=== PATIENT | male | born 1960 | race Caucasian/White ===

== ENCOUNTER 2017-09-14 05:21 | Emergency (ER) | payer MEDICARE, MEDICAID ==
[~2017-09-14] VITALS: Ht 190.5 cm; Wt 68.1 kg
[~2017-09-14 05:21] MED LIST: LEVO112T52 PO; LIDO20SO TOP; LISI10TA4 PO; MYCO360T PO; OMEP-84 PO; PER10325T PO; PHEN30TA41 PO; TACR1CAP2 PO
[2017-09-14] MEDS ORDERED: HYDROcodone/acetaminophen 10/325mg tab PO STA (05:55)
[2017-09-14] MEDS ORDERED: morphine 4 MG/ML inj SYRINge IM ONE (06:35)
[2017-09-14] MEDS ORDERED: HYDROmorphone 1 mg/ml syringe IM ONE ×2 (06:35→07:50)
[2017-09-14 09:59] LABS: BASOPHILS % (AUTO) 0.4 % (0-1); EOSINOPHILS % (AUTO) 0.7 % (0-6); HEMATOCRIT 40.2 % (42.0-52.0); HEMOGLOBIN 13.8 g/dl (14.0-17.9); LYMPHOCYTES # (AUTO) 1.2 X10'3 (1.1-4.8); LYMPHOCYTES % (AUTO) 38.2 % (21-51); MEAN CORPUSCULAR HEMOGLOBIN 32.7 PG (27.0-31.0); MEAN CORPUSCULAR HGB CONC 34.3 % (33.0-36.5); MEAN CORPUSCULAR VOLUME 95.3 FL (78-98); MEAN PLATELET VOLUME 7.7 FL (7.4-10.4); MONOCYTES # (AUTO) 0.3 X10'3 (0-0.9); NEUTROPHILS # (AUTO) 1.5 X10'3 (1.8-7.7); NEUTROPHILS % (AUTO) 49.7 % (42-75); PLATELET COUNT 69 X10'3 (140-440); RED BLOOD COUNT 4.22 X10'6 (4.70-6.10); RED CELL DISTRIBUTION WIDTH 14.8 % (11.5-14.5); WHITE BLOOD COUNT 3.1 X10'3 (4.5-11.0)
[2017-09-14 10:00] LABS: ALANINE AMINOTRANSFERASE 23 U/L (12-78); ALBUMIN 3.9 G/DL (3.4-5.0); ALBUMIN/GLOBULIN RATIO 1.7 (1.1-1.5); ALKALINE PHOSPHATASE 49 IU/L (46-116); ANION GAP 6 (8-16); ASPARTATE AMINO TRANSFERASE 18 U/L (10-37); BILIRUBIN,TOTAL 0.8 MG/DL (0.1-1.0); BLOOD UREA NITROGEN 16 MG/DL (7-18); BUN/CREATININE RATIO 15.8 (5.4-32.0); CALCIUM 8.4 MG/DL (8.5-10.1); CHLORIDE 98 MMOL/L (99-107); CREATININE 1.01 MG/DL (0.60-1.10); GLUCOSE 89 MG/DL (70-104); POTASSIUM 4.2 MMOL/L (3.5-5.1); SODIUM 131 MMOL/L (135-145); TOTAL CARBON DIOXIDE 26.8 MMOL/L (24-32); TOTAL PROTEIN 6.2 G/DL (6.4-8.2); eGFR 76 ML/MIN
[2017-09-14] MEDS ORDERED: PRED5TAB PO (10:05)
[2017-09-14] MEDS ORDERED: tacrolimus anhydrous 1mg capsule PO SCH (10:15)
[2017-09-14] MEDS ORDERED: phenobarbital 30mg tablet PO ONE (10:15)
[2017-09-14] MEDS ORDERED: HYDROmorphone 1 mg/ml syringe IV ONE ×3 (11:25→18:05)
[2017-09-14] MEDS ORDERED: HYDROcodone/acetaminophen 10/325mg tab PO ONE (14:00)
[2017-09-14 18:09] VITALS: BP 179/71
== END 2017-09-14 19:00 | disposition short-term general hospital (02) ==
LOC: ER 05:21
DX: S82.832A Other fracture of upper and lower end of left fibula, initial encounter for closed fracture (principal); S82.392A Other fracture of lower end of left tibia, initial encounter for closed fracture; I48.91 Unspecified atrial fibrillation; E78.00 Pure hypercholesterolemia, unspecified; I10 Essential (primary) hypertension; J44.9 Chronic obstructive pulmonary disease, unspecified; K21.9 Gastro-esophageal reflux disease without esophagitis; E11.9 Type 2 diabetes mellitus without complications; G89.29 Other chronic pain; M81.0 Age-related osteoporosis without current pathological fracture; Z98.890 Other specified postprocedural states; Z88.5 Allergy status to narcotic agent; Z79.899 Other long term (current) drug therapy; Z85.9 Personal history of malignant neoplasm, unspecified; W05.0XXA Fall from non-moving wheelchair, initial encounter; Y93.89 Activity, other specified; Y92.89 Other specified places as the place of occurrence of the external cause; Y99.8 Other external cause status
CPT/HCPCS: 29515; 36415; 73590; 80053; 85025; 96372; 96374; 96376; 99285; A6257; J1170; J7507

== ENCOUNTER 2018-02-23 14:45 | Emergency (ER) | payer MEDICARE, MEDICAID ==
[~2018-02-23] VITALS: Ht 190.5 cm; Wt 65.0 kg
[~2018-02-23 14:45] MED LIST changes: -LIDO20SO TOP; -PER10325T PO; +PRED5TAB PO
[2018-02-23 14:48] VITALS: BP 167/80
[2018-02-23] MEDS ORDERED: morphine 4 MG/ML inj SYRINge IM ONE (16:00)
== END 2018-02-23 16:51 | disposition home or self-care (01) ==
LOC: ER 14:46
DX: M25.552 Pain in left hip (principal); I48.91 Unspecified atrial fibrillation; E78.00 Pure hypercholesterolemia, unspecified; I10 Essential (primary) hypertension; J44.9 Chronic obstructive pulmonary disease, unspecified; K21.9 Gastro-esophageal reflux disease without esophagitis; E11.9 Type 2 diabetes mellitus without complications; G89.29 Other chronic pain; M81.0 Age-related osteoporosis without current pathological fracture; Z98.890 Other specified postprocedural states; Z79.899 Other long term (current) drug therapy; W05.0XXA Fall from non-moving wheelchair, initial encounter; Y93.89 Activity, other specified; Y92.89 Other specified places as the place of occurrence of the external cause; Y99.8 Other external cause status
CPT/HCPCS: 73502; 73551; 96372; 99284; J2270

== ENCOUNTER 2018-03-17 12:23 | Emergency (ER) | payer MEDICARE, MEDICAID ==
[~2018-03-17] VITALS: Ht 190.5 cm; Wt 61.0 kg
[2018-03-17 12:30] VITALS: BP 139/78
[2018-03-17] MEDS ORDERED: normal saline 1000ML IV soln IVB ONE (12:35)
== END 2018-03-17 18:00 | disposition left against medical advice (07) ==
LOC: ER 12:23
DX: R32 Unspecified urinary incontinence (principal); R25.2 Cramp and spasm; R35.0 Frequency of micturition; I10 Essential (primary) hypertension; I48.91 Unspecified atrial fibrillation; E11.9 Type 2 diabetes mellitus without complications; E78.00 Pure hypercholesterolemia, unspecified; J44.9 Chronic obstructive pulmonary disease, unspecified; K21.9 Gastro-esophageal reflux disease without esophagitis; G89.29 Other chronic pain; M81.0 Age-related osteoporosis without current pathological fracture; E07.9 Disorder of thyroid, unspecified; Z79.899 Other long term (current) drug therapy; Z87.440 Personal history of urinary (tract) infections; Z87.19 Personal history of other diseases of the digestive system; Z94.0 Kidney transplant status; Z94.83 Pancreas transplant status; Z98.890 Other specified postprocedural states
CPT/HCPCS: 99281; J7030; 99283

== ENCOUNTER 2018-04-13 13:50 | Emergency (ER) | payer MEDICARE, MEDICAID ==
[~2018-04-13] VITALS: Ht 190.5 cm; Wt 73.0 kg
[2018-04-13] MEDS ORDERED: normal saline 1000ML IV soln IVB STA (14:06)
--- NOTE | 2018-04-13 14:09 | NUR ---
NOTIFIED DR TRUJILLO PT REPORTS INCREASED WORK OF BREATHING, UNABLE TO SWALLOW LIQUIDS. PT CURRENTLY ABLE TO SWALLOW SALIVA. AIRWAY IS PATENT, VITALS ARE STABLE. PT SPO2 99%. PROVIDER INSTRUCTED NO MEDICATIONS GIVEN BY EMS. NO ORDERS GIVEN BY DR TRUJILLO.
[2018-04-13] MEDS ORDERED: diphenhydrAMINE 50 mg/ml inj IV ONE (14:10)
[2018-04-13] MEDS ORDERED: methylPREDNISolone sod succ 125mg/2ml vial IV ONE (14:10)
[2018-04-13] MEDS ORDERED: famotidine/PF 10 mg/ml inj IV ONE (14:10)
[2018-04-13] MEDS ORDERED: morphine 4 MG/ML inj SYRINge IV ONE ×3 (14:25→16:20)
[2018-04-13] MEDS ORDERED: ondansetron/PF 4mg/2ml inj IV ONE (14:25)
[2018-04-13 15:05] LABS: BASOPHILS % (AUTO) 0.3 % (0-1); EOSINOPHILS % (AUTO) 0.8 % (0-6); HEMATOCRIT 42.3 % (42.0-52.0); HEMOGLOBIN 13.9 g/dl (14.0-17.9); LYMPHOCYTES % (AUTO) 36.2 % (21-51); MEAN CORPUSCULAR HGB CONC 32.9 g/dL (33.0-36.5); MEAN CORPUSCULAR VOLUME 91.1 FL (78-98); MEAN PLATELET VOLUME 7.8 FL (7.4-10.4); MONOCYTES # (AUTO) 0.3 X10'3 (0-0.9); MONOCYTES % (AUTO) 9.8 % (2-12); NEUTROPHILS # (AUTO) 1.4 X10'3 (1.8-7.7); NEUTROPHILS % (AUTO) 52.9 % (42-75); PLATELET COUNT 102 X10'3 (140-440); RED BLOOD COUNT 4.64 X10'6 (4.70-6.10); RED CELL DISTRIBUTION WIDTH 19.4 % (11.5-14.5); WHITE BLOOD COUNT 2.7 X10'3 (4.5-11.0)
[2018-04-13 15:19] LABS: ALANINE AMINOTRANSFERASE 22 U/L (12-78); ALBUMIN 3.7 G/DL (3.4-5.0); ALBUMIN/GLOBULIN RATIO 1.3 (1.1-1.5); ALKALINE PHOSPHATASE 75 IU/L (46-116); ANION GAP 9 (8-16); ASPARTATE AMINO TRANSFERASE 20 U/L (10-37); BILIRUBIN,TOTAL 0.5 MG/DL (0.1-1.0); BLOOD UREA NITROGEN 7 MG/DL (7-18); BUN/CREATININE RATIO 12.3 (5.4-32.0); CALCIUM 8.9 MG/DL (8.5-10.1); CHLORIDE 102 MMOL/L (99-107); CREATININE 0.57 MG/DL (0.60-1.10); GLUCOSE 102 MG/DL (70-104); POTASSIUM 4.3 MMOL/L (3.5-5.1); SODIUM 135 MMOL/L (135-145); TOTAL CARBON DIOXIDE 23.6 MMOL/L (24-32); TOTAL PROTEIN 6.6 G/DL (6.4-8.2); eGFR > 90 ML/MIN
[2018-04-13 15:24] LABS: INR 1.1 INR; PROTHROMBIN TIME 10.8 SECONDS (9.0-12.0)
[2018-04-13] MEDS ORDERED: iohexol 350MG/ML 100ml bottle IV ONE (15:43)
[2018-04-13 15:45] LABS: TOTAL CELLS COUNTED 100
[2018-04-13 15:46] LABS: ANISOCYTOSIS 1+; PLATELET ESTIMATE DECREASED
--- NOTE | 2018-04-13 15:49 | NUR ---
UPDATED PT VITAL SIGNS, PT REPORTS 7/10 PAIN. PT GOING TO CT PER ORDERS NOW. NOTIFIED DR TRUJILLO OF PT PAIN LEVEL AND BP 208/119. DR TRUJILLO TO REVIEW AND DETERMINE ORDERS.
--- NOTE | 2018-04-13 16:14 | NUR ---
DR TRUJILLO INFORMED PT IS BACK FROM CT AND ASKING FOR MORE PAIN MEDICATION, RECEIVED VERBAL ORDER 4 MG IV MORPHINE ONCE NOW.
--- NOTE | 2018-04-13 16:23 | NUR ---
MEDICATED PT WITH PAIN MEDICATIONS PER ORDERS, DISGARDED URINE FROM URINAL AND PLACED BACK AT BEDSIDE. PT ASKING FOR SALT GARGLE OR SOMETHING TO HAVE WITH SORE THROAT WILL ASK DR TRUJILLO
--- NOTE | 2018-04-13 17:19 | NUR ---
[facility]: denied PT- closed for transfers Luis Carlos: denied PT- closed for transfers Currently working with MICHAEL pierre for transfer.
[2018-04-13] MEDS ORDERED: CefTRIAXone/D5W-Rocephin 1gm 50 ML IV ONE (17:25)
[2018-04-13] MEDS ORDERED: vancomycin/NS 1 GM ADD-VANTAGE 250 ML IV ONE (17:25)
--- NOTE | 2018-04-13 17:29 | NUR ---
[facility] DECLINED PT DUE TO NO BEDS.
--- NOTE | 2018-04-13 17:33 | NUR ---
[facility] declined PT- closed to anything besides stemi/stroke/ transplant.
[2018-04-13] MEDS ORDERED: labetalol 20mg/4ml (5mg/ml) syringe IV ONE ×2 (17:35→20:10)
[2018-04-13] MEDS ORDERED: HYDROmorphone inj. 0.5 MG/0.5 ML DISP.SYRIN IV ONE ×2 (17:55→20:00)
--- NOTE | 2018-04-13 19:21 | NUR ---
pt awaiting transport via ground - pear picker 2000
[2018-04-13 20:49] VITALS: BP 170/117
[2018-04-13] MEDS ORDERED: HYDROmorphone inj. 0.5 MG/0.5 ML DISP.SYRIN IM ONE ×2 (20:55→21:00)
== END 2018-04-13 20:55 | disposition short-term general hospital (02) ==
LOC: ER 13:51
DX: J38.7 Other diseases of larynx (principal); I10 Essential (primary) hypertension; I48.91 Unspecified atrial fibrillation; E78.00 Pure hypercholesterolemia, unspecified; J44.9 Chronic obstructive pulmonary disease, unspecified; K21.9 Gastro-esophageal reflux disease without esophagitis; E11.9 Type 2 diabetes mellitus without complications; M81.0 Age-related osteoporosis without current pathological fracture; G89.29 Other chronic pain; Z94.0 Kidney transplant status; Z98.890 Other specified postprocedural states; Z87.891 Personal history of nicotine dependence; Z79.899 Other long term (current) drug therapy
CPT/HCPCS: 36415; 70491; 80053; 82948; 85025; 85610; 96365; 96366; 96367; 96372; 96375; 96376; 99291; J0696; J1170; J1200; J2270; J2405; J2930; J3370; J3490; J7030; Q9967

== ENCOUNTER 2018-09-10 12:04 | Observation (INO) | payer MEDICARE, MEDICAID ==
[~2018-09-10] VITALS: Ht 190.5 cm; Wt 52.3 kg
[2018-09-10] MEDS ORDERED: normal saline 1000ML IV soln IV ONE (12:15)
[2018-09-10 12:27] LABS: BASOPHILS % (AUTO) 0.3 % (0-1); EOSINOPHILS # (AUTO) 0.1 X10'3 (0-0.9); EOSINOPHILS % (AUTO) 1.8 % (0-6); HEMOGLOBIN 13.5 g/dl (14.0-17.9); LYMPHOCYTES # (AUTO) 1.1 X10'3 (1.1-4.8); LYMPHOCYTES % (AUTO) 25.9 % (21-51); MEAN CORPUSCULAR VOLUME 93.8 FL (78-98); MEAN PLATELET VOLUME 7.5 FL (7.4-10.4); MONOCYTES # (AUTO) 0.5 X10'3 (0-0.9); MONOCYTES % (AUTO) 11.8 % (2-12); NEUTROPHILS # (AUTO) 2.5 X10'3 (1.8-7.7); NEUTROPHILS % (AUTO) 60.2 % (42-75); PLATELET COUNT 93 X10'3 (140-440); RED BLOOD COUNT 4.37 X10'6 (4.70-6.10); RED CELL DISTRIBUTION WIDTH 16.3 % (11.5-14.5); WHITE BLOOD COUNT 4.1 X10'3 (4.5-11.0)
[2018-09-10 12:36] LABS: PARTIAL THROMBOPLASTIN TIME 41 SECONDS (22-32)
[2018-09-10 12:40] LABS: ALANINE AMINOTRANSFERASE 17 U/L (12-78); ALBUMIN 2.9 G/DL (3.4-5.0); ALKALINE PHOSPHATASE 89 IU/L (46-116); ANION GAP 11 (8-16); ASPARTATE AMINO TRANSFERASE 18 U/L (10-37); BILIRUBIN,TOTAL 0.7 MG/DL (0.1-1.0); BLOOD UREA NITROGEN 5 MG/DL (7-18); BUN/CREATININE RATIO 6.8 (5.4-32.0); CALCIUM 8.2 MG/DL (8.5-10.1); CHLORIDE 103 MMOL/L (99-107); CREATININE 0.73 MG/DL (0.60-1.10); ETHANOL < 0.010 GM/DL (0.0-0.010); GLUCOSE 96 MG/DL (70-104); POTASSIUM 4.4 MMOL/L (3.5-5.1); SODIUM 137 MMOL/L (135-145); TOTAL CARBON DIOXIDE 23.5 MMOL/L (24-32); TOTAL PROTEIN 5.8 G/DL (6.4-8.2); eGFR > 90 ML/MIN
[2018-09-10 12:42] LABS: LACTIC SEPSIS 1.4 MMOL/L (0.4-2.0)
[2018-09-10 13:11] LABS: CLARITY,URINE CLEAR (Clear); GLUCOSE, URINE NEGATIVE (Neg); KETONES,URINE 15 mg/dl (Neg); LEUKOCYTE ESTERASE ,URINE NEGATIVE (Neg); NITRITES, URINE NEGATIVE (Neg); OCCULT BLOOD,URINE NEGATIVE (Neg); PROTEIN,URINE NEGATIVE (Neg); UROBILINOGEN,URINE >=8.0 E.U/dL (0.2-1.0)
[2018-09-10 13:13] LABS: COLOR,URINE DARK YELLOW (Yellow); UA COLLECTION TYPE FOLEY CATH
--- NOTE | 2018-09-10 13:28 | NUR ---
EMS WAS UNABLE TO BRING PT'S MOTORIZED SKOOTER TO THE ED, THE SKOOTER IS AT [facility]. I CONTACTED [facility] ([phone]) AND THEY SAID THAT THE SKOOTER CHAIR IS SAFE AND THEY CAN STORE IT UNTIL PT CAN ARRANGE RADIO EQUIPMENT INSTALLER. PT IS UNABLE TO ARANGE RADIO EQUIPMENT INSTALLER AT THIS TIME BUT HE IS AWARE OF THE SKOOTERS LOCATION. [facility] IS OPEN UNTIL 3PM TODAY AND WILL BE CLOSED FOR THE WEEKEND. IF PT IS UNABLE TO HAVE IT PICKED UP TODAY HE WON'T BE ABLE TO GET IT UNTIL WEDNESDAY.
[2018-09-10 13:29] LABS: URINE AMPHETAMINE SCREEN NEGATIVE (Neg); URINE BARBITUATE SCREEN POSITIVE (Neg); URINE BENZODIAZEPINES SCREEN NEGATIVE (Neg); URINE CANNABINOID SCREEN POSITIVE (Neg); URINE COCAINE SCREEN NEGATIVE (Neg); URINE METHADONE SCREEN NEGATIVE (Neg); URINE OPIATE SCREEN POSITIVE (Neg); URINE PHENCYCLIDINE SCREEN NEGATIVE (Neg)
--- NOTE | 2018-09-10 13:31 | NUR ---
pt wheelchair is locked up at local [employer]. informed pt he can pick it up before 3pm today or on wednesday. pt arrived w/ hat, keys, coffee mug, glasses, pants, shoes, right prosthesis, and shirt.
[2018-09-10] MEDS ORDERED: normal saline 1000ml 1,000 ML IV SCH (13:38)
[2018-09-10] MEDS ORDERED: potassium CL 10mEq/100ml bag 100 ML IV PRN ×2 (13:40)
[2018-09-10] MEDS ORDERED: magnesium hydroxide 30ml (MOM) UD suspension PO PRN (13:40)
[2018-09-10] MEDS ORDERED: ondansetron/PF 4mg/2ml inj IV PRN (13:40)
[2018-09-10] MEDS ORDERED: HYDROcodone/acetaminophen 5mg/325mg tablet PO PRN (13:40)
[2018-09-10] MEDS: K and/or MAG REPLACEMENT MC SCH (13:40)
[2018-09-10] MEDS ORDERED: magnesium 4gm in 100ml NS 100 ML IV PRN (13:40)
[2018-09-10] MEDS ORDERED: magnesium 2GM in 50ml NS 50 ML IV PRN (13:40)
[2018-09-10] MEDS ORDERED: mag hydrox/Alum hydrox/simeth 30ml oral suspension PO PRN (13:40)
[2018-09-10] MEDS ORDERED: potassium Cl 20 mEq SR tablet PO PRN ×2 (13:40)
[2018-09-10] MEDS ORDERED: acetaminophen 325mg tablet PO PRN ×2 (13:40)
[2018-09-10] MEDS ORDERED: magnesium Cl slow-release 64mg tablet PO PRN (13:40)
[2018-09-10 14:14] LABS: PHOSPHORUS 3.3 MG/DL (2.3-4.5)
--- NOTE | 2018-09-10 14:49 | NUR ---
RECEIVED REPORT FROM HANG MENDOZA
[2018-09-10] MEDS ORDERED: levoFLOXACIN-Levaquin 500mg/D5 100 ML IV ONE (15:05)
[2018-09-10] MEDS ORDERED: levoFLOXACIN-Levaquin 500mg/D5 100 ML IV SCH (15:10)
[2018-09-10] MEDS ORDERED: RISP1TAB3 PO (15:15)
[2018-09-10] MEDS ORDERED: BUDE10.22 INH (15:15)
[2018-09-10] MEDS ORDERED: TIZA2TAB5 PO (15:15)
[2018-09-10] MEDS ORDERED: OMEP40CA13 PO (15:15)
[2018-09-10] MEDS ORDERED: FLUO20CA39 PO (15:15)
[2018-09-10] MEDS ORDERED: LOPE2TAB25 PO (15:15)
[2018-09-10] MEDS ORDERED: ATOR40TA PO (15:15)
[2018-09-10] MEDS ORDERED: QUET-1 PO (15:15)
[2018-09-10 15:38] VITALS: BP 168/119
[2018-09-10] MEDS: HYDROcodone/acetaminophen 10/325mg tab PO PRN ×2 (17:05→21:28)
[2018-09-10] MEDS: predniSONE 5mg tablet PO SCH (17:05)
[2018-09-10 17:52] VITALS: BP 154/97
[2018-09-10 18:00] VITALS: BP 137/77
--- NOTE | 2018-09-10 18:45 | NUR ---
Problems reprioritized. Patient report given, questions answered & plan of care reviewed with Wilman MENDOZA.
[2018-09-10] MEDS ORDERED: non-formulary drug (Budesonide/Formoterol Fumarate (Symbicort 80-4.5 Mcg Inhaler) 2 PUFFS) INH SCH (20:00)
[2018-09-10] MEDS ORDERED: phenobarbital 30mg tablet PO SCH (20:00)
[2018-09-10] MEDS: budesonide 0.5mg/2ml UD nebule IH SCH (20:02)
[2018-09-10] MEDS: albuterol 2.5 MG/3 ML nebule NEB SCH (20:02)
[2018-09-10] MEDS ORDERED: temazepam 15mg capsule PO PRN (21:00)
[2018-09-10] MEDS ORDERED: lisinopril 10 MG tablet PO SCH (21:00)
[2018-09-10] MEDS: QUEtiapine 25mg tablet PO SCH (21:25)
[2018-09-10] MEDS: tacrolimus anhydrous 1mg capsule PO SCH (21:25)
[2018-09-10] MEDS: risperiDONE 0.5mg tablet PO SCH (21:25)
[2018-09-10] MEDS: mycophenolate sod SR tablet 180 MG TABLET.DR PO SCH (21:27)
[2018-09-10 22:00] VITALS: BP 145/81
[2018-09-11] MEDS: albuterol 2.5 MG/3 ML nebule NEB SCH ×2 (02:32→07:00)
[2018-09-11] MEDS: HYDROcodone/acetaminophen 10/325mg tab PO PRN ×2 (04:47→08:19)
[2018-09-11 05:50] LABS: BASOPHILS % (AUTO) 0.2 % (0-1); HEMATOCRIT 38.4 % (42.0-52.0); HEMOGLOBIN 12.8 g/dl (14.0-17.9); LYMPHOCYTES # (AUTO) 0.5 X10'3 (1.1-4.8); LYMPHOCYTES % (AUTO) 18.6 % (21-51); MEAN CORPUSCULAR HEMOGLOBIN 31.1 PG (27.0-31.0); MEAN CORPUSCULAR HGB CONC 33.4 g/dL (33.0-36.5); MEAN CORPUSCULAR VOLUME 93.2 FL (78-98); MEAN PLATELET VOLUME 7.5 FL (7.4-10.4); MONOCYTES # (AUTO) 0.2 X10'3 (0-0.9); MONOCYTES % (AUTO) 8.8 % (2-12); NEUTROPHILS # (AUTO) 1.9 X10'3 (1.8-7.7); NEUTROPHILS % (AUTO) 71.4 % (42-75); PLATELET COUNT 69 X10'3 (140-440); RED BLOOD COUNT 4.12 X10'6 (4.70-6.10); WHITE BLOOD COUNT 2.7 X10'3 (4.5-11.0)
[2018-09-11 06:00] VITALS: BP 142/75
[2018-09-11 06:18] LABS: ALANINE AMINOTRANSFERASE 15 U/L (12-78); ALBUMIN 2.7 G/DL (3.4-5.0); ALKALINE PHOSPHATASE 82 IU/L (46-116); ANION GAP 11 (8-16); ASPARTATE AMINO TRANSFERASE 20 U/L (10-37); BILIRUBIN,TOTAL 0.6 MG/DL (0.1-1.0); BLOOD UREA NITROGEN 4 MG/DL (7-18); BUN/CREATININE RATIO 5.8 (5.4-32.0); CHLORIDE 106 MMOL/L (99-107); CHOL/HDL RATIO 2.1 (0.00-4.99); CHOLESTEROL 111 MG/DL (0-200); CREATININE 0.69 MG/DL (0.60-1.10); GLUCOSE 107 MG/DL (70-104); HDL CHOLESTEROL 52 MG/DL (35-60); LDL CHOLESTEROL 44 MG/DL (50-100); MAGNESIUM 1.5 MG/DL (1.5-2.4); PHOSPHORUS 2.8 MG/DL (2.3-4.5); POTASSIUM 4.4 MMOL/L (3.5-5.1); SODIUM 141 MMOL/L (135-145); TOTAL CARBON DIOXIDE 24.5 MMOL/L (24-32); TOTAL PROTEIN 5.5 G/DL (6.4-8.2); TRIGLYCERIDES 70 MG/DL (20-135); eGFR > 90 ML/MIN
--- NOTE | 2018-09-11 06:39 | NUR ---
Received report from Wilman MENDOZA
[2018-09-11] MEDS: budesonide 0.5mg/2ml UD nebule IH SCH (07:00)
[2018-09-11] MEDS ORDERED: levoTHYROXINE 112mcg tablet PO SCH (07:00)
[2018-09-11 07:20] LABS: PLATELET ESTIMATE DECREASED; TOTAL CELLS COUNTED 100
[2018-09-11 07:21] LABS: BURR CELLS 1+; SCHISTOCYTES FEW
[2018-09-11] MEDS ORDERED: pantoprazole 40mg Tablet.DR PO SCH (07:30)
[2018-09-11] MEDS ORDERED: atorvastatin 20mg tablet PO SCH (08:00)
[2018-09-11] MEDS ORDERED: enoxaparin 40mg/0.4ml syringe SUBCUT SCH (08:00)
[2018-09-11] MEDS ORDERED: FLUoxetine 10mg capsule PO SCH (08:00)
[2018-09-11] MEDS: K and/or MAG REPLACEMENT MC SCH (08:00)
[2018-09-11] MEDS: mycophenolate sod SR tablet 180 MG TABLET.DR PO SCH (08:12)
[2018-09-11] MEDS: QUEtiapine 25mg tablet PO SCH (08:13)
[2018-09-11] MEDS: risperiDONE 0.5mg tablet PO SCH (08:13)
[2018-09-11] MEDS: tacrolimus anhydrous 1mg capsule PO SCH (08:13)
[2018-09-11] MEDS: predniSONE 5mg tablet PO SCH (08:14)
[2018-09-11] MEDS ORDERED: LEVO500T2 PO (09:53)
[2018-09-11] MEDS ORDERED: LEVO100T PO (09:53)
[2018-09-11] MEDS ORDERED: HYDR-4353 PO (09:54)
--- NOTE | 2018-09-11 12:38 | NUR ---
patient was discharged. IV and tele was removed from patient. Patient was alert and oriented at time of discharge. Patient prescrption of norco was given to to him in his discharge. Paper work
== END 2018-09-11 12:38 | disposition home or self-care (01) ==
LOC: ER 12:05 → ORTHO 4S 15:31
PROVIDERS: ADMIT Family Medicine; ATTEND Family Medicine
DX: R55 Syncope and collapse (principal); G93.41 Metabolic encephalopathy; G40.409 Other generalized epilepsy and epileptic syndromes, not intractable, without status epilepticus; C73 Malignant neoplasm of thyroid gland; C43.9 Malignant melanoma of skin, unspecified; E89.0 Postprocedural hypothyroidism; J44.9 Chronic obstructive pulmonary disease, unspecified; E11.51 Type 2 diabetes mellitus with diabetic peripheral angiopathy without gangrene; I25.10 Atherosclerotic heart disease of native coronary artery without angina pectoris; K21.9 Gastro-esophageal reflux disease without esophagitis; G89.29 Other chronic pain; Z86.14 Personal history of Methicillin resistant Staphylococcus aureus infection; Z94.0 Kidney transplant status
CPT/HCPCS: 36415; 70450; 71045; 80053; 80061; 80184; 80305; 80320; 81003; 82140; 83605; 83735; 84100; 84145; 84443; 85025; 85610; 85730; 87040; 87081; 93306; 94640; 94760; 96361; 96365; 96366; 97110; 97162; 97530; 99284; G0378; J1956; J7507; J7512; J7518; 93005; J1650; J7626

== ENCOUNTER 2018-09-14 14:09 | Inpatient (IN) | payer MEDICARE, MEDICAID ==
[~2018-09-14] VITALS: Ht 172.7 cm; Wt 59.1 kg
[~2018-09-14 14:09] MED LIST changes: +ATOR40TA PO; +BUDE10.22 INH; +FLUO20CA39 PO; +HYDR-4353 PO; +LEVO100T PO; +LEVO500T2 PO; +LOPE2TAB25 PO; +OMEP40CA13 PO; +QUET-1 PO; +RISP1TAB3 PO; +TIZA2TAB5 PO
[2018-09-14] MEDS ORDERED: normal saline 1000ML IV soln IVB ONE (14:30)
[2018-09-14 14:46] LABS: BASOPHILS % (AUTO) 0.5 % (0-1); EOSINOPHILS % (AUTO) 1.1 % (0-6); HEMATOCRIT 38.1 % (42.0-52.0); HEMOGLOBIN 12.6 g/dl (14.0-17.9); LYMPHOCYTES # (AUTO) 0.9 X10'3 (1.1-4.8); LYMPHOCYTES % (AUTO) 27.2 % (21-51); MEAN CORPUSCULAR HEMOGLOBIN 30.6 PG (27.0-31.0); MEAN CORPUSCULAR HGB CONC 33.1 g/dL (33.0-36.5); MEAN CORPUSCULAR VOLUME 92.3 FL (78-98); MEAN PLATELET VOLUME 7.1 FL (7.4-10.4); MONOCYTES # (AUTO) 0.2 X10'3 (0-0.9); MONOCYTES % (AUTO) 7.1 % (2-12); NEUTROPHILS % (AUTO) 64.1 % (42-75); PLATELET COUNT 103 X10'3 (140-440); RED BLOOD COUNT 4.13 X10'6 (4.70-6.10); RED CELL DISTRIBUTION WIDTH 16.8 % (11.5-14.5); WHITE BLOOD COUNT 3.2 X10'3 (4.5-11.0)
[2018-09-14 15:01] LABS: ALANINE AMINOTRANSFERASE 17 U/L (12-78); ALBUMIN 2.7 G/DL (3.4-5.0); ALBUMIN/GLOBULIN RATIO 1.1 (1.1-1.5); ALKALINE PHOSPHATASE 71 IU/L (46-116); ANION GAP 10 (8-16); ASPARTATE AMINO TRANSFERASE 13 U/L (10-37); BILIRUBIN,TOTAL 0.4 MG/DL (0.1-1.0); BLOOD UREA NITROGEN 6 MG/DL (7-18); BUN/CREATININE RATIO 7.8 (5.4-32.0); CALCIUM 8.3 MG/DL (8.5-10.1); CHLORIDE 109 MMOL/L (99-107); CREATININE 0.77 MG/DL (0.60-1.10); GLUCOSE 111 MG/DL (70-104); POTASSIUM 4.7 MMOL/L (3.5-5.1); SODIUM 142 MMOL/L (135-145); TOTAL CARBON DIOXIDE 23.4 MMOL/L (24-32); TOTAL PROTEIN 5.2 G/DL (6.4-8.2); eGFR > 90 ML/MIN
[2018-09-14 15:04] LABS: TROPONIN I < 0.04 NG/ML (0.0-0.05)
[2018-09-14 16:07] LABS: ETHANOL < 0.010 GM/DL (0.0-0.010)
[2018-09-14 16:11] LABS: CLARITY,URINE CLEAR (Clear); COLOR,URINE YELLOW (Yellow); GLUCOSE, URINE NEGATIVE (Neg); KETONES,URINE NEGATIVE (Neg); LEUKOCYTE ESTERASE ,URINE NEGATIVE (Neg); NITRITES, URINE NEGATIVE (Neg); OCCULT BLOOD,URINE NEGATIVE (Neg); PROTEIN,URINE NEGATIVE (Neg); UA COLLECTION TYPE STRAIGHT CATH
[2018-09-14 16:14] LABS: URINE AMPHETAMINE SCREEN NEGATIVE (Neg); URINE BARBITUATE SCREEN POSITIVE (Neg); URINE BENZODIAZEPINES SCREEN NEGATIVE (Neg); URINE CANNABINOID SCREEN POSITIVE (Neg); URINE COCAINE SCREEN NEGATIVE (Neg); URINE METHADONE SCREEN NEGATIVE (Neg); URINE OPIATE SCREEN POSITIVE (Neg); URINE PHENCYCLIDINE SCREEN NEGATIVE (Neg)
[2018-09-14] MEDS ORDERED: FLUO10CA51 PO (16:39)
[2018-09-14] MEDS ORDERED: ATOR20TA10 PO (16:39)
[2018-09-14] MEDS ORDERED: mag hydrox/Alum hydrox/simeth 30ml oral suspension PO PRN (16:40)
[2018-09-14] MEDS ORDERED: morphine 2 MG/ML inj. syringe IV PRN ×2 (16:40)
[2018-09-14] MEDS ORDERED: magnesium hydroxide 30ml (MOM) UD suspension PO PRN (16:40)
[2018-09-14] MEDS ORDERED: ondansetron/PF 4mg/2ml inj IV PRN (16:40)
[2018-09-14] MEDS ORDERED: acetaminophen 325mg tablet PO PRN ×2 (16:40)
[2018-09-14] MEDS ORDERED: HYDROcodone/acetaminophen 5mg/325mg tablet PO PRN (16:40)
[2018-09-14] MEDS ORDERED: HYDROcodone/acetaminophen 10/325mg tab PO PRN (16:40)
[2018-09-14] MEDS ORDERED: LEVO112T5 PO (16:42)
[2018-09-14] MEDS ORDERED: LISI-604 PO (16:42)
[2018-09-14] MEDS ORDERED: TIZA4TAB11 PO (16:45)
[2018-09-14] MEDS ORDERED: QUET25TA PO (16:45)
[2018-09-14] MEDS ORDERED: PHEN32.46 PO (16:45)
[2018-09-14] MEDS ORDERED: LORA10TA7 PO (16:47)
[2018-09-14] MEDS ORDERED: TRAZ-251 PO (16:47)
[2018-09-14] MEDS ORDERED: HYDR-4353 PO (16:48)
[2018-09-14] MEDS: normal saline 1000ml 1,000 ML IV SCH (16:54)
[2018-09-14] MEDS ORDERED: LOPERAMIDE HCL PO PRN (17:55)
[2018-09-14] MEDS ORDERED: loperamide 2mg capsule PO PRN (18:05)
[2018-09-14 19:01] LABS: HEMOGLOBIN A1C 5.1 % (4.5-6.2)
--- NOTE | 2018-09-14 19:40 | NUR ---
Pt sitting up in [facility], eating dinner tray as ordered. A&Ox3. Making phone calls and responding approp.
[2018-09-14] MEDS: pantoprazole 40mg Tablet.DR PO SCH (19:53)
[2018-09-14] MEDS: tacrolimus anhydrous 1mg capsule PO SCH (19:56)
[2018-09-14] MEDS: mycophenolate sod SR tablet 180 MG TABLET.DR PO SCH (19:56)
[2018-09-14] MEDS ORDERED: MYCOPHENOLATE SODIUM 360 MG PO SCH (20:00)
[2018-09-14] MEDS ORDERED: non-formulary drug (Omeprazole* (Prilosec*) 20 MG) PO SCH (20:00)
[2018-09-14] MEDS ORDERED: non-formulary drug (Budesonide/Formoterol Fumarate (Symbicort 80-4.5 Mcg Inhaler) 2 PUFFS) INH SCH (20:00)
[2018-09-14] MEDS: albuterol 2.5 MG/3 ML nebule NEB SCH (23:49)
[2018-09-14] MEDS: budesonide 0.5mg/2ml UD nebule IH SCH (23:50)
--- NOTE | 2018-09-15 00:06 | NUR ---
PT HAS PO MEDICATION DUE - HE IS CURRENTLY SLEEPING BUT WE WILL BE WAKING PATIENT SOON TO TRANSFER HIM TO A HOSPITAL BED AND TO DO ORTHOSTATIC VITALS. PT WILL BE MEDICATED AT THIS TIME.
[2018-09-15] MEDS: tizanidine 4mg tablet PO SCH ×3 (00:53→15:48)
--- NOTE | 2018-09-15 01:08 | NUR ---
pt placed on hospital bed for comfort - pictures taken of bilateral knees and placed on chart. skin is red but intact to the left knee. the right knee has a fluid filled blister present with clear/yellow discharge (non-purulent) - pt also has bandaged wound on left arm which he states is from a dog bite. dressing was removed and photos taken of this as well. new dressing applied. pt has a wound to right elbow which was also photographed and dressed.
--- NOTE | 2018-09-15 01:32 | NUR ---
CALL PLACED TO MD FERRO RE: [facility] ORTHOSTATICS - MAINTAINENCE FLUIDS ARE INFUSING AND PT HAD A BLOUS EARLIER. - HE REQUESTS THAT THE ORDER FOR ORTHOSTATICS BE CANCELLED.
--- NOTE | 2018-09-15 03:04 | NUR ---
PT RESTING COMFORTABLY ON HOSPITAL BED. NO CHANGES IN CONDITION. WILL CONTINUE TO MONITOR. PT HAS CALL LIGHT IN REACH.
[2018-09-15] MEDS: normal saline 1000ml 1,000 ML IV SCH ×2 (03:21→15:24)
--- NOTE | 2018-09-15 03:24 | NUR ---
PT SLEEPING ON BACK peacefully .IV SITE PATENT NO COMPLAINTS OF DISCOMFORT
--- NOTE | 2018-09-15 05:15 | NUR ---
PT AWAKE AND C\O PAIN - PT GIVEN NORCO 10 WELL SOME APPLE JUICE. PT DENIES OTHER NEEDS AT THIS TIME.
[2018-09-15 06:23] LABS: BASOPHILS % (AUTO) 0.4 % (0-1); EOSINOPHILS % (AUTO) 1.2 % (0-6); HEMATOCRIT 34.9 % (42.0-52.0); HEMOGLOBIN 11.7 g/dl (14.0-17.9); LYMPHOCYTES % (AUTO) 35.1 % (21-51); MEAN CORPUSCULAR HGB CONC 33.5 g/dL (33.0-36.5); MEAN CORPUSCULAR VOLUME 92.7 FL (78-98); MEAN PLATELET VOLUME 7.1 FL (7.4-10.4); MONOCYTES # (AUTO) 0.3 X10'3 (0-0.9); MONOCYTES % (AUTO) 9.5 % (2-12); NEUTROPHILS # (AUTO) 1.6 X10'3 (1.8-7.7); NEUTROPHILS % (AUTO) 53.8 % (42-75); PLATELET COUNT 87 X10'3 (140-440); RED BLOOD COUNT 3.77 X10'6 (4.70-6.10); RED CELL DISTRIBUTION WIDTH 16.8 % (11.5-14.5)
--- NOTE | 2018-09-15 06:53 | NUR ---
I have received patient report from Jeffery in the ED
[2018-09-15 07:21] LABS: ALANINE AMINOTRANSFERASE 14 U/L (12-78); ALBUMIN 2.3 G/DL (3.4-5.0); ALBUMIN/GLOBULIN RATIO 1.1 (1.1-1.5); ALKALINE PHOSPHATASE 61 IU/L (46-116); ANION GAP 11 (8-16); ASPARTATE AMINO TRANSFERASE 17 U/L (10-37); BILIRUBIN,TOTAL 0.4 MG/DL (0.1-1.0); BLOOD UREA NITROGEN 6 MG/DL (7-18); BUN/CREATININE RATIO 8.3 (5.4-32.0); CALCIUM 6.9 MG/DL (8.5-10.1); CHLORIDE 113 MMOL/L (99-107); CREATININE 0.72 MG/DL (0.60-1.10); GLUCOSE 112 MG/DL (70-104); POTASSIUM 3.9 MMOL/L (3.5-5.1); SODIUM 144 MMOL/L (135-145); TOTAL CARBON DIOXIDE 19.7 MMOL/L (24-32); TOTAL PROTEIN 4.4 G/DL (6.4-8.2); eGFR > 90 ML/MIN
[2018-09-15] MEDS: budesonide 0.5mg/2ml UD nebule IH SCH ×2 (07:28→20:28)
[2018-09-15] MEDS: albuterol 2.5 MG/3 ML nebule NEB SCH ×4 (07:28→19:00)
[2018-09-15 07:30] VITALS: BP 165/88
[2018-09-15] MEDS ORDERED: non-formulary drug (Atorvastatin Calcium (Lipitor) 1 TAB) PO SCH (08:00)
[2018-09-15] MEDS ORDERED: traZODone 50mg tablet PO PRN (09:05)
[2018-09-15] MEDS ORDERED: HYDROcodone/acetaminophen 10/325mg tab PO PRN (09:05)
[2018-09-15] MEDS: levoTHYROXINE 112mcg tablet PO SCH (09:14)
[2018-09-15] MEDS: predniSONE 5mg tablet PO SCH (09:15)
[2018-09-15] MEDS: FLUoxetine 10mg capsule PO SCH (09:15)
[2018-09-15] MEDS: atorvastatin 20mg tablet PO SCH (09:15)
[2018-09-15] MEDS: pantoprazole 40mg Tablet.DR PO SCH ×2 (09:15→20:02)
[2018-09-15] MEDS: HYDROcodone/acetaminophen 10/325mg tab PO PRN ×4 (09:20→22:00)
[2018-09-15] MEDS: phenobarbital 30mg tablet PO SCH ×2 (09:28→20:03)
[2018-09-15 10:00] VITALS: BP 145/79
[2018-09-15] MEDS: risperiDONE 0.5mg tablet PO SCH ×2 (10:24→20:02)
[2018-09-15] MEDS: tacrolimus anhydrous 1mg capsule PO SCH ×2 (10:25→20:03)
[2018-09-15] MEDS: mycophenolate sod SR tablet 180 MG TABLET.DR PO SCH ×2 (10:25→20:03)
[2018-09-15 11:03] LABS: ANISOCYTOSIS 1+; PLATELET ESTIMATE DECREASED; TOTAL CELLS COUNTED 100
[2018-09-15 11:06] LABS: BURR CELLS FEW
--- NOTE | 2018-09-15 15:08 | NUR ---
DM consult: Pt A1C <7 and not appropriate for DM ed at this time. Addendum: 09/15/18 at [address] Amended: Links added.
[2018-09-15 18:00] VITALS: BP 184/105
--- NOTE | 2018-09-15 18:04 | NUR ---
Paged Dr. Lowe about high BP 184/110, waiting for call back.
--- NOTE | 2018-09-15 18:27 | NUR ---
Patient report given to Amanda Evans RN
[2018-09-15] MEDS ORDERED: phenobarbital 30mg tablet PO SCH (20:00)
[2018-09-15] MEDS ORDERED: risperiDONE 0.5mg tablet PO SCH (20:00)
--- NOTE | 2018-09-15 20:29 | NUR ---
PATIENT REFUSED 1900 SVN, RA 96%, DENIES SOB
[2018-09-15] MEDS ORDERED: QUEtiapine 25mg tablet PO SCH (21:00)
[2018-09-15 22:00] VITALS: BP 175/87
[2018-09-16] MEDS: HYDROcodone/acetaminophen 10/325mg tab PO PRN ×3 (02:22→09:52)
--- NOTE | 2018-09-16 05:41 | NUR ---
Called MD dupree increased BP. He stated to "give medication when it is due", that he "doesn't do PRN".
[2018-09-16 06:00] VITALS: BP 190/105
--- NOTE | 2018-09-16 06:17 | NUR ---
Problems reprioritized. Patient report given, questions answered & plan of care reviewed with KELLY Coppola.
[2018-09-16 06:18] LABS: BASOPHILS % (AUTO) 0.3 % (0-1); EOSINOPHILS % (AUTO) 0.8 % (0-6); HEMATOCRIT 33.2 % (42.0-52.0); HEMOGLOBIN 11.3 g/dl (14.0-17.9); LYMPHOCYTES # (AUTO) 1.1 X10'3 (1.1-4.8); MEAN CORPUSCULAR HGB CONC 33.9 g/dL (33.0-36.5); MEAN CORPUSCULAR VOLUME 91.4 FL (78-98); MEAN PLATELET VOLUME 7.2 FL (7.4-10.4); MONOCYTES # (AUTO) 0.3 X10'3 (0-0.9); MONOCYTES % (AUTO) 9.2 % (2-12); NEUTROPHILS # (AUTO) 1.4 X10'3 (1.8-7.7); NEUTROPHILS % (AUTO) 50.7 % (42-75); PLATELET COUNT 82 X10'3 (140-440); RED BLOOD COUNT 3.64 X10'6 (4.70-6.10); RED CELL DISTRIBUTION WIDTH 16.4 % (11.5-14.5); WHITE BLOOD COUNT 2.8 X10'3 (4.5-11.0)
--- NOTE | 2018-09-16 06:20 | NUR ---
Patient in room ORTHO 4006. I have received report from LIBRA MENDOZA and had the opportunity to ask questions and assume patient care.
[2018-09-16 06:28] LABS: ALANINE AMINOTRANSFERASE 16 U/L (12-78); ALBUMIN 2.5 G/DL (3.4-5.0); ALBUMIN/GLOBULIN RATIO 1.2 (1.1-1.5); ALKALINE PHOSPHATASE 59 IU/L (46-116); ANION GAP 5 (8-16); ASPARTATE AMINO TRANSFERASE 18 U/L (10-37); BILIRUBIN,TOTAL 0.4 MG/DL (0.1-1.0); BLOOD UREA NITROGEN 6 MG/DL (7-18); BUN/CREATININE RATIO 6.6 (5.4-32.0); CALCIUM 7.6 MG/DL (8.5-10.1); CHLORIDE 112 MMOL/L (99-107); CREATININE 0.91 MG/DL (0.60-1.10); GLUCOSE 85 MG/DL (70-104); POTASSIUM 4.2 MMOL/L (3.5-5.1); SODIUM 141 MMOL/L (135-145); TOTAL PROTEIN 4.6 G/DL (6.4-8.2); eGFR 85 ML/MIN
[2018-09-16] MEDS: albuterol 2.5 MG/3 ML nebule NEB SCH ×3 (07:00→11:24)
[2018-09-16 07:21] LABS: ANISOCYTOSIS 1+; PLATELET ESTIMATE DECREASED; TOTAL CELLS COUNTED 100
[2018-09-16 07:22] LABS: BURR CELLS FEW
[2018-09-16] MEDS: atorvastatin 20mg tablet PO SCH (07:35)
[2018-09-16] MEDS: FLUoxetine 10mg capsule PO SCH (07:36)
[2018-09-16] MEDS: risperiDONE 0.5mg tablet PO SCH (07:36)
[2018-09-16] MEDS: pantoprazole 40mg Tablet.DR PO SCH (07:36)
[2018-09-16] MEDS: mycophenolate sod SR tablet 180 MG TABLET.DR PO SCH (07:36)
[2018-09-16] MEDS: levoTHYROXINE 112mcg tablet PO SCH (07:36)
[2018-09-16] MEDS: predniSONE 5mg tablet PO SCH (07:36)
[2018-09-16] MEDS: tacrolimus anhydrous 1mg capsule PO SCH (07:36)
[2018-09-16] MEDS: phenobarbital 30mg tablet PO SCH (07:36)
[2018-09-16] MEDS: tizanidine 4mg tablet PO SCH ×2 (07:37)
[2018-09-16] MEDS ORDERED: loratadine 10mg tablet PO SCH (08:00)
[2018-09-16] MEDS ORDERED: lisinopril 5mg tablet PO SCH (08:00)
[2018-09-16] MEDS: budesonide 0.5mg/2ml UD nebule IH SCH (08:07)
[2018-09-16] MEDS: normal saline 1000ml 1,000 ML IV SCH ×2 (08:39)
[2018-09-16] MEDS ORDERED: HYDR-4353 PO (09:22)
[2018-09-16 10:00] VITALS: BP 141/88
--- NOTE | 2018-09-16 11:50 | NUR ---
PATIENT DISCHARGED SAFELY WITH FRIEND AND ALL BELONGINGS IN POSSESSION. PATIENT WAS GIVEN A TRIPLICATE FOR PAIN MEDICINE. ALL MEDICATIONS BROUGHT IN FROM PATIENT WERE RETURNED ON DISCHARGE. PATIENT VERBALIZES UNDERSTANDING OF DC INSTRUCTIONS. Addendum: 09/16/18 at 1313 by Abdon Reed RN FOUND CELL PHONE INDUCTION COORDINATION ENGINEER IN ROOM. LABELED AND STORED IN [facility] ROOM FOR REGISTRY RN TOMORROW.
== END 2018-09-16 12:45 | disposition home or self-care (01) | DRG 101 ==
LOC: ER 14:10 → ORTHO 4S 09-15 07:14 → CMPBEDREQ 09-15 07:28
PROVIDERS: ADMIT Internal Medicine; ATTEND Internal Medicine
PROC: 4A10X4Z Monitoring of Central Nervous Electrical Activity, External Approach (ICD-10-PCS; principal; 2018-09-15)
DX: G40.901 Epilepsy, unspecified, not intractable, with status epilepticus (principal); Z94.0 Kidney transplant status; Z94.83 Pancreas transplant status; T67.5XXA Heat exhaustion, unspecified, initial encounter; I95.9 Hypotension, unspecified; E03.9 Hypothyroidism, unspecified; E78.00 Pure hypercholesterolemia, unspecified; E11.42 Type 2 diabetes mellitus with diabetic polyneuropathy; E78.5 Hyperlipidemia, unspecified; E86.0 Dehydration; I10 Essential (primary) hypertension; I25.10 Atherosclerotic heart disease of native coronary artery without angina pectoris; I48.91 Unspecified atrial fibrillation; J44.9 Chronic obstructive pulmonary disease, unspecified; K21.9 Gastro-esophageal reflux disease without esophagitis; M81.0 Age-related osteoporosis without current pathological fracture; R55 Syncope and collapse; X58.XXXA Exposure to other specified factors, initial encounter; B19.20 Unspecified viral hepatitis C without hepatic coma; D69.6 Thrombocytopenia, unspecified; F11.90 Opioid use, unspecified, uncomplicated; F15.90 Other stimulant use, unspecified, uncomplicated; F32.9 Major depressive disorder, single episode, unspecified; G89.29 Other chronic pain; M54.9 Dorsalgia, unspecified; Z83.3 Family history of diabetes mellitus; Z89.511 Acquired absence of right leg below knee; Z79.899 Other long term (current) drug therapy; Z87.891 Personal history of nicotine dependence; Y93.89 Activity, other specified; Y92.89 Other specified places as the place of occurrence of the external cause; Y99.8 Other external cause status
CPT/HCPCS: 36415; 71045; 80053; 80305; 80320; 81003; 83036; 83605; 83880; 84145; 84484; 85025; 87040; 87081; 92508; 92616; 93005; 94640; 94760; 95816; 96360; 97161; 97530; 99285; G0378; J2270; J7030; J7507; J7512; J7518; J7626

== ENCOUNTER 2018-09-22 11:32 | Inpatient (IN) | payer MEDICARE, MEDICAID ==
[~2018-09-22] VITALS: Ht 190.5 cm; Wt 68.0 kg
[~2018-09-22 11:32] MED LIST changes: +ATOR20TA10 PO; -ATOR40TA PO; +FLUO10CA51 PO; -FLUO20CA39 PO; -LEVO100T PO; +LEVO112T5 PO; -LEVO112T52 PO; -LEVO500T2 PO; +LISI-604 PO; -LISI10TA4 PO; -OMEP40CA13 PO; -PHEN30TA41 PO; +PHEN32.46 PO; -QUET-1 PO; +QUET25TA PO; -TIZA2TAB5 PO; +TIZA4TAB11 PO; +TRAZ-251 PO
--- NOTE | 2018-09-22 11:40 | NUR ---
pt came in with $25.00 demarco
[2018-09-22] MEDS ORDERED: vancomycin/NS 1 GM ADD-VANTAGE 250 ML IV ONE (12:35)
[2018-09-22] MEDS ORDERED: piperacillin/tazo 3.375gm/50ml 50 ML IV ONE (12:35)
[2018-09-22] MEDS ORDERED: normal saline 1000ML IV soln IVB ONE (12:40)
[2018-09-22] MEDS ORDERED: fentaNYL/PF 50MCG/1 ML 2ML syringe IV ONE (12:50)
[2018-09-22 12:51] LABS: BASOPHILS % (AUTO) 0.7 % (0-1); EOSINOPHILS % (AUTO) 0.3 % (0-6); HEMATOCRIT 35.7 % (42.0-52.0); LYMPHOCYTES # (AUTO) 0.7 X10'3 (1.1-4.8); LYMPHOCYTES % (AUTO) 21.2 % (21-51); MEAN CORPUSCULAR HGB CONC 33.6 g/dL (33.0-36.5); MEAN CORPUSCULAR VOLUME 92.2 FL (78-98); MEAN PLATELET VOLUME 7.4 FL (7.4-10.4); MONOCYTES # (AUTO) 0.5 X10'3 (0-0.9); MONOCYTES % (AUTO) 15.4 % (2-12); NEUTROPHILS # (AUTO) 2.1 X10'3 (1.8-7.7); NEUTROPHILS % (AUTO) 62.4 % (42-75); PLATELET COUNT 115 X10'3 (140-440); RED BLOOD COUNT 3.87 X10'6 (4.70-6.10); RED CELL DISTRIBUTION WIDTH 16.8 % (11.5-14.5); WHITE BLOOD COUNT 3.4 X10'3 (4.5-11.0)
[2018-09-22 13:06] LABS: ALANINE AMINOTRANSFERASE 21 U/L (12-78); ALBUMIN 2.5 G/DL (3.4-5.0); ALBUMIN/GLOBULIN RATIO 0.8 (1.1-1.5); ALKALINE PHOSPHATASE 66 IU/L (46-116); ANION GAP 9 (8-16); ASPARTATE AMINO TRANSFERASE 26 U/L (10-37); BILIRUBIN,TOTAL 0.7 MG/DL (0.1-1.0); BLOOD UREA NITROGEN 9 MG/DL (7-18); BUN/CREATININE RATIO 14.5 (5.4-32.0); CALCIUM 8.1 MG/DL (8.5-10.1); CHLORIDE 104 MMOL/L (99-107); CREATININE 0.62 MG/DL (0.60-1.10); GLUCOSE 97 MG/DL (70-104); MAGNESIUM 1.5 MG/DL (1.5-2.4); PARTIAL THROMBOPLASTIN TIME 38 SECONDS (22-32); POTASSIUM 3.7 MMOL/L (3.5-5.1); SODIUM 138 MMOL/L (135-145); TOTAL CARBON DIOXIDE 25.3 MMOL/L (24-32); TOTAL PROTEIN 5.5 G/DL (6.4-8.2); eGFR > 90 ML/MIN
[2018-09-22] MEDS ORDERED: morphine 4 MG/ML inj SYRINge IV ONE (13:40)
[2018-09-22] MEDS ORDERED: acetaminophen 325mg tablet PO PRN (14:20)
[2018-09-22] MEDS ORDERED: mag hydrox/Alum hydrox/simeth 30ml oral suspension PO PRN (14:20)
[2018-09-22] MEDS ORDERED: ondansetron/PF 4mg/2ml inj IV PRN (14:20)
[2018-09-22] MEDS ORDERED: magnesium hydroxide 30ml (MOM) UD suspension PO PRN (14:20)
[2018-09-22] MEDS: HYDROcodone/acetaminophen 10/325mg tab PO PRN ×3 (15:13→23:42)
--- NOTE | 2018-09-22 15:15 | NUR ---
Pt in ER resting, awaiting inpatient transfer. He complains of continued pain at R BKA 09/17, given 10mg norco at this time.
[2018-09-22 15:33] LABS: CLARITY,URINE CLOUDY (Clear); COLOR,URINE YELLOW (Yellow); GLUCOSE, URINE NEGATIVE (Neg); KETONES,URINE TRACE mg/dl (Neg); LEUKOCYTE ESTERASE ,URINE LARGE (Neg); NITRITES, URINE NEGATIVE (Neg); OCCULT BLOOD,URINE TRACE-INTACT (Neg); PH,URINE >=9.0 (4.8-8.0); PROTEIN,URINE 100 mg/dl (Neg)
[2018-09-22 15:36] LABS: UA COLLECTION TYPE VOIDED
[2018-09-22 15:38] LABS: BACTERIA,URINE 4+ /HPF (Neg); WBC,URINE TNTC /HPF (0-4)
[2018-09-22 15:39] LABS: SQUAMOUS EPITHELIAL CELL,UR FEW /LPF (FEW)
--- NOTE | 2018-09-22 15:53 | NUR ---
Patient in room . I have received report from KELLY Kelly in ED and had the opportunity to ask questions and assume patient care.
--- NOTE | 2018-09-22 16:15 | NUR ---
Pt arrived on the floor, tucked in , provided comfort measures, wound pics taken, skin check performed. Pt asking for pain medication and food. Inventory list of pt's belongings: Pt is wearing a silver chain necklace, a silver watch on his left wrist and a silver ring on the third finger of his right hand. Pt has a prosthetic right lower limb with a liner and two brown shoes. Pt has a galdamez button up shirt with a square pattern, maame shorts, a blue ball cap and one sock. Pt has a black cell phone with a galdamez phone sales support manager, a DL and two medical cards. Pt also has $25 in demarco. Two $10 bills and one $5 dollar bill. All belongings minus the prosthetic were placed in the bottom drawer of the bedside table. Pt has his cell phone and sales support manager on the tray table.
[2018-09-22] MEDS: normal saline 1000ml 1,000 ML IV SCH (16:51)
[2018-09-22 17:16] VITALS: BP 161/50
[2018-09-22] MEDS: HYDROmorphone inj. 0.5 MG/0.5 ML DISP.SYRIN IV PRN (17:34)
[2018-09-22] MEDS ORDERED: traZODone 50mg tablet PO PRN (17:45)
[2018-09-22] MEDS ORDERED: loperamide 2mg capsule PO PRN (17:55)
[2018-09-22 18:00] VITALS: BP 163/79
--- NOTE | 2018-09-22 18:04 | NUR ---
Problems reprioritized. Patient report given, questions answered & plan of care reviewed with Matilda MENDOZA.
--- NOTE | 2018-09-22 18:27 | NUR ---
Patient in room ORTHO 4017. I have received report from KELLY Dahl and had the opportunity to ask questions and assume patient care.
[2018-09-22] MEDS ORDERED: HYDROcodone/acetaminophen 10/325mg tab PO PRN (19:05)
[2018-09-22] MEDS: phenobarbital 30mg tablet PO SCH (20:00)
[2018-09-22] MEDS: heparin, porcine 5000 units/ml vial SQ SCH (20:00)
[2018-09-22] MEDS: mycophenolate sod SR tablet 180 MG TABLET.DR PO SCH (20:01)
[2018-09-22] MEDS: risperiDONE 0.5mg tablet PO SCH (20:02)
[2018-09-22] MEDS: tacrolimus anhydrous 1mg capsule PO SCH (20:02)
[2018-09-22] MEDS: budesonide 0.5mg/2ml UD nebule IH SCH (20:19)
[2018-09-22] MEDS: albuterol 2.5 MG/3 ML nebule NEB SCH (20:20)
[2018-09-22] MEDS: QUEtiapine 25mg tablet PO SCH (21:14)
[2018-09-22] MEDS: piperacillin/tazo 3.375gm/50ml 50 ML IV SCH (21:30)
[2018-09-22 22:00] VITALS: BP 94/57
[2018-09-22] MEDS: tizanidine 4mg tablet PO SCH (23:43)
[2018-09-23] MEDS: normal saline 1000ml 1,000 ML IV SCH ×3 (02:12→21:14)
[2018-09-23] MEDS: albuterol 2.5 MG/3 ML nebule NEB SCH ×4 (02:55→19:49)
[2018-09-23] MEDS: HYDROcodone/acetaminophen 10/325mg tab PO PRN ×4 (03:33→16:02)
[2018-09-23] MEDS: piperacillin/tazo 3.375gm/50ml 50 ML IV SCH ×3 (04:56→21:10)
[2018-09-23 05:26] LABS: BASOPHILS % (AUTO) 0.3 % (0-1); HEMATOCRIT 29.4 % (42.0-52.0); LYMPHOCYTES # (AUTO) 0.7 X10'3 (1.1-4.8); LYMPHOCYTES % (AUTO) 28.9 % (21-51); MEAN CORPUSCULAR HEMOGLOBIN 30.8 PG (27.0-31.0); MEAN CORPUSCULAR HGB CONC 34.1 g/dL (33.0-36.5); MEAN CORPUSCULAR VOLUME 90.5 FL (78-98); MEAN PLATELET VOLUME 7.1 FL (7.4-10.4); MONOCYTES # (AUTO) 0.3 X10'3 (0-0.9); MONOCYTES % (AUTO) 12.3 % (2-12); NEUTROPHILS # (AUTO) 1.5 X10'3 (1.8-7.7); NEUTROPHILS % (AUTO) 57.5 % (42-75); PLATELET COUNT 116 X10'3 (140-440); RED BLOOD COUNT 3.25 X10'6 (4.70-6.10); RED CELL DISTRIBUTION WIDTH 16.7 % (11.5-14.5); WHITE BLOOD COUNT 2.6 X10'3 (4.5-11.0)
[2018-09-23 05:37] LABS: ALBUMIN 2.1 G/DL (3.4-5.0); ANION GAP 8 (8-16); BLOOD UREA NITROGEN 9 MG/DL (7-18); BUN/CREATININE RATIO 12.9 (5.4-32.0); CALCIUM 7.3 MG/DL (8.5-10.1); CHLORIDE 108 MMOL/L (99-107); GLUCOSE 111 MG/DL (70-104); POTASSIUM 3.5 MMOL/L (3.5-5.1); SODIUM 140 MMOL/L (135-145); TOTAL CARBON DIOXIDE 23.7 MMOL/L (24-32); eGFR > 90 ML/MIN
[2018-09-23 06:00] VITALS: BP 94/56
--- NOTE | 2018-09-23 06:10 | NUR ---
Patient in room ORTHO 4017. I have received report from Matilda MENDOZA and had the opportunity to ask questions and assume patient care.
--- NOTE | 2018-09-23 06:33 | NUR ---
Problems reprioritized. Patient report given, questions answered & plan of care reviewed with KELLY Okeefe.
[2018-09-23 06:38] LABS: TOTAL CELLS COUNTED 100
[2018-09-23 06:39] LABS: ANISOCYTOSIS 1+; PLATELET ESTIMATE DECREASED; POIKILOCYTOSIS 1+; SCHISTOCYTES FEW
[2018-09-23] MEDS: pantoprazole 40mg Tablet.DR PO SCH (07:34)
[2018-09-23] MEDS: atorvastatin 20mg tablet PO SCH (07:35)
[2018-09-23] MEDS: predniSONE 5mg tablet PO SCH (07:35)
[2018-09-23] MEDS: levoTHYROXINE 112mcg tablet PO SCH (07:35)
[2018-09-23] MEDS: tizanidine 4mg tablet PO SCH ×2 (07:35→16:02)
[2018-09-23] MEDS: phenobarbital 30mg tablet PO SCH ×2 (07:36→21:16)
[2018-09-23] MEDS: tacrolimus anhydrous 1mg capsule PO SCH ×2 (07:36→21:15)
[2018-09-23] MEDS: mycophenolate sod SR tablet 180 MG TABLET.DR PO SCH ×2 (07:36→21:16)
[2018-09-23] MEDS: FLUoxetine 10mg capsule PO SCH (07:36)
[2018-09-23] MEDS: risperiDONE 0.5mg tablet PO SCH ×2 (07:36→21:15)
[2018-09-23] MEDS: lisinopril 5mg tablet PO SCH (07:37)
[2018-09-23] MEDS: heparin, porcine 5000 units/ml vial SQ SCH ×2 (07:37→21:14)
[2018-09-23] MEDS: budesonide 0.5mg/2ml UD nebule IH SCH ×2 (07:54→19:51)
[2018-09-23 09:43] VITALS: BP 95/45
[2018-09-23] MEDS: HYDROmorphone inj. 0.5 MG/0.5 ML DISP.SYRIN IV PRN (13:44)
--- NOTE | 2018-09-23 15:00 | NUR ---
Patient presents to ED after falling from chair, has eschar wounds to both knees, h/o right BKA, h/o renal and pancreatic transplant, HTN, wheelchair bound. Per MD note patient has cellulitis to his knees. Appetite is fair, eating about 50% of three meals. Will continue to follow and monitor needs, PO intake, wounds. Addendum: 09/23/18 at [address] Amended: Links added.
--- NOTE | 2018-09-23 16:11 | NUR ---
Wound consult. [facility] is following patient for wounds, per [facility] note patient patient's knee wounds are pressure injuries that present with hard, black eschar. Skin integrity noted. Addendum: 09/23/18 at [address] Amended: Links added.
--- NOTE | 2018-09-23 16:38 | NUR ---
Wound consult. [facility] is following patient for wounds, per [facility] note patient patient's knee wounds are pressure injuries that present with hard, black eschar. Skin integrity noted. Patient seen at bedside by RD and provided verbal high protein education handout, pt declined written handout. Requesting strawberry ensure TID, will notify MD. Also requests double eggs with breakfast and double meat TID. Reports no food allergies. Has c/o chewing difficulty, has poor fitting dentures and reports coughing when swallowing, recommend BSS by FRONT END APPLICATION DEVELOPER. Currently pt agreeable to ground meats. Pt reports having BSS 7 or 8 years ago however does not recall the results. Will continue to follow. Patient presents to ED after falling from chair, has eschar wounds to both knees, h/o right BKA, h/o renal and pancreatic transplant, HTN, wheelchair bound. Per MD note patient has cellulitis to his knees. Appetite is fair, eating about 50% of three meals. Will continue to follow and monitor needs, PO intake, wounds. Recommend: 1. continue heart healthy diet 2. send ground meats 3. send double eggs with breakfast 4. send double meat TID 5. Recommend ensure TID, strawberry 6. Recommend BSS 7. wt per rx Addendum: 09/23/18 at [address] Amended: Links added.
--- NOTE | 2018-09-23 17:05 | NUR ---
Patient had no voided in 5+ hours, assisted patient to use urinal, but he was unable to void. Bladder scan showed 445ml. Dr Carson was notified and she told me to straight cath patient. 400 ml of urine was removed.
[2018-09-23] MEDS ORDERED: lactose-reduced food (Ensure Enlive) - 237ml bottle PO SCH (18:00)
--- NOTE | 2018-09-23 18:41 | NUR ---
Problems reprioritized. Patient report given, questions answered & plan of care reviewed with Enrique MENDOZA.
--- NOTE | 2018-09-23 18:42 | NUR ---
Patient in room ORTHO 4017. I have received report from NANCY MENDOZA and had the opportunity to ask questions and assume patient care.
[2018-09-23 19:00] VITALS: BP 134/74
[2018-09-23] MEDS: QUEtiapine 25mg tablet PO SCH (21:15)
[2018-09-24] MEDS: tizanidine 4mg tablet PO SCH ×3 (00:13→20:35)
[2018-09-24] MEDS: HYDROcodone/acetaminophen 10/325mg tab PO PRN ×6 (00:17→20:32)
[2018-09-24] MEDS: albuterol 2.5 MG/3 ML nebule NEB SCH ×4 (02:35→19:37)
[2018-09-24] MEDS: piperacillin/tazo 3.375gm/50ml 50 ML IV SCH ×3 (05:08→20:42)
[2018-09-24] MEDS: normal saline 1000ml 1,000 ML IV SCH ×2 (05:08→15:34)
[2018-09-24 06:06] LABS: BASOPHILS % (AUTO) 0.5 % (0-1); EOSINOPHILS % (AUTO) 0.8 % (0-6); HEMATOCRIT 30.4 % (42.0-52.0); HEMOGLOBIN 10.3 g/dl (14.0-17.9); LYMPHOCYTES # (AUTO) 0.8 X10'3 (1.1-4.8); LYMPHOCYTES % (AUTO) 34.4 % (21-51); MEAN CORPUSCULAR HEMOGLOBIN 30.7 PG (27.0-31.0); MEAN CORPUSCULAR HGB CONC 33.7 g/dL (33.0-36.5); MEAN CORPUSCULAR VOLUME 90.9 FL (78-98); MEAN PLATELET VOLUME 7.1 FL (7.4-10.4); MONOCYTES # (AUTO) 0.2 X10'3 (0-0.9); MONOCYTES % (AUTO) 8.6 % (2-12); NEUTROPHILS # (AUTO) 1.3 X10'3 (1.8-7.7); NEUTROPHILS % (AUTO) 55.7 % (42-75); PLATELET COUNT 147 X10'3 (140-440); RED BLOOD COUNT 3.35 X10'6 (4.70-6.10); RED CELL DISTRIBUTION WIDTH 16.6 % (11.5-14.5); WHITE BLOOD COUNT 2.4 X10'3 (4.5-11.0)
[2018-09-24 06:10] VITALS: BP 141/79
--- NOTE | 2018-09-24 06:30 | NUR ---
Problems reprioritized. Patient report given, questions answered & plan of care reviewed with LISANDRO MENDOZA.
[2018-09-24 07:05] LABS: ALBUMIN 2.1 G/DL (3.4-5.0); ANION GAP 12 (8-16); BLOOD UREA NITROGEN 7 MG/DL (7-18); CALCIUM 7.4 MG/DL (8.5-10.1); CHLORIDE 108 MMOL/L (99-107); CREATININE 0.78 MG/DL (0.60-1.10); GLUCOSE 112 MG/DL (70-104); POTASSIUM 3.8 MMOL/L (3.5-5.1); SODIUM 142 MMOL/L (135-145); TOTAL CARBON DIOXIDE 22.4 MMOL/L (24-32); eGFR > 90 ML/MIN
[2018-09-24 07:10] LABS: ANISOCYTOSIS 1+; PLATELET ESTIMATE DECREASED; POIKILOCYTOSIS FEW; SCHISTOCYTES FEW; TOTAL CELLS COUNTED 100
[2018-09-24] MEDS: budesonide 0.5mg/2ml UD nebule IH SCH ×2 (08:00→19:37)
[2018-09-24] MEDS: FLUoxetine 10mg capsule PO SCH (08:06)
[2018-09-24] MEDS: mycophenolate sod SR tablet 180 MG TABLET.DR PO SCH ×2 (08:06→20:30)
[2018-09-24] MEDS: atorvastatin 20mg tablet PO SCH (08:06)
[2018-09-24] MEDS: pantoprazole 40mg Tablet.DR PO SCH (08:06)
[2018-09-24] MEDS: risperiDONE 0.5mg tablet PO SCH ×2 (08:07→20:34)
[2018-09-24] MEDS: tacrolimus anhydrous 1mg capsule PO SCH ×2 (08:07→20:37)
[2018-09-24] MEDS: levoTHYROXINE 112mcg tablet PO SCH (08:07)
[2018-09-24] MEDS: phenobarbital 30mg tablet PO SCH ×2 (08:07→20:33)
[2018-09-24] MEDS: heparin, porcine 5000 units/ml vial SQ SCH ×2 (08:08→20:36)
[2018-09-24] MEDS: predniSONE 5mg tablet PO SCH (08:08)
[2018-09-24] MEDS: lisinopril 5mg tablet PO SCH (08:08)
[2018-09-24 10:00] VITALS: BP 130/61
[2018-09-24] MEDS: HYDROmorphone inj. 0.5 MG/0.5 ML DISP.SYRIN IV PRN ×3 (13:44→22:01)
[2018-09-24 18:00] VITALS: BP 126/72
--- NOTE | 2018-09-24 18:31 | NUR ---
Patient report given to Leeroy MENDOZA
--- NOTE | 2018-09-24 19:00 | NUR ---
Patient in room ORTHO 4017. I have received report from Cindy MENDOZA and had the opportunity to ask questions and assume patient care.
[2018-09-24] MEDS ORDERED: HYDROcodone/acetaminophen 10/325mg tab PO ONE (20:00)
[2018-09-24] MEDS: QUEtiapine 25mg tablet PO SCH (20:35)
[2018-09-24 22:00] VITALS: BP 124/70
[2018-09-25] MEDS: HYDROcodone/acetaminophen 10/325mg tab PO PRN ×4 (01:29→22:54)
[2018-09-25] MEDS: albuterol 2.5 MG/3 ML nebule NEB SCH ×4 (02:01→20:59)
[2018-09-25] MEDS: HYDROmorphone inj. 0.5 MG/0.5 ML DISP.SYRIN IV PRN ×2 (02:19→07:37)
[2018-09-25] MEDS: piperacillin/tazo 3.375gm/50ml 50 ML IV SCH ×3 (05:36→20:04)
--- NOTE | 2018-09-25 06:24 | NUR ---
Received report from Leeroy MENDOZA
[2018-09-25 06:27] VITALS: BP 162/80
[2018-09-25 06:27] LABS: BASOPHILS % (AUTO) 0.6 % (0-1); EOSINOPHILS % (AUTO) 0.6 % (0-6); HEMOGLOBIN 10.2 g/dl (14.0-17.9); LYMPHOCYTES # (AUTO) 1.1 X10'3 (1.1-4.8); LYMPHOCYTES % (AUTO) 41.1 % (21-51); MEAN CORPUSCULAR HEMOGLOBIN 31.3 PG (27.0-31.0); MEAN CORPUSCULAR HGB CONC 33.9 g/dL (33.0-36.5); MEAN CORPUSCULAR VOLUME 92.4 FL (78-98); MONOCYTES # (AUTO) 0.2 X10'3 (0-0.9); MONOCYTES % (AUTO) 9.4 % (2-12); NEUTROPHILS # (AUTO) 1.2 X10'3 (1.8-7.7); NEUTROPHILS % (AUTO) 48.3 % (42-75); PLATELET COUNT 164 X10'3 (140-440); RED BLOOD COUNT 3.25 X10'6 (4.70-6.10); WHITE BLOOD COUNT 2.6 X10'3 (4.5-11.0)
[2018-09-25 06:46] LABS: ALBUMIN 2.1 G/DL (3.4-5.0); ANION GAP 9 (8-16); BLOOD UREA NITROGEN 5 MG/DL (7-18); CALCIUM 7.4 MG/DL (8.5-10.1); CHLORIDE 110 MMOL/L (99-107); CREATININE 0.71 MG/DL (0.60-1.10); GLUCOSE 91 MG/DL (70-104); POTASSIUM 3.9 MMOL/L (3.5-5.1); SODIUM 143 MMOL/L (135-145); TOTAL CARBON DIOXIDE 24.1 MMOL/L (24-32); eGFR > 90 ML/MIN
[2018-09-25 07:34] LABS: ANISOCYTOSIS 1+; PLATELET ESTIMATE NORMAL; POIKILOCYTOSIS FEW; TOTAL CELLS COUNTED 100
[2018-09-25] MEDS: tizanidine 4mg tablet PO SCH ×2 (07:37→20:03)
[2018-09-25] MEDS: FLUoxetine 10mg capsule PO SCH (07:38)
[2018-09-25] MEDS: levoTHYROXINE 112mcg tablet PO SCH (07:38)
[2018-09-25] MEDS: mycophenolate sod SR tablet 180 MG TABLET.DR PO SCH ×2 (07:38→20:01)
[2018-09-25] MEDS: tacrolimus anhydrous 1mg capsule PO SCH ×2 (07:38→20:04)
[2018-09-25] MEDS: atorvastatin 20mg tablet PO SCH (07:38)
[2018-09-25] MEDS: pantoprazole 40mg Tablet.DR PO SCH (07:38)
[2018-09-25] MEDS: phenobarbital 30mg tablet PO SCH ×2 (07:38→20:03)
[2018-09-25] MEDS: lisinopril 5mg tablet PO SCH (07:38)
[2018-09-25] MEDS: predniSONE 5mg tablet PO SCH (07:38)
[2018-09-25] MEDS: heparin, porcine 5000 units/ml vial SQ SCH ×2 (07:39→20:03)
[2018-09-25] MEDS: risperiDONE 0.5mg tablet PO SCH ×2 (07:39→20:01)
[2018-09-25] MEDS: budesonide 0.5mg/2ml UD nebule IH SCH ×2 (08:39→20:00)
[2018-09-25 10:00] VITALS: BP 112/63
[2018-09-25] MEDS ORDERED: HYDROcodone/acetaminophen 10/325mg tab PO PRN (10:25)
[2018-09-25] MEDS ORDERED: HYDROmorphone 1 mg/ml syringe ONE (13:57)
[2018-09-25] MEDS: normal saline 1000ml 1,000 ML IV SCH ×2 (16:38→20:04)
[2018-09-25 18:00] VITALS: BP 163/62
--- NOTE | 2018-09-25 18:38 | NUR ---
Patient in room ORTHO 4017. I have received report from KELLY Lentz and had the opportunity to ask questions and assume patient care. Addendum: 09/25/18 at 1838 by Alisia Limon RN Amended: Links added.
[2018-09-25] MEDS: oxyCODONE IR 5mg (immed. release) tablet PO PRN (20:01)
[2018-09-25] MEDS: QUEtiapine 25mg tablet PO SCH (20:03)
[2018-09-25 22:00] VITALS: BP 160/92
[2018-09-26] MEDS: oxyCODONE IR 5mg (immed. release) tablet PO PRN ×2 (01:57→08:16)
[2018-09-26] MEDS: albuterol 2.5 MG/3 ML nebule NEB SCH ×4 (02:12→20:18)
[2018-09-26] MEDS: piperacillin/tazo 3.375gm/50ml 50 ML IV SCH (04:43)
[2018-09-26] MEDS: HYDROcodone/acetaminophen 10/325mg tab PO PRN ×2 (05:51→10:33)
--- NOTE | 2018-09-26 06:22 | NUR ---
Problems reprioritized. Patient report given, questions answered & plan of care reviewed with KELLY Ag. Addendum: 09/26/18 at 0622 by Alisia Limon RN Amended: Links added.
[2018-09-26 06:53] LABS: BASOPHILS % (AUTO) 0.3 % (0-1); EOSINOPHILS % (AUTO) 0.5 % (0-6); HEMATOCRIT 32.5 % (42.0-52.0); HEMOGLOBIN 10.8 g/dl (14.0-17.9); LYMPHOCYTES # (AUTO) 0.8 X10'3 (1.1-4.8); LYMPHOCYTES % (AUTO) 40.5 % (21-51); MEAN CORPUSCULAR HEMOGLOBIN 30.3 PG (27.0-31.0); MEAN CORPUSCULAR HGB CONC 33.1 g/dL (33.0-36.5); MEAN CORPUSCULAR VOLUME 91.6 FL (78-98); MONOCYTES # (AUTO) 0.2 X10'3 (0-0.9); NEUTROPHILS # (AUTO) 1.1 X10'3 (1.8-7.7); NEUTROPHILS % (AUTO) 50.7 % (42-75); PLATELET COUNT 187 X10'3 (140-440); RED BLOOD COUNT 3.55 X10'6 (4.70-6.10); RED CELL DISTRIBUTION WIDTH 17.4 % (11.5-14.5); WHITE BLOOD COUNT 2.1 X10'3 (4.5-11.0)
[2018-09-26 06:58] LABS: ALBUMIN 2.3 G/DL (3.4-5.0); ANION GAP 5 (8-16); BLOOD UREA NITROGEN 5 MG/DL (7-18); BUN/CREATININE RATIO 7.4 (5.4-32.0); CALCIUM 7.8 MG/DL (8.5-10.1); CHLORIDE 109 MMOL/L (99-107); CREATININE 0.68 MG/DL (0.60-1.10); GLUCOSE 95 MG/DL (70-104); POTASSIUM 4.5 MMOL/L (3.5-5.1); SODIUM 141 MMOL/L (135-145); TOTAL CARBON DIOXIDE 26.7 MMOL/L (24-32); eGFR > 90 ML/MIN
[2018-09-26] MEDS: phenobarbital 30mg tablet PO SCH ×2 (07:39→20:16)
[2018-09-26] MEDS: pantoprazole 40mg Tablet.DR PO SCH (07:39)
[2018-09-26] MEDS: atorvastatin 20mg tablet PO SCH (07:39)
[2018-09-26] MEDS: mycophenolate sod SR tablet 180 MG TABLET.DR PO SCH ×2 (07:39→20:15)
[2018-09-26] MEDS: predniSONE 5mg tablet PO SCH (07:40)
[2018-09-26] MEDS: tacrolimus anhydrous 1mg capsule PO SCH ×2 (07:40→20:16)
[2018-09-26] MEDS: FLUoxetine 10mg capsule PO SCH (07:40)
[2018-09-26] MEDS: risperiDONE 0.5mg tablet PO SCH ×2 (07:40→20:16)
[2018-09-26] MEDS: levoTHYROXINE 112mcg tablet PO SCH (07:41)
[2018-09-26] MEDS: tizanidine 4mg tablet PO SCH ×2 (07:41→20:15)
[2018-09-26] MEDS: lisinopril 5mg tablet PO SCH (07:41)
[2018-09-26] MEDS: heparin, porcine 5000 units/ml vial SQ SCH ×2 (07:42→20:17)
[2018-09-26 08:17] LABS: ANISOCYTOSIS 1+; PLATELET ESTIMATE NORMAL; TOTAL CELLS COUNTED 100
[2018-09-26] MEDS: budesonide 0.5mg/2ml UD nebule IH SCH ×2 (09:17→20:18)
[2018-09-26] MEDS ORDERED: HYDROcodone/acetaminophen 10/325mg tab PO PRN (12:50)
[2018-09-26] MEDS: lactose-reduced food (Ensure Enlive) - 237ml bottle PO SCH ×2 (13:00→18:00)
[2018-09-26] MEDS: normal saline 1000ml 1,000 ML IV SCH ×2 (14:49→23:34)
--- NOTE | 2018-09-26 14:52 | NUR ---
reassessment: Pt strawberry ensure enlive TIDWM approved and verified by today; will send w/ meals starting at dinner tonight. MANAGER RESORT recs mechanical soft/grind all tray. Pt PO 25% avg meals receiving double proteins TIDWM. LBM 09/24. Will monitor for ONS acceptance and additional protein needs post-op. Recommend: 1. continue heart healthy diet 2. send ground meats 3. send double eggs with breakfast 4. send double meat TID 5. Recommend ensure TID, strawberry 6. routine bowel care 7. wt per rx Addendum: 09/26/18 at [address] Amended: Links added.
--- NOTE | 2018-09-26 18:30 | NUR ---
Patient in room ORTHO 4017. I have received report from Kimberli MENDOZA and had the opportunity to ask questions and assume patient care.
[2018-09-26] MEDS: QUEtiapine 25mg tablet PO SCH (20:15)
[2018-09-26] MEDS: HYDROcodone/acetaminophen 5mg/325mg tablet PO PRN (20:18)
[2018-09-26 21:00] VITALS: BP 112/61
[2018-09-27] MEDS: HYDROcodone/acetaminophen 5mg/325mg tablet PO PRN ×3 (01:04→09:53)
[2018-09-27] MEDS: albuterol 2.5 MG/3 ML nebule NEB SCH ×2 (02:51→08:05)
[2018-09-27] MEDS: normal saline 1000ml 1,000 ML IV SCH (03:17)
[2018-09-27 05:00] VITALS: BP 168/84
[2018-09-27 06:26] LABS: BASOPHILS % (AUTO) 0.8 % (0-1); EOSINOPHILS % (AUTO) 0.2 % (0-6); LYMPHOCYTES # (AUTO) 0.8 X10'3 (1.1-4.8); LYMPHOCYTES % (AUTO) 29.7 % (21-51); MEAN CORPUSCULAR HEMOGLOBIN 31.7 PG (27.0-31.0); MEAN CORPUSCULAR HGB CONC 34.3 g/dL (33.0-36.5); MEAN CORPUSCULAR VOLUME 92.6 FL (78-98); MEAN PLATELET VOLUME 7.4 FL (7.4-10.4); MONOCYTES # (AUTO) 0.2 X10'3 (0-0.9); MONOCYTES % (AUTO) 8.1 % (2-12); NEUTROPHILS # (AUTO) 1.7 X10'3 (1.8-7.7); NEUTROPHILS % (AUTO) 61.2 % (42-75); PLATELET COUNT 184 X10'3 (140-440); RED BLOOD COUNT 3.45 X10'6 (4.70-6.10); RED CELL DISTRIBUTION WIDTH 16.9 % (11.5-14.5); WHITE BLOOD COUNT 2.8 X10'3 (4.5-11.0)
--- NOTE | 2018-09-27 06:30 | NUR ---
Patient in room ORTHO 4017. I have received report from KELLY Ross and had the opportunity to ask questions and assume patient care.
[2018-09-27 06:31] LABS: ALBUMIN 2.5 G/DL (3.4-5.0); ANION GAP 8 (8-16); BLOOD UREA NITROGEN 5 MG/DL (7-18); CHLORIDE 108 MMOL/L (99-107); CREATININE 0.83 MG/DL (0.60-1.10); GLUCOSE 96 MG/DL (70-104); POTASSIUM 4.5 MMOL/L (3.5-5.1); SODIUM 139 MMOL/L (135-145); TOTAL CARBON DIOXIDE 23.1 MMOL/L (24-32); eGFR > 90 ML/MIN
--- NOTE | 2018-09-27 06:37 | NUR ---
Problems reprioritized. Patient report given, questions answered & plan of care reviewed with Natalie MENDOZA.
[2018-09-27 07:37] LABS: ANISOCYTOSIS 1+; NUCLEATED RED BLOOD CELLS 1 /100WBC (0-0); PLATELET ESTIMATE NORMAL; TOTAL CELLS COUNTED 100
[2018-09-27] MEDS: budesonide 0.5mg/2ml UD nebule IH SCH (08:05)
[2018-09-27] MEDS: risperiDONE 0.5mg tablet PO SCH (08:18)
[2018-09-27] MEDS: phenobarbital 30mg tablet PO SCH (08:19)
[2018-09-27] MEDS: atorvastatin 20mg tablet PO SCH (08:19)
[2018-09-27] MEDS: tacrolimus anhydrous 1mg capsule PO SCH (08:19)
[2018-09-27] MEDS: pantoprazole 40mg Tablet.DR PO SCH (08:19)
[2018-09-27] MEDS: levoTHYROXINE 112mcg tablet PO SCH (08:20)
[2018-09-27] MEDS: lisinopril 5mg tablet PO SCH (08:20)
[2018-09-27] MEDS: FLUoxetine 10mg capsule PO SCH (08:20)
[2018-09-27] MEDS: predniSONE 5mg tablet PO SCH (08:20)
[2018-09-27] MEDS: heparin, porcine 5000 units/ml vial SQ SCH (08:21)
[2018-09-27] MEDS: tizanidine 4mg tablet PO SCH (08:21)
[2018-09-27] MEDS: lactose-reduced food (Ensure Enlive) - 237ml bottle PO SCH (08:21)
[2018-09-27] MEDS ORDERED: HYDR-4353 PO (09:58)
[2018-09-27 10:00] VITALS: BP 108/65
[2018-09-27] MEDS: mycophenolate sod SR tablet 180 MG TABLET.DR PO SCH (11:14)
--- NOTE | 2018-09-27 13:31 | NUR ---
reviewed discharge instructions and new prescription for Gunpowder with pt, pt verbalized understanding. IV removed. Pt discharged to home with caregiver.
== END 2018-09-27 12:55 | disposition home or self-care (01) | DRG 603 ==
LOC: ER 11:32 → ORTHO 4S 16:19 → CMPBEDREQ 09-26 21:12
PROVIDERS: ADMIT Family Medicine; ATTEND Family Medicine
DX: L03.115 Cellulitis of right lower limb (principal); Z94.83 Pancreas transplant status; Z94.0 Kidney transplant status; Z68.1 Body mass index [BMI] 19.9 or less, adult; E03.9 Hypothyroidism, unspecified; E11.42 Type 2 diabetes mellitus with diabetic polyneuropathy; E78.00 Pure hypercholesterolemia, unspecified; E78.5 Hyperlipidemia, unspecified; G40.909 Epilepsy, unspecified, not intractable, without status epilepticus; I10 Essential (primary) hypertension; I25.10 Atherosclerotic heart disease of native coronary artery without angina pectoris; I48.91 Unspecified atrial fibrillation; J44.9 Chronic obstructive pulmonary disease, unspecified; K21.9 Gastro-esophageal reflux disease without esophagitis; K59.00 Constipation, unspecified; L03.116 Cellulitis of left lower limb; M81.0 Age-related osteoporosis without current pathological fracture; R33.9 Retention of urine, unspecified; B96.4 Proteus (mirabilis) (morganii) as the cause of diseases classified elsewhere; B19.20 Unspecified viral hepatitis C without hepatic coma; F11.90 Opioid use, unspecified, uncomplicated; F15.90 Other stimulant use, unspecified, uncomplicated; G89.29 Other chronic pain; M54.9 Dorsalgia, unspecified; Z89.511 Acquired absence of right leg below knee; Z79.899 Other long term (current) drug therapy; Z99.3 Dependence on wheelchair; Z79.51 Long term (current) use of inhaled steroids
CPT/HCPCS: 36415; 71045; 73560; 73700; 80048; 80053; 80197; 81001; 83605; 83735; 84145; 85025; 85610; 85730; 87040; 87077; 87081; 87088; 87186; 92508; 92616; 93005; 94640; 94760; 96365; 96375; 97110; 97162; 97530; 99285; G0378; J1170; J1644; J2270; J2543; J3010; J3370; J7030; J7507; J7512; J7518; J7626

== ENCOUNTER 2018-10-03 09:40 | Day surgery (SDC) | payer MEDICARE, MEDICAID ==
[2018-10-03] MEDS ORDERED: LIDOcaine 2% 5ml jelly ONE (12:23)
== END 2018-10-03 13:14 | disposition home or self-care (01) ==
LOC: WOUND CARE 09:40
PROVIDERS: ATTEND Surgery
DX: L89.893 Pressure ulcer of other site, stage 3 (principal); M81.0 Age-related osteoporosis without current pathological fracture; I25.10 Atherosclerotic heart disease of native coronary artery without angina pectoris; J44.9 Chronic obstructive pulmonary disease, unspecified; I10 Essential (primary) hypertension; K21.9 Gastro-esophageal reflux disease without esophagitis; E78.5 Hyperlipidemia, unspecified; G89.29 Other chronic pain; E78.00 Pure hypercholesterolemia, unspecified; E11.42 Type 2 diabetes mellitus with diabetic polyneuropathy; I48.91 Unspecified atrial fibrillation; G40.901 Epilepsy, unspecified, not intractable, with status epilepticus; G93.41 Metabolic encephalopathy; E89.0 Postprocedural hypothyroidism; E11.51 Type 2 diabetes mellitus with diabetic peripheral angiopathy without gangrene; F32.9 Major depressive disorder, single episode, unspecified; F11.90 Opioid use, unspecified, uncomplicated; F15.90 Other stimulant use, unspecified, uncomplicated; Z94.0 Kidney transplant status; Z68.1 Body mass index [BMI] 19.9 or less, adult; Z79.899 Other long term (current) drug therapy; Z79.51 Long term (current) use of inhaled steroids; Z87.891 Personal history of nicotine dependence; Z85.850 Personal history of malignant neoplasm of thyroid; Z85.820 Personal history of malignant melanoma of skin; Z86.19 Personal history of other infectious and parasitic diseases; Z94.83 Pancreas transplant status; Z89.611 Acquired absence of right leg above knee; Z89.511 Acquired absence of right leg below knee
CPT/HCPCS: 11045; A4649; A4663; A6021; A6154; A6234; A6446

== ENCOUNTER 2018-10-13 10:55 | Day surgery (SDC) | payer MEDICARE, MEDICAID ==
[2018-10-13] MEDS ORDERED: LIDOcaine 2% 5ml jelly ONE (12:46)
== END 2018-10-13 13:50 | disposition home or self-care (01) ==
LOC: WOUND CARE 10:55
PROVIDERS: ATTEND Surgery
DX: L89.893 Pressure ulcer of other site, stage 3 (principal); M81.0 Age-related osteoporosis without current pathological fracture; I25.10 Atherosclerotic heart disease of native coronary artery without angina pectoris; J44.9 Chronic obstructive pulmonary disease, unspecified; I10 Essential (primary) hypertension; K21.9 Gastro-esophageal reflux disease without esophagitis; E78.5 Hyperlipidemia, unspecified; G89.29 Other chronic pain; E78.00 Pure hypercholesterolemia, unspecified; E11.42 Type 2 diabetes mellitus with diabetic polyneuropathy; I48.91 Unspecified atrial fibrillation; G40.901 Epilepsy, unspecified, not intractable, with status epilepticus; G93.41 Metabolic encephalopathy; E89.0 Postprocedural hypothyroidism; E11.51 Type 2 diabetes mellitus with diabetic peripheral angiopathy without gangrene; F32.9 Major depressive disorder, single episode, unspecified; F11.90 Opioid use, unspecified, uncomplicated; F15.90 Other stimulant use, unspecified, uncomplicated; Z94.0 Kidney transplant status; Z68.1 Body mass index [BMI] 19.9 or less, adult; Z79.899 Other long term (current) drug therapy; Z79.51 Long term (current) use of inhaled steroids; Z87.891 Personal history of nicotine dependence; Z85.850 Personal history of malignant neoplasm of thyroid; Z85.820 Personal history of malignant melanoma of skin; Z86.19 Personal history of other infectious and parasitic diseases; Z94.83 Pancreas transplant status; Z89.611 Acquired absence of right leg above knee; Z89.511 Acquired absence of right leg below knee
CPT/HCPCS: 11045; 87070; 87075; 87077; 87102; 87186; A4663; A6021; A6154; A6196; A6212; A6446

== ENCOUNTER 2018-10-19 14:48 | Inpatient (IN) | payer MEDICARE, MEDICAID ==
[~2018-10-19] VITALS: Ht 165.1 cm; Wt 50.3 kg
--- NOTE | 2018-10-19 15:11 | NUR ---
pt is incontinent of soft, yellow bowel movement, cleaned pt up and applied barrier cream to buttock and coccyx
[2018-10-19] MEDS ORDERED: normal saline 1000ml 1,000 ML IV ONE (15:30)
--- NOTE | 2018-10-19 15:31 | NUR ---
pictures taken of wounds
[2018-10-19] MEDS ORDERED: vancomycin/NS 1 GM ADD-VANTAGE 250 ML X 1 DOSE IV ONE (15:35)
[2018-10-19 15:57] LABS: BASOPHILS % (AUTO) 0.2 % (0-1); EOSINOPHILS % (AUTO) 0.3 % (0-6); HEMATOCRIT 40.7 % (42.0-52.0); HEMOGLOBIN 13.5 g/dl (14.0-17.9); LYMPHOCYTES # (AUTO) 0.7 X10'3 (1.1-4.8); LYMPHOCYTES % (AUTO) 13.9 % (21-51); MEAN CORPUSCULAR HEMOGLOBIN 31.7 PG (27.0-31.0); MEAN CORPUSCULAR HGB CONC 33.2 g/dL (33.0-36.5); MEAN CORPUSCULAR VOLUME 95.5 FL (78-98); MEAN PLATELET VOLUME 7.3 FL (7.4-10.4); MONOCYTES # (AUTO) 0.6 X10'3 (0-0.9); MONOCYTES % (AUTO) 13.3 % (2-12); NEUTROPHILS # (AUTO) 3.5 X10'3 (1.8-7.7); NEUTROPHILS % (AUTO) 72.3 % (42-75); PLATELET COUNT 159 X10'3 (140-440); RED BLOOD COUNT 4.27 X10'6 (4.70-6.10); RED CELL DISTRIBUTION WIDTH 17.9 % (11.5-14.5); WHITE BLOOD COUNT 4.9 X10'3 (4.5-11.0)
[2018-10-19 16:09] LABS: PARTIAL THROMBOPLASTIN TIME 34 SECONDS (22-32)
[2018-10-19 16:13] LABS: ALANINE AMINOTRANSFERASE 13 U/L (12-78); ALBUMIN 2.8 G/DL (3.4-5.0); ALBUMIN/GLOBULIN RATIO 0.8 (1.1-1.5); ALKALINE PHOSPHATASE 104 IU/L (46-116); ANION GAP 11 (8-16); ASPARTATE AMINO TRANSFERASE 16 U/L (10-37); BILIRUBIN,TOTAL 0.7 MG/DL (0.1-1.0); BLOOD UREA NITROGEN 18 MG/DL (7-18); BUN/CREATININE RATIO 20.9 (5.4-32.0); CALCIUM 8.1 MG/DL (8.5-10.1); CHLORIDE 104 MMOL/L (99-107); CREATININE 0.86 MG/DL (0.60-1.10); GLUCOSE 107 MG/DL (70-104); POTASSIUM 4.3 MMOL/L (3.5-5.1); SODIUM 138 MMOL/L (135-145); TOTAL CARBON DIOXIDE 22.8 MMOL/L (24-32); TOTAL PROTEIN 6.2 G/DL (6.4-8.2); eGFR > 90 ML/MIN
[2018-10-19] MEDS ORDERED: morphine 4 MG/ML inj SYRINge IV ONE (16:25)
[2018-10-19] MEDS ORDERED: ondansetron/PF 4mg/2ml inj IV ONE (16:25)
--- NOTE | 2018-10-19 17:20 | NUR ---
pt asking for norco 2 tabs, "morphine can make me angry"
[2018-10-19] MEDS ORDERED: LORA10TA7 PO (17:39)
[2018-10-19] MEDS ORDERED: HYDR-3972 PO (17:43)
[2018-10-19] MEDS: HYDROcodone/acetaminophen 10/325mg tab PO PRN (18:34)
[2018-10-19] MEDS ORDERED: tizanidine 4mg tablet PO PRN (19:05)
[2018-10-19] MEDS ORDERED: LOPERAMIDE HCL PO PRN (19:05)
[2018-10-19] MEDS ORDERED: magnesium hydroxide 30ml (MOM) UD suspension PO PRN (19:10)
[2018-10-19] MEDS ORDERED: potassium Cl 20 mEq SR tablet PO PRN ×2 (19:10)
[2018-10-19] MEDS ORDERED: ondansetron/PF 4mg/2ml inj IV PRN (19:10)
[2018-10-19] MEDS ORDERED: magnesium 4gm in 100ml NS 100 ML IV PRN (19:10)
[2018-10-19] MEDS: K and/or MAG REPLACEMENT MC SCH (19:10)
[2018-10-19] MEDS ORDERED: HYDROcodone/acetaminophen 5mg/325mg tablet PO PRN (19:10)
[2018-10-19] MEDS ORDERED: diphenhydrAMINE 25mg capsule PO PRN (19:10)
[2018-10-19] MEDS ORDERED: metoclopramide 5 mg/ml inj IV PRN (19:10)
[2018-10-19] MEDS ORDERED: acetaminophen 650mg rectal suppository RC PRN (19:10)
[2018-10-19] MEDS ORDERED: magnesium Cl slow-release 64mg tablet PO PRN (19:10)
[2018-10-19] MEDS ORDERED: magnesium 2GM in 50ml NS 50 ML IV PRN (19:10)
[2018-10-19] MEDS ORDERED: bisacodyl 10mg suppository rectal RC PRN (19:10)
[2018-10-19] MEDS ORDERED: acetaminophen 325mg tablet PO PRN ×2 (19:10)
[2018-10-19] MEDS ORDERED: potassium CL 10mEq/100ml bag 100 ML IV PRN ×2 (19:10)
[2018-10-19] MEDS ORDERED: diphenhydrAMINE 50 mg/ml inj IV PRN (19:10)
[2018-10-19] MEDS ORDERED: mag hydrox/Alum hydrox/simeth 30ml oral suspension PO PRN (19:10)
[2018-10-19] MEDS ORDERED: MYCOPHENOLATE SODIUM 360 MG PO SCH (20:00)
[2018-10-19] MEDS ORDERED: non-formulary drug (Budesonide/Formoterol Fumarate (Symbicort 80-4.5 Mcg Inhaler) 2 PUFFS) INH SCH (20:00)
[2018-10-19] MEDS ORDERED: non-formulary drug (Risperidone 1 TAB) PO SCH (20:00)
[2018-10-19] MEDS ORDERED: non-formulary drug (Omeprazole* (Prilosec*) 20 MG) PO SCH (20:00)
--- NOTE | 2018-10-19 20:24 | NUR ---
REPORT TO ALY MENDOZA
[2018-10-19 21:00] VITALS: BP 168/85
[2018-10-19] MEDS: piperacillin/tazo 3.375gm/50ml 50 ML IV SCH (21:01)
[2018-10-19] MEDS: traZODone 50mg tablet PO PRN (21:21)
[2018-10-19] MEDS: QUEtiapine 25mg tablet PO SCH (21:22)
[2018-10-19] MEDS: phenobarbital 30mg tablet PO SCH (21:22)
[2018-10-19] MEDS: pantoprazole 40mg Tablet.DR PO SCH (21:22)
[2018-10-19] MEDS: heparin, porcine 5000 units/ml vial SQ SCH (21:23)
[2018-10-20] MEDS: tacrolimus anhydrous 1mg capsule PO SCH ×3 (00:32→20:28)
[2018-10-20] MEDS: mycophenolate sod SR tablet 180 MG TABLET.DR PO SCH ×3 (00:33→20:27)
[2018-10-20] MEDS: HYDROcodone/acetaminophen 10/325mg tab PO PRN ×5 (00:34→20:31)
[2018-10-20] MEDS: normal saline 1000ml 1,000 ML IV SCH ×4 (00:35→23:11)
[2018-10-20] MEDS ORDERED: vancomycin/NS 1 GM ADD-VANTAGE 250 ML IV SCH (03:00)
[2018-10-20] MEDS: budesonide 0.5mg/2ml UD nebule IH SCH ×3 (04:14→21:29)
[2018-10-20] MEDS: albuterol 2.5 MG/3 ML nebule NEB SCH ×5 (04:14→21:29)
[2018-10-20 05:07] LABS: BASOPHILS % (AUTO) 0.2 % (0-1); EOSINOPHILS % (AUTO) 0.9 % (0-6); HEMATOCRIT 35.2 % (42.0-52.0); HEMOGLOBIN 11.6 g/dl (14.0-17.9); LYMPHOCYTES % (AUTO) 28.3 % (21-51); MEAN CORPUSCULAR HEMOGLOBIN 31.7 PG (27.0-31.0); MEAN CORPUSCULAR HGB CONC 32.9 g/dL (33.0-36.5); MEAN CORPUSCULAR VOLUME 96.3 FL (78-98); MONOCYTES # (AUTO) 0.5 X10'3 (0-0.9); MONOCYTES % (AUTO) 14.7 % (2-12); NEUTROPHILS % (AUTO) 55.9 % (42-75); PLATELET COUNT 116 X10'3 (140-440); RED BLOOD COUNT 3.66 X10'6 (4.70-6.10); RED CELL DISTRIBUTION WIDTH 18.2 % (11.5-14.5); WHITE BLOOD COUNT 3.5 X10'3 (4.5-11.0)
[2018-10-20 05:21] LABS: ALANINE AMINOTRANSFERASE 9 U/L (12-78); ALBUMIN 2.1 G/DL (3.4-5.0); ALBUMIN/GLOBULIN RATIO 0.8 (1.1-1.5); ALKALINE PHOSPHATASE 80 IU/L (46-116); ANION GAP 8 (8-16); ASPARTATE AMINO TRANSFERASE 10 U/L (10-37); BILIRUBIN,TOTAL 0.5 MG/DL (0.1-1.0); BLOOD UREA NITROGEN 10 MG/DL (7-18); CALCIUM 6.7 MG/DL (8.5-10.1); CHLORIDE 109 MMOL/L (99-107); CHOL/HDL RATIO 2.3 (0.00-4.99); CHOLESTEROL 104 MG/DL (0-200); CREATININE 0.77 MG/DL (0.60-1.10); GLUCOSE 90 MG/DL (70-104); HDL CHOLESTEROL 45 MG/DL (35-60); LDL CHOLESTEROL 45 MG/DL (50-100); MAGNESIUM 1.6 MG/DL (1.5-2.4); PHOSPHORUS 2.2 MG/DL (2.3-4.5); POTASSIUM 4.1 MMOL/L (3.5-5.1); SODIUM 140 MMOL/L (135-145); TOTAL CARBON DIOXIDE 23.3 MMOL/L (24-32); TOTAL PROTEIN 4.9 G/DL (6.4-8.2); TRIGLYCERIDES 78 MG/DL (20-135); eGFR > 90 ML/MIN
[2018-10-20 06:11] VITALS: BP 166/92
--- NOTE | 2018-10-20 06:34 | NUR ---
Patient in room ORTHO 4006. I have received report from Mohinder MENDOZA and had the opportunity to ask questions and assume patient care.
[2018-10-20] MEDS: vancomycin/NS 1 GM ADD-VANTAGE 250 ML IV SCH ×3 (07:22→23:12)
[2018-10-20] MEDS: loratadine 10mg tablet PO SCH (07:25)
[2018-10-20] MEDS: atorvastatin 20mg tablet PO SCH (07:26)
[2018-10-20] MEDS: predniSONE 5mg tablet PO SCH (07:26)
[2018-10-20] MEDS: risperiDONE 0.5mg tablet PO SCH ×3 (07:26→20:28)
[2018-10-20] MEDS: pantoprazole 40mg Tablet.DR PO SCH ×2 (07:26→20:27)
[2018-10-20] MEDS: lisinopril 5mg tablet PO SCH (07:27)
[2018-10-20] MEDS: phenobarbital 30mg tablet PO SCH ×2 (07:27→20:27)
[2018-10-20] MEDS: heparin, porcine 5000 units/ml vial SQ SCH ×2 (07:28→20:31)
[2018-10-20] MEDS: K and/or MAG REPLACEMENT MC SCH (07:43)
[2018-10-20] MEDS ORDERED: levoTHYROXINE 112mcg tablet PO SCH (08:00)
[2018-10-20] MEDS ORDERED: non-formulary drug (Atorvastatin Calcium (Lipitor) 1 TAB) PO SCH (08:00)
[2018-10-20 09:03] LABS: CLARITY,URINE CLOUDY (Clear); COLOR,URINE YELLOW (Yellow); GLUCOSE, URINE NEGATIVE (Neg); KETONES,URINE TRACE mg/dl (Neg); LEUKOCYTE ESTERASE ,URINE MODERATE (Neg); NITRITES, URINE POSITIVE (Neg); OCCULT BLOOD,URINE TRACE-INTACT (Neg); PROTEIN,URINE TRACE mg/dl (Neg)
[2018-10-20 09:08] LABS: UA COLLECTION TYPE NON-SPECIFIED
[2018-10-20 09:09] LABS: SQUAMOUS EPITHELIAL CELL,UR FEW /LPF (FEW); WBC CLUMPS,URINE MANY /HPF (NEGATIVE)
[2018-10-20 09:10] LABS: BACTERIA,URINE FEW /HPF (Neg); RBC,URINE 0-2 /HPF (0-2); WBC,URINE 50-100 /HPF (0-4)
[2018-10-20] MEDS: FLUoxetine 10mg capsule PO SCH (09:27)
[2018-10-20] MEDS: piperacillin/tazo 3.375gm/50ml 50 ML IV SCH ×4 (09:27→23:12)
--- NOTE | 2018-10-20 09:47 | NUR ---
Shilo 2325 Re: Parag. Phos is low 2.2. do you want to replace?
[2018-10-20 10:00] VITALS: BP 82/46
--- NOTE | 2018-10-20 11:33 | NUR ---
Patient went down to MRI. stopped zosyn.
[2018-10-20] MEDS: Neutra Phos packet PO SCH ×2 (12:40→20:31)
--- NOTE | 2018-10-20 14:50 | NUR ---
PRESSURE ULCER EDUCATION: DEFINITION: A pressure ulcer is an area of skin that breaks down when you stay in one position too long. The constant pressure against the skin reduces the blood flow to that area and the affected tissue dies. CAUSES: "Being bedridden or in a wheelchair "Fragile skin "Having a chronic condition, such as diabetes or vascular disease "Inability to move certain parts of your body without assistance "Older age "Incontinence of urine or stool SYMPTOMS: "A reddened area that DOES NOT turn white when pressed on - this can be the beginning of a pressure ulcer "A blister, deep sore or a crater - these can be advanced pressure ulcers FIRST AID: "Relieve the pressure on this area "Keep the area clean and dry "Call your primary doctor if you see any of the above symptoms "DO NOT massage the area "DO NOT use a donut shaped or ring shaped pillow- these actually interfere with the blood flow and cause complications PREVENTION: "Check for pressure ulcers everyday "Change position at least every two hours to relieve pressure "Use items that help relieve pressure- pillows, sheepskin, foam padding, and powders. "Keep skin clean and dry "Eat healthy well balanced meals "Exercise daily IF YOU SEE ANY OF THESE SYMPTOMS WHILE IN THE HOSPITAL - TELL YOUR NURSE IMMEDIATELY. IF YOU SEE ANY OF THESE SYMPTOMS WHILE AT HOME OR HAVE ANY QUESTIONS OR CONCERNS ABOUT PRESSURE ULCERS - CALL YOUR PRIMARY DOCTOR IMMEDIATELY. Addendum: 10/20/18 at 1450 by Nelly Lambert RN Amended: Links added.
--- NOTE | 2018-10-20 15:19 | NUR ---
Malnutrition/wound consults: Pt admit w/ FTT hx unable to care for self and caregiver only present 4 hours each day. Hx prior DM but s/p pancreas and kidney transplant w/ no need for DM meds at this time per MD note. Pt has multiple PU's to coccyx, R knee, hx R BKA. Pt received echo, then to MRI, then unable to wake during RD third attempt to visit today. Pt will need malnutrition and high protein ed prior to d/c along w/ RD contact information and ONS coupons. RD d/w RN for MVI for wound healing per MD approval. Given visible severe muscle/fat wasting, clear cachexia, mild weakness, mild scrotal edema, and wounds pt qualifies for severe malnutrition at this time; MD notified. Pt requests strawberry ensure enlive TIDWM; pharmacy order in and dietary notified. PO pending advanced to mechanical soft/grind all/heart healthy diet. Will monitor for additional protein/kcal needs this admit. Rec: 1. advance to regular/mechanical soft/grind per MD approval 2. strawberry ensure enlive TIDWM 3. MVI for wound healing 4. routine bowel care 5. weekly wts 6. malnutrition/protein eds once appropriate prior to d/c Addendum: 10/20/18 at [address] Amended: Links added.
[2018-10-20 17:00] VITALS: BP 135/76
[2018-10-20] MEDS: lactose-reduced food (Ensure Enlive) - 237ml bottle PO SCH (18:00)
--- NOTE | 2018-10-20 18:00 | NUR ---
I AGREE WITH MY PRECEPTEE CARMEN MENDOZA'S CHARTING.
--- NOTE | 2018-10-20 18:12 | NUR ---
Problems reprioritized. Patient report given, questions answered & plan of care reviewed with Mohinder MENDOZA.
[2018-10-20] MEDS: QUEtiapine 25mg tablet PO SCH (20:28)
[2018-10-20 22:00] VITALS: BP 131/76
[2018-10-21] VITALS (7 sets, daily range): BP systolic 86–154; BP diastolic 47–95
[2018-10-21] MEDS: HYDROcodone/acetaminophen 10/325mg tab PO PRN ×5 (00:31→20:37)
[2018-10-21] MEDS: albuterol 2.5 MG/3 ML nebule NEB SCH ×4 (03:47→20:46)
--- NOTE | 2018-10-21 04:02 | NUR ---
unable to obtain orthostatic VS due to pt unable to sit w/o becoming dizzy. Addendum: 10/21/18 at 0405 by Pete Mehta RN Amended: Links added.
--- NOTE | 2018-10-21 06:32 | NUR ---
Patient in room ORTHO 4006. I have received report from Lorena MENDOZA and Tyra MENDOZA and had the opportunity to ask questions and assume patient care.
[2018-10-21] MEDS: pantoprazole 40mg Tablet.DR PO SCH ×2 (07:28→20:38)
[2018-10-21] MEDS: piperacillin/tazo 3.375gm/50ml 50 ML IV SCH ×3 (07:28→23:59)
[2018-10-21] MEDS: FLUoxetine 10mg capsule PO SCH (07:29)
[2018-10-21] MEDS: multivitamins, therapeutics tablet PO SCH (07:29)
[2018-10-21] MEDS: atorvastatin 20mg tablet PO SCH (07:29)
[2018-10-21] MEDS: phenobarbital 30mg tablet PO SCH ×2 (07:29→20:39)
[2018-10-21] MEDS: predniSONE 5mg tablet PO SCH (07:30)
[2018-10-21] MEDS: levoTHYROXINE 175mcg tablet PO SCH (07:30)
[2018-10-21] MEDS: loratadine 10mg tablet PO SCH (07:30)
[2018-10-21] MEDS ORDERED: VANCOMYCIN LEVEL IV ONE (07:30)
[2018-10-21] MEDS: mycophenolate sod SR tablet 180 MG TABLET.DR PO SCH (07:31)
[2018-10-21] MEDS: tacrolimus anhydrous 1mg capsule PO SCH ×2 (07:31→20:39)
[2018-10-21] MEDS: risperiDONE 0.5mg tablet PO SCH ×2 (07:31→20:39)
[2018-10-21] MEDS: lisinopril 5mg tablet PO SCH (07:33)
[2018-10-21] MEDS: K and/or MAG REPLACEMENT MC SCH (08:00)
[2018-10-21] MEDS: lactose-reduced food (Ensure Enlive) - 237ml bottle PO SCH ×3 (08:00→16:21)
[2018-10-21] MEDS: heparin, porcine 5000 units/ml vial SQ SCH ×2 (08:00→20:38)
[2018-10-21] MEDS: Neutra Phos packet PO SCH ×3 (08:00→20:38)
[2018-10-21] MEDS: budesonide 0.5mg/2ml UD nebule IH SCH ×2 (08:37→20:46)
[2018-10-21] MEDS: vancomycin/NS 1 GM ADD-VANTAGE 250 ML IV SCH (08:43)
[2018-10-21 08:50] LABS: BASOPHILS % (AUTO) 0.3 % (0-1); EOSINOPHILS % (AUTO) 1.2 % (0-6); HEMATOCRIT 31.6 % (42.0-52.0); HEMOGLOBIN 10.5 g/dl (14.0-17.9); LYMPHOCYTES # (AUTO) 0.9 X10'3 (1.1-4.8); LYMPHOCYTES % (AUTO) 33.5 % (21-51); MEAN CORPUSCULAR HEMOGLOBIN 31.9 PG (27.0-31.0); MEAN CORPUSCULAR HGB CONC 33.1 g/dL (33.0-36.5); MEAN CORPUSCULAR VOLUME 96.3 FL (78-98); MEAN PLATELET VOLUME 7.4 FL (7.4-10.4); MONOCYTES # (AUTO) 0.3 X10'3 (0-0.9); MONOCYTES % (AUTO) 11.1 % (2-12); NEUTROPHILS # (AUTO) 1.4 X10'3 (1.8-7.7); NEUTROPHILS % (AUTO) 53.9 % (42-75); PLATELET COUNT 123 X10'3 (140-440); RED BLOOD COUNT 3.28 X10'6 (4.70-6.10); RED CELL DISTRIBUTION WIDTH 18.5 % (11.5-14.5); WHITE BLOOD COUNT 2.6 X10'3 (4.5-11.0)
[2018-10-21 09:16] LABS: ALANINE AMINOTRANSFERASE 10 U/L (12-78); ALBUMIN 2.1 G/DL (3.4-5.0); ALBUMIN/GLOBULIN RATIO 0.8 (1.1-1.5); ALKALINE PHOSPHATASE 76 IU/L (46-116); ANION GAP 10 (8-16); ASPARTATE AMINO TRANSFERASE 10 U/L (10-37); BILIRUBIN,TOTAL 0.4 MG/DL (0.1-1.0); BLOOD UREA NITROGEN 9 MG/DL (7-18); BUN/CREATININE RATIO 11.7 (5.4-32.0); CALCIUM 6.8 MG/DL (8.5-10.1); CHLORIDE 110 MMOL/L (99-107); CREATININE 0.77 MG/DL (0.60-1.10); GLUCOSE 98 MG/DL (70-104); MAGNESIUM 1.6 MG/DL (1.5-2.4); PHOSPHORUS 2.9 MG/DL (2.3-4.5); POTASSIUM 4.2 MMOL/L (3.5-5.1); SODIUM 140 MMOL/L (135-145); TOTAL CARBON DIOXIDE 20.3 MMOL/L (24-32); TOTAL PROTEIN 4.9 G/DL (6.4-8.2); eGFR > 90 ML/MIN
[2018-10-21 09:19] LABS: VANCOMYCIN,TROUGH 26.5 UG/ML (6.0-14.0)
[2018-10-21] MEDS ORDERED: LIDOcaine 1% 30ml preserv. free vial IJ STA ×2 (09:39→10:56)
[2018-10-21] MEDS ORDERED: LIDOcaine 1% (10mg/ml) 2ml vial SQ STA (10:03)
[2018-10-21 10:53] LABS: ANISOCYTOSIS 2+; PLATELET ESTIMATE DECREASED; TOTAL CELLS COUNTED 100
[2018-10-21 10:54] LABS: BURR CELLS FEW; HYPOCHROMASIA 1+; POLYCHROMASIA FEW
[2018-10-21] MEDS: normal saline 1000ml 1,000 ML IV SCH ×2 (11:07→16:35)
[2018-10-21] MEDS: morphine 2 MG/ML inj. syringe IV PRN (11:18)
--- NOTE | 2018-10-21 13:00 | NUR ---
Called Dr. Lawrence and left a voicemail regarding a patient consent form that needs to be sign for the patients IND of the right knee.
[2018-10-21] MEDS: vancomycin inj 500 MG in normal saline 100ml IV soln 100 ML IV SCH (16:35)
--- NOTE | 2018-10-21 18:00 | NUR ---
Patient in room ORTHO 4006. I have received report from AbdonRN and ShiloRN and had the opportunity to ask questions and assume patient care.
--- NOTE | 2018-10-21 18:04 | NUR ---
I AGREE WITH MY PRECEPTEE CARMEN MENDOZA'S CHARTING.
--- NOTE | 2018-10-21 18:12 | NUR ---
Problems reprioritized. Patient report given, questions answered & plan of care reviewed with Matilda MENDOZA.
[2018-10-21] MEDS: QUEtiapine 25mg tablet PO SCH (20:38)
[2018-10-21] MEDS: loperamide 2mg capsule PO PRN (20:53)
[2018-10-22] MEDS: vancomycin inj 500 MG in normal saline 100ml IV soln 100 ML IV SCH ×3 (01:23→18:59)
[2018-10-22] MEDS: HYDROcodone/acetaminophen 10/325mg tab PO PRN ×6 (01:29→23:20)
[2018-10-22] MEDS: albuterol 2.5 MG/3 ML nebule NEB SCH ×4 (02:49→21:05)
[2018-10-22 06:00] VITALS: BP 129/81
--- NOTE | 2018-10-22 06:10 | NUR ---
Problems reprioritized. Patient report given, questions answered & plan of care reviewed with KELLY Kwok.
[2018-10-22 06:12] LABS: BASOPHILS % (AUTO) 0.4 % (0-1); EOSINOPHILS % (AUTO) 0.6 % (0-6); HEMATOCRIT 27.8 % (42.0-52.0); HEMOGLOBIN 9.4 g/dl (14.0-17.9); LYMPHOCYTES # (AUTO) 0.8 X10'3 (1.1-4.8); MEAN CORPUSCULAR HEMOGLOBIN 32.4 PG (27.0-31.0); MEAN CORPUSCULAR HGB CONC 33.9 g/dL (33.0-36.5); MEAN CORPUSCULAR VOLUME 95.7 FL (78-98); MEAN PLATELET VOLUME 7.5 FL (7.4-10.4); MONOCYTES # (AUTO) 0.2 X10'3 (0-0.9); MONOCYTES % (AUTO) 9.2 % (2-12); NEUTROPHILS # (AUTO) 1.3 X10'3 (1.8-7.7); NEUTROPHILS % (AUTO) 54.8 % (42-75); PLATELET COUNT 105 X10'3 (140-440); RED BLOOD COUNT 2.91 X10'6 (4.70-6.10); RED CELL DISTRIBUTION WIDTH 18.4 % (11.5-14.5); WHITE BLOOD COUNT 2.3 X10'3 (4.5-11.0)
[2018-10-22 06:19] LABS: ALANINE AMINOTRANSFERASE 9 U/L (12-78); ALBUMIN/GLOBULIN RATIO 0.8 (1.1-1.5); ALKALINE PHOSPHATASE 63 IU/L (46-116); ANION GAP 8 (8-16); ASPARTATE AMINO TRANSFERASE 10 U/L (10-37); BILIRUBIN,TOTAL 0.4 MG/DL (0.1-1.0); BLOOD UREA NITROGEN 8 MG/DL (7-18); BUN/CREATININE RATIO 13.1 (5.4-32.0); CALCIUM 7.5 MG/DL (8.5-10.1); CHLORIDE 113 MMOL/L (99-107); CREATININE 0.61 MG/DL (0.60-1.10); GLUCOSE 89 MG/DL (70-104); MAGNESIUM 1.5 MG/DL (1.5-2.4); PHOSPHORUS 2.6 MG/DL (2.3-4.5); POTASSIUM 4.3 MMOL/L (3.5-5.1); SODIUM 143 MMOL/L (135-145); TOTAL CARBON DIOXIDE 22.5 MMOL/L (24-32); TOTAL PROTEIN 4.5 G/DL (6.4-8.2); eGFR > 90 ML/MIN
--- NOTE | 2018-10-22 06:30 | NUR ---
Patient in room ORTHO 4006. I have received report from Matilda MENDOZA and had the opportunity to ask questions and assume patient care.
[2018-10-22] MEDS: normal saline 1000ml 1,000 ML IV SCH ×2 (07:07→17:40)
[2018-10-22] MEDS: K and/or MAG REPLACEMENT MC SCH (07:14)
[2018-10-22 07:29] LABS: TOTAL CELLS COUNTED 100
[2018-10-22 07:30] LABS: ANISOCYTOSIS 2+; PLATELET ESTIMATE DECREASED; POIKILOCYTOSIS FEW; POLYCHROMASIA FEW; TARGET CELLS FEW
[2018-10-22] MEDS: tacrolimus anhydrous 1mg capsule PO SCH ×2 (07:37→20:25)
[2018-10-22] MEDS: risperiDONE 0.5mg tablet PO SCH ×2 (07:37→20:26)
[2018-10-22] MEDS: piperacillin/tazo 3.375gm/50ml 50 ML IV SCH ×3 (07:37→23:25)
[2018-10-22] MEDS: mycophenolate sod SR tablet 180 MG TABLET.DR PO SCH (07:38)
[2018-10-22] MEDS: lisinopril 5mg tablet PO SCH (07:39)
[2018-10-22] MEDS: loratadine 10mg tablet PO SCH (07:40)
[2018-10-22] MEDS: multivitamins, therapeutics tablet PO SCH (07:40)
[2018-10-22] MEDS: phenobarbital 30mg tablet PO SCH ×2 (07:40→20:25)
[2018-10-22] MEDS: FLUoxetine 10mg capsule PO SCH (07:40)
[2018-10-22] MEDS: atorvastatin 20mg tablet PO SCH (07:40)
[2018-10-22] MEDS: predniSONE 5mg tablet PO SCH (07:40)
[2018-10-22] MEDS: pantoprazole 40mg Tablet.DR PO SCH ×2 (07:41→20:25)
[2018-10-22] MEDS: heparin, porcine 5000 units/ml vial SQ SCH ×2 (07:41→20:34)
[2018-10-22] MEDS: levoTHYROXINE 175mcg tablet PO SCH (07:41)
[2018-10-22] MEDS: Neutra Phos packet PO SCH ×3 (07:41→20:25)
[2018-10-22 08:00] VITALS: BP_SYST 103; BP_SYST 119; BP_SYST 132; BP_DIAS 45; BP_DIAS 65; BP_DIAS 78
[2018-10-22] MEDS: lactose-reduced food (Ensure Enlive) - 237ml bottle PO SCH ×3 (08:00→17:42)
[2018-10-22 10:00] VITALS: BP 111/67
[2018-10-22] MEDS: budesonide 0.5mg/2ml UD nebule IH SCH ×2 (10:17→21:05)
--- NOTE | 2018-10-22 12:52 | NUR ---
F/u for malnutrition/wound consult: Pt seen at bedside denied written protein and malnutrition educations as well as ONS coupons. Pt currently eating well documented with 75-100% PO intake meeting nutrient needs. New scaled weight taken this morning resulting in BMI of 13.7, pt with hx right BKA. Adjusted weight for amputation is 52.6 kg resulting in BMI of 14.7. Pt now receiving routine MVI for wound healing. [facility] 10/22. Will continue to follow. Rec: 1. advance to regular/mechanical soft/grind per MD approval 2. strawberry ensure enlive TIDWM 3. MVI for wound healing 4. routine bowel care 5. weekly wts Addendum: 10/22/18 at [address] Amended: Links added.
[2018-10-22] MEDS ORDERED: VANCOMYCIN LEVEL IV ONE (16:30)
--- NOTE | 2018-10-22 17:03 | NUR ---
Vanco trough is 22.1 pharmacy recommended to give at 1900 instead of 1700, them morning dose will be changed by them, will continue to monitor
[2018-10-22 18:00] VITALS: BP 160/91
--- NOTE | 2018-10-22 18:00 | NUR ---
Problems reprioritized. Patient report given, questions answered & plan of care reviewed with [].
--- NOTE | 2018-10-22 18:00 | NUR ---
Heather Kwok in room ORTHO 4006. I have received report from KELLY Kwok and had the opportunity to ask questions and assume patient care.
--- NOTE | 2018-10-22 18:17 | NUR ---
Problems reprioritized. Patient report given, questions answered & plan of care reviewed with Matilda MENDOZA.
[2018-10-22 20:00] VITALS: BP 153/68
[2018-10-22] MEDS: QUEtiapine 25mg tablet PO SCH (20:25)
[2018-10-22] MEDS: loperamide 2mg capsule PO PRN (20:25)
[2018-10-22 22:00] VITALS: BP 153/68
[2018-10-23] MEDS: vancomycin inj 500 MG in normal saline 100ml IV soln 100 ML IV SCH (01:17)
[2018-10-23] MEDS: normal saline 1000ml 1,000 ML IV SCH ×3 (03:07→23:07)
[2018-10-23] MEDS: albuterol 2.5 MG/3 ML nebule NEB SCH ×4 (03:16→20:02)
[2018-10-23] MEDS: HYDROcodone/acetaminophen 10/325mg tab PO PRN ×5 (03:27→20:35)
[2018-10-23 06:00] VITALS: BP_SYST 116; BP_SYST 164; BP_DIAS 84; BP_DIAS 86
--- NOTE | 2018-10-23 06:09 | NUR ---
received report from jessika tyler
--- NOTE | 2018-10-23 06:13 | NUR ---
Problems reprioritized. Patient report given, questions answered & plan of care reviewed with KELLY Calixto.
[2018-10-23] MEDS: levoTHYROXINE 175mcg tablet PO SCH (07:46)
[2018-10-23] MEDS: loratadine 10mg tablet PO SCH (07:46)
[2018-10-23] MEDS: tacrolimus anhydrous 1mg capsule PO SCH ×2 (07:47→20:28)
[2018-10-23] MEDS: atorvastatin 20mg tablet PO SCH (07:47)
[2018-10-23] MEDS: predniSONE 5mg tablet PO SCH (07:47)
[2018-10-23] MEDS: pantoprazole 40mg Tablet.DR PO SCH ×2 (07:47→20:27)
[2018-10-23] MEDS: phenobarbital 30mg tablet PO SCH ×2 (07:48→20:27)
[2018-10-23] MEDS: FLUoxetine 10mg capsule PO SCH (07:48)
[2018-10-23] MEDS: risperiDONE 0.5mg tablet PO SCH ×2 (07:48→20:29)
[2018-10-23] MEDS: lisinopril 5mg tablet PO SCH (07:49)
[2018-10-23] MEDS: multivitamins, therapeutics tablet PO SCH (07:49)
[2018-10-23] MEDS: mycophenolate sod SR tablet 180 MG TABLET.DR PO SCH (07:49)
[2018-10-23] MEDS: Neutra Phos packet PO SCH ×3 (07:50→20:28)
[2018-10-23] MEDS: piperacillin/tazo 3.375gm/50ml 50 ML IV SCH ×3 (07:53→23:44)
[2018-10-23] MEDS: K and/or MAG REPLACEMENT MC SCH (08:00)
[2018-10-23] MEDS: lactose-reduced food (Ensure Enlive) - 237ml bottle PO SCH ×3 (08:00→18:00)
[2018-10-23] MEDS: heparin, porcine 5000 units/ml vial SQ SCH ×2 (08:00→19:36)
--- NOTE | 2018-10-23 08:00 | NUR ---
unable to obtain pts daily wt and ortho stats at this time
[2018-10-23 08:21] LABS: BASOPHILS % (AUTO) 0.4 % (0-1); EOSINOPHILS % (AUTO) 0.6 % (0-6); HEMATOCRIT 32.5 % (42.0-52.0); HEMOGLOBIN 10.6 g/dl (14.0-17.9); LYMPHOCYTES # (AUTO) 0.9 X10'3 (1.1-4.8); LYMPHOCYTES % (AUTO) 37.3 % (21-51); MEAN CORPUSCULAR HEMOGLOBIN 31.8 PG (27.0-31.0); MEAN CORPUSCULAR HGB CONC 32.7 g/dL (33.0-36.5); MEAN CORPUSCULAR VOLUME 97.1 FL (78-98); MEAN PLATELET VOLUME 7.1 FL (7.4-10.4); MONOCYTES # (AUTO) 0.2 X10'3 (0-0.9); MONOCYTES % (AUTO) 10.1 % (2-12); NEUTROPHILS # (AUTO) 1.2 X10'3 (1.8-7.7); NEUTROPHILS % (AUTO) 51.6 % (42-75); PLATELET COUNT 98 X10'3 (140-440); RED BLOOD COUNT 3.34 X10'6 (4.70-6.10); RED CELL DISTRIBUTION WIDTH 18.1 % (11.5-14.5); WHITE BLOOD COUNT 2.3 X10'3 (4.5-11.0)
[2018-10-23 08:34] LABS: ALANINE AMINOTRANSFERASE 10 U/L (12-78); ALBUMIN 2.4 G/DL (3.4-5.0); ALBUMIN/GLOBULIN RATIO 0.8 (1.1-1.5); ALKALINE PHOSPHATASE 72 IU/L (46-116); ANION GAP 8 (8-16); ASPARTATE AMINO TRANSFERASE 15 U/L (10-37); BILIRUBIN,TOTAL 0.4 MG/DL (0.1-1.0); BLOOD UREA NITROGEN 7 MG/DL (7-18); BUN/CREATININE RATIO 10.4 (5.4-32.0); CALCIUM 7.8 MG/DL (8.5-10.1); CHLORIDE 108 MMOL/L (99-107); CREATININE 0.67 MG/DL (0.60-1.10); GLUCOSE 92 MG/DL (70-104); MAGNESIUM 1.5 MG/DL (1.5-2.4); PHOSPHORUS 2.3 MG/DL (2.3-4.5); POTASSIUM 4.2 MMOL/L (3.5-5.1); SODIUM 140 MMOL/L (135-145); TOTAL CARBON DIOXIDE 23.8 MMOL/L (24-32); TOTAL PROTEIN 5.3 G/DL (6.4-8.2); eGFR > 90 ML/MIN
[2018-10-23 08:57] LABS: ANISOCYTOSIS 2+; LARGE PLATELETS FEW; PLATELET ESTIMATE DECREASED; TOTAL CELLS COUNTED 100; TOXIC VACUOLATION 1+
[2018-10-23] MEDS: VANCOMYCIN 750MG IV in NS 250 ML IV SCH ×2 (09:47→20:28)
[2018-10-23 10:00] VITALS: BP 116/86
[2018-10-23] MEDS: budesonide 0.5mg/2ml UD nebule IH SCH ×2 (10:13→20:02)
[2018-10-23] MEDS ORDERED: ondansetron/PF 4mg/2ml inj IV PRN (14:05)
[2018-10-23 18:00] VITALS: BP 149/86
--- NOTE | 2018-10-23 18:00 | NUR ---
Received report from Marily MENDOZA. Assumed care of patient.
--- NOTE | 2018-10-23 18:05 | NUR ---
gave report to jessika knutson
[2018-10-23] MEDS: morphine 2 MG/ML inj. syringe IV PRN (18:52)
[2018-10-23 20:00] VITALS: BP 146/88
--- NOTE | 2018-10-23 20:00 | NUR ---
unable to obtain orthostatic vitals at this time.
[2018-10-23] MEDS: QUEtiapine 25mg tablet PO SCH (20:27)
[2018-10-23] MEDS: traZODone 50mg tablet PO PRN (21:37)
[2018-10-23 21:46] VITALS: BP 146/88
[2018-10-23] MEDS: temazepam 15mg capsule PO PRN (23:51)
[2018-10-24] MEDS: HYDROcodone/acetaminophen 10/325mg tab PO PRN ×6 (00:46→21:17)
[2018-10-24] MEDS: albuterol 2.5 MG/3 ML nebule NEB SCH ×4 (03:00→20:31)
--- NOTE | 2018-10-24 03:37 | NUR ---
Around 3:00 am respiratory came in to carry out respiratory tx and stated the patient was asking for pain medications. I told the patient he wasn't due for another 2 hours approximately. Patient started getting belligerent and stated that we were lying to him and witholding his pain medication. I told him that I have been giving him his Solon on the appropriate scheduled basis (every 4 hours/PRN). patient agreed to wait on the Solon and was very upset. will continue to monitor
[2018-10-24] MEDS: normal saline 1000ml 1,000 ML IV SCH ×2 (03:55→19:07)
[2018-10-24 06:00] VITALS: BP 162/93
--- NOTE | 2018-10-24 06:00 | NUR ---
gave report to Marily MENDOZA.
--- NOTE | 2018-10-24 06:06 | NUR ---
received report from jessika knutson
[2018-10-24 06:32] LABS: BASOPHILS % (AUTO) 0.4 % (0-1); EOSINOPHILS % (AUTO) 0.7 % (0-6); HEMATOCRIT 29.9 % (42.0-52.0); LYMPHOCYTES % (AUTO) 30.5 % (21-51); MEAN CORPUSCULAR HGB CONC 33.6 g/dL (33.0-36.5); MEAN CORPUSCULAR VOLUME 95.4 FL (78-98); MEAN PLATELET VOLUME 7.2 FL (7.4-10.4); MONOCYTES # (AUTO) 0.3 X10'3 (0-0.9); MONOCYTES % (AUTO) 8.4 % (2-12); PLATELET COUNT 102 X10'3 (140-440); RED BLOOD COUNT 3.14 X10'6 (4.70-6.10); RED CELL DISTRIBUTION WIDTH 17.8 % (11.5-14.5); WHITE BLOOD COUNT 3.3 X10'3 (4.5-11.0)
--- NOTE | 2018-10-24 06:33 | NUR ---
Report received from KELLY Yarbrough
[2018-10-24 06:50] LABS: ALANINE AMINOTRANSFERASE 36 U/L (12-78); ALBUMIN 2.3 G/DL (3.4-5.0); ALBUMIN/GLOBULIN RATIO 0.9 (1.1-1.5); ALKALINE PHOSPHATASE 249 IU/L (46-116); ANION GAP 10 (8-16); ASPARTATE AMINO TRANSFERASE 76 U/L (10-37); BILIRUBIN,TOTAL 0.5 MG/DL (0.1-1.0); BLOOD UREA NITROGEN 9 MG/DL (7-18); BUN/CREATININE RATIO 16.1 (5.4-32.0); CHLORIDE 107 MMOL/L (99-107); CREATININE 0.56 MG/DL (0.60-1.10); GLUCOSE 85 MG/DL (70-104); MAGNESIUM 1.5 MG/DL (1.5-2.4); PHOSPHORUS 2.3 MG/DL (2.3-4.5); POTASSIUM 4.6 MMOL/L (3.5-5.1); SODIUM 139 MMOL/L (135-145); TOTAL CARBON DIOXIDE 22.3 MMOL/L (24-32); eGFR > 90 ML/MIN
[2018-10-24] MEDS: budesonide 0.5mg/2ml UD nebule IH SCH ×2 (07:46→20:31)
[2018-10-24] MEDS: K and/or MAG REPLACEMENT MC SCH (07:52)
[2018-10-24] MEDS: heparin, porcine 5000 units/ml vial SQ SCH ×2 (07:55→20:10)
--- NOTE | 2018-10-24 08:00 | NUR ---
utilized steady to transfer pt, unable to obtain pts ortho stats vs and weight at this time
[2018-10-24] MEDS: levoTHYROXINE 175mcg tablet PO SCH (08:04)
[2018-10-24] MEDS: loratadine 10mg tablet PO SCH (08:05)
[2018-10-24] MEDS: piperacillin/tazo 3.375gm/50ml 50 ML IV SCH ×2 (08:05→15:36)
[2018-10-24] MEDS: mycophenolate sod SR tablet 180 MG TABLET.DR PO SCH (08:05)
[2018-10-24] MEDS: Neutra Phos packet PO SCH ×3 (08:05→20:11)
[2018-10-24] MEDS: atorvastatin 20mg tablet PO SCH (08:05)
[2018-10-24] MEDS: multivitamins, therapeutics tablet PO SCH (08:06)
[2018-10-24] MEDS: pantoprazole 40mg Tablet.DR PO SCH ×2 (08:06→20:10)
[2018-10-24] MEDS: predniSONE 5mg tablet PO SCH (08:06)
[2018-10-24] MEDS: lisinopril 5mg tablet PO SCH (08:06)
[2018-10-24] MEDS: phenobarbital 30mg tablet PO SCH ×2 (08:06→20:10)
[2018-10-24] MEDS: risperiDONE 0.5mg tablet PO SCH ×2 (08:07→20:10)
[2018-10-24] MEDS: FLUoxetine 10mg capsule PO SCH (08:07)
[2018-10-24] MEDS: tacrolimus anhydrous 1mg capsule PO SCH ×2 (08:08→20:11)
[2018-10-24] MEDS: lactose-reduced food (Ensure Enlive) - 237ml bottle PO SCH ×3 (08:27→18:00)
[2018-10-24] MEDS: VANCOMYCIN 750MG IV in NS 250 ML IV SCH (08:27)
[2018-10-24] MEDS: morphine 2 MG/ML inj. syringe IV PRN ×3 (09:30→20:10)
[2018-10-24 10:00] VITALS: BP 111/72
--- NOTE | 2018-10-24 13:21 | NUR ---
reassesssment: Pt PO 50% avg meals and strawberry ensure enlive TID meeting needs. LBM 10/22. Receiving MVI. Will continue to monitor. Rec: 1. continue heart healthy/mechanical soft/grind per MD 2. strawberry ensure enlive TIDWM 3. MVI for wound healing 4. routine bowel care 5. weekly wts Addendum: 10/24/18 at [address] Amended: Links added.
[2018-10-24 18:00] VITALS: BP 156/94
--- NOTE | 2018-10-24 18:05 | NUR ---
gave report jessika knutson
--- NOTE | 2018-10-24 18:05 | NUR ---
Received report from Marily MENDOZA. Assumed care of patient.
[2018-10-24 20:00] VITALS: BP 156/94
[2018-10-24] MEDS: QUEtiapine 25mg tablet PO SCH (20:11)
[2018-10-24] MEDS: loperamide 2mg capsule PO PRN (20:26)
[2018-10-24] MEDS ORDERED: VANCOMYCIN LEVEL IV ONE (20:30)
[2018-10-24] MEDS: traZODone 50mg tablet PO PRN (21:17)
[2018-10-24 22:00] VITALS: BP 149/95
[2018-10-25] MEDS: piperacillin/tazo 3.375gm/50ml 50 ML IV SCH ×4 (00:25→23:49)
[2018-10-25] MEDS: HYDROcodone/acetaminophen 10/325mg tab PO PRN ×6 (01:09→23:49)
[2018-10-25] MEDS: albuterol 2.5 MG/3 ML nebule NEB SCH ×4 (02:17→20:47)
[2018-10-25] MEDS: normal saline 1000ml 1,000 ML IV SCH ×3 (05:07→21:20)
[2018-10-25 05:34] LABS: ALBUMIN 2.3 G/DL (3.4-5.0); ANION GAP 9 (8-16); BLOOD UREA NITROGEN 9 MG/DL (7-18); BUN/CREATININE RATIO 10.7 (5.4-32.0); CALCIUM 8.3 MG/DL (8.5-10.1); CHLORIDE 106 MMOL/L (99-107); CREATININE 0.84 MG/DL (0.60-1.10); GLUCOSE 95 MG/DL (70-104); POTASSIUM 4.6 MMOL/L (3.5-5.1); SODIUM 138 MMOL/L (135-145); TOTAL CARBON DIOXIDE 22.8 MMOL/L (24-32); eGFR > 90 ML/MIN
[2018-10-25 06:00] VITALS: BP 128/80
--- NOTE | 2018-10-25 06:17 | NUR ---
Gave report to Kimberli MENDOZA.
[2018-10-25] MEDS: levoTHYROXINE 175mcg tablet PO SCH (07:48)
[2018-10-25] MEDS: loratadine 10mg tablet PO SCH (07:49)
[2018-10-25] MEDS: atorvastatin 20mg tablet PO SCH (07:49)
[2018-10-25] MEDS: Neutra Phos packet PO SCH ×3 (07:50→21:06)
[2018-10-25] MEDS: mycophenolate sod SR tablet 180 MG TABLET.DR PO SCH (07:50)
[2018-10-25] MEDS: tacrolimus anhydrous 1mg capsule PO SCH ×2 (07:50→21:05)
[2018-10-25] MEDS: phenobarbital 30mg tablet PO SCH ×2 (07:50→21:05)
[2018-10-25] MEDS: predniSONE 5mg tablet PO SCH (07:50)
[2018-10-25] MEDS: pantoprazole 40mg Tablet.DR PO SCH ×2 (07:51→21:06)
[2018-10-25] MEDS: risperiDONE 0.5mg tablet PO SCH ×2 (07:51→21:06)
[2018-10-25] MEDS: lisinopril 5mg tablet PO SCH (07:51)
[2018-10-25] MEDS: FLUoxetine 10mg capsule PO SCH (07:51)
[2018-10-25] MEDS: multivitamins, therapeutics tablet PO SCH (07:51)
[2018-10-25] MEDS: heparin, porcine 5000 units/ml vial SQ SCH ×2 (07:52→21:06)
[2018-10-25] MEDS: K and/or MAG REPLACEMENT MC SCH (08:00)
[2018-10-25] MEDS: lactose-reduced food (Ensure Enlive) - 237ml bottle PO SCH ×3 (08:18→18:00)
[2018-10-25 08:30] VITALS: BP_SYST 135; BP_SYST 157; BP_SYST 98; BP_DIAS 78; BP_DIAS 79; BP_DIAS 85
[2018-10-25] MEDS: budesonide 0.5mg/2ml UD nebule IH SCH ×2 (09:15→20:48)
[2018-10-25 10:00] VITALS: BP 108/63
[2018-10-25] MEDS: morphine 2 MG/ML inj. syringe IV PRN (11:04)
[2018-10-25 18:30] VITALS: BP 124/80
--- NOTE | 2018-10-25 18:41 | NUR ---
Tele Dc'd on day shift per tele protocol.
[2018-10-25] MEDS: QUEtiapine 25mg tablet PO SCH (21:06)
[2018-10-25 22:00] VITALS: BP 117/75
[2018-10-26] MEDS: morphine 2 MG/ML inj. syringe IV PRN ×2 (02:48→08:20)
[2018-10-26] MEDS: albuterol 2.5 MG/3 ML nebule NEB SCH ×2 (02:57→09:00)
[2018-10-26 06:23] LABS: ALBUMIN 2.2 G/DL (3.4-5.0); ANION GAP 10 (8-16); BLOOD UREA NITROGEN 11 MG/DL (7-18); BUN/CREATININE RATIO 14.5 (5.4-32.0); CALCIUM 8.6 MG/DL (8.5-10.1); CHLORIDE 107 MMOL/L (99-107); CREATININE 0.76 MG/DL (0.60-1.10); GLUCOSE 84 MG/DL (70-104); POTASSIUM 4.3 MMOL/L (3.5-5.1); SODIUM 140 MMOL/L (135-145); TOTAL CARBON DIOXIDE 22.9 MMOL/L (24-32); eGFR > 90 ML/MIN
--- NOTE | 2018-10-26 06:47 | NUR ---
Patient in room ORTHO 4006. I have received report from Esthela RN and had the opportunity to ask questions and assume patient care.
[2018-10-26 07:00] VITALS: BP 115/78
[2018-10-26] MEDS: lactose-reduced food (Ensure Enlive) - 237ml bottle PO SCH ×3 (08:00→19:00)
[2018-10-26] MEDS: K and/or MAG REPLACEMENT MC SCH (08:00)
[2018-10-26] MEDS: predniSONE 5mg tablet PO SCH (08:20)
[2018-10-26] MEDS: FLUoxetine 10mg capsule PO SCH (08:21)
[2018-10-26] MEDS: risperiDONE 0.5mg tablet PO SCH ×2 (08:21→20:14)
[2018-10-26] MEDS: multivitamins, therapeutics tablet PO SCH (08:21)
[2018-10-26] MEDS: loratadine 10mg tablet PO SCH (08:21)
[2018-10-26] MEDS: tacrolimus anhydrous 1mg capsule PO SCH ×2 (08:21→20:12)
[2018-10-26] MEDS: atorvastatin 20mg tablet PO SCH (08:21)
[2018-10-26] MEDS: mycophenolate sod SR tablet 180 MG TABLET.DR PO SCH (08:21)
[2018-10-26] MEDS: Neutra Phos packet PO SCH ×3 (08:22→20:11)
[2018-10-26] MEDS: pantoprazole 40mg Tablet.DR PO SCH ×2 (08:22→20:11)
[2018-10-26] MEDS: lisinopril 5mg tablet PO SCH (08:22)
[2018-10-26] MEDS: levoTHYROXINE 175mcg tablet PO SCH (08:22)
[2018-10-26] MEDS: piperacillin/tazo 3.375gm/50ml 50 ML IV SCH (08:22)
[2018-10-26] MEDS: phenobarbital 30mg tablet PO SCH ×2 (08:22→20:11)
[2018-10-26] MEDS: heparin, porcine 5000 units/ml vial SQ SCH ×2 (08:24→20:13)
[2018-10-26] MEDS: normal saline 1000ml 1,000 ML IV SCH (08:32)
[2018-10-26] MEDS: budesonide 0.5mg/2ml UD nebule IH SCH (09:00)
[2018-10-26 10:00] VITALS: BP 85/60
[2018-10-26] MEDS: HYDROcodone/acetaminophen 10/325mg tab PO PRN ×2 (12:00→16:39)
[2018-10-26] MEDS ORDERED: HYDROcodone/acetaminophen 5mg/325mg tablet PO PRN (16:35)
--- NOTE | 2018-10-26 16:57 | NUR ---
pulled out one norco 10 for pt elevated pain level, admin pain med to patient, patient very angry that i did not have 2 norcos that pt was promised, then called hospitalist to ask her for the 2 norco and hospitalist said that she just had ordered it so i needed to wait for the order to go through, after admin one norco 10 from a few min ago, i got another norco 10 out of [employer] and admin to pt, now pt has the new norco 10 order, continue to monitor
[2018-10-26 17:00] VITALS: BP_SYST 111; BP_SYST 118; BP_DIAS 73; BP_DIAS 74
--- NOTE | 2018-10-26 17:02 | NUR ---
reassessment: Pt PO improved to 75-100% meals w/ ensure enlive meeting needs. LBM 10/24. Will continue to monitor. Rec: 1. continue heart healthy/mechanical soft/grind per MD 2. strawberry ensure enlive TIDWM 3. MVI for wound healing 4. routine bowel care 5. weekly wts Addendum: 10/26/18 at [address] Amended: Links added.
--- NOTE | 2018-10-26 17:30 | NUR ---
Called Wound Care to gather softform gauze to pack wound, couldn't find any but noted "conforming stretch gauze to use". Left voicemail with wound care. Will use conforming stretch gauze until we get the softform.
[2018-10-26] MEDS: Dakins solution (1/4 strength) 473ml solution TP SCH (17:54)
[2018-10-26 18:00] VITALS: BP 111/73
--- NOTE | 2018-10-26 18:33 | NUR ---
Problems reprioritized. Patient report given, questions answered & plan of care reviewed with Amanda Santillan RN.
[2018-10-26] MEDS: temazepam 15mg capsule PO PRN (20:11)
[2018-10-26] MEDS: QUEtiapine 25mg tablet PO SCH (20:12)
[2018-10-26] MEDS: traZODone 50mg tablet PO PRN (20:12)
[2018-10-26 22:00] VITALS: BP 110/55
[2018-10-26] MEDS: HYDROcodone/acetaminophen 5mg/325mg tablet PO PRN (22:40)
[2018-10-27] MEDS: HYDROcodone/acetaminophen 5mg/325mg tablet PO PRN ×4 (04:37→22:10)
[2018-10-27 05:44] LABS: ALBUMIN 2.3 G/DL (3.4-5.0); ANION GAP 9 (8-16); BLOOD UREA NITROGEN 14 MG/DL (7-18); BUN/CREATININE RATIO 25.9 (5.4-32.0); CALCIUM 8.4 MG/DL (8.5-10.1); CHLORIDE 108 MMOL/L (99-107); CREATININE 0.54 MG/DL (0.60-1.10); GLUCOSE 94 MG/DL (70-104); POTASSIUM 4.6 MMOL/L (3.5-5.1); SODIUM 140 MMOL/L (135-145); eGFR > 90 ML/MIN
[2018-10-27 06:00] VITALS: BP 151/69
--- NOTE | 2018-10-27 06:23 | NUR ---
Problems reprioritized. Patient report given, questions answered & plan of care reviewed with KELLY Coppola.
[2018-10-27 08:00] VITALS: BP_SYST 103; BP_SYST 131; BP_DIAS 69; BP_DIAS 75
[2018-10-27] MEDS: lactose-reduced food (Ensure Enlive) - 237ml bottle PO SCH ×3 (08:00→20:30)
[2018-10-27] MEDS: K and/or MAG REPLACEMENT MC SCH (08:00)
[2018-10-27] MEDS: levoTHYROXINE 175mcg tablet PO SCH (09:29)
[2018-10-27] MEDS: loratadine 10mg tablet PO SCH (09:30)
[2018-10-27] MEDS: FLUoxetine 10mg capsule PO SCH (09:31)
[2018-10-27] MEDS: pantoprazole 40mg Tablet.DR PO SCH ×2 (09:31→22:09)
[2018-10-27] MEDS: atorvastatin 20mg tablet PO SCH (09:31)
[2018-10-27] MEDS: multivitamins, therapeutics tablet PO SCH (09:31)
[2018-10-27] MEDS: phenobarbital 30mg tablet PO SCH ×2 (09:32→22:08)
[2018-10-27] MEDS: predniSONE 5mg tablet PO SCH (09:32)
[2018-10-27] MEDS: lisinopril 5mg tablet PO SCH (09:33)
[2018-10-27] MEDS: Neutra Phos packet PO SCH ×3 (09:33→22:09)
[2018-10-27] MEDS: heparin, porcine 5000 units/ml vial SQ SCH ×2 (09:33→22:07)
[2018-10-27] MEDS: morphine 2 MG/ML inj. syringe IV PRN ×2 (09:34→13:28)
[2018-10-27] MEDS: mycophenolate sod SR tablet 180 MG TABLET.DR PO SCH (09:36)
[2018-10-27] MEDS: tacrolimus anhydrous 1mg capsule PO SCH ×2 (09:37→22:08)
[2018-10-27] MEDS: risperiDONE 0.5mg tablet PO SCH ×2 (09:37→22:08)
[2018-10-27] MEDS: normal saline 1000ml 1,000 ML IV SCH (09:38)
[2018-10-27] MEDS: Dakins solution (1/4 strength) 473ml solution TP SCH (09:41)
[2018-10-27 10:00] VITALS: BP 121/75
[2018-10-27] MEDS ORDERED: LIDOcaine 1% (10mg/ml)w/preservative injection 20ml MDV SQ STA ×2 (10:27→10:36)
[2018-10-27 18:00] VITALS: BP 116/73
--- NOTE | 2018-10-27 18:05 | NUR ---
Problems reprioritized. Patient report given, questions answered & plan of care reviewed with LIBRA MENDOZA.
--- NOTE | 2018-10-27 19:30 | NUR ---
Patient in room ORTHO 4006. I have received report from KELLY Matos and had the opportunity to ask questions and assume patient care.
--- NOTE | 2018-10-27 20:05 | NUR ---
called report to surgical nurse. patient given education re pain medication orders and reason for transfer. patient belongings, chart and meds sent to room 352
--- NOTE | 2018-10-27 20:14 | NUR ---
patient arrived from Ortho in no distress and with his 2nd dinner tray
[2018-10-27 20:20] VITALS: BP 122/81
[2018-10-27 20:45] VITALS: BP 122/81
[2018-10-27] MEDS: temazepam 15mg capsule PO PRN (22:08)
[2018-10-27] MEDS: traZODone 50mg tablet PO PRN (22:08)
[2018-10-27] MEDS: QUEtiapine 25mg tablet PO SCH (22:09)
[2018-10-28] MEDS: morphine 2 MG/ML inj. syringe IV PRN ×3 (01:14→11:31)
--- NOTE | 2018-10-28 06:38 | NUR ---
Problems reprioritized. Patient report given, questions answered & plan of care reviewed with KELLY Whipple. Addendum: 10/28/18 at 0638 by Keisha Ritter RN Amended: Links added.
[2018-10-28 06:39] LABS: ALBUMIN 2.3 G/DL (3.4-5.0); ANION GAP 10 (8-16); BLOOD UREA NITROGEN 20 MG/DL (7-18); BUN/CREATININE RATIO 28.2 (5.4-32.0); CALCIUM 8.4 MG/DL (8.5-10.1); CHLORIDE 107 MMOL/L (99-107); CREATININE 0.71 MG/DL (0.60-1.10); GLUCOSE 75 MG/DL (70-104); POTASSIUM 5.2 MMOL/L (3.5-5.1); SODIUM 140 MMOL/L (135-145); TOTAL CARBON DIOXIDE 23.2 MMOL/L (24-32); eGFR > 90 ML/MIN
[2018-10-28 07:30] VITALS: BP 160/82
[2018-10-28] MEDS: lisinopril 5mg tablet PO SCH (07:45)
[2018-10-28] MEDS: multivitamins, therapeutics tablet PO SCH (07:46)
[2018-10-28] MEDS: phenobarbital 30mg tablet PO SCH ×2 (07:47→20:19)
[2018-10-28] MEDS: risperiDONE 0.5mg tablet PO SCH ×2 (07:47→20:21)
[2018-10-28] MEDS: Neutra Phos packet PO SCH ×2 (07:48→14:00)
[2018-10-28] MEDS: loratadine 10mg tablet PO SCH (07:48)
[2018-10-28] MEDS: pantoprazole 40mg Tablet.DR PO SCH ×2 (07:48→20:23)
[2018-10-28] MEDS: tacrolimus anhydrous 1mg capsule PO SCH ×2 (07:49→20:20)
[2018-10-28] MEDS: predniSONE 5mg tablet PO SCH (07:49)
[2018-10-28] MEDS: levoTHYROXINE 175mcg tablet PO SCH (07:50)
[2018-10-28] MEDS: mycophenolate sod SR tablet 180 MG TABLET.DR PO SCH (07:50)
[2018-10-28] MEDS: atorvastatin 20mg tablet PO SCH (07:50)
[2018-10-28] MEDS: heparin, porcine 5000 units/ml vial SQ SCH ×2 (07:51→20:23)
[2018-10-28] MEDS: Dakins solution (1/4 strength) 473ml solution TP SCH (07:52)
[2018-10-28 08:00] VITALS: BP 160/82
[2018-10-28] MEDS: K and/or MAG REPLACEMENT MC SCH (08:00)
[2018-10-28] MEDS: FLUoxetine 10mg capsule PO SCH (08:00)
[2018-10-28] MEDS: lactose-reduced food (Ensure Enlive) - 237ml bottle PO SCH ×3 (08:40→18:00)
[2018-10-28 11:00] VITALS: BP 125/71
[2018-10-28] MEDS ORDERED: sodium polystyrene sulfonate 15gm/60ml oral suspension PO ONE (14:55)
[2018-10-28] MEDS: HYDROcodone/acetaminophen 5mg/325mg tablet PO PRN ×2 (16:30→23:24)
--- NOTE | 2018-10-28 18:20 | NUR ---
Patient in room SHIRA 352. I have received report from Yoselyn Richter and had the opportunity to ask questions and assume patient care. Addendum: 10/28/18 at 1901 by Kerry Pettit RN Amended: Links added.
--- NOTE | 2018-10-28 18:30 | NUR ---
Problems reprioritized. Patient report given, questions answered & plan of care reviewed with KELLY Payne.
[2018-10-28 19:30] VITALS: BP 133/96
[2018-10-28 20:00] VITALS: BP 133/95
--- NOTE | 2018-10-28 20:10 | NUR ---
pt given hs meds and teaching done regarding meds and care and initially refused his medications then said he'd take them. discussed plan of care with him and needs. pt continued to curse Rn and informed him i'm listening and treating him with respect and do not feel he is doing the same. pt stopped yelling at this time.
[2018-10-28] MEDS: traZODone 50mg tablet PO PRN (20:22)
[2018-10-28] MEDS: QUEtiapine 25mg tablet PO SCH (21:00)
--- NOTE | 2018-10-28 21:35 | NUR ---
PT RESTING EYES CLOSEd WITHOUT S&S OF DISTRESS AFTER POSITIONING TO COMFORT.
--- NOTE | 2018-10-28 23:01 | NUR ---
pt yelling and cursing at the staff. positionedto comfort. skin care done and smallest condom cath could find aPPLIED TO PT. PT ANGRY HE HAD MORPHINE IV DISCONTINUED TODAY AND RECEIVING NORCO PO. PT WANTS A VILCHIS INSTEAD OF CONDOM CATH. PT POSITIONED TO COMFORT.
--- NOTE | 2018-10-28 23:27 | NUR ---
medicated for pain with 2 po norco's for this.
--- NOTE | 2018-10-29 01:30 | NUR ---
pt resting no s&s of distress. appears comfortable.
--- NOTE | 2018-10-29 03:30 | NUR ---
turned self and resting no changes.
[2018-10-29] MEDS: HYDROcodone/acetaminophen 5mg/325mg tablet PO PRN ×2 (05:40→12:00)
--- NOTE | 2018-10-29 05:40 | NUR ---
awoke medicaed for pain with 2 norco's 09/17 and inc large bm and inc of urine condom cath came off. pt repositioned and urinal placed between pt legs.
--- NOTE | 2018-10-29 06:36 | NUR ---
Problems reprioritized. Patient report given, questions answered & plan of care reviewed with Yoselyn Richter.
--- NOTE | 2018-10-29 06:57 | NUR ---
Problems reprioritized. Patient report given, questions answered & plan of care reviewed with Yoselyn Richter. Addendum: 10/29/18 at 0658 by Kerry Pettit RN Amended: Links added.
[2018-10-29 07:40] VITALS: BP 134/82
[2018-10-29] MEDS: K and/or MAG REPLACEMENT MC SCH (08:00)
[2018-10-29] MEDS: Dakins solution (1/4 strength) 473ml solution TP SCH (08:00)
[2018-10-29] MEDS: heparin, porcine 5000 units/ml vial SQ SCH ×2 (08:00→20:39)
[2018-10-29] MEDS: lactose-reduced food (Ensure Enlive) - 237ml bottle PO SCH ×3 (08:00→17:55)
[2018-10-29 08:24] VITALS: BP 134/82
[2018-10-29] MEDS: atorvastatin 20mg tablet PO SCH (09:12)
[2018-10-29] MEDS: phenobarbital 30mg tablet PO SCH ×2 (09:12→20:42)
[2018-10-29] MEDS: levoTHYROXINE 175mcg tablet PO SCH (09:12)
[2018-10-29] MEDS: pantoprazole 40mg Tablet.DR PO SCH ×2 (09:13→20:40)
[2018-10-29] MEDS: predniSONE 5mg tablet PO SCH (09:13)
[2018-10-29] MEDS: risperiDONE 0.5mg tablet PO SCH ×2 (09:14→20:40)
[2018-10-29] MEDS: lisinopril 5mg tablet PO SCH (09:14)
[2018-10-29] MEDS: mycophenolate sod SR tablet 180 MG TABLET.DR PO SCH (09:14)
[2018-10-29] MEDS: loratadine 10mg tablet PO SCH (09:14)
[2018-10-29] MEDS: FLUoxetine 10mg capsule PO SCH (09:14)
[2018-10-29] MEDS: tacrolimus anhydrous 1mg capsule PO SCH ×2 (09:14→20:40)
[2018-10-29] MEDS: multivitamins, therapeutics tablet PO SCH (09:19)
[2018-10-29 11:00] VITALS: BP 117/70
--- NOTE | 2018-10-29 15:20 | NUR ---
reassessment: Pt PO decreased to 50-75% from 75-100% previous. LBM 10/25 w/ no bowel care. MARLENE d/w RN for routine bowel care per MD approval. Likely effecting PO. Will continue to monitor. Rec: 1. continue heart healthy/mechanical soft/grind per MD 2. strawberry ensure enlive TIDWM 3. MVI for wound healing 4. routine bowel care 5. weekly wts Addendum: 10/29/18 at [address] Amended: Links added.
[2018-10-29] MEDS: HYDROcodone/acetaminophen 10/325mg tab PO PRN ×2 (16:52→20:56)
--- NOTE | 2018-10-29 18:44 | NUR ---
Problems reprioritized. Patient report given, questions answered & plan of care reviewed with KELLY MCCRAY.
[2018-10-29 19:00] VITALS: BP 76/49
--- NOTE | 2018-10-29 19:00 | NUR ---
Patient in room [facility]IR[facility] 352. I have received report from nurse Yoselyn MENDOZA and had the opportunity to ask questions and assume patient care. Addendum: 10/29/18 at 1943 by Mary Chen RN Amended: Links added.
[2018-10-29] MEDS: QUEtiapine 25mg tablet PO SCH (20:58)
--- NOTE | 2018-10-29 23:07 | NUR ---
BP 76/49 noted at 1999. Upon re-assessment @ 2104 bp 104/[address] Holliday, orders received to bolus pt. with D5% NS of 250ml to run over 5 hour. Addendum: 10/29/18 at 2313 by Mary Chen RN Amended: Links added.
[2018-10-30] VITALS: BP 128/68
[2018-10-30] MEDS ORDERED: dextrose 5%-normal saline 1,000 ML IV SCH (00:55)
[2018-10-30] MEDS: HYDROcodone/acetaminophen 10/325mg tab PO PRN ×4 (03:26→23:02)
--- NOTE | 2018-10-30 04:00 | NUR ---
Could not obtain the weight on this shift. Requested day shift nurse to obtain the weight Addendum: 10/30/18 at 0703 by Mary Chen RN Amended: Links added.
--- NOTE | 2018-10-30 06:00 | NUR ---
Problems reprioritized. Patient report given to nurse Candida MENDOZA, questions answered & plan of care reviewed with . Addendum: 10/30/18 at 0802 by Mary Chen RN Amended: Links added.
--- NOTE | 2018-10-30 06:57 | NUR ---
Patient in room SHIRA 352. I have received report from segun rosen and had the opportunity to ask questions and assume patient care.
[2018-10-30 07:00] VITALS: BP 106/62
--- NOTE | 2018-10-30 07:00 | NUR ---
pt slept better this shift with pain management in place with p.o norco prn. Isolation precaution observed. D5% NS 250ml x 1 bolus over 5 hours. pt. voided 300ml in the urinal and pt was incontinent x 2 this shift. Addendum: 10/30/18 at 0751 by Mary Chen RN Amended: Links added.
[2018-10-30] MEDS: levoTHYROXINE 175mcg tablet PO SCH (07:30)
[2018-10-30] MEDS: K and/or MAG REPLACEMENT MC SCH (08:00)
[2018-10-30] MEDS: lactose-reduced food (Ensure Enlive) - 237ml bottle PO SCH ×3 (08:00→18:16)
[2018-10-30] MEDS: Dakins solution (1/4 strength) 473ml solution TP SCH (08:00)
[2018-10-30] MEDS: tacrolimus anhydrous 1mg capsule PO SCH ×2 (09:00→20:14)
[2018-10-30] MEDS: risperiDONE 0.5mg tablet PO SCH ×2 (09:01→20:14)
[2018-10-30] MEDS: multivitamins, therapeutics tablet PO SCH (09:01)
[2018-10-30] MEDS: phenobarbital 30mg tablet PO SCH ×2 (09:01→20:12)
[2018-10-30] MEDS: loratadine 10mg tablet PO SCH (09:01)
[2018-10-30] MEDS: pantoprazole 40mg Tablet.DR PO SCH ×2 (09:01→20:14)
[2018-10-30] MEDS: lisinopril 5mg tablet PO SCH (09:01)
[2018-10-30] MEDS: atorvastatin 20mg tablet PO SCH (09:01)
[2018-10-30] MEDS: predniSONE 5mg tablet PO SCH (09:02)
[2018-10-30] MEDS: FLUoxetine 10mg capsule PO SCH (09:02)
[2018-10-30] MEDS: mycophenolate sod SR tablet 180 MG TABLET.DR PO SCH (09:02)
[2018-10-30] MEDS: heparin, porcine 5000 units/ml vial SQ SCH ×2 (09:03→20:15)
[2018-10-30 11:00] VITALS: BP_SYST 75; BP_DIAS 43; BP_DIAS 45
[2018-10-30 12:00] VITALS: BP 108/65
--- NOTE | 2018-10-30 18:17 | NUR ---
patient initially reluctant for care, very sleepy at breakfast, tk up little more during shift. Up in wheel chair x1 with sliding board. B/P 75/45, Grace mares aware . Lisinopril dose changed. Dr Williamson aware. B/P retaken when patient was back in bed 106/55. patient states that since his kidney transplant he runs a low B/P. Will continue to monitor. wounds pictured, wound vac in place, report given to Zhao MENDOZA
[2018-10-30 18:50] VITALS: BP 85/45
[2018-10-30] MEDS: QUEtiapine 25mg tablet PO SCH (20:15)
[2018-10-31] VITALS: BP 101/65
[2018-10-31] MEDS: HYDROcodone/acetaminophen 10/325mg tab PO PRN ×5 (04:54→23:26)
--- NOTE | 2018-10-31 06:07 | NUR ---
Problems reprioritized. Patient report given, questions answered & plan of care reviewed with CHRIS. Addendum: 10/31/18 at 0608 by Jered Earl RN Amended: Links added.
--- NOTE | 2018-10-31 07:11 | NUR ---
Patient in room [facility]IRA 352. I have received report from CLAU MENDOZA and had the opportunity to ask questions and assume patient care.
--- NOTE | 2018-10-31 07:13 | NUR ---
Patient in room SHIRA 352. I have received report from Zhao MENDOZA and had the opportunity to ask questions and assume patient care.
[2018-10-31 08:00] VITALS: BP 100/66
[2018-10-31] MEDS ORDERED: lisinopril 2.5mg tablet PO SCH (08:00)
[2018-10-31] MEDS: lactose-reduced food (Ensure Enlive) - 237ml bottle PO SCH ×3 (08:00→18:31)
[2018-10-31] MEDS: Dakins solution (1/4 strength) 473ml solution TP SCH (08:00)
[2018-10-31] MEDS: heparin, porcine 5000 units/ml vial SQ SCH ×3 (08:00→19:58)
[2018-10-31] MEDS: K and/or MAG REPLACEMENT MC SCH (08:00)
[2018-10-31] MEDS: atorvastatin 20mg tablet PO SCH (08:30)
[2018-10-31] MEDS: levoTHYROXINE 175mcg tablet PO SCH (08:30)
[2018-10-31] MEDS: tacrolimus anhydrous 1mg capsule PO SCH ×2 (08:30→19:58)
[2018-10-31] MEDS: FLUoxetine 10mg capsule PO SCH (08:30)
[2018-10-31] MEDS: pantoprazole 40mg Tablet.DR PO SCH ×2 (08:32→19:58)
[2018-10-31] MEDS: loratadine 10mg tablet PO SCH (08:46)
[2018-10-31] MEDS: mycophenolate sod SR tablet 180 MG TABLET.DR PO SCH (08:46)
[2018-10-31] MEDS: phenobarbital 30mg tablet PO SCH ×2 (08:47→19:57)
[2018-10-31] MEDS: risperiDONE 0.5mg tablet PO SCH ×2 (08:47→19:58)
[2018-10-31] MEDS: multivitamins, therapeutics tablet PO SCH (08:47)
[2018-10-31] MEDS: predniSONE 5mg tablet PO SCH (08:47)
[2018-10-31 11:00] VITALS: BP 109/66
--- NOTE | 2018-10-31 17:53 | NUR ---
Patient seeing by Dr Williamson this morning. was incontinent of BM x1. worked with PT. Wound vac changed by wound team. Patient BP was low Lisinopril D/C per Dr Williamson orders. Patient needs encouragement and assistance with meals.
--- NOTE | 2018-10-31 18:07 | NUR ---
Problems reprioritized. Patient report given, questions answered & plan of care reviewed with Zhao MENDOZA.
[2018-10-31 18:40] VITALS: BP 116/68
[2018-10-31] MEDS: QUEtiapine 25mg tablet PO SCH (20:23)
[2018-11-01] MEDS: temazepam 15mg capsule PO PRN (01:48)
[2018-11-01] MEDS: HYDROcodone/acetaminophen 10/325mg tab PO PRN ×2 (03:28→13:45)
--- NOTE | 2018-11-01 06:48 | NUR ---
Problems reprioritized. Patient report given, questions answered & plan of care reviewed with JEFF. Addendum: 11/01/18 at 0648 by Jered Earl RN Amended: Links added.
[2018-11-01 07:32] VITALS: BP 82/49
[2018-11-01 08:00] VITALS: BP_SYST 88; BP_SYST 90; BP_DIAS 46; BP_DIAS 52
[2018-11-01] MEDS: heparin, porcine 5000 units/ml vial SQ SCH (08:00)
[2018-11-01] MEDS: lactose-reduced food (Ensure Enlive) - 237ml bottle PO SCH ×2 (08:00→13:44)
[2018-11-01] MEDS: K and/or MAG REPLACEMENT MC SCH (08:00)
[2018-11-01 10:00] VITALS: BP 93/59
[2018-11-01] MEDS: risperiDONE 0.5mg tablet PO SCH (10:21)
[2018-11-01] MEDS: FLUoxetine 10mg capsule PO SCH (10:22)
[2018-11-01] MEDS: multivitamins, therapeutics tablet PO SCH (10:22)
[2018-11-01] MEDS: loratadine 10mg tablet PO SCH (10:22)
[2018-11-01] MEDS: tacrolimus anhydrous 1mg capsule PO SCH (10:22)
[2018-11-01] MEDS: phenobarbital 30mg tablet PO SCH (10:23)
[2018-11-01] MEDS: levoTHYROXINE 175mcg tablet PO SCH (10:23)
[2018-11-01] MEDS: pantoprazole 40mg Tablet.DR PO SCH (10:23)
[2018-11-01] MEDS: mycophenolate sod SR tablet 180 MG TABLET.DR PO SCH (10:24)
[2018-11-01] MEDS: predniSONE 5mg tablet PO SCH (10:24)
[2018-11-01] MEDS: atorvastatin 20mg tablet PO SCH (10:24)
[2018-11-01] MEDS: Dakins solution (1/4 strength) 473ml solution TP SCH (10:27)
[2018-11-01 11:00] VITALS: BP 103/88
--- NOTE | 2018-11-01 11:18 | NUR ---
Called MD Lawrence per pt. request. Left a voicemail.
--- NOTE | 2018-11-01 12:06 | NUR ---
pt. upset that he has dogs at home and has not been able to care for them. requesting to speak to Howard. Howard in OR. Pt. made aware. Charge made aware. made aware. PAGER ID: [phone] MESSAGE: Harpal Tuttle 352 Pt. wants to leave AMA. Bp low this AM - see vitals. no labs ordered. no phenobarbital level. Are you available to speak with pt? Hillary [phone]
--- NOTE | 2018-11-01 12:19 | NUR ---
reassessment: Pt PO 50-75% meals w/ 100% ONS meeting needs. LBM 10/29. No nutrition concerns at this time. Will continue to monitor. Rec: 1. continue heart healthy/mechanical soft/grind per MD 2. strawberry ensure enlive TIDWM 3. MVI for wound healing 4. routine bowel care 5. weekly wts Addendum: 11/01/18 at [address] Amended: Links added.
--- NOTE | 2018-11-01 15:04 | NUR ---
PAGER ID: [phone] MESSAGE: Harpal Tuttle 352 pt.'s ride is here. he is leaving AMA at this moment. Hillary self
--- NOTE | 2018-11-01 15:56 | NUR ---
Pt. left the floor AMA. Wound VAC removed. R knee wound dressed with wet to dry dressing. Pt's IV DC'd, bandage applied, belongings gathered by pt.'s ride/friend. Pt. escorted to private vehicle.
== END 2018-11-01 15:45 | disposition left against medical advice (07) | DRG 602 ==
LOC: ER 14:50 → EDBEDREQSVC 20:14 → ORTHO 4S 21:28 → CMPBEDREQ 23:17 → SUR 3N 10-27 19:45
PROVIDERS: ADMIT Family Medicine; ATTEND Family Medicine
DX: L03.115 Cellulitis of right lower limb (principal); E43 Unspecified severe protein-calorie malnutrition; Z68.1 Body mass index [BMI] 19.9 or less, adult; Z94.0 Kidney transplant status; Z94.83 Pancreas transplant status; E87.2 Acidosis; E11.42 Type 2 diabetes mellitus with diabetic polyneuropathy; E78.00 Pure hypercholesterolemia, unspecified; E78.5 Hyperlipidemia, unspecified; E89.0 Postprocedural hypothyroidism; F32.9 Major depressive disorder, single episode, unspecified; F41.9 Anxiety disorder, unspecified; G40.909 Epilepsy, unspecified, not intractable, without status epilepticus; I10 Essential (primary) hypertension; B19.20 Unspecified viral hepatitis C without hepatic coma; E87.5 Hyperkalemia; L89.899 Pressure ulcer of other site, unspecified stage; F11.90 Opioid use, unspecified, uncomplicated; F12.90 Cannabis use, unspecified, uncomplicated; Z60.2 Problems related to living alone; B95.61 Methicillin susceptible Staphylococcus aureus infection as the cause of diseases classified elsewhere; F15.90 Other stimulant use, unspecified, uncomplicated; G89.29 Other chronic pain; B96.4 Proteus (mirabilis) (morganii) as the cause of diseases classified elsewhere; M54.9 Dorsalgia, unspecified; Z53.21 Procedure and treatment not carried out due to patient leaving prior to being seen by health care provider; I25.10 Atherosclerotic heart disease of native coronary artery without angina pectoris; I48.91 Unspecified atrial fibrillation; J44.9 Chronic obstructive pulmonary disease, unspecified; K21.9 Gastro-esophageal reflux disease without esophagitis; M81.0 Age-related osteoporosis without current pathological fracture; R62.7 Adult failure to thrive; Z76.5 Malingerer [conscious simulation]; Z80.8 Family history of malignant neoplasm of other organs or systems; Z83.3 Family history of diabetes mellitus; Z85.850 Personal history of malignant neoplasm of thyroid; Z87.891 Personal history of nicotine dependence; Z89.511 Acquired absence of right leg below knee; Z81.1 Family history of alcohol abuse and dependence; Z82.49 Family history of ischemic heart disease and other diseases of the circulatory system
CPT/HCPCS: 36415; 70450; 71045; 73721; 80048; 80053; 80061; 80202; 81001; 82948; 83605; 83735; 84100; 84132; 84145; 84443; 85025; 85610; 85730; 87040; 87070; 87075; 87077; 87081; 87088; 87186; 92508; 92616; 93005; 93308; 94640; 94760; 96365; 96375; 97110; 97112; 97162; 97530; 97535; 97542; 99285; G0378; J1644; J2001; J2270; J2405; J2543; J3370; J7030; J7042; J7050; J7507; J7512; J7518; J7626

== ENCOUNTER 2018-11-03 11:15 | Day surgery (SDC) | payer MEDICARE, MEDICAID ==
[~2018-11-03 11:15] MED LIST changes: +HYDR-3972 PO; +LORA10TA7 PO
[2018-11-03] MEDS ORDERED: LIDOcaine/PRILOcaine 5gm cream TP ONE (12:22)
== END 2018-11-03 14:00 | disposition home or self-care (01) ==
LOC: WOUND CARE 11:15
PROVIDERS: ATTEND Surgery
DX: L89.894 Pressure ulcer of other site, stage 4 (principal); L89.620 Pressure ulcer of left heel, unstageable; E11.621 Type 2 diabetes mellitus with foot ulcer; L97.521 Non-pressure chronic ulcer of other part of left foot limited to breakdown of skin; M81.0 Age-related osteoporosis without current pathological fracture; I25.10 Atherosclerotic heart disease of native coronary artery without angina pectoris; J44.9 Chronic obstructive pulmonary disease, unspecified; I10 Essential (primary) hypertension; K21.9 Gastro-esophageal reflux disease without esophagitis; E78.5 Hyperlipidemia, unspecified; G89.29 Other chronic pain; E78.00 Pure hypercholesterolemia, unspecified; E11.42 Type 2 diabetes mellitus with diabetic polyneuropathy; I48.91 Unspecified atrial fibrillation; G40.901 Epilepsy, unspecified, not intractable, with status epilepticus; G93.41 Metabolic encephalopathy; E89.0 Postprocedural hypothyroidism; E11.51 Type 2 diabetes mellitus with diabetic peripheral angiopathy without gangrene; F32.9 Major depressive disorder, single episode, unspecified; F11.90 Opioid use, unspecified, uncomplicated; F15.90 Other stimulant use, unspecified, uncomplicated; Z94.0 Kidney transplant status; Z68.1 Body mass index [BMI] 19.9 or less, adult; Z79.899 Other long term (current) drug therapy; Z79.51 Long term (current) use of inhaled steroids; Z87.891 Personal history of nicotine dependence; Z85.850 Personal history of malignant neoplasm of thyroid; Z85.820 Personal history of malignant melanoma of skin; Z86.19 Personal history of other infectious and parasitic diseases; Z94.83 Pancreas transplant status; Z89.611 Acquired absence of right leg above knee; Z89.511 Acquired absence of right leg below knee
CPT/HCPCS: 11043; 11046; 97605; A4663; A6196; A6212; A6243; A6446; A6449

== ENCOUNTER 2018-11-11 11:07 | Outpatient (CLI) | payer MEDICARE, MEDICAID ==
[~2018-11-11 11:07] MED LIST changes: -HYDR-4353 PO
== END 2018-11-11 12:37 | disposition home or self-care (01) ==
LOC: WOUND CARE 11:07
PROVIDERS: ATTEND Surgery
DX: L89.894 Pressure ulcer of other site, stage 4 (principal); L89.621 Pressure ulcer of left heel, stage 1; E11.621 Type 2 diabetes mellitus with foot ulcer; L97.521 Non-pressure chronic ulcer of other part of left foot limited to breakdown of skin; M81.0 Age-related osteoporosis without current pathological fracture; I25.10 Atherosclerotic heart disease of native coronary artery without angina pectoris; J44.9 Chronic obstructive pulmonary disease, unspecified; I10 Essential (primary) hypertension; K21.9 Gastro-esophageal reflux disease without esophagitis; E78.5 Hyperlipidemia, unspecified; G89.29 Other chronic pain; E78.00 Pure hypercholesterolemia, unspecified; E11.42 Type 2 diabetes mellitus with diabetic polyneuropathy; I48.91 Unspecified atrial fibrillation; G40.901 Epilepsy, unspecified, not intractable, with status epilepticus; G93.41 Metabolic encephalopathy; E89.0 Postprocedural hypothyroidism; E11.51 Type 2 diabetes mellitus with diabetic peripheral angiopathy without gangrene; F32.9 Major depressive disorder, single episode, unspecified; F11.90 Opioid use, unspecified, uncomplicated; F15.90 Other stimulant use, unspecified, uncomplicated; Z94.0 Kidney transplant status; Z68.1 Body mass index [BMI] 19.9 or less, adult; Z79.899 Other long term (current) drug therapy; Z79.51 Long term (current) use of inhaled steroids; Z87.891 Personal history of nicotine dependence; Z85.850 Personal history of malignant neoplasm of thyroid; Z85.820 Personal history of malignant melanoma of skin; Z86.19 Personal history of other infectious and parasitic diseases; Z94.83 Pancreas transplant status; Z89.611 Acquired absence of right leg above knee
CPT/HCPCS: A6209; A6222; G0463; A4649; A4663; A6234; A6446

== ENCOUNTER 2018-11-14 10:45 | Day surgery (SDC) | payer MEDICARE, MEDICAID ==
[2018-11-14] MEDS ORDERED: LIDOcaine 2% 5ml jelly ONE (11:56)
== END 2018-11-14 13:15 | disposition home or self-care (01) ==
LOC: WOUND CARE 10:45
PROVIDERS: ATTEND Surgery
DX: E11.621 Type 2 diabetes mellitus with foot ulcer (principal); L89.894 Pressure ulcer of other site, stage 4; L89.621 Pressure ulcer of left heel, stage 1; L97.521 Non-pressure chronic ulcer of other part of left foot limited to breakdown of skin; M81.0 Age-related osteoporosis without current pathological fracture; I25.10 Atherosclerotic heart disease of native coronary artery without angina pectoris; J44.9 Chronic obstructive pulmonary disease, unspecified; I10 Essential (primary) hypertension; K21.9 Gastro-esophageal reflux disease without esophagitis; E78.5 Hyperlipidemia, unspecified; G89.29 Other chronic pain; E78.00 Pure hypercholesterolemia, unspecified; E11.42 Type 2 diabetes mellitus with diabetic polyneuropathy; I48.91 Unspecified atrial fibrillation; G40.901 Epilepsy, unspecified, not intractable, with status epilepticus; G93.41 Metabolic encephalopathy; E89.0 Postprocedural hypothyroidism; E11.51 Type 2 diabetes mellitus with diabetic peripheral angiopathy without gangrene; F32.9 Major depressive disorder, single episode, unspecified; F11.90 Opioid use, unspecified, uncomplicated; F15.90 Other stimulant use, unspecified, uncomplicated; Z94.0 Kidney transplant status; Z68.1 Body mass index [BMI] 19.9 or less, adult; Z79.899 Other long term (current) drug therapy; Z79.51 Long term (current) use of inhaled steroids; Z87.891 Personal history of nicotine dependence; Z85.850 Personal history of malignant neoplasm of thyroid; Z85.820 Personal history of malignant melanoma of skin; Z86.19 Personal history of other infectious and parasitic diseases; Z94.83 Pancreas transplant status; Z89.611 Acquired absence of right leg above knee
CPT/HCPCS: 11045; A4649; A4663; A6021; A6154; A6234

== ENCOUNTER 2018-11-21 10:55 | Day surgery (SDC) | payer MEDICARE, MEDICAID ==
[2018-11-21] MEDS ORDERED: LIDOcaine 2% 5ml jelly ONE (11:47)
== END 2018-11-21 12:30 | disposition home or self-care (01) ==
LOC: WOUND CARE 10:55
PROVIDERS: ATTEND Surgery
DX: E11.621 Type 2 diabetes mellitus with foot ulcer (principal); L89.894 Pressure ulcer of other site, stage 4; L89.621 Pressure ulcer of left heel, stage 1; L97.521 Non-pressure chronic ulcer of other part of left foot limited to breakdown of skin; M81.0 Age-related osteoporosis without current pathological fracture; I25.10 Atherosclerotic heart disease of native coronary artery without angina pectoris; J44.9 Chronic obstructive pulmonary disease, unspecified; I10 Essential (primary) hypertension; K21.9 Gastro-esophageal reflux disease without esophagitis; E78.5 Hyperlipidemia, unspecified; G89.29 Other chronic pain; E78.00 Pure hypercholesterolemia, unspecified; E11.42 Type 2 diabetes mellitus with diabetic polyneuropathy; I48.91 Unspecified atrial fibrillation; G40.901 Epilepsy, unspecified, not intractable, with status epilepticus; G93.41 Metabolic encephalopathy; E89.0 Postprocedural hypothyroidism; E11.51 Type 2 diabetes mellitus with diabetic peripheral angiopathy without gangrene; F32.9 Major depressive disorder, single episode, unspecified; F11.90 Opioid use, unspecified, uncomplicated; F15.90 Other stimulant use, unspecified, uncomplicated; Z94.0 Kidney transplant status; Z68.1 Body mass index [BMI] 19.9 or less, adult; Z79.899 Other long term (current) drug therapy; Z79.51 Long term (current) use of inhaled steroids; Z87.891 Personal history of nicotine dependence; Z85.850 Personal history of malignant neoplasm of thyroid; Z85.820 Personal history of malignant melanoma of skin; Z86.19 Personal history of other infectious and parasitic diseases; Z94.83 Pancreas transplant status; Z89.611 Acquired absence of right leg above knee
CPT/HCPCS: 11042; 11045; 97597; 97605; A6209; A6222; A4649; A4663; A6021; A6154; A6234

== ENCOUNTER 2018-12-01 11:30 | Day surgery (SDC) | payer MEDICARE, MEDICAID ==
[2018-12-01] MEDS ORDERED: LIDOcaine 2% 5ml jelly ONE ×2 (11:50)
== END 2018-12-01 12:25 | disposition home or self-care (01) ==
LOC: WOUND CARE 11:30
PROVIDERS: ATTEND Surgery
DX: E11.621 Type 2 diabetes mellitus with foot ulcer (principal); L89.894 Pressure ulcer of other site, stage 4; L89.621 Pressure ulcer of left heel, stage 1; L97.421 Non-pressure chronic ulcer of left heel and midfoot limited to breakdown of skin; L97.521 Non-pressure chronic ulcer of other part of left foot limited to breakdown of skin; M81.0 Age-related osteoporosis without current pathological fracture; E78.00 Pure hypercholesterolemia, unspecified; I25.10 Atherosclerotic heart disease of native coronary artery without angina pectoris; J44.9 Chronic obstructive pulmonary disease, unspecified; I10 Essential (primary) hypertension; K21.9 Gastro-esophageal reflux disease without esophagitis; E78.5 Hyperlipidemia, unspecified; G89.29 Other chronic pain; E11.42 Type 2 diabetes mellitus with diabetic polyneuropathy; I48.91 Unspecified atrial fibrillation; G40.901 Epilepsy, unspecified, not intractable, with status epilepticus; G93.41 Metabolic encephalopathy; E89.0 Postprocedural hypothyroidism; E11.51 Type 2 diabetes mellitus with diabetic peripheral angiopathy without gangrene; F32.9 Major depressive disorder, single episode, unspecified; F11.90 Opioid use, unspecified, uncomplicated; F15.90 Other stimulant use, unspecified, uncomplicated; Z94.0 Kidney transplant status; Z68.1 Body mass index [BMI] 19.9 or less, adult; Z79.899 Other long term (current) drug therapy; Z79.51 Long term (current) use of inhaled steroids; Z87.891 Personal history of nicotine dependence; Z85.850 Personal history of malignant neoplasm of thyroid; Z85.820 Personal history of malignant melanoma of skin; Z86.19 Personal history of other infectious and parasitic diseases; Z94.83 Pancreas transplant status; Z89.611 Acquired absence of right leg above knee
CPT/HCPCS: 11042; 11045; 97597; 97605; A6222; A4649; A4663; A6021; A6154; A6212; A6234

== ENCOUNTER 2018-12-06 15:49 | Emergency (ER) | payer MEDICARE, MEDICAID ==
[~2018-12-06] VITALS: Ht 190.5 cm; Wt 52.0 kg
[2018-12-06] MEDS ORDERED: morphine 4 MG/ML inj SYRINge IV ONE ×2 (16:15→17:30)
[2018-12-06] MEDS ORDERED: ondansetron/PF 4mg/2ml inj IV ONE (16:15)
[2018-12-06 17:06] LABS: BASOPHILS % (AUTO) 0.5 % (0-1); EOSINOPHILS # (AUTO) 0.1 X10'3 (0-0.9); EOSINOPHILS % (AUTO) 1.4 % (0-6); HEMATOCRIT 35.6 % (42.0-52.0); LYMPHOCYTES # (AUTO) 1.1 X10'3 (1.1-4.8); LYMPHOCYTES % (AUTO) 25.7 % (21-51); MEAN CORPUSCULAR HEMOGLOBIN 31.4 PG (27.0-31.0); MEAN CORPUSCULAR HGB CONC 33.7 g/dL (33.0-36.5); MEAN CORPUSCULAR VOLUME 93.3 FL (78-98); MEAN PLATELET VOLUME 6.8 FL (7.4-10.4); MONOCYTES # (AUTO) 0.5 X10'3 (0-0.9); MONOCYTES % (AUTO) 12.5 % (2-12); NEUTROPHILS # (AUTO) 2.5 X10'3 (1.8-7.7); NEUTROPHILS % (AUTO) 59.9 % (42-75); PLATELET COUNT 157 X10'3 (140-440); RED BLOOD COUNT 3.81 X10'6 (4.70-6.10); RED CELL DISTRIBUTION WIDTH 15.1 % (11.5-14.5); WHITE BLOOD COUNT 4.1 X10'3 (4.5-11.0)
[2018-12-06 17:20] LABS: ALANINE AMINOTRANSFERASE 10 U/L (12-78); ALBUMIN 2.7 G/DL (3.4-5.0); ALBUMIN/GLOBULIN RATIO 0.8 (1.1-1.5); ALKALINE PHOSPHATASE 105 IU/L (46-116); ANION GAP 13 (8-16); ASPARTATE AMINO TRANSFERASE 13 U/L (10-37); BILIRUBIN,TOTAL 0.3 MG/DL (0.1-1.0); BLOOD UREA NITROGEN 9 MG/DL (7-18); BUN/CREATININE RATIO 16.4 (5.4-32.0); C-REACTIVE PROTEIN 6.73 MG/DL (0.0-0.5); CALCIUM 8.5 MG/DL (8.5-10.1); CHLORIDE 100 MMOL/L (99-107); CREATININE 0.55 MG/DL (0.60-1.10); GLUCOSE 85 MG/DL (70-104); POTASSIUM 3.7 MMOL/L (3.5-5.1); SODIUM 136 MMOL/L (135-145); eGFR > 90 ML/MIN
--- NOTE | 2018-12-06 17:40 | NUR ---
SPOKE TO ANTHONY WILL PATIENT IS REQUESTING MORE MORPHINE FOR HIS CHRONIC WOUND. PATIENT PREVIOUSLY REQUESTED "DILAUDIN" AND I TOLD HIM THAT WE ARE A DILAUDID FREE ER.
--- NOTE | 2018-12-06 17:41 | NUR ---
PA WILL REFUSED TO GIVE THE PATIENT ANY MORE MORPHINE: PATIENT RECEIVED 8 MG IV MORPHINE. PATIENT WAS NOT ON ANY NARCOTICS PREHOSPITAL
[2018-12-06] MEDS ORDERED: SULF1TAB49 PO (17:54)
[2018-12-06] MEDS ORDERED: CEPH-572 PO (17:54)
[2018-12-06] MEDS ORDERED: HYDR-4383 PO (18:21)
--- NOTE | 2018-12-06 18:31 | NUR ---
Patient unable to be safely discharged at this time dt transportation issues. Pt lives on 2nd floor of apartment building with no ability to ambulate without prosthetic leg. Pending transportation and further discussion to assist pt home safely. Pt aware of plan at this time.
--- NOTE | 2018-12-06 18:50 | NUR ---
CALLED [facility] [phone]. ETA TO PICK HIM UP IS 30 MINUTES. MEDICAL IS PAYER
[2018-12-06 19:00] VITALS: BP 141/76
== END 2018-12-06 19:00 | disposition home or self-care (01) ==
LOC: ER 15:50
DX: S88.011D Complete traumatic amputation at knee level, right lower leg, subsequent encounter (principal); L03.115 Cellulitis of right lower limb; E11.42 Type 2 diabetes mellitus with diabetic polyneuropathy; I48.91 Unspecified atrial fibrillation; I25.10 Atherosclerotic heart disease of native coronary artery without angina pectoris; E78.00 Pure hypercholesterolemia, unspecified; J44.9 Chronic obstructive pulmonary disease, unspecified; K21.9 Gastro-esophageal reflux disease without esophagitis; I12.0 Hypertensive chronic kidney disease with stage 5 chronic kidney disease or end stage renal disease; E11.22 Type 2 diabetes mellitus with diabetic chronic kidney disease; N18.6 End stage renal disease; N17.9 Acute kidney failure, unspecified; E03.9 Hypothyroidism, unspecified; G89.29 Other chronic pain; M81.0 Age-related osteoporosis without current pathological fracture; F15.90 Other stimulant use, unspecified, uncomplicated; F11.90 Opioid use, unspecified, uncomplicated; Z94.0 Kidney transplant status; Z99.2 Dependence on renal dialysis; Z98.890 Other specified postprocedural states; Z86.19 Personal history of other infectious and parasitic diseases; Z79.899 Other long term (current) drug therapy; X58.XXXD Exposure to other specified factors, subsequent encounter
CPT/HCPCS: 36415; 80053; 83605; 85025; 85610; 85651; 86140; 87040; 96374; 96375; 96376; 99283; J2270; J2405

== ENCOUNTER 2018-12-12 10:55 | Day surgery (SDC) | payer MEDICARE, MEDICAID ==
[~2018-12-12 10:55] MED LIST changes: +CEPH-572 PO; +HYDR-4383 PO; +SULF1TAB49 PO
[2018-12-12] MEDS ORDERED: LIDOcaine 2% 5ml jelly ONE (12:24)
== END 2018-12-12 13:27 | disposition home or self-care (01) ==
LOC: WOUND CARE 10:55
PROVIDERS: ATTEND Surgery
DX: E11.621 Type 2 diabetes mellitus with foot ulcer (principal); L89.894 Pressure ulcer of other site, stage 4; L89.621 Pressure ulcer of left heel, stage 1; L97.421 Non-pressure chronic ulcer of left heel and midfoot limited to breakdown of skin; I70.245 Atherosclerosis of native arteries of left leg with ulceration of other part of foot; L97.521 Non-pressure chronic ulcer of other part of left foot limited to breakdown of skin; M81.0 Age-related osteoporosis without current pathological fracture; E78.00 Pure hypercholesterolemia, unspecified; I25.10 Atherosclerotic heart disease of native coronary artery without angina pectoris; J44.9 Chronic obstructive pulmonary disease, unspecified; I10 Essential (primary) hypertension; K21.9 Gastro-esophageal reflux disease without esophagitis; E78.5 Hyperlipidemia, unspecified; G89.29 Other chronic pain; E11.42 Type 2 diabetes mellitus with diabetic polyneuropathy; I48.91 Unspecified atrial fibrillation; G40.901 Epilepsy, unspecified, not intractable, with status epilepticus; G93.41 Metabolic encephalopathy; E89.0 Postprocedural hypothyroidism; E11.51 Type 2 diabetes mellitus with diabetic peripheral angiopathy without gangrene; F32.9 Major depressive disorder, single episode, unspecified; F11.90 Opioid use, unspecified, uncomplicated; F15.90 Other stimulant use, unspecified, uncomplicated; Z94.0 Kidney transplant status; Z68.1 Body mass index [BMI] 19.9 or less, adult; Z79.899 Other long term (current) drug therapy; Z79.51 Long term (current) use of inhaled steroids; Z87.891 Personal history of nicotine dependence; Z85.850 Personal history of malignant neoplasm of thyroid; Z85.820 Personal history of malignant melanoma of skin; Z86.19 Personal history of other infectious and parasitic diseases; Z94.83 Pancreas transplant status; Z89.611 Acquired absence of right leg above knee
CPT/HCPCS: 11042; 11045; 87070; 87075; 87102; 87176; 97605; A6222; 87077; A4663; A6021; A6154; A6234; A6446

== ENCOUNTER 2018-12-19 10:55 | Day surgery (SDC) | payer MEDICARE, MEDICAID ==
[~2018-12-19 10:55] MED LIST changes: -CEPH-572 PO; -SULF1TAB49 PO
[2018-12-19] MEDS ORDERED: LIDOcaine 2% 5ml jelly ONE (11:50)
== END 2018-12-19 12:47 | disposition home or self-care (01) ==
LOC: WOUND CARE 10:55
PROVIDERS: ATTEND Surgery
DX: E11.621 Type 2 diabetes mellitus with foot ulcer (principal); L89.894 Pressure ulcer of other site, stage 4; L89.621 Pressure ulcer of left heel, stage 1; L97.421 Non-pressure chronic ulcer of left heel and midfoot limited to breakdown of skin; I70.245 Atherosclerosis of native arteries of left leg with ulceration of other part of foot; L97.521 Non-pressure chronic ulcer of other part of left foot limited to breakdown of skin; M81.0 Age-related osteoporosis without current pathological fracture; E78.00 Pure hypercholesterolemia, unspecified; I25.10 Atherosclerotic heart disease of native coronary artery without angina pectoris; J44.9 Chronic obstructive pulmonary disease, unspecified; I10 Essential (primary) hypertension; K21.9 Gastro-esophageal reflux disease without esophagitis; E78.5 Hyperlipidemia, unspecified; G89.29 Other chronic pain; E11.42 Type 2 diabetes mellitus with diabetic polyneuropathy; I48.91 Unspecified atrial fibrillation; G40.901 Epilepsy, unspecified, not intractable, with status epilepticus; G93.41 Metabolic encephalopathy; E89.0 Postprocedural hypothyroidism; E11.51 Type 2 diabetes mellitus with diabetic peripheral angiopathy without gangrene; F32.9 Major depressive disorder, single episode, unspecified; F11.90 Opioid use, unspecified, uncomplicated; F15.90 Other stimulant use, unspecified, uncomplicated; Z94.0 Kidney transplant status; Z68.1 Body mass index [BMI] 19.9 or less, adult; Z79.899 Other long term (current) drug therapy; Z79.51 Long term (current) use of inhaled steroids; Z87.891 Personal history of nicotine dependence; Z85.850 Personal history of malignant neoplasm of thyroid; Z85.820 Personal history of malignant melanoma of skin; Z86.19 Personal history of other infectious and parasitic diseases; Z94.83 Pancreas transplant status; Z89.611 Acquired absence of right leg above knee
CPT/HCPCS: 97605; A4456; A4663; A6021; A6154; A6212; A6234

== ENCOUNTER 2018-12-26 11:05 | Day surgery (SDC) | payer MEDICARE, MEDICAID ==
[2018-12-26] MEDS ORDERED: LIDOcaine 2% 5ml jelly ONE (12:25)
== END 2018-12-26 13:28 | disposition home or self-care (01) ==
LOC: WOUND CARE 11:05
PROVIDERS: ATTEND Surgery
DX: E11.621 Type 2 diabetes mellitus with foot ulcer (principal); L89.894 Pressure ulcer of other site, stage 4; L89.621 Pressure ulcer of left heel, stage 1; L97.421 Non-pressure chronic ulcer of left heel and midfoot limited to breakdown of skin; L97.321 Non-pressure chronic ulcer of left ankle limited to breakdown of skin; I70.245 Atherosclerosis of native arteries of left leg with ulceration of other part of foot; L97.521 Non-pressure chronic ulcer of other part of left foot limited to breakdown of skin; M81.0 Age-related osteoporosis without current pathological fracture; E78.00 Pure hypercholesterolemia, unspecified; I25.10 Atherosclerotic heart disease of native coronary artery without angina pectoris; J44.9 Chronic obstructive pulmonary disease, unspecified; I10 Essential (primary) hypertension; K21.9 Gastro-esophageal reflux disease without esophagitis; E78.5 Hyperlipidemia, unspecified; G89.29 Other chronic pain; E11.42 Type 2 diabetes mellitus with diabetic polyneuropathy; I48.91 Unspecified atrial fibrillation; G40.901 Epilepsy, unspecified, not intractable, with status epilepticus; G93.41 Metabolic encephalopathy; E89.0 Postprocedural hypothyroidism; E11.51 Type 2 diabetes mellitus with diabetic peripheral angiopathy without gangrene; F32.9 Major depressive disorder, single episode, unspecified; F11.90 Opioid use, unspecified, uncomplicated; F15.90 Other stimulant use, unspecified, uncomplicated; Z94.0 Kidney transplant status; Z68.1 Body mass index [BMI] 19.9 or less, adult; Z79.899 Other long term (current) drug therapy; Z79.51 Long term (current) use of inhaled steroids; Z87.891 Personal history of nicotine dependence; Z85.850 Personal history of malignant neoplasm of thyroid; Z85.820 Personal history of malignant melanoma of skin; Z86.19 Personal history of other infectious and parasitic diseases; Z94.83 Pancreas transplant status; Z89.611 Acquired absence of right leg above knee
CPT/HCPCS: 97597; 97598; A4663; A6021; A6154

== ENCOUNTER 2019-01-03 07:21 | Day surgery (SDC) | payer MEDICARE, MEDICAID ==
[2018-12-29 11:40] LABS: BASOPHILS % (AUTO) 0.6 % (0-1); EOSINOPHILS # (AUTO) 0.1 X10'3 (0-0.9); EOSINOPHILS % (AUTO) 1.4 % (0-6); LYMPHOCYTES # (AUTO) 1.4 X10'3 (1.1-4.8); LYMPHOCYTES % (AUTO) 35.9 % (21-51); MEAN CORPUSCULAR HEMOGLOBIN 31.2 PG (27.0-31.0); MEAN CORPUSCULAR HGB CONC 33.4 g/dL (33.0-36.5); MEAN CORPUSCULAR VOLUME 93.4 FL (78-98); MEAN PLATELET VOLUME 7.1 FL (7.4-10.4); MONOCYTES # (AUTO) 0.3 X10'3 (0-0.9); MONOCYTES % (AUTO) 7.7 % (2-12); NEUTROPHILS # (AUTO) 2.2 X10'3 (1.8-7.7); NEUTROPHILS % (AUTO) 54.4 % (42-75); PRE OP HEMATOCRIT 38.2 % (42.0-52.0); PRE OP HEMOGLOBIN 12.8 g/dL (14.0-17.9); PRE OP PLATELET COUNT 135 X10'3 (140-440); RED BLOOD COUNT 4.09 X10'6 (4.70-6.10); RED CELL DISTRIBUTION WIDTH 16.7 % (11.5-14.5)
[2018-12-29 11:57] LABS: ALBUMIN 2.8 G/DL (3.4-5.0); ALBUMIN/GLOBULIN RATIO 0.9 (1.1-1.5); ALKALINE PHOSPHATASE 88 IU/L (46-116); BLOOD UREA NITROGEN 10 MG/DL (7-18); BUN/CREATININE RATIO 18.5 (5.4-32.0); CALCIUM 8.5 MG/DL (8.5-10.1); CHLORIDE 105 MMOL/L (99-107); CREATININE 0.54 MG/DL (0.60-1.10); PRE OP ALT 24 U/L (30-65); PRE OP ANION GAP 7 (8-16); PRE OP AST 23 U/L (10-37); PRE OP BILIRUB, TOTAL 0.3 MG/DL (0.0-1.0); PRE OP GLUCOSE 86 MG/DL (70-104); PRE OP POTASSIUM 4.4 MMOL/L (3.4-5.1); PRE OP SODIUM 139 MMOL/L (135-145); TOTAL PROTEIN 5.9 G/DL (6.4-8.2); eGFR > 90 ML/MIN
[2018-12-29 12:35] LABS: CLARITY,URINE CLEAR (Clear); COLOR,URINE YELLOW (Yellow); GLUCOSE, URINE NEGATIVE (Neg); KETONES,URINE NEGATIVE (Neg); LEUKOCYTE ESTERASE ,URINE NEGATIVE (Neg); NITRITES, URINE NEGATIVE (Neg); OCCULT BLOOD,URINE NEGATIVE (Neg); PROTEIN,URINE NEGATIVE (Neg); UA COLLECTION TYPE CLN CATCH MIDSTREAM
[~2019-01-03] VITALS: Ht 190.5 cm; Wt 68.1 kg
[2019-01-03] VITALS (10 sets, daily range): BP systolic 108–150; BP diastolic 59–96
[~2019-01-03 07:21] MED LIST changes: +cefazolin/dext.iso 2gm/100ml 100 ML IV ONE; +famotidine 20mg tablet PO ONE; +ringers solution, lacted 1,000 ML IV SCH
[2019-01-03] MEDS ORDERED: albuterol 2.5 MG/3 ML nebule NEB ONE (09:00)
[2019-01-03] MEDS ORDERED: LIDOcaine 1% W/epiNEPHrine 1:200,000 10ml vial ONE (09:35)
[2019-01-03] MEDS ORDERED: fentaNYL/PF 50MCG/1 ML 2ML syringe ONE (09:35)
[2019-01-03] MEDS ORDERED: mineral oil 10ml sterile, topical TP ONE (09:35)
[2019-01-03] MEDS ORDERED: midazolam 2 mg/2 ml injection ONE (09:36)
[2019-01-03] MEDS ORDERED: sevoflurane 250ml liquid IH ONE (09:36)
[2019-01-03] MEDS ORDERED: propofol inj 20 ML IV ONE (09:36)
[2019-01-03] MEDS ORDERED: BUPIVAcaine/PF 2.5 mg/ml (0.25%) 30ml vial ONE (10:06)
[2019-01-03] MEDS ORDERED: ringers solution, lacted 1,000 ML IV SCH (10:19)
[2019-01-03] MEDS ORDERED: morphine 4 MG/ML inj SYRINge IV PRN ×2 (10:20)
[2019-01-03] MEDS ORDERED: meperidine/PF 25mg/ml syringe IV PRN ×3 (10:20)
[2019-01-03] MEDS ORDERED: ondansetron/PF 4mg/2ml inj IV PRN (10:20)
[2019-01-03] MEDS ORDERED: proCHLORperazine 10 MG/2 ml inj IV PRN (10:20)
--- NOTE | 2019-01-03 10:39 | NUR ---
Received from OR via [facility] , accompanied by Anesthesiologist YING and report given by Anesthesiolgist. PATIENT WITH 20G PIV IN LEFT UE RUNNING LR AT 100. VSS. RIGHT THIGH DRESSING IS SPOTTED WITH BLOOD BUT CONTAINED. PATIENT WITH ROSHAN TO RIGHT KNEE- ALSO CDI. 10L MASK ON WITH 100% SATURATIONS. Addendum: 01/03/19 at 1054 by Rolando Loera RN, RN Amended: Links added.
[2019-01-03] MEDS ORDERED: HYDROmorphone inj. 0.5 MG/0.5 ML DISP.SYRIN IV PRN ×2 (11:20)
[2019-01-03] MEDS ORDERED: HYDROcodone/acetaminophen 10/325mg tab PO ONE (11:55)
--- NOTE | 2019-01-03 11:59 | NUR ---
ALL DC CRITERIA HAS BEEN MET. IV TAKEN OUT WITHOUT COMPLICATIONS. ALL INSTRUCTIONS COVERED AND ALL QUESTIONS ANSWERED. DRESSINGS CDI. OUT VIA WHEELCHAIR TO PERSONAL VEHICLE WHERE PATIENT WAS SECURED IN AND DRIVEN HOME BY FAMILY. RIGHT DRESSING IS CDI. IV OUT. PATIENT STATES HES READY TO GO HOME. MEDICATED WITH 2 NORCO 10MGS PRIOR TO DC PER MD ORDER. PATIENT TAKEN OUT VIA WHEELCHAIR WHERE HIS FRIEND DROVE HIM HOME. PATIENT HAS PRESCRIPTION FOR PAIN MEDS. Addendum: 01/03/19 at 1203 by Rolando Loera RN, RN Amended: Links added.
== END 2019-01-03 11:59 | disposition home or self-care (01) ==
LOC: PAS 07:21
PROVIDERS: ATTEND Surgery
DX: T81.89XA Other complications of procedures, not elsewhere classified, initial encounter (principal); F17.210 Nicotine dependence, cigarettes, uncomplicated; G40.909 Epilepsy, unspecified, not intractable, without status epilepticus; Z86.14 Personal history of Methicillin resistant Staphylococcus aureus infection; Z94.83 Pancreas transplant status; Z94.0 Kidney transplant status; Z98.890 Other specified postprocedural states; Z79.899 Other long term (current) drug therapy; R06.02 Shortness of breath; Y83.8 Other surgical procedures as the cause of abnormal reaction of the patient, or of later complication, without mention of misadventure at the time of the procedure; Y92.89 Other specified places as the place of occurrence of the external cause
CPT/HCPCS: 15100; 36415; 80053; 81003; 82948; 85025; 93005; 94640; A6223; J1170; J2175; J2250; J2270; J2704; J3010; J3490; A4618; A6446; A6449; A7000; J7120

== ENCOUNTER 2019-01-11 10:33 | Outpatient (CLI) | payer MEDICARE, MEDICAID ==
[~2019-01-11 10:33] MED LIST changes: -cefazolin/dext.iso 2gm/100ml 100 ML IV ONE; -famotidine 20mg tablet PO ONE; -ringers solution, lacted 1,000 ML IV SCH
== END 2019-01-11 12:22 | disposition home or self-care (01) ==
LOC: WOUND CARE 10:33 → EDSTATUS 11:00 → WOUND CARE 12:22
PROVIDERS: ATTEND Surgery
DX: T81.89XA Other complications of procedures, not elsewhere classified, initial encounter (principal); E11.621 Type 2 diabetes mellitus with foot ulcer; L89.894 Pressure ulcer of other site, stage 4; L89.621 Pressure ulcer of left heel, stage 1; L97.421 Non-pressure chronic ulcer of left heel and midfoot limited to breakdown of skin; L89.522 Pressure ulcer of left ankle, stage 2; L97.321 Non-pressure chronic ulcer of left ankle limited to breakdown of skin; I70.245 Atherosclerosis of native arteries of left leg with ulceration of other part of foot; L97.521 Non-pressure chronic ulcer of other part of left foot limited to breakdown of skin; M81.0 Age-related osteoporosis without current pathological fracture; E78.00 Pure hypercholesterolemia, unspecified; I25.10 Atherosclerotic heart disease of native coronary artery without angina pectoris; J44.9 Chronic obstructive pulmonary disease, unspecified; I10 Essential (primary) hypertension; K21.9 Gastro-esophageal reflux disease without esophagitis; E78.5 Hyperlipidemia, unspecified; G89.29 Other chronic pain; E11.42 Type 2 diabetes mellitus with diabetic polyneuropathy; I48.91 Unspecified atrial fibrillation; G40.901 Epilepsy, unspecified, not intractable, with status epilepticus; G93.41 Metabolic encephalopathy; E89.0 Postprocedural hypothyroidism; E11.51 Type 2 diabetes mellitus with diabetic peripheral angiopathy without gangrene; F32.9 Major depressive disorder, single episode, unspecified; F11.90 Opioid use, unspecified, uncomplicated; F15.90 Other stimulant use, unspecified, uncomplicated; Z94.0 Kidney transplant status; Z68.1 Body mass index [BMI] 19.9 or less, adult; Z79.899 Other long term (current) drug therapy; Z79.51 Long term (current) use of inhaled steroids; Z87.891 Personal history of nicotine dependence; Z85.850 Personal history of malignant neoplasm of thyroid; Z85.820 Personal history of malignant melanoma of skin; Z86.19 Personal history of other infectious and parasitic diseases; Z94.83 Pancreas transplant status; Z89.611 Acquired absence of right leg above knee; Y92.89 Other specified places as the place of occurrence of the external cause; Y83.8 Other surgical procedures as the cause of abnormal reaction of the patient, or of later complication, without mention of misadventure at the time of the procedure
CPT/HCPCS: A6223; G0463; A4663; A6021; A6154; A6212; A6446

== ENCOUNTER 2019-01-17 14:00 | Emergency (ER) | payer MEDICARE, MEDICAID ==
[~2019-01-17] VITALS: Ht 182.9 cm; Wt 68.0 kg
[2019-01-17 14:12] VITALS: BP 110/69
--- NOTE | 2019-01-17 14:45 | NUR ---
PAGED MANAGER SIX SIGMA
[2019-01-17] MEDS ORDERED: ondansetron 4mg rapidly disintigrating tab PO ONE (15:25)
[2019-01-17] MEDS ORDERED: HYDROcodone/acetaminophen 5mg/325mg tablet PO ONE (15:25)
--- NOTE | 2019-01-17 16:09 | NUR ---
PT TOLD RN THAT HE COULD NOT TRANSER FROM A CHAIR TO BED. RN CALLED FOR ASSISTANCE AND AFTER THEY ARRIVED PT TOLD TECH THAT HE COULD MOVE HIMSELF AND THEN PATIENT TRANSFERRED FROM CHAIR TO BED INDEPENDENTLY.
[2019-01-17] MEDS ORDERED: HYDR-4383 PO (16:22)
--- NOTE | 2019-01-17 16:33 | NUR ---
IN TO SPEAK WITH PATIENT WITH HYDRATOR OPERATOR. PATIENT STATES THAT HE LIVES ALONE AND HAS [facility] CAREGIVER FOR 5 HOURS PER DAY. PATIENT STATES HE IS ALONE AT NIGHT AND IS UNABLE TO CARE FOR HIMSELF. PATIENT HAS SISTER THAT HE STATES WILL NOT HEP HIM IN [place]. PATIENT IS UNWILING TO ALLOW HYDRATOR OPERATOR AND CM CALL HIS SISTER BECAUSE SHE IS "TOUGH LOVE AND WONT HELP HIM OUT." PATIENT IS WILLING TO HAVE SS CONTACT [facility] TO REQUEST INCREASE IN HOURS. PATIENT IS OPEN WITH [facility] AND IS WILLING TO HAS INCREASE IN SERVICES FOR THEM. PER NURSING PATIENT WAS ABLE TO TRANSFER TO [facility] FROM WHEELCHAIR. PATIENT HAS POWER WHEELCHAIR AND FWW. PATIENT THAS 2 CAREGIVERS AND HAS A RIDE HOME. PATIENT TO BE DISCHARGED TO HOME WITH HH SERVICES AND SS WILL ASK FOR EVAL TO INCREASE [facility] HOURS.
== END 2019-01-17 16:44 | disposition home or self-care (01) ==
LOC: ER 14:01
DX: E11.622 Type 2 diabetes mellitus with other skin ulcer (principal); L97.819 Non-pressure chronic ulcer of other part of right lower leg with unspecified severity; E11.42 Type 2 diabetes mellitus with diabetic polyneuropathy; I48.91 Unspecified atrial fibrillation; I25.10 Atherosclerotic heart disease of native coronary artery without angina pectoris; E78.00 Pure hypercholesterolemia, unspecified; J44.9 Chronic obstructive pulmonary disease, unspecified; K21.9 Gastro-esophageal reflux disease without esophagitis; E03.9 Hypothyroidism, unspecified; G89.29 Other chronic pain; F15.90 Other stimulant use, unspecified, uncomplicated; F11.90 Opioid use, unspecified, uncomplicated; I12.0 Hypertensive chronic kidney disease with stage 5 chronic kidney disease or end stage renal disease; E11.22 Type 2 diabetes mellitus with diabetic chronic kidney disease; N18.6 End stage renal disease; N17.9 Acute kidney failure, unspecified; Z86.19 Personal history of other infectious and parasitic diseases; Z99.2 Dependence on renal dialysis; Z94.0 Kidney transplant status; Z98.890 Other specified postprocedural states; Z79.899 Other long term (current) drug therapy
CPT/HCPCS: 99284

== ENCOUNTER 2019-01-27 10:19 | Day surgery (SDC) | payer MEDICARE, MEDICAID ==
[2019-01-27] MEDS ORDERED: LIDOcaine 2% 5ml jelly ONE (10:30)
== END 2019-01-27 12:01 | disposition home or self-care (01) ==
LOC: WOUND CARE 10:19
PROVIDERS: ATTEND Surgery
DX: T81.89XD Other complications of procedures, not elsewhere classified, subsequent encounter (principal); E11.621 Type 2 diabetes mellitus with foot ulcer; L89.894 Pressure ulcer of other site, stage 4; L89.621 Pressure ulcer of left heel, stage 1; L97.421 Non-pressure chronic ulcer of left heel and midfoot limited to breakdown of skin; L89.522 Pressure ulcer of left ankle, stage 2; L97.321 Non-pressure chronic ulcer of left ankle limited to breakdown of skin; I70.245 Atherosclerosis of native arteries of left leg with ulceration of other part of foot; L97.521 Non-pressure chronic ulcer of other part of left foot limited to breakdown of skin; M81.0 Age-related osteoporosis without current pathological fracture; E78.00 Pure hypercholesterolemia, unspecified; I25.10 Atherosclerotic heart disease of native coronary artery without angina pectoris; J44.9 Chronic obstructive pulmonary disease, unspecified; I10 Essential (primary) hypertension; K21.9 Gastro-esophageal reflux disease without esophagitis; E78.5 Hyperlipidemia, unspecified; G89.29 Other chronic pain; E11.42 Type 2 diabetes mellitus with diabetic polyneuropathy; I48.91 Unspecified atrial fibrillation; G40.901 Epilepsy, unspecified, not intractable, with status epilepticus; G93.41 Metabolic encephalopathy; E89.0 Postprocedural hypothyroidism; E11.51 Type 2 diabetes mellitus with diabetic peripheral angiopathy without gangrene; F32.9 Major depressive disorder, single episode, unspecified; F11.90 Opioid use, unspecified, uncomplicated; F15.90 Other stimulant use, unspecified, uncomplicated; Z94.0 Kidney transplant status; Z68.1 Body mass index [BMI] 19.9 or less, adult; Z79.899 Other long term (current) drug therapy; Z79.51 Long term (current) use of inhaled steroids; Z87.891 Personal history of nicotine dependence; Z85.850 Personal history of malignant neoplasm of thyroid; Z85.820 Personal history of malignant melanoma of skin; Z86.19 Personal history of other infectious and parasitic diseases; Z94.83 Pancreas transplant status; Z89.611 Acquired absence of right leg above knee; Y83.8 Other surgical procedures as the cause of abnormal reaction of the patient, or of later complication, without mention of misadventure at the time of the procedure
CPT/HCPCS: 11045; 97605; A4663; A6021; A6212; A6234

== ENCOUNTER 2019-02-09 10:50 | Day surgery (SDC) | payer MEDICARE, MEDICAID ==
[2019-02-09] MEDS ORDERED: LIDOcaine 2% 5ml jelly ONE ×2 (11:16→11:23)
== END 2019-02-09 13:13 | disposition home or self-care (01) ==
LOC: WOUND CARE 10:50
PROVIDERS: ATTEND Nurse Practitioner Family
DX: T81.89XD Other complications of procedures, not elsewhere classified, subsequent encounter (principal); E11.621 Type 2 diabetes mellitus with foot ulcer; L89.894 Pressure ulcer of other site, stage 4; L89.621 Pressure ulcer of left heel, stage 1; L97.421 Non-pressure chronic ulcer of left heel and midfoot limited to breakdown of skin; L89.520 Pressure ulcer of left ankle, unstageable; L97.321 Non-pressure chronic ulcer of left ankle limited to breakdown of skin; I70.245 Atherosclerosis of native arteries of left leg with ulceration of other part of foot; L97.521 Non-pressure chronic ulcer of other part of left foot limited to breakdown of skin; M81.0 Age-related osteoporosis without current pathological fracture; E78.00 Pure hypercholesterolemia, unspecified; I25.10 Atherosclerotic heart disease of native coronary artery without angina pectoris; J44.9 Chronic obstructive pulmonary disease, unspecified; I10 Essential (primary) hypertension; K21.9 Gastro-esophageal reflux disease without esophagitis; E78.5 Hyperlipidemia, unspecified; G89.29 Other chronic pain; E11.42 Type 2 diabetes mellitus with diabetic polyneuropathy; I48.91 Unspecified atrial fibrillation; G40.901 Epilepsy, unspecified, not intractable, with status epilepticus; G93.41 Metabolic encephalopathy; E89.0 Postprocedural hypothyroidism; E11.51 Type 2 diabetes mellitus with diabetic peripheral angiopathy without gangrene; F32.9 Major depressive disorder, single episode, unspecified; F11.90 Opioid use, unspecified, uncomplicated; F15.90 Other stimulant use, unspecified, uncomplicated; Z94.0 Kidney transplant status; Z68.1 Body mass index [BMI] 19.9 or less, adult; Z79.899 Other long term (current) drug therapy; Z79.51 Long term (current) use of inhaled steroids; Z87.891 Personal history of nicotine dependence; Z85.850 Personal history of malignant neoplasm of thyroid; Z85.820 Personal history of malignant melanoma of skin; Z86.19 Personal history of other infectious and parasitic diseases; Z94.83 Pancreas transplant status; Z89.611 Acquired absence of right leg above knee; Y83.8 Other surgical procedures as the cause of abnormal reaction of the patient, or of later complication, without mention of misadventure at the time of the procedure
CPT/HCPCS: 97597; 97598; A4456; A4663; A6021; A6154; A6212; A6234

== ENCOUNTER 2019-02-23 11:25 | Day surgery (SDC) | payer MEDICARE, MEDICAID ==
[2019-02-23] MEDS ORDERED: LIDOcaine 2% 5ml jelly ONE (11:55)
== END 2019-02-23 12:44 | disposition home or self-care (01) ==
LOC: WOUND CARE 11:25
PROVIDERS: ATTEND Surgery
DX: T81.89XD Other complications of procedures, not elsewhere classified, subsequent encounter (principal); E11.621 Type 2 diabetes mellitus with foot ulcer; L89.894 Pressure ulcer of other site, stage 4; L89.621 Pressure ulcer of left heel, stage 1; L97.421 Non-pressure chronic ulcer of left heel and midfoot limited to breakdown of skin; L89.520 Pressure ulcer of left ankle, unstageable; L97.321 Non-pressure chronic ulcer of left ankle limited to breakdown of skin; I70.245 Atherosclerosis of native arteries of left leg with ulceration of other part of foot; L97.521 Non-pressure chronic ulcer of other part of left foot limited to breakdown of skin; M81.0 Age-related osteoporosis without current pathological fracture; E78.00 Pure hypercholesterolemia, unspecified; I25.10 Atherosclerotic heart disease of native coronary artery without angina pectoris; J44.9 Chronic obstructive pulmonary disease, unspecified; I10 Essential (primary) hypertension; K21.9 Gastro-esophageal reflux disease without esophagitis; E78.5 Hyperlipidemia, unspecified; G89.29 Other chronic pain; E11.42 Type 2 diabetes mellitus with diabetic polyneuropathy; I48.91 Unspecified atrial fibrillation; G40.901 Epilepsy, unspecified, not intractable, with status epilepticus; G93.41 Metabolic encephalopathy; E89.0 Postprocedural hypothyroidism; E11.51 Type 2 diabetes mellitus with diabetic peripheral angiopathy without gangrene; F32.9 Major depressive disorder, single episode, unspecified; F11.90 Opioid use, unspecified, uncomplicated; F15.90 Other stimulant use, unspecified, uncomplicated; Z94.0 Kidney transplant status; Z68.1 Body mass index [BMI] 19.9 or less, adult; Z79.899 Other long term (current) drug therapy; Z79.51 Long term (current) use of inhaled steroids; Z87.891 Personal history of nicotine dependence; Z85.850 Personal history of malignant neoplasm of thyroid; Z85.820 Personal history of malignant melanoma of skin; Z86.19 Personal history of other infectious and parasitic diseases; Z94.83 Pancreas transplant status; Z89.611 Acquired absence of right leg above knee; Y83.8 Other surgical procedures as the cause of abnormal reaction of the patient, or of later complication, without mention of misadventure at the time of the procedure
CPT/HCPCS: 97597; 97598; A4663; A6021; A6154; A6234

== ENCOUNTER 2019-03-02 11:00 | Day surgery (SDC) | payer MEDICARE, MEDICAID ==
[2019-03-02] MEDS ORDERED: LIDOcaine 2% 5ml jelly ONE ×2 (11:42)
== END 2019-03-02 13:10 | disposition home or self-care (01) ==
LOC: WOUND CARE 11:00
PROVIDERS: ATTEND Surgery
DX: T81.89XD Other complications of procedures, not elsewhere classified, subsequent encounter (principal); E11.621 Type 2 diabetes mellitus with foot ulcer; I70.245 Atherosclerosis of native arteries of left leg with ulceration of other part of foot; L89.894 Pressure ulcer of other site, stage 4; L97.521 Non-pressure chronic ulcer of other part of left foot limited to breakdown of skin; L89.621 Pressure ulcer of left heel, stage 1; L97.421 Non-pressure chronic ulcer of left heel and midfoot limited to breakdown of skin; L89.520 Pressure ulcer of left ankle, unstageable; L97.321 Non-pressure chronic ulcer of left ankle limited to breakdown of skin; M81.0 Age-related osteoporosis without current pathological fracture; E78.00 Pure hypercholesterolemia, unspecified; I25.10 Atherosclerotic heart disease of native coronary artery without angina pectoris; J44.9 Chronic obstructive pulmonary disease, unspecified; I10 Essential (primary) hypertension; K21.9 Gastro-esophageal reflux disease without esophagitis; E78.5 Hyperlipidemia, unspecified; G89.29 Other chronic pain; E11.42 Type 2 diabetes mellitus with diabetic polyneuropathy; I48.91 Unspecified atrial fibrillation; G40.901 Epilepsy, unspecified, not intractable, with status epilepticus; G93.41 Metabolic encephalopathy; E89.0 Postprocedural hypothyroidism; E11.51 Type 2 diabetes mellitus with diabetic peripheral angiopathy without gangrene; F32.9 Major depressive disorder, single episode, unspecified; F11.90 Opioid use, unspecified, uncomplicated; F15.90 Other stimulant use, unspecified, uncomplicated; Z94.0 Kidney transplant status; Z68.1 Body mass index [BMI] 19.9 or less, adult; Z79.899 Other long term (current) drug therapy; Z79.51 Long term (current) use of inhaled steroids; Z87.891 Personal history of nicotine dependence; Z85.850 Personal history of malignant neoplasm of thyroid; Z85.820 Personal history of malignant melanoma of skin; Z86.19 Personal history of other infectious and parasitic diseases; Z94.83 Pancreas transplant status; Z89.611 Acquired absence of right leg above knee; Y83.8 Other surgical procedures as the cause of abnormal reaction of the patient, or of later complication, without mention of misadventure at the time of the procedure
CPT/HCPCS: 97597; A6446; A4663; A6021; A6234

== ENCOUNTER 2019-03-09 11:15 | Day surgery (SDC) | payer MEDICARE, MEDICAID ==
[2019-03-09] MEDS ORDERED: LIDOcaine 2% 5ml jelly ONE ×2 (11:52)
== END 2019-03-09 13:07 | disposition home or self-care (01) ==
LOC: WOUND CARE 11:15
PROVIDERS: ATTEND Surgery
DX: T81.89XD Other complications of procedures, not elsewhere classified, subsequent encounter (principal); E11.621 Type 2 diabetes mellitus with foot ulcer; I70.245 Atherosclerosis of native arteries of left leg with ulceration of other part of foot; L89.894 Pressure ulcer of other site, stage 4; L97.521 Non-pressure chronic ulcer of other part of left foot limited to breakdown of skin; L89.621 Pressure ulcer of left heel, stage 1; L97.421 Non-pressure chronic ulcer of left heel and midfoot limited to breakdown of skin; L89.523 Pressure ulcer of left ankle, stage 3; L97.321 Non-pressure chronic ulcer of left ankle limited to breakdown of skin; M81.0 Age-related osteoporosis without current pathological fracture; E11.22 Type 2 diabetes mellitus with diabetic chronic kidney disease; I13.11 Hypertensive heart and chronic kidney disease without heart failure, with stage 5 chronic kidney disease, or end stage renal disease; I25.10 Atherosclerotic heart disease of native coronary artery without angina pectoris; N18.6 End stage renal disease; E11.42 Type 2 diabetes mellitus with diabetic polyneuropathy; E11.51 Type 2 diabetes mellitus with diabetic peripheral angiopathy without gangrene; E78.00 Pure hypercholesterolemia, unspecified; J44.9 Chronic obstructive pulmonary disease, unspecified; K21.9 Gastro-esophageal reflux disease without esophagitis; E78.5 Hyperlipidemia, unspecified; G89.29 Other chronic pain; I48.91 Unspecified atrial fibrillation; G40.901 Epilepsy, unspecified, not intractable, with status epilepticus; G93.41 Metabolic encephalopathy; E89.0 Postprocedural hypothyroidism; F32.9 Major depressive disorder, single episode, unspecified; F11.90 Opioid use, unspecified, uncomplicated; F15.90 Other stimulant use, unspecified, uncomplicated; Z94.0 Kidney transplant status; Z68.1 Body mass index [BMI] 19.9 or less, adult; Z79.899 Other long term (current) drug therapy; Z79.51 Long term (current) use of inhaled steroids; Z87.891 Personal history of nicotine dependence; Z85.850 Personal history of malignant neoplasm of thyroid; Z85.820 Personal history of malignant melanoma of skin; Z86.19 Personal history of other infectious and parasitic diseases; Z94.83 Pancreas transplant status; Z89.611 Acquired absence of right leg above knee; Z98.890 Other specified postprocedural states; Z99.2 Dependence on renal dialysis; Y83.8 Other surgical procedures as the cause of abnormal reaction of the patient, or of later complication, without mention of misadventure at the time of the procedure
CPT/HCPCS: 87070; 87075; 87077; 87102; 87186; 97597; 97598; 97605; A4663; A6021; A6213

== ENCOUNTER 2019-03-16 11:00 | Day surgery (SDC) | payer MEDICARE, MEDICAID ==
[2019-03-16] MEDS ORDERED: LIDOcaine 2% 5ml jelly ONE (11:31)
[2019-03-16] MEDS ORDERED: gentamicin 0.1% topical ointment 15gm TP ONE (11:47)
== END 2019-03-16 12:33 | disposition home or self-care (01) ==
LOC: WOUND CARE 11:00
PROVIDERS: ATTEND Surgery
DX: T81.89XD Other complications of procedures, not elsewhere classified, subsequent encounter (principal); E11.621 Type 2 diabetes mellitus with foot ulcer; I70.245 Atherosclerosis of native arteries of left leg with ulceration of other part of foot; L89.894 Pressure ulcer of other site, stage 4; L97.521 Non-pressure chronic ulcer of other part of left foot limited to breakdown of skin; L89.621 Pressure ulcer of left heel, stage 1; L97.421 Non-pressure chronic ulcer of left heel and midfoot limited to breakdown of skin; L89.524 Pressure ulcer of left ankle, stage 4; L97.325 Non-pressure chronic ulcer of left ankle with muscle involvement without evidence of necrosis; M81.0 Age-related osteoporosis without current pathological fracture; E11.22 Type 2 diabetes mellitus with diabetic chronic kidney disease; I13.11 Hypertensive heart and chronic kidney disease without heart failure, with stage 5 chronic kidney disease, or end stage renal disease; I25.10 Atherosclerotic heart disease of native coronary artery without angina pectoris; N18.6 End stage renal disease; E11.42 Type 2 diabetes mellitus with diabetic polyneuropathy; E11.51 Type 2 diabetes mellitus with diabetic peripheral angiopathy without gangrene; E78.00 Pure hypercholesterolemia, unspecified; J44.9 Chronic obstructive pulmonary disease, unspecified; K21.9 Gastro-esophageal reflux disease without esophagitis; E78.5 Hyperlipidemia, unspecified; G89.29 Other chronic pain; I48.91 Unspecified atrial fibrillation; G40.901 Epilepsy, unspecified, not intractable, with status epilepticus; G93.41 Metabolic encephalopathy; E89.0 Postprocedural hypothyroidism; F32.9 Major depressive disorder, single episode, unspecified; F11.90 Opioid use, unspecified, uncomplicated; F15.90 Other stimulant use, unspecified, uncomplicated; Z94.0 Kidney transplant status; Z68.1 Body mass index [BMI] 19.9 or less, adult; Z79.899 Other long term (current) drug therapy; Z79.51 Long term (current) use of inhaled steroids; Z87.891 Personal history of nicotine dependence; Z85.850 Personal history of malignant neoplasm of thyroid; Z85.820 Personal history of malignant melanoma of skin; Z86.19 Personal history of other infectious and parasitic diseases; Z94.83 Pancreas transplant status; Z89.611 Acquired absence of right leg above knee; Z98.890 Other specified postprocedural states; Z99.2 Dependence on renal dialysis; Y83.8 Other surgical procedures as the cause of abnormal reaction of the patient, or of later complication, without mention of misadventure at the time of the procedure
CPT/HCPCS: 11043; 97605

== ENCOUNTER 2019-03-23 11:30 | Day surgery (SDC) | payer MEDICARE, MEDICAID | END 2019-03-23 12:37 | disposition home or self-care (01) | LOC: WOUND CARE 11:30 | PROVIDERS: ATTEND Surgery | DX: T81.89XD Other complications of procedures, not elsewhere classified, subsequent encounter (principal); E11.621 Type 2 diabetes mellitus with foot ulcer; I70.245 Atherosclerosis of native arteries of left leg with ulceration of other part of foot; L89.894 Pressure ulcer of other site, stage 4; L97.521 Non-pressure chronic ulcer of other part of left foot limited to breakdown of skin; L89.620 Pressure ulcer of left heel, unstageable; L97.421 Non-pressure chronic ulcer of left heel and midfoot limited to breakdown of skin; L89.524 Pressure ulcer of left ankle, stage 4; L97.325 Non-pressure chronic ulcer of left ankle with muscle involvement without evidence of necrosis; M81.0 Age-related osteoporosis without current pathological fracture; E11.22 Type 2 diabetes mellitus with diabetic chronic kidney disease; I13.11 Hypertensive heart and chronic kidney disease without heart failure, with stage 5 chronic kidney disease, or end stage renal disease; I25.10 Atherosclerotic heart disease of native coronary artery without angina pectoris; N18.6 End stage renal disease; E11.42 Type 2 diabetes mellitus with diabetic polyneuropathy; E11.51 Type 2 diabetes mellitus with diabetic peripheral angiopathy without gangrene; E78.00 Pure hypercholesterolemia, unspecified; J44.9 Chronic obstructive pulmonary disease, unspecified; K21.9 Gastro-esophageal reflux disease without esophagitis; E78.5 Hyperlipidemia, unspecified; G89.29 Other chronic pain; I48.91 Unspecified atrial fibrillation; G40.901 Epilepsy, unspecified, not intractable, with status epilepticus; G93.41 Metabolic encephalopathy; E89.0 Postprocedural hypothyroidism; F32.9 Major depressive disorder, single episode, unspecified; F11.90 Opioid use, unspecified, uncomplicated; F15.90 Other stimulant use, unspecified, uncomplicated; Z94.0 Kidney transplant status; Z68.1 Body mass index [BMI] 19.9 or less, adult; Z79.899 Other long term (current) drug therapy; Z79.51 Long term (current) use of inhaled steroids; Z87.891 Personal history of nicotine dependence; Z85.850 Personal history of malignant neoplasm of thyroid; Z85.820 Personal history of malignant melanoma of skin; Z86.19 Personal history of other infectious and parasitic diseases; Z94.83 Pancreas transplant status; Z89.611 Acquired absence of right leg above knee; Z98.890 Other specified postprocedural states; Z99.2 Dependence on renal dialysis; Y83.8 Other surgical procedures as the cause of abnormal reaction of the patient, or of later complication, without mention of misadventure at the time of the procedure | CPT/HCPCS: 97605 ==

== ENCOUNTER 2019-03-30 11:30 | Day surgery (SDC) | payer MEDICARE, MEDICAID ==
[2019-03-30] MEDS ORDERED: LIDOcaine 2% 5ml jelly ONE (12:01)
== END 2019-03-30 13:40 | disposition home or self-care (01) ==
LOC: WOUND CARE 11:30
PROVIDERS: ATTEND Surgery
DX: T81.89XD Other complications of procedures, not elsewhere classified, subsequent encounter (principal); E11.621 Type 2 diabetes mellitus with foot ulcer; I70.245 Atherosclerosis of native arteries of left leg with ulceration of other part of foot; L89.894 Pressure ulcer of other site, stage 4; L97.521 Non-pressure chronic ulcer of other part of left foot limited to breakdown of skin; L89.620 Pressure ulcer of left heel, unstageable; L97.421 Non-pressure chronic ulcer of left heel and midfoot limited to breakdown of skin; L89.524 Pressure ulcer of left ankle, stage 4; L97.325 Non-pressure chronic ulcer of left ankle with muscle involvement without evidence of necrosis; M81.0 Age-related osteoporosis without current pathological fracture; E11.22 Type 2 diabetes mellitus with diabetic chronic kidney disease; I13.11 Hypertensive heart and chronic kidney disease without heart failure, with stage 5 chronic kidney disease, or end stage renal disease; I25.10 Atherosclerotic heart disease of native coronary artery without angina pectoris; N18.6 End stage renal disease; E11.42 Type 2 diabetes mellitus with diabetic polyneuropathy; E11.51 Type 2 diabetes mellitus with diabetic peripheral angiopathy without gangrene; E78.00 Pure hypercholesterolemia, unspecified; J44.9 Chronic obstructive pulmonary disease, unspecified; K21.9 Gastro-esophageal reflux disease without esophagitis; E78.5 Hyperlipidemia, unspecified; G89.29 Other chronic pain; I48.91 Unspecified atrial fibrillation; G40.901 Epilepsy, unspecified, not intractable, with status epilepticus; G93.41 Metabolic encephalopathy; E89.0 Postprocedural hypothyroidism; F32.9 Major depressive disorder, single episode, unspecified; F11.90 Opioid use, unspecified, uncomplicated; F15.90 Other stimulant use, unspecified, uncomplicated; Z94.0 Kidney transplant status; Z68.1 Body mass index [BMI] 19.9 or less, adult; Z79.899 Other long term (current) drug therapy; Z79.51 Long term (current) use of inhaled steroids; Z87.891 Personal history of nicotine dependence; Z85.850 Personal history of malignant neoplasm of thyroid; Z85.820 Personal history of malignant melanoma of skin; Z86.19 Personal history of other infectious and parasitic diseases; Z94.83 Pancreas transplant status; Z89.611 Acquired absence of right leg above knee; Z98.890 Other specified postprocedural states; Z99.2 Dependence on renal dialysis; Y83.8 Other surgical procedures as the cause of abnormal reaction of the patient, or of later complication, without mention of misadventure at the time of the procedure
CPT/HCPCS: 97605

== ENCOUNTER 2019-04-06 11:25 | Day surgery (SDC) | payer MEDICARE, MEDICAID ==
[2019-04-06] MEDS ORDERED: LIDOcaine 2% 5ml jelly ONE (11:37)
== END 2019-04-06 12:28 | disposition home or self-care (01) ==
LOC: WOUND CARE 11:25
PROVIDERS: ATTEND Surgery
DX: T81.89XD Other complications of procedures, not elsewhere classified, subsequent encounter (principal); E11.621 Type 2 diabetes mellitus with foot ulcer; I70.245 Atherosclerosis of native arteries of left leg with ulceration of other part of foot; L89.894 Pressure ulcer of other site, stage 4; L97.522 Non-pressure chronic ulcer of other part of left foot with fat layer exposed; L89.620 Pressure ulcer of left heel, unstageable; L97.421 Non-pressure chronic ulcer of left heel and midfoot limited to breakdown of skin; L89.524 Pressure ulcer of left ankle, stage 4; L97.325 Non-pressure chronic ulcer of left ankle with muscle involvement without evidence of necrosis; I70.235 Atherosclerosis of native arteries of right leg with ulceration of other part of foot; L97.511 Non-pressure chronic ulcer of other part of right foot limited to breakdown of skin; M81.0 Age-related osteoporosis without current pathological fracture; E11.22 Type 2 diabetes mellitus with diabetic chronic kidney disease; I13.11 Hypertensive heart and chronic kidney disease without heart failure, with stage 5 chronic kidney disease, or end stage renal disease; I25.10 Atherosclerotic heart disease of native coronary artery without angina pectoris; N18.6 End stage renal disease; E11.42 Type 2 diabetes mellitus with diabetic polyneuropathy; E11.51 Type 2 diabetes mellitus with diabetic peripheral angiopathy without gangrene; E78.00 Pure hypercholesterolemia, unspecified; J44.9 Chronic obstructive pulmonary disease, unspecified; K21.9 Gastro-esophageal reflux disease without esophagitis; E78.5 Hyperlipidemia, unspecified; G89.29 Other chronic pain; I48.91 Unspecified atrial fibrillation; G40.901 Epilepsy, unspecified, not intractable, with status epilepticus; G93.41 Metabolic encephalopathy; E89.0 Postprocedural hypothyroidism; F32.9 Major depressive disorder, single episode, unspecified; F11.90 Opioid use, unspecified, uncomplicated; F15.90 Other stimulant use, unspecified, uncomplicated; Z94.0 Kidney transplant status; Z68.1 Body mass index [BMI] 19.9 or less, adult; Z79.899 Other long term (current) drug therapy; Z79.51 Long term (current) use of inhaled steroids; Z87.891 Personal history of nicotine dependence; Z85.850 Personal history of malignant neoplasm of thyroid; Z85.820 Personal history of malignant melanoma of skin; Z86.19 Personal history of other infectious and parasitic diseases; Z94.83 Pancreas transplant status; Z89.611 Acquired absence of right leg above knee; Z98.890 Other specified postprocedural states; Z99.2 Dependence on renal dialysis; Y83.8 Other surgical procedures as the cause of abnormal reaction of the patient, or of later complication, without mention of misadventure at the time of the procedure
CPT/HCPCS: 11042

== ENCOUNTER 2019-04-13 11:30 | Day surgery (SDC) | payer MEDICARE, MEDICAID ==
[2019-04-13] MEDS ORDERED: LIDOcaine 2% 5ml jelly ONE (11:42)
== END 2019-04-13 13:05 | disposition home or self-care (01) ==
LOC: WOUND CARE 11:30
PROVIDERS: ATTEND Surgery
DX: T81.89XD Other complications of procedures, not elsewhere classified, subsequent encounter (principal); E11.621 Type 2 diabetes mellitus with foot ulcer; I70.245 Atherosclerosis of native arteries of left leg with ulceration of other part of foot; L89.894 Pressure ulcer of other site, stage 4; L97.522 Non-pressure chronic ulcer of other part of left foot with fat layer exposed; L89.620 Pressure ulcer of left heel, unstageable; L97.421 Non-pressure chronic ulcer of left heel and midfoot limited to breakdown of skin; L89.524 Pressure ulcer of left ankle, stage 4; L97.325 Non-pressure chronic ulcer of left ankle with muscle involvement without evidence of necrosis; I70.235 Atherosclerosis of native arteries of right leg with ulceration of other part of foot; L97.511 Non-pressure chronic ulcer of other part of right foot limited to breakdown of skin; M81.0 Age-related osteoporosis without current pathological fracture; E11.22 Type 2 diabetes mellitus with diabetic chronic kidney disease; I13.11 Hypertensive heart and chronic kidney disease without heart failure, with stage 5 chronic kidney disease, or end stage renal disease; I25.10 Atherosclerotic heart disease of native coronary artery without angina pectoris; N18.6 End stage renal disease; E11.42 Type 2 diabetes mellitus with diabetic polyneuropathy; E11.51 Type 2 diabetes mellitus with diabetic peripheral angiopathy without gangrene; E78.00 Pure hypercholesterolemia, unspecified; J44.9 Chronic obstructive pulmonary disease, unspecified; K21.9 Gastro-esophageal reflux disease without esophagitis; E78.5 Hyperlipidemia, unspecified; G89.29 Other chronic pain; I48.91 Unspecified atrial fibrillation; G40.901 Epilepsy, unspecified, not intractable, with status epilepticus; G93.41 Metabolic encephalopathy; E89.0 Postprocedural hypothyroidism; F32.9 Major depressive disorder, single episode, unspecified; F11.90 Opioid use, unspecified, uncomplicated; F15.90 Other stimulant use, unspecified, uncomplicated; Z94.0 Kidney transplant status; Z68.1 Body mass index [BMI] 19.9 or less, adult; Z79.899 Other long term (current) drug therapy; Z79.51 Long term (current) use of inhaled steroids; Z87.891 Personal history of nicotine dependence; Z85.850 Personal history of malignant neoplasm of thyroid; Z85.820 Personal history of malignant melanoma of skin; Z86.19 Personal history of other infectious and parasitic diseases; Z94.83 Pancreas transplant status; Z89.611 Acquired absence of right leg above knee; Z98.890 Other specified postprocedural states; Z99.2 Dependence on renal dialysis; Y83.8 Other surgical procedures as the cause of abnormal reaction of the patient, or of later complication, without mention of misadventure at the time of the procedure
CPT/HCPCS: 11042; 97597; 97598

== ENCOUNTER 2019-04-20 12:02 | Day surgery (SDC) | payer MEDICARE, MEDICAID ==
[~2019-04-20 12:02] MED LIST changes: +LIDOcaine 2% 5ml jelly ONE
== END 2019-04-20 13:00 | disposition home or self-care (01) ==
LOC: WOUND CARE 12:02
PROVIDERS: ATTEND Surgery
DX: T81.89XD Other complications of procedures, not elsewhere classified, subsequent encounter (principal); E11.621 Type 2 diabetes mellitus with foot ulcer; I70.245 Atherosclerosis of native arteries of left leg with ulceration of other part of foot; L89.894 Pressure ulcer of other site, stage 4; L97.522 Non-pressure chronic ulcer of other part of left foot with fat layer exposed; L89.620 Pressure ulcer of left heel, unstageable; L97.421 Non-pressure chronic ulcer of left heel and midfoot limited to breakdown of skin; L89.524 Pressure ulcer of left ankle, stage 4; L97.325 Non-pressure chronic ulcer of left ankle with muscle involvement without evidence of necrosis; I70.235 Atherosclerosis of native arteries of right leg with ulceration of other part of foot; L97.511 Non-pressure chronic ulcer of other part of right foot limited to breakdown of skin; E11.622 Type 2 diabetes mellitus with other skin ulcer; L98.492 Non-pressure chronic ulcer of skin of other sites with fat layer exposed; E11.22 Type 2 diabetes mellitus with diabetic chronic kidney disease; I13.11 Hypertensive heart and chronic kidney disease without heart failure, with stage 5 chronic kidney disease, or end stage renal disease; I25.10 Atherosclerotic heart disease of native coronary artery without angina pectoris; N18.6 End stage renal disease; E11.42 Type 2 diabetes mellitus with diabetic polyneuropathy; E11.51 Type 2 diabetes mellitus with diabetic peripheral angiopathy without gangrene; E78.00 Pure hypercholesterolemia, unspecified; J44.9 Chronic obstructive pulmonary disease, unspecified; M81.0 Age-related osteoporosis without current pathological fracture; K21.9 Gastro-esophageal reflux disease without esophagitis; E78.5 Hyperlipidemia, unspecified; G89.29 Other chronic pain; I48.91 Unspecified atrial fibrillation; G40.901 Epilepsy, unspecified, not intractable, with status epilepticus; G93.41 Metabolic encephalopathy; E89.0 Postprocedural hypothyroidism; F32.9 Major depressive disorder, single episode, unspecified; F11.90 Opioid use, unspecified, uncomplicated; F15.90 Other stimulant use, unspecified, uncomplicated; Z94.0 Kidney transplant status; Z68.1 Body mass index [BMI] 19.9 or less, adult; Z79.899 Other long term (current) drug therapy; Z79.51 Long term (current) use of inhaled steroids; Z87.891 Personal history of nicotine dependence; Z85.850 Personal history of malignant neoplasm of thyroid; Z85.820 Personal history of malignant melanoma of skin; Z86.19 Personal history of other infectious and parasitic diseases; Z94.83 Pancreas transplant status; Z89.611 Acquired absence of right leg above knee; Z98.890 Other specified postprocedural states; Z99.2 Dependence on renal dialysis; Y83.8 Other surgical procedures as the cause of abnormal reaction of the patient, or of later complication, without mention of misadventure at the time of the procedure
CPT/HCPCS: 11042; 97597; 97605; A4663; A6021; A6154; A6212

== ENCOUNTER 2019-04-27 11:30 | Day surgery (SDC) | payer MEDICARE, MEDICAID ==
[~2019-04-27 11:30] MED LIST changes: -LIDOcaine 2% 5ml jelly ONE
[2019-04-27] MEDS ORDERED: LIDOcaine 2% 5ml jelly ONE (12:05)
== END 2019-04-27 12:54 | disposition home or self-care (01) ==
LOC: WOUND CARE 11:30
PROVIDERS: ATTEND Surgery
DX: T81.89XD Other complications of procedures, not elsewhere classified, subsequent encounter (principal); E11.621 Type 2 diabetes mellitus with foot ulcer; I70.245 Atherosclerosis of native arteries of left leg with ulceration of other part of foot; L89.894 Pressure ulcer of other site, stage 4; L97.522 Non-pressure chronic ulcer of other part of left foot with fat layer exposed; L89.620 Pressure ulcer of left heel, unstageable; L97.421 Non-pressure chronic ulcer of left heel and midfoot limited to breakdown of skin; L89.524 Pressure ulcer of left ankle, stage 4; L97.325 Non-pressure chronic ulcer of left ankle with muscle involvement without evidence of necrosis; I70.235 Atherosclerosis of native arteries of right leg with ulceration of other part of foot; L97.511 Non-pressure chronic ulcer of other part of right foot limited to breakdown of skin; E11.622 Type 2 diabetes mellitus with other skin ulcer; L98.492 Non-pressure chronic ulcer of skin of other sites with fat layer exposed; E11.22 Type 2 diabetes mellitus with diabetic chronic kidney disease; I13.11 Hypertensive heart and chronic kidney disease without heart failure, with stage 5 chronic kidney disease, or end stage renal disease; I25.10 Atherosclerotic heart disease of native coronary artery without angina pectoris; N18.6 End stage renal disease; E11.42 Type 2 diabetes mellitus with diabetic polyneuropathy; E11.51 Type 2 diabetes mellitus with diabetic peripheral angiopathy without gangrene; E78.00 Pure hypercholesterolemia, unspecified; J44.9 Chronic obstructive pulmonary disease, unspecified; M81.0 Age-related osteoporosis without current pathological fracture; K21.9 Gastro-esophageal reflux disease without esophagitis; E78.5 Hyperlipidemia, unspecified; G89.29 Other chronic pain; I48.91 Unspecified atrial fibrillation; G40.901 Epilepsy, unspecified, not intractable, with status epilepticus; G93.41 Metabolic encephalopathy; E89.0 Postprocedural hypothyroidism; F32.9 Major depressive disorder, single episode, unspecified; F11.90 Opioid use, unspecified, uncomplicated; F15.90 Other stimulant use, unspecified, uncomplicated; Z94.0 Kidney transplant status; Z68.1 Body mass index [BMI] 19.9 or less, adult; Z79.899 Other long term (current) drug therapy; Z79.51 Long term (current) use of inhaled steroids; Z87.891 Personal history of nicotine dependence; Z85.850 Personal history of malignant neoplasm of thyroid; Z85.820 Personal history of malignant melanoma of skin; Z86.19 Personal history of other infectious and parasitic diseases; Z94.83 Pancreas transplant status; Z89.611 Acquired absence of right leg above knee; Z98.890 Other specified postprocedural states; Z99.2 Dependence on renal dialysis; Y83.8 Other surgical procedures as the cause of abnormal reaction of the patient, or of later complication, without mention of misadventure at the time of the procedure
CPT/HCPCS: 11042; 97597

== ENCOUNTER 2019-05-04 11:41 | Day surgery (SDC) | payer MEDICARE, MEDICAID ==
[2019-05-04] MEDS ORDERED: LIDOcaine 2% 5ml jelly ONE (11:52)
== END 2019-05-04 12:51 | disposition home or self-care (01) ==
LOC: WOUND CARE 11:41
PROVIDERS: ATTEND Surgery
DX: T81.89XD Other complications of procedures, not elsewhere classified, subsequent encounter (principal); E11.621 Type 2 diabetes mellitus with foot ulcer; I70.245 Atherosclerosis of native arteries of left leg with ulceration of other part of foot; L89.894 Pressure ulcer of other site, stage 4; L97.522 Non-pressure chronic ulcer of other part of left foot with fat layer exposed; L89.620 Pressure ulcer of left heel, unstageable; L97.421 Non-pressure chronic ulcer of left heel and midfoot limited to breakdown of skin; L89.524 Pressure ulcer of left ankle, stage 4; L97.325 Non-pressure chronic ulcer of left ankle with muscle involvement without evidence of necrosis; I70.235 Atherosclerosis of native arteries of right leg with ulceration of other part of foot; L97.511 Non-pressure chronic ulcer of other part of right foot limited to breakdown of skin; E11.622 Type 2 diabetes mellitus with other skin ulcer; L98.492 Non-pressure chronic ulcer of skin of other sites with fat layer exposed; E11.22 Type 2 diabetes mellitus with diabetic chronic kidney disease; I13.11 Hypertensive heart and chronic kidney disease without heart failure, with stage 5 chronic kidney disease, or end stage renal disease; I25.10 Atherosclerotic heart disease of native coronary artery without angina pectoris; N18.6 End stage renal disease; E11.42 Type 2 diabetes mellitus with diabetic polyneuropathy; E11.51 Type 2 diabetes mellitus with diabetic peripheral angiopathy without gangrene; E78.00 Pure hypercholesterolemia, unspecified; M81.0 Age-related osteoporosis without current pathological fracture; K21.9 Gastro-esophageal reflux disease without esophagitis; E78.5 Hyperlipidemia, unspecified; J44.9 Chronic obstructive pulmonary disease, unspecified; G89.29 Other chronic pain; I48.91 Unspecified atrial fibrillation; G40.901 Epilepsy, unspecified, not intractable, with status epilepticus; G93.41 Metabolic encephalopathy; E89.0 Postprocedural hypothyroidism; F32.9 Major depressive disorder, single episode, unspecified; F11.90 Opioid use, unspecified, uncomplicated; F15.90 Other stimulant use, unspecified, uncomplicated; Z94.0 Kidney transplant status; Z68.1 Body mass index [BMI] 19.9 or less, adult; Z79.899 Other long term (current) drug therapy; Z79.51 Long term (current) use of inhaled steroids; Z87.891 Personal history of nicotine dependence; Z85.850 Personal history of malignant neoplasm of thyroid; Z85.820 Personal history of malignant melanoma of skin; Z86.19 Personal history of other infectious and parasitic diseases; Z94.83 Pancreas transplant status; Z89.611 Acquired absence of right leg above knee; Z98.890 Other specified postprocedural states; Z99.2 Dependence on renal dialysis; Y83.8 Other surgical procedures as the cause of abnormal reaction of the patient, or of later complication, without mention of misadventure at the time of the procedure
CPT/HCPCS: 11042; 97597

== ENCOUNTER 2019-05-11 11:00 | Outpatient (CLI) | payer MEDICARE, MEDICAID ==
[2019-05-11] MEDS ORDERED: LIDOcaine 2% 5ml jelly ONE (11:28)
== END 2019-05-11 12:16 | disposition home or self-care (01) ==
LOC: WOUND CARE 11:00 → EDSTATUS 11:20 → WOUND CARE 12:16
PROVIDERS: ATTEND Nurse Practitioner
DX: T81.89XD Other complications of procedures, not elsewhere classified, subsequent encounter (principal); E11.621 Type 2 diabetes mellitus with foot ulcer; I70.245 Atherosclerosis of native arteries of left leg with ulceration of other part of foot; L97.522 Non-pressure chronic ulcer of other part of left foot with fat layer exposed; L89.894 Pressure ulcer of other site, stage 4; L89.620 Pressure ulcer of left heel, unstageable; L97.421 Non-pressure chronic ulcer of left heel and midfoot limited to breakdown of skin; L89.524 Pressure ulcer of left ankle, stage 4; L97.325 Non-pressure chronic ulcer of left ankle with muscle involvement without evidence of necrosis; I70.235 Atherosclerosis of native arteries of right leg with ulceration of other part of foot; L97.511 Non-pressure chronic ulcer of other part of right foot limited to breakdown of skin; E11.622 Type 2 diabetes mellitus with other skin ulcer; L98.492 Non-pressure chronic ulcer of skin of other sites with fat layer exposed; E11.22 Type 2 diabetes mellitus with diabetic chronic kidney disease; I13.11 Hypertensive heart and chronic kidney disease without heart failure, with stage 5 chronic kidney disease, or end stage renal disease; I25.10 Atherosclerotic heart disease of native coronary artery without angina pectoris; N18.6 End stage renal disease; E11.42 Type 2 diabetes mellitus with diabetic polyneuropathy; E11.51 Type 2 diabetes mellitus with diabetic peripheral angiopathy without gangrene; E78.00 Pure hypercholesterolemia, unspecified; M81.0 Age-related osteoporosis without current pathological fracture; K21.9 Gastro-esophageal reflux disease without esophagitis; E78.5 Hyperlipidemia, unspecified; J44.9 Chronic obstructive pulmonary disease, unspecified; G89.29 Other chronic pain; I48.91 Unspecified atrial fibrillation; G40.901 Epilepsy, unspecified, not intractable, with status epilepticus; G93.41 Metabolic encephalopathy; E89.0 Postprocedural hypothyroidism; F32.9 Major depressive disorder, single episode, unspecified; F11.90 Opioid use, unspecified, uncomplicated; F15.90 Other stimulant use, unspecified, uncomplicated; Z94.0 Kidney transplant status; Z68.1 Body mass index [BMI] 19.9 or less, adult; Z79.899 Other long term (current) drug therapy; Z79.51 Long term (current) use of inhaled steroids; Z87.891 Personal history of nicotine dependence; Z85.820 Personal history of malignant melanoma of skin; Z85.850 Personal history of malignant neoplasm of thyroid; Z86.19 Personal history of other infectious and parasitic diseases; Z94.83 Pancreas transplant status; Z89.611 Acquired absence of right leg above knee; Z98.890 Other specified postprocedural states; Z99.2 Dependence on renal dialysis; Y83.8 Other surgical procedures as the cause of abnormal reaction of the patient, or of later complication, without mention of misadventure at the time of the procedure
CPT/HCPCS: 97605

== ENCOUNTER 2019-05-18 10:25 | Outpatient (CLI) | payer MEDICARE, MEDICAID | END 2019-05-18 13:16 | disposition home or self-care (01) | LOC: WOUND CARE 10:25 | PROVIDERS: ATTEND Surgery | DX: T81.89XD Other complications of procedures, not elsewhere classified, subsequent encounter (principal); E11.621 Type 2 diabetes mellitus with foot ulcer; I70.245 Atherosclerosis of native arteries of left leg with ulceration of other part of foot; L97.522 Non-pressure chronic ulcer of other part of left foot with fat layer exposed; L89.894 Pressure ulcer of other site, stage 4; L89.620 Pressure ulcer of left heel, unstageable; L97.421 Non-pressure chronic ulcer of left heel and midfoot limited to breakdown of skin; L89.524 Pressure ulcer of left ankle, stage 4; L97.325 Non-pressure chronic ulcer of left ankle with muscle involvement without evidence of necrosis; I70.235 Atherosclerosis of native arteries of right leg with ulceration of other part of foot; L97.511 Non-pressure chronic ulcer of other part of right foot limited to breakdown of skin; E11.622 Type 2 diabetes mellitus with other skin ulcer; L98.492 Non-pressure chronic ulcer of skin of other sites with fat layer exposed; E11.22 Type 2 diabetes mellitus with diabetic chronic kidney disease; I13.11 Hypertensive heart and chronic kidney disease without heart failure, with stage 5 chronic kidney disease, or end stage renal disease; I25.10 Atherosclerotic heart disease of native coronary artery without angina pectoris; N18.6 End stage renal disease; E11.42 Type 2 diabetes mellitus with diabetic polyneuropathy; E11.51 Type 2 diabetes mellitus with diabetic peripheral angiopathy without gangrene; E78.00 Pure hypercholesterolemia, unspecified; M81.0 Age-related osteoporosis without current pathological fracture; K21.9 Gastro-esophageal reflux disease without esophagitis; E78.5 Hyperlipidemia, unspecified; J44.9 Chronic obstructive pulmonary disease, unspecified; G89.29 Other chronic pain; I48.91 Unspecified atrial fibrillation; G40.901 Epilepsy, unspecified, not intractable, with status epilepticus; G93.41 Metabolic encephalopathy; E89.0 Postprocedural hypothyroidism; F32.9 Major depressive disorder, single episode, unspecified; F11.90 Opioid use, unspecified, uncomplicated; F15.90 Other stimulant use, unspecified, uncomplicated; Z94.0 Kidney transplant status; Z68.1 Body mass index [BMI] 19.9 or less, adult; Z79.899 Other long term (current) drug therapy; Z79.51 Long term (current) use of inhaled steroids; Z87.891 Personal history of nicotine dependence; Z85.820 Personal history of malignant melanoma of skin; Z85.850 Personal history of malignant neoplasm of thyroid; Z86.19 Personal history of other infectious and parasitic diseases; Z94.83 Pancreas transplant status; Z89.611 Acquired absence of right leg above knee; Z98.890 Other specified postprocedural states; Z99.2 Dependence on renal dialysis; Y83.8 Other surgical procedures as the cause of abnormal reaction of the patient, or of later complication, without mention of misadventure at the time of the procedure | CPT/HCPCS: 93922; 93926; 97605 ==

== ENCOUNTER 2019-05-24 10:45 | Day surgery (SDC) | payer MEDICARE, MEDICAID ==
[2019-05-24] MEDS ORDERED: LIDOcaine 2% 5ml jelly ONE (11:23)
== END 2019-05-24 13:27 | disposition home or self-care (01) ==
LOC: WOUND CARE 10:45
PROVIDERS: ATTEND Nurse Practitioner
DX: T81.89XD Other complications of procedures, not elsewhere classified, subsequent encounter (principal); E11.621 Type 2 diabetes mellitus with foot ulcer; I70.245 Atherosclerosis of native arteries of left leg with ulceration of other part of foot; L97.522 Non-pressure chronic ulcer of other part of left foot with fat layer exposed; L89.894 Pressure ulcer of other site, stage 4; L89.620 Pressure ulcer of left heel, unstageable; L97.421 Non-pressure chronic ulcer of left heel and midfoot limited to breakdown of skin; L89.524 Pressure ulcer of left ankle, stage 4; L97.325 Non-pressure chronic ulcer of left ankle with muscle involvement without evidence of necrosis; I70.235 Atherosclerosis of native arteries of right leg with ulceration of other part of foot; L97.511 Non-pressure chronic ulcer of other part of right foot limited to breakdown of skin; E11.622 Type 2 diabetes mellitus with other skin ulcer; L98.492 Non-pressure chronic ulcer of skin of other sites with fat layer exposed; E11.22 Type 2 diabetes mellitus with diabetic chronic kidney disease; I13.11 Hypertensive heart and chronic kidney disease without heart failure, with stage 5 chronic kidney disease, or end stage renal disease; I25.10 Atherosclerotic heart disease of native coronary artery without angina pectoris; N18.6 End stage renal disease; E11.42 Type 2 diabetes mellitus with diabetic polyneuropathy; E11.51 Type 2 diabetes mellitus with diabetic peripheral angiopathy without gangrene; E78.00 Pure hypercholesterolemia, unspecified; M81.0 Age-related osteoporosis without current pathological fracture; K21.9 Gastro-esophageal reflux disease without esophagitis; E78.5 Hyperlipidemia, unspecified; J44.9 Chronic obstructive pulmonary disease, unspecified; G89.29 Other chronic pain; I48.91 Unspecified atrial fibrillation; G40.901 Epilepsy, unspecified, not intractable, with status epilepticus; G93.41 Metabolic encephalopathy; E89.0 Postprocedural hypothyroidism; F32.9 Major depressive disorder, single episode, unspecified; F11.90 Opioid use, unspecified, uncomplicated; F15.90 Other stimulant use, unspecified, uncomplicated; Z94.0 Kidney transplant status; Z68.1 Body mass index [BMI] 19.9 or less, adult; Z79.899 Other long term (current) drug therapy; Z79.51 Long term (current) use of inhaled steroids; Z87.891 Personal history of nicotine dependence; Z85.820 Personal history of malignant melanoma of skin; Z85.850 Personal history of malignant neoplasm of thyroid; Z86.19 Personal history of other infectious and parasitic diseases; Z94.83 Pancreas transplant status; Z89.611 Acquired absence of right leg above knee; Z98.890 Other specified postprocedural states; Z99.2 Dependence on renal dialysis; Y83.8 Other surgical procedures as the cause of abnormal reaction of the patient, or of later complication, without mention of misadventure at the time of the procedure
CPT/HCPCS: 73620; 73721; 97597

== ENCOUNTER 2019-05-31 11:45 | Outpatient (CLI) | payer MEDICARE, MEDICAID ==
[~2019-05-31 11:45] MED LIST changes: +iohexol 350 MG/ML 50ML vial IV ONE
== END 2019-05-31 13:40 | disposition home or self-care (01) ==
LOC: WOUND CARE 11:45
PROVIDERS: ATTEND Nurse Practitioner
DX: T81.89XD Other complications of procedures, not elsewhere classified, subsequent encounter (principal); E11.621 Type 2 diabetes mellitus with foot ulcer; I70.245 Atherosclerosis of native arteries of left leg with ulceration of other part of foot; L89.894 Pressure ulcer of other site, stage 4; L97.522 Non-pressure chronic ulcer of other part of left foot with fat layer exposed; L89.524 Pressure ulcer of left ankle, stage 4; L97.325 Non-pressure chronic ulcer of left ankle with muscle involvement without evidence of necrosis; I70.235 Atherosclerosis of native arteries of right leg with ulceration of other part of foot; L97.511 Non-pressure chronic ulcer of other part of right foot limited to breakdown of skin; E11.622 Type 2 diabetes mellitus with other skin ulcer; L98.492 Non-pressure chronic ulcer of skin of other sites with fat layer exposed; E11.22 Type 2 diabetes mellitus with diabetic chronic kidney disease; I13.11 Hypertensive heart and chronic kidney disease without heart failure, with stage 5 chronic kidney disease, or end stage renal disease; I25.10 Atherosclerotic heart disease of native coronary artery without angina pectoris; N18.6 End stage renal disease; E11.42 Type 2 diabetes mellitus with diabetic polyneuropathy; E11.51 Type 2 diabetes mellitus with diabetic peripheral angiopathy without gangrene; E78.00 Pure hypercholesterolemia, unspecified; M81.0 Age-related osteoporosis without current pathological fracture; K21.9 Gastro-esophageal reflux disease without esophagitis; E78.5 Hyperlipidemia, unspecified; J44.9 Chronic obstructive pulmonary disease, unspecified; G89.29 Other chronic pain; I48.91 Unspecified atrial fibrillation; G40.901 Epilepsy, unspecified, not intractable, with status epilepticus; G93.41 Metabolic encephalopathy; E89.0 Postprocedural hypothyroidism; F32.9 Major depressive disorder, single episode, unspecified; F11.90 Opioid use, unspecified, uncomplicated; F15.90 Other stimulant use, unspecified, uncomplicated; Z94.0 Kidney transplant status; Z68.1 Body mass index [BMI] 19.9 or less, adult; Z79.899 Other long term (current) drug therapy; Z79.51 Long term (current) use of inhaled steroids; Z87.891 Personal history of nicotine dependence; Z85.820 Personal history of malignant melanoma of skin; Z85.850 Personal history of malignant neoplasm of thyroid; Z86.19 Personal history of other infectious and parasitic diseases; Z94.83 Pancreas transplant status; Z89.611 Acquired absence of right leg above knee; Z98.890 Other specified postprocedural states; Z99.2 Dependence on renal dialysis; Y83.8 Other surgical procedures as the cause of abnormal reaction of the patient, or of later complication, without mention of misadventure at the time of the procedure
CPT/HCPCS: G0463; Q9967

== ENCOUNTER 2019-06-09 10:00 | Outpatient (CLI) | payer MEDICARE, MEDICAID ==
[~2019-06-09 10:00] MED LIST changes: -iohexol 350 MG/ML 50ML vial IV ONE
[2019-06-09] MEDS ORDERED: LIDOcaine 2% 5ml jelly ONE (10:25)
== END 2019-06-09 11:06 | disposition home or self-care (01) ==
LOC: WOUND CARE 10:00 → EDSTATUS 11:00 → WOUND CARE 11:06
PROVIDERS: ATTEND Nurse Practitioner
DX: T81.89XD Other complications of procedures, not elsewhere classified, subsequent encounter (principal); E11.621 Type 2 diabetes mellitus with foot ulcer; I70.245 Atherosclerosis of native arteries of left leg with ulceration of other part of foot; L89.899 Pressure ulcer of other site, unspecified stage; L97.522 Non-pressure chronic ulcer of other part of left foot with fat layer exposed; L89.524 Pressure ulcer of left ankle, stage 4; L97.325 Non-pressure chronic ulcer of left ankle with muscle involvement without evidence of necrosis; I70.235 Atherosclerosis of native arteries of right leg with ulceration of other part of foot; L97.511 Non-pressure chronic ulcer of other part of right foot limited to breakdown of skin; E11.622 Type 2 diabetes mellitus with other skin ulcer; L98.492 Non-pressure chronic ulcer of skin of other sites with fat layer exposed; E11.22 Type 2 diabetes mellitus with diabetic chronic kidney disease; I13.11 Hypertensive heart and chronic kidney disease without heart failure, with stage 5 chronic kidney disease, or end stage renal disease; I25.10 Atherosclerotic heart disease of native coronary artery without angina pectoris; N18.6 End stage renal disease; E11.42 Type 2 diabetes mellitus with diabetic polyneuropathy; E11.51 Type 2 diabetes mellitus with diabetic peripheral angiopathy without gangrene; E78.00 Pure hypercholesterolemia, unspecified; M81.0 Age-related osteoporosis without current pathological fracture; K21.9 Gastro-esophageal reflux disease without esophagitis; E78.5 Hyperlipidemia, unspecified; J44.9 Chronic obstructive pulmonary disease, unspecified; G89.29 Other chronic pain; I48.91 Unspecified atrial fibrillation; G40.901 Epilepsy, unspecified, not intractable, with status epilepticus; G93.41 Metabolic encephalopathy; E89.0 Postprocedural hypothyroidism; F32.9 Major depressive disorder, single episode, unspecified; F11.90 Opioid use, unspecified, uncomplicated; F15.90 Other stimulant use, unspecified, uncomplicated; Z94.0 Kidney transplant status; Z68.1 Body mass index [BMI] 19.9 or less, adult; Z79.899 Other long term (current) drug therapy; Z79.51 Long term (current) use of inhaled steroids; Z87.891 Personal history of nicotine dependence; Z85.820 Personal history of malignant melanoma of skin; Z85.850 Personal history of malignant neoplasm of thyroid; Z86.19 Personal history of other infectious and parasitic diseases; Z94.83 Pancreas transplant status; Z89.611 Acquired absence of right leg above knee; Z98.890 Other specified postprocedural states; Z99.2 Dependence on renal dialysis; Y83.8 Other surgical procedures as the cause of abnormal reaction of the patient, or of later complication, without mention of misadventure at the time of the procedure
CPT/HCPCS: G0463

== ENCOUNTER 2019-06-14 10:52 | Day surgery (SDC) | payer MEDICARE, MEDICAID ==
[2019-06-14] MEDS ORDERED: LIDOcaine 2% 5ml jelly ONE (11:13)
[2019-06-14 12:53] LABS: BASOPHILS % (AUTO) 0.3 % (0-1); EOSINOPHILS # (AUTO) 0.1 X10'3 (0-0.9); EOSINOPHILS % (AUTO) 1.1 % (0-6); LYMPHOCYTES # (AUTO) 1.3 X10'3 (1.1-4.8); LYMPHOCYTES % (AUTO) 22.9 % (21-51); MEAN CORPUSCULAR HEMOGLOBIN 31.8 PG (27.0-31.0); MEAN CORPUSCULAR HGB CONC 32.6 g/dL (33.0-36.5); MEAN CORPUSCULAR VOLUME 97.6 FL (78-98); MEAN PLATELET VOLUME 7.7 FL (7.4-10.4); MONOCYTES # (AUTO) 0.6 X10'3 (0-0.9); MONOCYTES % (AUTO) 10.8 % (2-12); NEUTROPHILS # (AUTO) 3.7 X10'3 (1.8-7.7); NEUTROPHILS % (AUTO) 64.9 % (42-75); PRE OP HEMATOCRIT 44.3 % (42.0-52.0); PRE OP HEMOGLOBIN 14.4 g/dL (14.0-17.9); PRE OP PLATELET COUNT 123 X10'3 (140-440); RED BLOOD COUNT 4.54 X10'6 (4.70-6.10); RED CELL DISTRIBUTION WIDTH 19.6 % (11.5-14.5)
[2019-06-14 13:19] LABS: ALBUMIN 3.1 G/DL (3.4-5.0); ALBUMIN/GLOBULIN RATIO 0.9 (1.1-1.5); ALKALINE PHOSPHATASE 111 IU/L (46-116); BLOOD UREA NITROGEN 8 MG/DL (7-18); BUN/CREATININE RATIO 14.3 (5.4-32.0); CALCIUM 8.6 MG/DL (8.5-10.1); CHLORIDE 104 MMOL/L (99-107); CREATININE 0.56 MG/DL (0.60-1.10); PRE OP ALT 19 U/L (30-65); PRE OP ANION GAP 8 (8-16); PRE OP AST 25 U/L (10-37); PRE OP BILIRUB, TOTAL 0.6 MG/DL (0.0-1.0); PRE OP GLUCOSE 86 MG/DL (70-104); PRE OP POTASSIUM 3.9 MMOL/L (3.4-5.1); PRE OP SODIUM 136 MMOL/L (135-145); TOTAL CARBON DIOXIDE 23.9 MMOL/L (24-32); TOTAL PROTEIN 6.6 G/DL (6.4-8.2); eGFR > 90 ML/MIN
[2019-06-14 13:44] LABS: ANISOCYTOSIS 2+; PLATELET ESTIMATE DECREASED
[2019-06-14 13:45] LABS: MICROCYTOSIS FEW
== END 2019-06-14 12:22 | disposition home or self-care (01) ==
LOC: WOUND CARE 10:52
PROVIDERS: ATTEND Nurse Practitioner
DX: T81.89XD Other complications of procedures, not elsewhere classified, subsequent encounter (principal); E11.621 Type 2 diabetes mellitus with foot ulcer; I70.245 Atherosclerosis of native arteries of left leg with ulceration of other part of foot; L89.899 Pressure ulcer of other site, unspecified stage; L97.522 Non-pressure chronic ulcer of other part of left foot with fat layer exposed; L89.524 Pressure ulcer of left ankle, stage 4; L97.325 Non-pressure chronic ulcer of left ankle with muscle involvement without evidence of necrosis; I70.235 Atherosclerosis of native arteries of right leg with ulceration of other part of foot; L97.511 Non-pressure chronic ulcer of other part of right foot limited to breakdown of skin; E11.622 Type 2 diabetes mellitus with other skin ulcer; L98.492 Non-pressure chronic ulcer of skin of other sites with fat layer exposed; E11.22 Type 2 diabetes mellitus with diabetic chronic kidney disease; I13.11 Hypertensive heart and chronic kidney disease without heart failure, with stage 5 chronic kidney disease, or end stage renal disease; I25.10 Atherosclerotic heart disease of native coronary artery without angina pectoris; N18.6 End stage renal disease; E11.42 Type 2 diabetes mellitus with diabetic polyneuropathy; E11.51 Type 2 diabetes mellitus with diabetic peripheral angiopathy without gangrene; E78.00 Pure hypercholesterolemia, unspecified; M81.0 Age-related osteoporosis without current pathological fracture; K21.9 Gastro-esophageal reflux disease without esophagitis; E78.5 Hyperlipidemia, unspecified; J44.9 Chronic obstructive pulmonary disease, unspecified; G89.29 Other chronic pain; I48.91 Unspecified atrial fibrillation; G40.901 Epilepsy, unspecified, not intractable, with status epilepticus; G93.41 Metabolic encephalopathy; E89.0 Postprocedural hypothyroidism; F32.9 Major depressive disorder, single episode, unspecified; F11.90 Opioid use, unspecified, uncomplicated; F15.90 Other stimulant use, unspecified, uncomplicated; Z94.0 Kidney transplant status; Z68.1 Body mass index [BMI] 19.9 or less, adult; Z79.899 Other long term (current) drug therapy; Z79.51 Long term (current) use of inhaled steroids; Z87.891 Personal history of nicotine dependence; Z85.820 Personal history of malignant melanoma of skin; Z85.850 Personal history of malignant neoplasm of thyroid; Z86.19 Personal history of other infectious and parasitic diseases; Z94.83 Pancreas transplant status; Z89.611 Acquired absence of right leg above knee; Z98.890 Other specified postprocedural states; Z99.2 Dependence on renal dialysis; Y83.8 Other surgical procedures as the cause of abnormal reaction of the patient, or of later complication, without mention of misadventure at the time of the procedure
CPT/HCPCS: 11042; 36415; 80053; 85025; 87635; 97597

== ENCOUNTER 2019-06-20 09:05 | Day surgery (SDC) | payer MEDICARE, MEDICAID ==
[~2019-06-20 09:05] MED LIST changes: +HYDR-3964 PO; -HYDR-4383 PO
[2019-06-20] MEDS ORDERED: LIDOcaine 2% 5ml jelly ONE (09:19)
== END 2019-06-20 10:26 | disposition home or self-care (01) ==
LOC: WOUND CARE 09:05
PROVIDERS: ATTEND Nurse Practitioner
DX: T81.89XD Other complications of procedures, not elsewhere classified, subsequent encounter (principal); E11.621 Type 2 diabetes mellitus with foot ulcer; I70.245 Atherosclerosis of native arteries of left leg with ulceration of other part of foot; L89.899 Pressure ulcer of other site, unspecified stage; L97.522 Non-pressure chronic ulcer of other part of left foot with fat layer exposed; L89.524 Pressure ulcer of left ankle, stage 4; L97.325 Non-pressure chronic ulcer of left ankle with muscle involvement without evidence of necrosis; I70.235 Atherosclerosis of native arteries of right leg with ulceration of other part of foot; L97.511 Non-pressure chronic ulcer of other part of right foot limited to breakdown of skin; E11.622 Type 2 diabetes mellitus with other skin ulcer; L98.492 Non-pressure chronic ulcer of skin of other sites with fat layer exposed; E11.22 Type 2 diabetes mellitus with diabetic chronic kidney disease; I13.11 Hypertensive heart and chronic kidney disease without heart failure, with stage 5 chronic kidney disease, or end stage renal disease; I25.10 Atherosclerotic heart disease of native coronary artery without angina pectoris; N18.6 End stage renal disease; E11.42 Type 2 diabetes mellitus with diabetic polyneuropathy; E11.51 Type 2 diabetes mellitus with diabetic peripheral angiopathy without gangrene; E78.00 Pure hypercholesterolemia, unspecified; M81.0 Age-related osteoporosis without current pathological fracture; K21.9 Gastro-esophageal reflux disease without esophagitis; E78.5 Hyperlipidemia, unspecified; J44.9 Chronic obstructive pulmonary disease, unspecified; G89.29 Other chronic pain; I48.91 Unspecified atrial fibrillation; G40.901 Epilepsy, unspecified, not intractable, with status epilepticus; G93.41 Metabolic encephalopathy; E89.0 Postprocedural hypothyroidism; F32.9 Major depressive disorder, single episode, unspecified; F11.90 Opioid use, unspecified, uncomplicated; F15.90 Other stimulant use, unspecified, uncomplicated; Z94.0 Kidney transplant status; Z68.1 Body mass index [BMI] 19.9 or less, adult; Z79.899 Other long term (current) drug therapy; Z79.51 Long term (current) use of inhaled steroids; Z87.891 Personal history of nicotine dependence; Z85.820 Personal history of malignant melanoma of skin; Z85.850 Personal history of malignant neoplasm of thyroid; Z86.19 Personal history of other infectious and parasitic diseases; Z94.83 Pancreas transplant status; Z89.611 Acquired absence of right leg above knee; Z98.890 Other specified postprocedural states; Z99.2 Dependence on renal dialysis; Y83.8 Other surgical procedures as the cause of abnormal reaction of the patient, or of later complication, without mention of misadventure at the time of the procedure
CPT/HCPCS: 97597

== ENCOUNTER 2019-06-21 12:24 | Observation (INO) | payer MEDICARE, MEDICAID ==
[~2019-06-21] VITALS: Ht 190.5 cm; Wt 68.0 kg
[2019-06-21] VITALS (17 sets, daily range): BP systolic 128–180; BP diastolic 74–121
[~2019-06-21 12:24] MED LIST changes: +VANCOMYCIN INJ 1000 MG in NORMAL SALINE 250ml IV.SOLN IV ONE; +ceFAZolin 1GM/D5W- ADD-VANTAGE 50 ML IV ONE; +famotidine 20mg tablet PO ONE
[2019-06-21] MEDS: ringers solution, lacted 1,000 ML IV SCH ×2 (13:55→22:20)
[2019-06-21] MEDS ORDERED: fentaNYL/PF 50MCG/1 ML 2ML syringe ONE ×2 (17:59→19:18)
[2019-06-21] MEDS ORDERED: propofol inj 20 ML IV ONE (17:59)
[2019-06-21] MEDS ORDERED: sevoflurane 250ml liquid IH ONE (18:01)
[2019-06-21] MEDS ORDERED: ceFAZolin 1000mg inj ONE (18:26)
[2019-06-21] MEDS ORDERED: ringers solution, lacted 1,000 ML IV SCH (18:43)
[2019-06-21] MEDS ORDERED: meperidine/PF 25mg/ml syringe IV PRN ×2 (18:45)
[2019-06-21] MEDS ORDERED: morphine 4 MG/ML inj SYRINge IV PRN (18:45)
[2019-06-21] MEDS ORDERED: morphine 2 MG/ML inj. syringe IV PRN (18:45)
[2019-06-21] MEDS ORDERED: ondansetron/PF 4mg/2ml inj IV PRN ×2 (18:45→21:35)
[2019-06-21] MEDS ORDERED: proCHLORperazine 10 MG/2 ml inj IV PRN (18:45)
[2019-06-21] MEDS ORDERED: bacitracin 15gm ointment TP ONE (18:54)
[2019-06-21] MEDS ORDERED: HYDROcodone/acetaminophen 10/325mg tab PO ONE (20:10)
[2019-06-21] MEDS ORDERED: ROPIVAcaine 0.5% (5mg/ml) 30ml vial ONE ×2 (20:13)
--- NOTE | 2019-06-21 20:17 | NUR ---
Received from OR via [facility], accompanied by Anesthesiologist DR HE and report given by Anesthesiologist. PT VERY DROWSY, NO S/S OF DISTRESS/DISCOMFORT, RIGHT KNEE W/ROSHAN WRAP COVERING INCISION, WOUND VAC W/SMALL AMT OF S/S DRAINAGE 125MM[facility] LCS, HEMOVAC TO BULB SUCTION, NO DRAINAGE, LEFT FOOT W/ROSHAN WRAP COVERING FOOT AND AMPUTATED TOES, CDI. Addendum: 06/21/19 at 2110 by Raisa Barney RN Amended: Links added.
[2019-06-21] MEDS ORDERED: ondansetron/PF 4mg/2ml inj IV ONE (20:25)
[2019-06-21] MEDS ORDERED: HYDROcodone/acetaminophen 10/325mg tab PO PRN ×2 (20:25→21:00)
[2019-06-21] MEDS: meperidine/PF 25mg/ml syringe IV PRN ×2 (20:50→21:02)
[2019-06-21] MEDS ORDERED: HYDROcodone/acetaminophen 5mg/325mg tablet PO PRN (21:00)
[2019-06-21] MEDS ORDERED: traZODone 50mg tablet PO PRN (21:00)
[2019-06-21] MEDS ORDERED: QUEtiapine 25mg tablet PO SCH (21:00)
[2019-06-21] MEDS ORDERED: tizanidine 4mg tablet PO PRN (21:00)
[2019-06-21] MEDS ORDERED: loperamide 2mg capsule PO PRN (21:00)
[2019-06-21] MEDS ORDERED: hydrALAZINE 20mg/ml inj. IV ONE ×2 (21:15→21:19)
[2019-06-21] MEDS: HYDROcodone/acetaminophen 10/325mg tab PO PRN (21:51)
--- NOTE | 2019-06-21 21:57 | NUR ---
Report called to receiving nurse. Transferred via BED, 1 BAG OF PERSONAL Belongings, CELL PHONE AND WHEEL CHAIR SENT W/PT TO ROOM 3014A, RECEIVING RN AT BEDSIDE TO RECEIVE PT, BLL, CALL LIGHT GIVEN, SIDE RAILS UP X 2. Special Issues communicated to receiving nurse. YES. Addendum: 06/21/19 at 2212 by Raisa Barney RN Amended: Links added.
[2019-06-21] MEDS: normal saline 1000ml 1,000 ML IV SCH (22:19)
[2019-06-22] VITALS: BP 136/81
[2019-06-22 01:00] VITALS: BP 140/81
[2019-06-22 02:00] VITALS: BP 155/98
[2019-06-22] MEDS: HYDROcodone/acetaminophen 10/325mg tab PO PRN ×3 (02:07→09:51)
[2019-06-22] MEDS: albuterol 2.5 MG/3 ML nebule NEB SCH ×2 (02:40→09:32)
[2019-06-22] MEDS ORDERED: HYDR-4353 PO (05:39)
[2019-06-22 06:00] VITALS: BP 170/109
--- NOTE | 2019-06-22 06:11 | NUR ---
received report from jessika bolivar
--- NOTE | 2019-06-22 06:40 | NUR ---
Reported off to Marily RN and student RN Miranda. Patient is awake and alert on room air in no apparent distress. Call light and items of frequent use within reach.
[2019-06-22] MEDS ORDERED: tacrolimus anhydrous 1mg capsule PO SCH (08:00)
[2019-06-22] MEDS ORDERED: lisinopril 5mg tablet PO SCH (08:00)
[2019-06-22] MEDS ORDERED: atorvastatin 20mg tablet PO SCH (08:00)
[2019-06-22] MEDS ORDERED: loratadine 10mg tablet PO SCH (08:00)
[2019-06-22] MEDS ORDERED: phenobarbital 30mg tablet PO SCH (08:00)
[2019-06-22] MEDS ORDERED: levoTHYROXINE 112mcg tablet PO SCH (08:00)
[2019-06-22] MEDS ORDERED: risperiDONE 0.5mg tablet PO SCH (08:00)
[2019-06-22] MEDS ORDERED: predniSONE 5mg tablet PO SCH (08:00)
[2019-06-22] MEDS ORDERED: pantoprazole 40mg Tablet.DR PO SCH (08:00)
[2019-06-22] MEDS ORDERED: FLUoxetine 10mg capsule PO SCH (08:00)
[2019-06-22] MEDS ORDERED: mycophenolate sod SR tablet 180 MG TABLET.DR PO SCH (08:00)
[2019-06-22] MEDS: normal saline 1000ml 1,000 ML IV SCH (08:13)
[2019-06-22] MEDS ORDERED: budesonide 0.5mg/2ml UD nebule IH SCH (09:00)
--- NOTE | 2019-06-22 12:10 | NUR ---
PT D/C WITH INSTRUCTIONS, UNDERSTANDING OF INSTRUCTIONS AND W/ALL BELONGINGS IN OWN WHEELCHAIR ACCOMPANIED BY [facility] PERSONNEL TO GO HOME AND F/U W/[facility] TOMORROW AT 1100 PT HAS CAREGIVER AND WOUND VAC AT HOME
== END 2019-06-22 12:09 | disposition home health service, planned readmission (86) ==
LOC: PAS 12:24 → PCU 3S 20:25
PROVIDERS: ADMIT Orthopaedic Surgery; ATTEND Orthopaedic Surgery
DX: T81.49XA Infection following a procedure, other surgical site, initial encounter (principal); M22.8X2 Other disorders of patella, left knee; I10 Essential (primary) hypertension; G89.29 Other chronic pain; K21.9 Gastro-esophageal reflux disease without esophagitis; E78.5 Hyperlipidemia, unspecified; F41.9 Anxiety disorder, unspecified; F32.9 Major depressive disorder, single episode, unspecified; E11.51 Type 2 diabetes mellitus with diabetic peripheral angiopathy without gangrene; I48.91 Unspecified atrial fibrillation; G40.909 Epilepsy, unspecified, not intractable, without status epilepticus; Z85.850 Personal history of malignant neoplasm of thyroid; Z89.519 Acquired absence of unspecified leg below knee; Z90.2 Acquired absence of lung [part of]; Z90.5 Acquired absence of kidney; Z79.899 Other long term (current) drug therapy; Y83.8 Other surgical procedures as the cause of abnormal reaction of the patient, or of later complication, without mention of misadventure at the time of the procedure; Y92.89 Other specified places as the place of occurrence of the external cause
CPT/HCPCS: 27350; 28820; 82948; 94640; 94760; 96365; 96375; A6222; G0378; J0360; J0690; J2175; J2270; J2704; J3010; J3370; J7030; J7512; J7518; A4215; A4618; A6446; A6449; A6550; A7000; J2795; J7120; J7626

== ENCOUNTER 2019-06-23 11:05 | Outpatient (CLI) | payer MEDICARE, MEDICAID ==
[~2019-06-23 11:05] MED LIST changes: -HYDR-3964 PO; -HYDR-3972 PO; +HYDR-4353 PO; -VANCOMYCIN INJ 1000 MG in NORMAL SALINE 250ml IV.SOLN IV ONE; -ceFAZolin 1GM/D5W- ADD-VANTAGE 50 ML IV ONE; -famotidine 20mg tablet PO ONE
== END 2019-06-23 12:31 | disposition home or self-care (01) ==
LOC: WOUND CARE 11:05
PROVIDERS: ATTEND Nurse Practitioner
DX: T81.89XD Other complications of procedures, not elsewhere classified, subsequent encounter (principal); E11.621 Type 2 diabetes mellitus with foot ulcer; I70.245 Atherosclerosis of native arteries of left leg with ulceration of other part of foot; L89.899 Pressure ulcer of other site, unspecified stage; L97.522 Non-pressure chronic ulcer of other part of left foot with fat layer exposed; L89.524 Pressure ulcer of left ankle, stage 4; L97.325 Non-pressure chronic ulcer of left ankle with muscle involvement without evidence of necrosis; I70.235 Atherosclerosis of native arteries of right leg with ulceration of other part of foot; L97.511 Non-pressure chronic ulcer of other part of right foot limited to breakdown of skin; E11.622 Type 2 diabetes mellitus with other skin ulcer; L98.492 Non-pressure chronic ulcer of skin of other sites with fat layer exposed; E11.22 Type 2 diabetes mellitus with diabetic chronic kidney disease; I13.11 Hypertensive heart and chronic kidney disease without heart failure, with stage 5 chronic kidney disease, or end stage renal disease; I25.10 Atherosclerotic heart disease of native coronary artery without angina pectoris; N18.6 End stage renal disease; E11.42 Type 2 diabetes mellitus with diabetic polyneuropathy; E11.51 Type 2 diabetes mellitus with diabetic peripheral angiopathy without gangrene; E78.00 Pure hypercholesterolemia, unspecified; M81.0 Age-related osteoporosis without current pathological fracture; K21.9 Gastro-esophageal reflux disease without esophagitis; E78.5 Hyperlipidemia, unspecified; J44.9 Chronic obstructive pulmonary disease, unspecified; G89.29 Other chronic pain; I48.91 Unspecified atrial fibrillation; G40.901 Epilepsy, unspecified, not intractable, with status epilepticus; G93.41 Metabolic encephalopathy; E89.0 Postprocedural hypothyroidism; F32.9 Major depressive disorder, single episode, unspecified; F11.90 Opioid use, unspecified, uncomplicated; F15.90 Other stimulant use, unspecified, uncomplicated; Z94.0 Kidney transplant status; Z68.1 Body mass index [BMI] 19.9 or less, adult; Z79.899 Other long term (current) drug therapy; Z79.51 Long term (current) use of inhaled steroids; Z87.891 Personal history of nicotine dependence; Z85.820 Personal history of malignant melanoma of skin; Z85.850 Personal history of malignant neoplasm of thyroid; Z86.19 Personal history of other infectious and parasitic diseases; Z94.83 Pancreas transplant status; Z89.611 Acquired absence of right leg above knee; Z98.890 Other specified postprocedural states; Z99.2 Dependence on renal dialysis; Y83.8 Other surgical procedures as the cause of abnormal reaction of the patient, or of later complication, without mention of misadventure at the time of the procedure
CPT/HCPCS: 97605

== ENCOUNTER 2019-06-28 11:15 | Day surgery (SDC) | payer MEDICARE, MEDICAID ==
[2019-06-28] MEDS ORDERED: LIDOcaine 2% 5ml jelly ONE (11:46)
== END 2019-06-28 13:21 | disposition home or self-care (01) ==
LOC: WOUND CARE 11:15
PROVIDERS: ATTEND Nurse Practitioner
DX: T81.89XD Other complications of procedures, not elsewhere classified, subsequent encounter (principal); E11.622 Type 2 diabetes mellitus with other skin ulcer; L89.524 Pressure ulcer of left ankle, stage 4; L97.325 Non-pressure chronic ulcer of left ankle with muscle involvement without evidence of necrosis; E11.621 Type 2 diabetes mellitus with foot ulcer; I70.245 Atherosclerosis of native arteries of left leg with ulceration of other part of foot; L97.522 Non-pressure chronic ulcer of other part of left foot with fat layer exposed; I70.235 Atherosclerosis of native arteries of right leg with ulceration of other part of foot; L97.511 Non-pressure chronic ulcer of other part of right foot limited to breakdown of skin; L98.492 Non-pressure chronic ulcer of skin of other sites with fat layer exposed; E11.22 Type 2 diabetes mellitus with diabetic chronic kidney disease; I13.11 Hypertensive heart and chronic kidney disease without heart failure, with stage 5 chronic kidney disease, or end stage renal disease; I25.10 Atherosclerotic heart disease of native coronary artery without angina pectoris; N18.6 End stage renal disease; E11.42 Type 2 diabetes mellitus with diabetic polyneuropathy; E11.51 Type 2 diabetes mellitus with diabetic peripheral angiopathy without gangrene; E78.00 Pure hypercholesterolemia, unspecified; M81.0 Age-related osteoporosis without current pathological fracture; K21.9 Gastro-esophageal reflux disease without esophagitis; E78.5 Hyperlipidemia, unspecified; J44.9 Chronic obstructive pulmonary disease, unspecified; G89.29 Other chronic pain; I48.91 Unspecified atrial fibrillation; G40.901 Epilepsy, unspecified, not intractable, with status epilepticus; G93.41 Metabolic encephalopathy; E89.0 Postprocedural hypothyroidism; F32.9 Major depressive disorder, single episode, unspecified; F11.90 Opioid use, unspecified, uncomplicated; F15.90 Other stimulant use, unspecified, uncomplicated; Z94.0 Kidney transplant status; Z68.1 Body mass index [BMI] 19.9 or less, adult; Z79.899 Other long term (current) drug therapy; Z79.51 Long term (current) use of inhaled steroids; Z87.891 Personal history of nicotine dependence; Z85.820 Personal history of malignant melanoma of skin; Z85.850 Personal history of malignant neoplasm of thyroid; Z86.19 Personal history of other infectious and parasitic diseases; Z94.83 Pancreas transplant status; Z89.611 Acquired absence of right leg above knee; Z98.890 Other specified postprocedural states; Z99.2 Dependence on renal dialysis; Y83.8 Other surgical procedures as the cause of abnormal reaction of the patient, or of later complication, without mention of misadventure at the time of the procedure
CPT/HCPCS: 97597

== ENCOUNTER 2019-07-05 10:47 | Day surgery (SDC) | payer MEDICARE, MEDICAID | END 2019-07-05 12:08 | disposition home or self-care (01) | LOC: WOUND CARE 10:47 | PROVIDERS: ATTEND Nurse Practitioner | DX: T81.89XD Other complications of procedures, not elsewhere classified, subsequent encounter (principal); E11.622 Type 2 diabetes mellitus with other skin ulcer; L89.524 Pressure ulcer of left ankle, stage 4; L97.325 Non-pressure chronic ulcer of left ankle with muscle involvement without evidence of necrosis; E11.621 Type 2 diabetes mellitus with foot ulcer; I70.245 Atherosclerosis of native arteries of left leg with ulceration of other part of foot; L97.522 Non-pressure chronic ulcer of other part of left foot with fat layer exposed; I70.235 Atherosclerosis of native arteries of right leg with ulceration of other part of foot; L97.511 Non-pressure chronic ulcer of other part of right foot limited to breakdown of skin; L98.492 Non-pressure chronic ulcer of skin of other sites with fat layer exposed; E11.22 Type 2 diabetes mellitus with diabetic chronic kidney disease; I13.11 Hypertensive heart and chronic kidney disease without heart failure, with stage 5 chronic kidney disease, or end stage renal disease; I25.10 Atherosclerotic heart disease of native coronary artery without angina pectoris; N18.6 End stage renal disease; E11.42 Type 2 diabetes mellitus with diabetic polyneuropathy; E11.51 Type 2 diabetes mellitus with diabetic peripheral angiopathy without gangrene; E78.00 Pure hypercholesterolemia, unspecified; M81.0 Age-related osteoporosis without current pathological fracture; K21.9 Gastro-esophageal reflux disease without esophagitis; E78.5 Hyperlipidemia, unspecified; J44.9 Chronic obstructive pulmonary disease, unspecified; G89.29 Other chronic pain; I48.91 Unspecified atrial fibrillation; G40.901 Epilepsy, unspecified, not intractable, with status epilepticus; G93.41 Metabolic encephalopathy; E89.0 Postprocedural hypothyroidism; F32.9 Major depressive disorder, single episode, unspecified; F11.90 Opioid use, unspecified, uncomplicated; F15.90 Other stimulant use, unspecified, uncomplicated; Z94.0 Kidney transplant status; Z68.1 Body mass index [BMI] 19.9 or less, adult; Z79.899 Other long term (current) drug therapy; Z79.51 Long term (current) use of inhaled steroids; Z87.891 Personal history of nicotine dependence; Z85.820 Personal history of malignant melanoma of skin; Z85.850 Personal history of malignant neoplasm of thyroid; Z86.19 Personal history of other infectious and parasitic diseases; Z94.83 Pancreas transplant status; Z89.611 Acquired absence of right leg above knee; Z98.890 Other specified postprocedural states; Z99.2 Dependence on renal dialysis; Y83.8 Other surgical procedures as the cause of abnormal reaction of the patient, or of later complication, without mention of misadventure at the time of the procedure | CPT/HCPCS: 11042; 97597 ==

== ENCOUNTER 2019-07-19 10:30 | Day surgery (SDC) | payer MEDICARE, MEDICAID ==
[2019-07-19] MEDS ORDERED: LIDOcaine 2% 5ml jelly ONE (11:37)
[2019-07-19] MEDS ORDERED: nystatin/triamcinolone cream 15gm TP ONE (11:49)
== END 2019-07-19 12:35 | disposition home or self-care (01) ==
LOC: WOUND CARE 10:30
PROVIDERS: ATTEND Nurse Practitioner
DX: T81.89XD Other complications of procedures, not elsewhere classified, subsequent encounter (principal); E11.622 Type 2 diabetes mellitus with other skin ulcer; L89.524 Pressure ulcer of left ankle, stage 4; L89.890 Pressure ulcer of other site, unstageable; L97.325 Non-pressure chronic ulcer of left ankle with muscle involvement without evidence of necrosis; E11.621 Type 2 diabetes mellitus with foot ulcer; I70.245 Atherosclerosis of native arteries of left leg with ulceration of other part of foot; L97.522 Non-pressure chronic ulcer of other part of left foot with fat layer exposed; I70.235 Atherosclerosis of native arteries of right leg with ulceration of other part of foot; L97.511 Non-pressure chronic ulcer of other part of right foot limited to breakdown of skin; L98.492 Non-pressure chronic ulcer of skin of other sites with fat layer exposed; L89.301 Pressure ulcer of unspecified buttock, stage 1; E11.22 Type 2 diabetes mellitus with diabetic chronic kidney disease; I13.11 Hypertensive heart and chronic kidney disease without heart failure, with stage 5 chronic kidney disease, or end stage renal disease; I25.10 Atherosclerotic heart disease of native coronary artery without angina pectoris; N18.6 End stage renal disease; E11.42 Type 2 diabetes mellitus with diabetic polyneuropathy; E11.51 Type 2 diabetes mellitus with diabetic peripheral angiopathy without gangrene; E78.00 Pure hypercholesterolemia, unspecified; M81.0 Age-related osteoporosis without current pathological fracture; K21.9 Gastro-esophageal reflux disease without esophagitis; E78.5 Hyperlipidemia, unspecified; J44.9 Chronic obstructive pulmonary disease, unspecified; G89.29 Other chronic pain; I48.91 Unspecified atrial fibrillation; G40.901 Epilepsy, unspecified, not intractable, with status epilepticus; G93.41 Metabolic encephalopathy; E89.0 Postprocedural hypothyroidism; F32.9 Major depressive disorder, single episode, unspecified; F11.90 Opioid use, unspecified, uncomplicated; F15.90 Other stimulant use, unspecified, uncomplicated; Z94.0 Kidney transplant status; Z68.1 Body mass index [BMI] 19.9 or less, adult; Z79.899 Other long term (current) drug therapy; Z79.51 Long term (current) use of inhaled steroids; Z87.891 Personal history of nicotine dependence; Z85.820 Personal history of malignant melanoma of skin; Z86.19 Personal history of other infectious and parasitic diseases; Z94.83 Pancreas transplant status; Z89.611 Acquired absence of right leg above knee; Z98.890 Other specified postprocedural states; Z99.2 Dependence on renal dialysis; Y83.8 Other surgical procedures as the cause of abnormal reaction of the patient, or of later complication, without mention of misadventure at the time of the procedure
CPT/HCPCS: 97597; J7999

== ENCOUNTER 2019-07-26 11:25 | Day surgery (SDC) | payer MEDICARE, MEDICAID | END 2019-07-26 13:25 | disposition home or self-care (01) | LOC: WOUND CARE 11:25 | PROVIDERS: ATTEND Nurse Practitioner | DX: T81.89XD Other complications of procedures, not elsewhere classified, subsequent encounter (principal); S30.813A Abrasion of scrotum and testes, initial encounter; E11.622 Type 2 diabetes mellitus with other skin ulcer; L89.524 Pressure ulcer of left ankle, stage 4; L89.890 Pressure ulcer of other site, unstageable; L97.325 Non-pressure chronic ulcer of left ankle with muscle involvement without evidence of necrosis; E11.621 Type 2 diabetes mellitus with foot ulcer; I70.245 Atherosclerosis of native arteries of left leg with ulceration of other part of foot; L97.522 Non-pressure chronic ulcer of other part of left foot with fat layer exposed; I70.235 Atherosclerosis of native arteries of right leg with ulceration of other part of foot; L97.511 Non-pressure chronic ulcer of other part of right foot limited to breakdown of skin; L98.492 Non-pressure chronic ulcer of skin of other sites with fat layer exposed; L89.301 Pressure ulcer of unspecified buttock, stage 1; E11.22 Type 2 diabetes mellitus with diabetic chronic kidney disease; I13.11 Hypertensive heart and chronic kidney disease without heart failure, with stage 5 chronic kidney disease, or end stage renal disease; I25.10 Atherosclerotic heart disease of native coronary artery without angina pectoris; N18.6 End stage renal disease; E11.42 Type 2 diabetes mellitus with diabetic polyneuropathy; E11.51 Type 2 diabetes mellitus with diabetic peripheral angiopathy without gangrene; E78.00 Pure hypercholesterolemia, unspecified; M81.0 Age-related osteoporosis without current pathological fracture; K21.9 Gastro-esophageal reflux disease without esophagitis; E78.5 Hyperlipidemia, unspecified; J44.9 Chronic obstructive pulmonary disease, unspecified; G89.29 Other chronic pain; I48.91 Unspecified atrial fibrillation; G40.901 Epilepsy, unspecified, not intractable, with status epilepticus; G93.41 Metabolic encephalopathy; E89.0 Postprocedural hypothyroidism; F32.9 Major depressive disorder, single episode, unspecified; F11.90 Opioid use, unspecified, uncomplicated; F15.90 Other stimulant use, unspecified, uncomplicated; Z94.0 Kidney transplant status; Z68.1 Body mass index [BMI] 19.9 or less, adult; Z79.899 Other long term (current) drug therapy; Z79.51 Long term (current) use of inhaled steroids; Z87.891 Personal history of nicotine dependence; Z85.820 Personal history of malignant melanoma of skin; Z86.19 Personal history of other infectious and parasitic diseases; Z94.83 Pancreas transplant status; Z89.611 Acquired absence of right leg above knee; Z98.890 Other specified postprocedural states; Z99.2 Dependence on renal dialysis; X58.XXXA Exposure to other specified factors, initial encounter; Y93.89 Activity, other specified; Y92.89 Other specified places as the place of occurrence of the external cause; Y99.8 Other external cause status; Y83.8 Other surgical procedures as the cause of abnormal reaction of the patient, or of later complication, without mention of misadventure at the time of the procedure | CPT/HCPCS: 97597 ==

== ENCOUNTER 2019-08-09 11:00 | Day surgery (SDC) | payer MEDICARE, MEDICAID ==
[2019-08-09] MEDS ORDERED: LIDOcaine 2% 5ml jelly ONE (11:37)
== END 2019-08-09 12:10 | disposition home or self-care (01) ==
LOC: WOUND CARE 11:00
PROVIDERS: ATTEND Nurse Practitioner
DX: T81.89XD Other complications of procedures, not elsewhere classified, subsequent encounter (principal); E11.622 Type 2 diabetes mellitus with other skin ulcer; L89.524 Pressure ulcer of left ankle, stage 4; L97.321 Non-pressure chronic ulcer of left ankle limited to breakdown of skin; L98.492 Non-pressure chronic ulcer of skin of other sites with fat layer exposed; E11.621 Type 2 diabetes mellitus with foot ulcer; I70.245 Atherosclerosis of native arteries of left leg with ulceration of other part of foot; L97.522 Non-pressure chronic ulcer of other part of left foot with fat layer exposed; I70.235 Atherosclerosis of native arteries of right leg with ulceration of other part of foot; L97.511 Non-pressure chronic ulcer of other part of right foot limited to breakdown of skin; E11.22 Type 2 diabetes mellitus with diabetic chronic kidney disease; I13.11 Hypertensive heart and chronic kidney disease without heart failure, with stage 5 chronic kidney disease, or end stage renal disease; I25.10 Atherosclerotic heart disease of native coronary artery without angina pectoris; N18.6 End stage renal disease; E11.42 Type 2 diabetes mellitus with diabetic polyneuropathy; E11.51 Type 2 diabetes mellitus with diabetic peripheral angiopathy without gangrene; E78.00 Pure hypercholesterolemia, unspecified; M81.0 Age-related osteoporosis without current pathological fracture; K21.9 Gastro-esophageal reflux disease without esophagitis; E78.5 Hyperlipidemia, unspecified; J44.9 Chronic obstructive pulmonary disease, unspecified; G89.29 Other chronic pain; I48.91 Unspecified atrial fibrillation; G40.901 Epilepsy, unspecified, not intractable, with status epilepticus; G93.41 Metabolic encephalopathy; E89.0 Postprocedural hypothyroidism; F32.9 Major depressive disorder, single episode, unspecified; F11.90 Opioid use, unspecified, uncomplicated; F15.90 Other stimulant use, unspecified, uncomplicated; Z94.0 Kidney transplant status; Z68.1 Body mass index [BMI] 19.9 or less, adult; Z79.899 Other long term (current) drug therapy; Z79.51 Long term (current) use of inhaled steroids; Z87.891 Personal history of nicotine dependence; Z85.820 Personal history of malignant melanoma of skin; Z86.19 Personal history of other infectious and parasitic diseases; Z94.83 Pancreas transplant status; Z89.611 Acquired absence of right leg above knee; Z98.890 Other specified postprocedural states; Z99.2 Dependence on renal dialysis; Y83.8 Other surgical procedures as the cause of abnormal reaction of the patient, or of later complication, without mention of misadventure at the time of the procedure
CPT/HCPCS: 97597

== ENCOUNTER 2019-08-16 11:10 | Day surgery (SDC) | payer MEDICARE, MEDICAID | END 2019-08-16 12:48 | disposition home or self-care (01) | LOC: WOUND CARE 11:10 | PROVIDERS: ATTEND Nurse Practitioner | DX: T81.89XD Other complications of procedures, not elsewhere classified, subsequent encounter (principal); E11.622 Type 2 diabetes mellitus with other skin ulcer; I70.243 Atherosclerosis of native arteries of left leg with ulceration of ankle; L89.524 Pressure ulcer of left ankle, stage 4; L97.321 Non-pressure chronic ulcer of left ankle limited to breakdown of skin; L98.492 Non-pressure chronic ulcer of skin of other sites with fat layer exposed; E11.621 Type 2 diabetes mellitus with foot ulcer; I70.245 Atherosclerosis of native arteries of left leg with ulceration of other part of foot; L97.522 Non-pressure chronic ulcer of other part of left foot with fat layer exposed; I70.235 Atherosclerosis of native arteries of right leg with ulceration of other part of foot; L97.511 Non-pressure chronic ulcer of other part of right foot limited to breakdown of skin; L89.301 Pressure ulcer of unspecified buttock, stage 1; L98.411 Non-pressure chronic ulcer of buttock limited to breakdown of skin; S30.813D Abrasion of scrotum and testes, subsequent encounter; E11.22 Type 2 diabetes mellitus with diabetic chronic kidney disease; I13.11 Hypertensive heart and chronic kidney disease without heart failure, with stage 5 chronic kidney disease, or end stage renal disease; I25.10 Atherosclerotic heart disease of native coronary artery without angina pectoris; N18.6 End stage renal disease; E11.42 Type 2 diabetes mellitus with diabetic polyneuropathy; E11.51 Type 2 diabetes mellitus with diabetic peripheral angiopathy without gangrene; E78.00 Pure hypercholesterolemia, unspecified; M81.0 Age-related osteoporosis without current pathological fracture; K21.9 Gastro-esophageal reflux disease without esophagitis; E78.5 Hyperlipidemia, unspecified; J44.9 Chronic obstructive pulmonary disease, unspecified; G89.29 Other chronic pain; I48.91 Unspecified atrial fibrillation; G40.901 Epilepsy, unspecified, not intractable, with status epilepticus; G93.41 Metabolic encephalopathy; E89.0 Postprocedural hypothyroidism; F32.9 Major depressive disorder, single episode, unspecified; F11.90 Opioid use, unspecified, uncomplicated; F15.90 Other stimulant use, unspecified, uncomplicated; Z94.0 Kidney transplant status; Z68.1 Body mass index [BMI] 19.9 or less, adult; Z79.899 Other long term (current) drug therapy; Z79.51 Long term (current) use of inhaled steroids; Z87.891 Personal history of nicotine dependence; Z85.820 Personal history of malignant melanoma of skin; Z86.19 Personal history of other infectious and parasitic diseases; Z94.83 Pancreas transplant status; Z89.611 Acquired absence of right leg above knee; Z98.890 Other specified postprocedural states; Z99.2 Dependence on renal dialysis; Y83.8 Other surgical procedures as the cause of abnormal reaction of the patient, or of later complication, without mention of misadventure at the time of the procedure; X58.XXXD Exposure to other specified factors, subsequent encounter | CPT/HCPCS: 87070; 87075; 87077; 87102; 87186; 97597 ==

== ENCOUNTER 2019-08-23 10:45 | Day surgery (SDC) | payer MEDICARE, MEDICAID | END 2019-08-23 11:26 | disposition home or self-care (01) | LOC: WOUND CARE 10:45 | PROVIDERS: ATTEND Nurse Practitioner | DX: T81.89XD Other complications of procedures, not elsewhere classified, subsequent encounter (principal); E11.622 Type 2 diabetes mellitus with other skin ulcer; I70.243 Atherosclerosis of native arteries of left leg with ulceration of ankle; L89.524 Pressure ulcer of left ankle, stage 4; L97.321 Non-pressure chronic ulcer of left ankle limited to breakdown of skin; L98.492 Non-pressure chronic ulcer of skin of other sites with fat layer exposed; E11.621 Type 2 diabetes mellitus with foot ulcer; I70.245 Atherosclerosis of native arteries of left leg with ulceration of other part of foot; L89.892 Pressure ulcer of other site, stage 2; L97.522 Non-pressure chronic ulcer of other part of left foot with fat layer exposed; I70.235 Atherosclerosis of native arteries of right leg with ulceration of other part of foot; L97.511 Non-pressure chronic ulcer of other part of right foot limited to breakdown of skin; L89.301 Pressure ulcer of unspecified buttock, stage 1; L98.411 Non-pressure chronic ulcer of buttock limited to breakdown of skin; E11.22 Type 2 diabetes mellitus with diabetic chronic kidney disease; I13.11 Hypertensive heart and chronic kidney disease without heart failure, with stage 5 chronic kidney disease, or end stage renal disease; I25.10 Atherosclerotic heart disease of native coronary artery without angina pectoris; N18.6 End stage renal disease; E11.42 Type 2 diabetes mellitus with diabetic polyneuropathy; E11.51 Type 2 diabetes mellitus with diabetic peripheral angiopathy without gangrene; E78.00 Pure hypercholesterolemia, unspecified; M81.0 Age-related osteoporosis without current pathological fracture; K21.9 Gastro-esophageal reflux disease without esophagitis; E78.5 Hyperlipidemia, unspecified; J44.9 Chronic obstructive pulmonary disease, unspecified; G89.29 Other chronic pain; I48.91 Unspecified atrial fibrillation; G40.901 Epilepsy, unspecified, not intractable, with status epilepticus; G93.41 Metabolic encephalopathy; E89.0 Postprocedural hypothyroidism; F32.9 Major depressive disorder, single episode, unspecified; F11.90 Opioid use, unspecified, uncomplicated; F15.90 Other stimulant use, unspecified, uncomplicated; Z94.0 Kidney transplant status; Z68.1 Body mass index [BMI] 19.9 or less, adult; Z79.899 Other long term (current) drug therapy; Z79.51 Long term (current) use of inhaled steroids; Z87.891 Personal history of nicotine dependence; Z85.820 Personal history of malignant melanoma of skin; Z86.19 Personal history of other infectious and parasitic diseases; Z94.83 Pancreas transplant status; Z89.511 Acquired absence of right leg below knee; Z98.890 Other specified postprocedural states; Z99.2 Dependence on renal dialysis; Y83.8 Other surgical procedures as the cause of abnormal reaction of the patient, or of later complication, without mention of misadventure at the time of the procedure | CPT/HCPCS: 97597 ==

== ENCOUNTER 2019-09-06 10:55 | Day surgery (SDC) | payer MEDICARE, MEDICAID ==
[2019-09-06] MEDS ORDERED: LIDOcaine 2% 5ml jelly ONE (11:41)
== END 2019-09-06 11:45 | disposition home or self-care (01) ==
LOC: WOUND CARE 10:55
PROVIDERS: ATTEND Nurse Practitioner
DX: T81.89XD Other complications of procedures, not elsewhere classified, subsequent encounter (principal); E11.622 Type 2 diabetes mellitus with other skin ulcer; I70.243 Atherosclerosis of native arteries of left leg with ulceration of ankle; L89.524 Pressure ulcer of left ankle, stage 4; L97.322 Non-pressure chronic ulcer of left ankle with fat layer exposed; L89.899 Pressure ulcer of other site, unspecified stage; L98.492 Non-pressure chronic ulcer of skin of other sites with fat layer exposed; E11.621 Type 2 diabetes mellitus with foot ulcer; I70.245 Atherosclerosis of native arteries of left leg with ulceration of other part of foot; L89.893 Pressure ulcer of other site, stage 3; L97.522 Non-pressure chronic ulcer of other part of left foot with fat layer exposed; I70.235 Atherosclerosis of native arteries of right leg with ulceration of other part of foot; L97.511 Non-pressure chronic ulcer of other part of right foot limited to breakdown of skin; L89.301 Pressure ulcer of unspecified buttock, stage 1; L98.411 Non-pressure chronic ulcer of buttock limited to breakdown of skin; E11.22 Type 2 diabetes mellitus with diabetic chronic kidney disease; I13.11 Hypertensive heart and chronic kidney disease without heart failure, with stage 5 chronic kidney disease, or end stage renal disease; I25.10 Atherosclerotic heart disease of native coronary artery without angina pectoris; N18.6 End stage renal disease; E11.42 Type 2 diabetes mellitus with diabetic polyneuropathy; E11.51 Type 2 diabetes mellitus with diabetic peripheral angiopathy without gangrene; E78.00 Pure hypercholesterolemia, unspecified; M81.0 Age-related osteoporosis without current pathological fracture; K21.9 Gastro-esophageal reflux disease without esophagitis; E78.5 Hyperlipidemia, unspecified; J44.9 Chronic obstructive pulmonary disease, unspecified; G89.29 Other chronic pain; I48.91 Unspecified atrial fibrillation; G40.901 Epilepsy, unspecified, not intractable, with status epilepticus; G93.41 Metabolic encephalopathy; E89.0 Postprocedural hypothyroidism; F32.9 Major depressive disorder, single episode, unspecified; F11.90 Opioid use, unspecified, uncomplicated; F15.90 Other stimulant use, unspecified, uncomplicated; Z94.0 Kidney transplant status; Z68.1 Body mass index [BMI] 19.9 or less, adult; Z79.899 Other long term (current) drug therapy; Z79.51 Long term (current) use of inhaled steroids; Z87.891 Personal history of nicotine dependence; Z85.820 Personal history of malignant melanoma of skin; Z86.19 Personal history of other infectious and parasitic diseases; Z94.83 Pancreas transplant status; Z89.511 Acquired absence of right leg below knee; Z98.890 Other specified postprocedural states; Z99.2 Dependence on renal dialysis; Y83.8 Other surgical procedures as the cause of abnormal reaction of the patient, or of later complication, without mention of misadventure at the time of the procedure
CPT/HCPCS: 87070; 87075; 87077; 87102; 87186; 97597

== ENCOUNTER → 2019-09-27 | Day surgery (SDC) | payer MEDICARE, MEDICAID | END | disposition home or self-care (01) | LOC: WOUND CARE 10:55 | PROVIDERS: ATTEND Nurse Practitioner | DX: T81.89XD Other complications of procedures, not elsewhere classified, subsequent encounter (principal); E11.622 Type 2 diabetes mellitus with other skin ulcer; I70.243 Atherosclerosis of native arteries of left leg with ulceration of ankle; L89.524 Pressure ulcer of left ankle, stage 4; L97.322 Non-pressure chronic ulcer of left ankle with fat layer exposed; L89.899 Pressure ulcer of other site, unspecified stage; L98.492 Non-pressure chronic ulcer of skin of other sites with fat layer exposed; E11.621 Type 2 diabetes mellitus with foot ulcer; L89.896 Pressure-induced deep tissue damage of other site; I70.245 Atherosclerosis of native arteries of left leg with ulceration of other part of foot; L97.521 Non-pressure chronic ulcer of other part of left foot limited to breakdown of skin; L97.511 Non-pressure chronic ulcer of other part of right foot limited to breakdown of skin; E11.22 Type 2 diabetes mellitus with diabetic chronic kidney disease; I13.11 Hypertensive heart and chronic kidney disease without heart failure, with stage 5 chronic kidney disease, or end stage renal disease; I25.10 Atherosclerotic heart disease of native coronary artery without angina pectoris; N18.6 End stage renal disease; E11.42 Type 2 diabetes mellitus with diabetic polyneuropathy; E11.51 Type 2 diabetes mellitus with diabetic peripheral angiopathy without gangrene; E78.00 Pure hypercholesterolemia, unspecified; M81.0 Age-related osteoporosis without current pathological fracture; K21.9 Gastro-esophageal reflux disease without esophagitis; E78.5 Hyperlipidemia, unspecified; J44.9 Chronic obstructive pulmonary disease, unspecified; G89.29 Other chronic pain; I48.91 Unspecified atrial fibrillation; G40.901 Epilepsy, unspecified, not intractable, with status epilepticus; G93.41 Metabolic encephalopathy; E89.0 Postprocedural hypothyroidism; F32.9 Major depressive disorder, single episode, unspecified; F11.90 Opioid use, unspecified, uncomplicated; F15.90 Other stimulant use, unspecified, uncomplicated; Z94.0 Kidney transplant status; Z68.1 Body mass index [BMI] 19.9 or less, adult; Z79.899 Other long term (current) drug therapy; Z79.51 Long term (current) use of inhaled steroids; Z87.891 Personal history of nicotine dependence; Z85.820 Personal history of malignant melanoma of skin; Z86.19 Personal history of other infectious and parasitic diseases; Z94.83 Pancreas transplant status; Z89.511 Acquired absence of right leg below knee; Z98.890 Other specified postprocedural states; Z99.2 Dependence on renal dialysis; Y83.8 Other surgical procedures as the cause of abnormal reaction of the patient, or of later complication, without mention of misadventure at the time of the procedure | CPT/HCPCS: G0463 ==

== ENCOUNTER 2019-10-04 09:30 | Day surgery (SDC) | payer MEDICARE, MEDICAID ==
[2019-10-04] MEDS ORDERED: LIDOcaine 2% 5ml jelly ONE (09:43)
== END 2019-10-04 12:15 | disposition home or self-care (01) ==
LOC: WOUND CARE 09:30
PROVIDERS: ATTEND Nurse Practitioner
DX: T81.89XD Other complications of procedures, not elsewhere classified, subsequent encounter (principal); E11.621 Type 2 diabetes mellitus with foot ulcer; L89.899 Pressure ulcer of other site, unspecified stage; L97.521 Non-pressure chronic ulcer of other part of left foot limited to breakdown of skin; E11.622 Type 2 diabetes mellitus with other skin ulcer; L89.524 Pressure ulcer of left ankle, stage 4; L97.322 Non-pressure chronic ulcer of left ankle with fat layer exposed; L89.890 Pressure ulcer of other site, unstageable; L98.492 Non-pressure chronic ulcer of skin of other sites with fat layer exposed; E11.22 Type 2 diabetes mellitus with diabetic chronic kidney disease; I13.11 Hypertensive heart and chronic kidney disease without heart failure, with stage 5 chronic kidney disease, or end stage renal disease; I25.10 Atherosclerotic heart disease of native coronary artery without angina pectoris; N18.6 End stage renal disease; E11.42 Type 2 diabetes mellitus with diabetic polyneuropathy; E11.51 Type 2 diabetes mellitus with diabetic peripheral angiopathy without gangrene; E78.00 Pure hypercholesterolemia, unspecified; M81.0 Age-related osteoporosis without current pathological fracture; K21.9 Gastro-esophageal reflux disease without esophagitis; E78.5 Hyperlipidemia, unspecified; J44.9 Chronic obstructive pulmonary disease, unspecified; G89.29 Other chronic pain; I48.91 Unspecified atrial fibrillation; G40.901 Epilepsy, unspecified, not intractable, with status epilepticus; G93.41 Metabolic encephalopathy; E89.0 Postprocedural hypothyroidism; F32.9 Major depressive disorder, single episode, unspecified; F11.90 Opioid use, unspecified, uncomplicated; F15.90 Other stimulant use, unspecified, uncomplicated; Z94.0 Kidney transplant status; Z68.1 Body mass index [BMI] 19.9 or less, adult; Z79.899 Other long term (current) drug therapy; Z79.51 Long term (current) use of inhaled steroids; Z87.891 Personal history of nicotine dependence; Z85.820 Personal history of malignant melanoma of skin; Z86.19 Personal history of other infectious and parasitic diseases; Z94.83 Pancreas transplant status; Z89.511 Acquired absence of right leg below knee; Z98.890 Other specified postprocedural states; Z99.2 Dependence on renal dialysis; Y83.8 Other surgical procedures as the cause of abnormal reaction of the patient, or of later complication, without mention of misadventure at the time of the procedure
CPT/HCPCS: 73560; 87070; 87075; 87077; 87102; 87186; 97597

== ENCOUNTER 2019-10-11 10:45 | Day surgery (SDC) | payer MEDICARE, MEDICAID | END 2019-10-11 12:19 | disposition home or self-care (01) | LOC: WOUND CARE 10:45 | PROVIDERS: ATTEND Nurse Practitioner | DX: T81.89XD Other complications of procedures, not elsewhere classified, subsequent encounter (principal); E11.621 Type 2 diabetes mellitus with foot ulcer; L89.899 Pressure ulcer of other site, unspecified stage; L97.521 Non-pressure chronic ulcer of other part of left foot limited to breakdown of skin; E11.622 Type 2 diabetes mellitus with other skin ulcer; L89.524 Pressure ulcer of left ankle, stage 4; L97.322 Non-pressure chronic ulcer of left ankle with fat layer exposed; L89.890 Pressure ulcer of other site, unstageable; L98.492 Non-pressure chronic ulcer of skin of other sites with fat layer exposed; E11.22 Type 2 diabetes mellitus with diabetic chronic kidney disease; I13.11 Hypertensive heart and chronic kidney disease without heart failure, with stage 5 chronic kidney disease, or end stage renal disease; I25.10 Atherosclerotic heart disease of native coronary artery without angina pectoris; N18.6 End stage renal disease; E11.42 Type 2 diabetes mellitus with diabetic polyneuropathy; E78.00 Pure hypercholesterolemia, unspecified; K21.9 Gastro-esophageal reflux disease without esophagitis; E78.5 Hyperlipidemia, unspecified; J44.9 Chronic obstructive pulmonary disease, unspecified; G89.29 Other chronic pain; I48.91 Unspecified atrial fibrillation; G40.901 Epilepsy, unspecified, not intractable, with status epilepticus; G93.41 Metabolic encephalopathy; E89.0 Postprocedural hypothyroidism; F32.9 Major depressive disorder, single episode, unspecified; F11.90 Opioid use, unspecified, uncomplicated; F15.90 Other stimulant use, unspecified, uncomplicated; Z94.0 Kidney transplant status; Z68.1 Body mass index [BMI] 19.9 or less, adult; Z79.899 Other long term (current) drug therapy; Z79.51 Long term (current) use of inhaled steroids; Z87.891 Personal history of nicotine dependence; Z85.820 Personal history of malignant melanoma of skin; Z86.19 Personal history of other infectious and parasitic diseases; Y83.8 Other surgical procedures as the cause of abnormal reaction of the patient, or of later complication, without mention of misadventure at the time of the procedure | CPT/HCPCS: G0463 ==

== ENCOUNTER 2019-10-18 12:36 | Outpatient (CLI) | payer MEDICARE, MEDICAID ==
[2019-10-18] MEDS ORDERED: LIDOcaine 2% 5ml jelly ONE (13:21)
== END 2019-10-18 13:45 | disposition home or self-care (01) ==
LOC: WOUND CARE 12:36 → EDSTATUS 12:40 → WOUND CARE 13:45
PROVIDERS: ATTEND Nurse Practitioner
DX: E11.621 Type 2 diabetes mellitus with foot ulcer (principal); I70.245 Atherosclerosis of native arteries of left leg with ulceration of other part of foot; L89.890 Pressure ulcer of other site, unstageable; L97.521 Non-pressure chronic ulcer of other part of left foot limited to breakdown of skin; E11.622 Type 2 diabetes mellitus with other skin ulcer; I70.243 Atherosclerosis of native arteries of left leg with ulceration of ankle; L97.321 Non-pressure chronic ulcer of left ankle limited to breakdown of skin; I70.235 Atherosclerosis of native arteries of right leg with ulceration of other part of foot; L97.511 Non-pressure chronic ulcer of other part of right foot limited to breakdown of skin; E11.22 Type 2 diabetes mellitus with diabetic chronic kidney disease; I13.11 Hypertensive heart and chronic kidney disease without heart failure, with stage 5 chronic kidney disease, or end stage renal disease; I25.10 Atherosclerotic heart disease of native coronary artery without angina pectoris; N18.6 End stage renal disease; E11.42 Type 2 diabetes mellitus with diabetic polyneuropathy; E11.51 Type 2 diabetes mellitus with diabetic peripheral angiopathy without gangrene; E78.00 Pure hypercholesterolemia, unspecified; M81.0 Age-related osteoporosis without current pathological fracture; K21.9 Gastro-esophageal reflux disease without esophagitis; E78.5 Hyperlipidemia, unspecified; J44.9 Chronic obstructive pulmonary disease, unspecified; G89.29 Other chronic pain; I48.91 Unspecified atrial fibrillation; G40.901 Epilepsy, unspecified, not intractable, with status epilepticus; G93.41 Metabolic encephalopathy; E89.0 Postprocedural hypothyroidism; F32.9 Major depressive disorder, single episode, unspecified; F11.90 Opioid use, unspecified, uncomplicated; F15.90 Other stimulant use, unspecified, uncomplicated; Z94.0 Kidney transplant status; Z68.1 Body mass index [BMI] 19.9 or less, adult; Z79.899 Other long term (current) drug therapy; Z79.51 Long term (current) use of inhaled steroids; Z87.891 Personal history of nicotine dependence; Z85.820 Personal history of malignant melanoma of skin; Z86.19 Personal history of other infectious and parasitic diseases; Z94.83 Pancreas transplant status; Z89.511 Acquired absence of right leg below knee; Z98.890 Other specified postprocedural states; Z99.2 Dependence on renal dialysis; Y83.8 Other surgical procedures as the cause of abnormal reaction of the patient, or of later complication, without mention of misadventure at the time of the procedure
CPT/HCPCS: G0463

== ENCOUNTER 2019-10-25 10:46 | Outpatient (CLI) | payer MEDICARE, MEDICAID | END 2019-10-25 11:22 | disposition home or self-care (01) | LOC: WOUND CARE 10:46 → EDSTATUS 11:00 → WOUND CARE 11:22 | PROVIDERS: ATTEND Nurse Practitioner | DX: E11.621 Type 2 diabetes mellitus with foot ulcer (principal); I70.245 Atherosclerosis of native arteries of left leg with ulceration of other part of foot; L89.890 Pressure ulcer of other site, unstageable; L97.522 Non-pressure chronic ulcer of other part of left foot with fat layer exposed; E11.622 Type 2 diabetes mellitus with other skin ulcer; I70.243 Atherosclerosis of native arteries of left leg with ulceration of ankle; L97.321 Non-pressure chronic ulcer of left ankle limited to breakdown of skin; I70.235 Atherosclerosis of native arteries of right leg with ulceration of other part of foot; L97.512 Non-pressure chronic ulcer of other part of right foot with fat layer exposed; E11.22 Type 2 diabetes mellitus with diabetic chronic kidney disease; I13.11 Hypertensive heart and chronic kidney disease without heart failure, with stage 5 chronic kidney disease, or end stage renal disease; I25.10 Atherosclerotic heart disease of native coronary artery without angina pectoris; N18.6 End stage renal disease; E11.42 Type 2 diabetes mellitus with diabetic polyneuropathy; E11.51 Type 2 diabetes mellitus with diabetic peripheral angiopathy without gangrene; E78.00 Pure hypercholesterolemia, unspecified; M81.0 Age-related osteoporosis without current pathological fracture; K21.9 Gastro-esophageal reflux disease without esophagitis; E78.5 Hyperlipidemia, unspecified; J44.9 Chronic obstructive pulmonary disease, unspecified; G89.29 Other chronic pain; I48.91 Unspecified atrial fibrillation; G40.901 Epilepsy, unspecified, not intractable, with status epilepticus; G93.41 Metabolic encephalopathy; E89.0 Postprocedural hypothyroidism; F32.9 Major depressive disorder, single episode, unspecified; F11.90 Opioid use, unspecified, uncomplicated; F15.90 Other stimulant use, unspecified, uncomplicated; Z94.0 Kidney transplant status; Z68.1 Body mass index [BMI] 19.9 or less, adult; Z79.899 Other long term (current) drug therapy; Z79.51 Long term (current) use of inhaled steroids; Z87.891 Personal history of nicotine dependence; Z85.820 Personal history of malignant melanoma of skin; Z86.19 Personal history of other infectious and parasitic diseases; Z94.83 Pancreas transplant status; Z89.511 Acquired absence of right leg below knee; Z98.890 Other specified postprocedural states; Z99.2 Dependence on renal dialysis | CPT/HCPCS: G0463 ==

== ENCOUNTER 2019-10-29 12:26 | Emergency (ER) | payer MEDICARE, MEDICAID ==
[~2019-10-29] VITALS: Ht 190.5 cm; Wt 68.2 kg
[2019-10-29 12:31] VITALS: BP 117/70
[2019-10-29] MEDS ORDERED: PERM60CR19 TP (13:57)
== END 2019-10-29 16:32 | disposition home or self-care (01) ==
LOC: ER 12:26
DX: B86 Scabies (principal); I48.91 Unspecified atrial fibrillation; I25.10 Atherosclerotic heart disease of native coronary artery without angina pectoris; E78.00 Pure hypercholesterolemia, unspecified; I10 Essential (primary) hypertension; J44.9 Chronic obstructive pulmonary disease, unspecified; K21.9 Gastro-esophageal reflux disease without esophagitis; E11.42 Type 2 diabetes mellitus with diabetic polyneuropathy; E03.9 Hypothyroidism, unspecified; G89.29 Other chronic pain; M81.0 Age-related osteoporosis without current pathological fracture; Z86.19 Personal history of other infectious and parasitic diseases; Z86.69 Personal history of other diseases of the nervous system and sense organs; Z85.9 Personal history of malignant neoplasm, unspecified; Z98.890 Other specified postprocedural states; Z79.899 Other long term (current) drug therapy
CPT/HCPCS: 99282; 99283

== ENCOUNTER 2019-11-05 10:10 | Emergency (ER) | payer MEDICARE, MEDICAID ==
[~2019-11-05] VITALS: Ht 190.5 cm; Wt 68.2 kg
[~2019-11-05 10:10] MED LIST changes: +PERM60CR19 TP
[2019-11-05] MEDS ORDERED: PERM60CR19 TP (10:18)
[2019-11-05] MEDS ORDERED: BETA15CR4 TOP (10:23)
[2019-11-05] MEDS ORDERED: PRED20TA PO (10:23)
[2019-11-05] MEDS ORDERED: HYDR-3686 PO (10:23)
[2019-11-05 10:43] VITALS: BP 92/60
== END 2019-11-05 13:19 | disposition home or self-care (01) ==
LOC: ER 10:11
DX: T14.8XXA Other injury of unspecified body region, initial encounter (principal); E11.42 Type 2 diabetes mellitus with diabetic polyneuropathy; I48.91 Unspecified atrial fibrillation; I25.10 Atherosclerotic heart disease of native coronary artery without angina pectoris; E78.00 Pure hypercholesterolemia, unspecified; J44.9 Chronic obstructive pulmonary disease, unspecified; K21.9 Gastro-esophageal reflux disease without esophagitis; E03.9 Hypothyroidism, unspecified; G89.29 Other chronic pain; F15.90 Other stimulant use, unspecified, uncomplicated; F11.90 Opioid use, unspecified, uncomplicated; Z79.899 Other long term (current) drug therapy
CPT/HCPCS: 99283

== ENCOUNTER 2019-11-08 10:49 | Day surgery (SDC) | payer MEDICARE, MEDICAID ==
[~2019-11-08 10:49] MED LIST changes: +BETA15CR4 TOP; +HYDR-3686 PO; +PRED20TA PO
[2019-11-08] MEDS ORDERED: LIDOcaine 2% 5ml jelly ONE (11:46)
== END 2019-11-08 12:21 | disposition home or self-care (01) ==
LOC: WOUND CARE 10:49
PROVIDERS: ATTEND Nurse Practitioner
DX: E11.621 Type 2 diabetes mellitus with foot ulcer (principal); I70.245 Atherosclerosis of native arteries of left leg with ulceration of other part of foot; L89.890 Pressure ulcer of other site, unstageable; L97.522 Non-pressure chronic ulcer of other part of left foot with fat layer exposed; E11.622 Type 2 diabetes mellitus with other skin ulcer; I70.243 Atherosclerosis of native arteries of left leg with ulceration of ankle; L89.524 Pressure ulcer of left ankle, stage 4; L97.322 Non-pressure chronic ulcer of left ankle with fat layer exposed; L89.899 Pressure ulcer of other site, unspecified stage; L98.492 Non-pressure chronic ulcer of skin of other sites with fat layer exposed; I70.235 Atherosclerosis of native arteries of right leg with ulceration of other part of foot; L97.511 Non-pressure chronic ulcer of other part of right foot limited to breakdown of skin; L89.301 Pressure ulcer of unspecified buttock, stage 1; L98.411 Non-pressure chronic ulcer of buttock limited to breakdown of skin; E11.22 Type 2 diabetes mellitus with diabetic chronic kidney disease; I13.11 Hypertensive heart and chronic kidney disease without heart failure, with stage 5 chronic kidney disease, or end stage renal disease; I25.10 Atherosclerotic heart disease of native coronary artery without angina pectoris; N18.6 End stage renal disease; E11.42 Type 2 diabetes mellitus with diabetic polyneuropathy; E11.51 Type 2 diabetes mellitus with diabetic peripheral angiopathy without gangrene; E78.00 Pure hypercholesterolemia, unspecified; M81.0 Age-related osteoporosis without current pathological fracture; K21.9 Gastro-esophageal reflux disease without esophagitis; E78.5 Hyperlipidemia, unspecified; J44.9 Chronic obstructive pulmonary disease, unspecified; G89.29 Other chronic pain; I48.91 Unspecified atrial fibrillation; G40.901 Epilepsy, unspecified, not intractable, with status epilepticus; G93.41 Metabolic encephalopathy; E89.0 Postprocedural hypothyroidism; F32.9 Major depressive disorder, single episode, unspecified; F11.90 Opioid use, unspecified, uncomplicated; F15.90 Other stimulant use, unspecified, uncomplicated; Z94.0 Kidney transplant status; Z68.1 Body mass index [BMI] 19.9 or less, adult; Z79.899 Other long term (current) drug therapy; Z79.51 Long term (current) use of inhaled steroids; Z87.891 Personal history of nicotine dependence; Z85.820 Personal history of malignant melanoma of skin; Z86.19 Personal history of other infectious and parasitic diseases; Z94.83 Pancreas transplant status; Z89.511 Acquired absence of right leg below knee; Z98.890 Other specified postprocedural states; Z99.2 Dependence on renal dialysis
CPT/HCPCS: 87070; 87075; 87077; 87102; 87186; 97597

== ENCOUNTER 2019-11-16 10:25 | Day surgery (SDC) | payer MEDICARE, MEDICAID ==
[~2019-11-16 10:25] MED LIST changes: -HYDR-3686 PO
[2019-11-16] MEDS ORDERED: LIDOcaine 2% 5ml jelly ONE (10:34)
[2019-11-16 11:24] LABS: ALBUMIN 2.9 G/DL (3.4-5.0); ANION GAP 7 (8-16); BLOOD UREA NITROGEN 18 MG/DL (7-18); BUN/CREATININE RATIO 20.7 (5.4-32.0); CALCIUM 9.3 MG/DL (8.5-10.1); CHLORIDE 107 MMOL/L (99-107); CREATININE 0.87 MG/DL (0.60-1.10); GLUCOSE 75 MG/DL (70-104); POTASSIUM 4.2 MMOL/L (3.5-5.1); SODIUM 139 MMOL/L (135-145); TOTAL CARBON DIOXIDE 25.3 MMOL/L (24-32); eGFR 89 ML/MIN
== END 2019-11-16 12:50 | disposition home or self-care (01) ==
LOC: WOUND CARE 10:25
PROVIDERS: ATTEND Nurse Practitioner
DX: E11.621 Type 2 diabetes mellitus with foot ulcer (principal); L89.890 Pressure ulcer of other site, unstageable; L97.522 Non-pressure chronic ulcer of other part of left foot with fat layer exposed; I70.245 Atherosclerosis of native arteries of left leg with ulceration of other part of foot; L97.521 Non-pressure chronic ulcer of other part of left foot limited to breakdown of skin; E11.22 Type 2 diabetes mellitus with diabetic chronic kidney disease; I13.11 Hypertensive heart and chronic kidney disease without heart failure, with stage 5 chronic kidney disease, or end stage renal disease; I25.10 Atherosclerotic heart disease of native coronary artery without angina pectoris; N18.6 End stage renal disease; E11.42 Type 2 diabetes mellitus with diabetic polyneuropathy; E11.51 Type 2 diabetes mellitus with diabetic peripheral angiopathy without gangrene; E78.00 Pure hypercholesterolemia, unspecified; M81.0 Age-related osteoporosis without current pathological fracture; K21.9 Gastro-esophageal reflux disease without esophagitis; E78.5 Hyperlipidemia, unspecified; J44.9 Chronic obstructive pulmonary disease, unspecified; G89.29 Other chronic pain; I48.91 Unspecified atrial fibrillation; G40.901 Epilepsy, unspecified, not intractable, with status epilepticus; G93.41 Metabolic encephalopathy; E89.0 Postprocedural hypothyroidism; F32.9 Major depressive disorder, single episode, unspecified; F11.90 Opioid use, unspecified, uncomplicated; F15.90 Other stimulant use, unspecified, uncomplicated; Z94.0 Kidney transplant status; Z68.1 Body mass index [BMI] 19.9 or less, adult; Z79.899 Other long term (current) drug therapy; Z79.51 Long term (current) use of inhaled steroids; Z87.891 Personal history of nicotine dependence; Z85.820 Personal history of malignant melanoma of skin; Z86.19 Personal history of other infectious and parasitic diseases; Z94.83 Pancreas transplant status; Z89.511 Acquired absence of right leg below knee; Z98.890 Other specified postprocedural states; Z99.2 Dependence on renal dialysis
CPT/HCPCS: 36415; 80048; 97597

== ENCOUNTER 2019-11-29 10:42 | Outpatient (CLI) | payer MEDICARE, MEDICAID ==
[2019-11-29] MEDS ORDERED: LIDOcaine 2% 5ml jelly ONE (11:05)
== END 2019-11-29 23:59 | disposition home or self-care (01) ==
LOC: WOUND CARE 10:42
PROVIDERS: ATTEND Nurse Practitioner
DX: E11.621 Type 2 diabetes mellitus with foot ulcer (principal); I70.245 Atherosclerosis of native arteries of left leg with ulceration of other part of foot; L89.890 Pressure ulcer of other site, unstageable; L97.522 Non-pressure chronic ulcer of other part of left foot with fat layer exposed; E11.622 Type 2 diabetes mellitus with other skin ulcer; I70.243 Atherosclerosis of native arteries of left leg with ulceration of ankle; L97.322 Non-pressure chronic ulcer of left ankle with fat layer exposed; L98.492 Non-pressure chronic ulcer of skin of other sites with fat layer exposed; I70.235 Atherosclerosis of native arteries of right leg with ulceration of other part of foot; L97.511 Non-pressure chronic ulcer of other part of right foot limited to breakdown of skin; E11.22 Type 2 diabetes mellitus with diabetic chronic kidney disease; I13.11 Hypertensive heart and chronic kidney disease without heart failure, with stage 5 chronic kidney disease, or end stage renal disease; I25.10 Atherosclerotic heart disease of native coronary artery without angina pectoris; N18.6 End stage renal disease; E11.42 Type 2 diabetes mellitus with diabetic polyneuropathy; E11.51 Type 2 diabetes mellitus with diabetic peripheral angiopathy without gangrene; E78.00 Pure hypercholesterolemia, unspecified; M81.0 Age-related osteoporosis without current pathological fracture; K21.9 Gastro-esophageal reflux disease without esophagitis; E78.5 Hyperlipidemia, unspecified; J44.9 Chronic obstructive pulmonary disease, unspecified; G89.29 Other chronic pain; I48.91 Unspecified atrial fibrillation; G40.901 Epilepsy, unspecified, not intractable, with status epilepticus; G93.41 Metabolic encephalopathy; E89.0 Postprocedural hypothyroidism; F32.9 Major depressive disorder, single episode, unspecified; F11.90 Opioid use, unspecified, uncomplicated; F15.90 Other stimulant use, unspecified, uncomplicated; Z94.0 Kidney transplant status; Z68.1 Body mass index [BMI] 19.9 or less, adult; Z79.899 Other long term (current) drug therapy; Z79.51 Long term (current) use of inhaled steroids; Z87.891 Personal history of nicotine dependence; Z85.820 Personal history of malignant melanoma of skin; Z86.19 Personal history of other infectious and parasitic diseases; Z94.83 Pancreas transplant status; Z89.511 Acquired absence of right leg below knee; Z98.890 Other specified postprocedural states; Z99.2 Dependence on renal dialysis
CPT/HCPCS: 97597

== ENCOUNTER 2019-12-06 10:45 | Outpatient (CLI) | payer MEDICARE, MEDICAID ==
[2019-12-06] MEDS ORDERED: LIDOcaine 2% 5ml jelly ONE (11:20)
== END 2019-12-06 23:59 | disposition home or self-care (01) ==
LOC: WOUND CARE 10:45 → EDSTATUS 11:00 → WOUND CARE 23:59
PROVIDERS: ATTEND Nurse Practitioner
DX: E11.621 Type 2 diabetes mellitus with foot ulcer (principal); L89.890 Pressure ulcer of other site, unstageable; L97.522 Non-pressure chronic ulcer of other part of left foot with fat layer exposed; I70.245 Atherosclerosis of native arteries of left leg with ulceration of other part of foot; L97.521 Non-pressure chronic ulcer of other part of left foot limited to breakdown of skin; E11.622 Type 2 diabetes mellitus with other skin ulcer; I70.243 Atherosclerosis of native arteries of left leg with ulceration of ankle; L97.322 Non-pressure chronic ulcer of left ankle with fat layer exposed; E11.22 Type 2 diabetes mellitus with diabetic chronic kidney disease; I13.11 Hypertensive heart and chronic kidney disease without heart failure, with stage 5 chronic kidney disease, or end stage renal disease; N18.6 End stage renal disease; I25.10 Atherosclerotic heart disease of native coronary artery without angina pectoris; E11.42 Type 2 diabetes mellitus with diabetic polyneuropathy; E11.51 Type 2 diabetes mellitus with diabetic peripheral angiopathy without gangrene; E78.00 Pure hypercholesterolemia, unspecified; M81.0 Age-related osteoporosis without current pathological fracture; K21.9 Gastro-esophageal reflux disease without esophagitis; E78.5 Hyperlipidemia, unspecified; J44.9 Chronic obstructive pulmonary disease, unspecified; G89.29 Other chronic pain; I48.91 Unspecified atrial fibrillation; G40.901 Epilepsy, unspecified, not intractable, with status epilepticus; G93.41 Metabolic encephalopathy; E89.0 Postprocedural hypothyroidism; F32.9 Major depressive disorder, single episode, unspecified; F11.90 Opioid use, unspecified, uncomplicated; F15.90 Other stimulant use, unspecified, uncomplicated; Z94.0 Kidney transplant status; Z68.1 Body mass index [BMI] 19.9 or less, adult; Z79.899 Other long term (current) drug therapy; Z79.51 Long term (current) use of inhaled steroids; Z87.891 Personal history of nicotine dependence; Z85.820 Personal history of malignant melanoma of skin; Z86.19 Personal history of other infectious and parasitic diseases; Z94.83 Pancreas transplant status; Z89.511 Acquired absence of right leg below knee; Z98.890 Other specified postprocedural states; Z99.2 Dependence on renal dialysis
CPT/HCPCS: 11042

== ENCOUNTER 2019-12-13 10:55 | Outpatient (CLI) | payer MEDICARE, MEDICAID ==
[~2019-12-13 10:55] MED LIST changes: -PERM60CR19 TP; -PRED20TA PO; -RISP1TAB3 PO; +RISP1TAB98 PO
[2019-12-13] MEDS ORDERED: LIDOcaine 2% 5ml jelly ONE (11:36)
== END 2019-12-13 23:59 | disposition home or self-care (01) ==
LOC: WOUND CARE 10:55 → EDSTATUS 11:00 → WOUND CARE 23:59
PROVIDERS: ATTEND Nurse Practitioner
DX: E11.621 Type 2 diabetes mellitus with foot ulcer (principal); L89.890 Pressure ulcer of other site, unstageable; I70.245 Atherosclerosis of native arteries of left leg with ulceration of other part of foot; L97.522 Non-pressure chronic ulcer of other part of left foot with fat layer exposed; L97.512 Non-pressure chronic ulcer of other part of right foot with fat layer exposed; E11.622 Type 2 diabetes mellitus with other skin ulcer; I70.243 Atherosclerosis of native arteries of left leg with ulceration of ankle; L97.322 Non-pressure chronic ulcer of left ankle with fat layer exposed; E11.22 Type 2 diabetes mellitus with diabetic chronic kidney disease; I13.11 Hypertensive heart and chronic kidney disease without heart failure, with stage 5 chronic kidney disease, or end stage renal disease; N18.6 End stage renal disease; I25.10 Atherosclerotic heart disease of native coronary artery without angina pectoris; E11.42 Type 2 diabetes mellitus with diabetic polyneuropathy; E11.51 Type 2 diabetes mellitus with diabetic peripheral angiopathy without gangrene; E78.00 Pure hypercholesterolemia, unspecified; M81.0 Age-related osteoporosis without current pathological fracture; K21.9 Gastro-esophageal reflux disease without esophagitis; E78.5 Hyperlipidemia, unspecified; J44.9 Chronic obstructive pulmonary disease, unspecified; G89.29 Other chronic pain; I48.91 Unspecified atrial fibrillation; G40.901 Epilepsy, unspecified, not intractable, with status epilepticus; G93.41 Metabolic encephalopathy; E89.0 Postprocedural hypothyroidism; F32.9 Major depressive disorder, single episode, unspecified; F11.90 Opioid use, unspecified, uncomplicated; F15.90 Other stimulant use, unspecified, uncomplicated; Z94.0 Kidney transplant status; Z68.1 Body mass index [BMI] 19.9 or less, adult; Z79.899 Other long term (current) drug therapy; Z79.51 Long term (current) use of inhaled steroids; Z87.891 Personal history of nicotine dependence; Z85.820 Personal history of malignant melanoma of skin; Z86.19 Personal history of other infectious and parasitic diseases; Z94.83 Pancreas transplant status; Z89.511 Acquired absence of right leg below knee; Z98.890 Other specified postprocedural states; Z99.2 Dependence on renal dialysis
CPT/HCPCS: 11042; 87070; 87075; 87077; 87186

== ENCOUNTER 2019-12-19 09:08 | Outpatient (CLI) | payer MEDICARE, MEDICAID ==
[2019-12-19] VITALS (9 sets, daily range): BP systolic 88–136; BP diastolic 57–77
[~2019-12-19] VITALS: Ht 188 cm; Wt 68.0 kg
[2019-12-19] MEDS ORDERED: regadenoson 0.4mg/5ml syringe IV ONE (10:05)
[2019-12-19] MEDS ORDERED: normal saline 500ml IV soln 500 ML IV ONE (10:05)
[2019-12-19] MEDS ORDERED: aminophylline 250mg/10ml inj. IV PRN (10:05)
[2019-12-19] MEDS ORDERED: nitroGLYCERIN 0.4mg SUBLingual tab SL PRN (10:05)
== END 2019-12-19 23:59 | disposition home or self-care (01) ==
LOC: RAD 09:08
PROVIDERS: ATTEND Internal Medicine Cardiovascular Disease
DX: I34.0 Nonrheumatic mitral (valve) insufficiency (principal)
CPT/HCPCS: 78452; 93017; 93306; A9500; J0280; J2785; J7040

== ENCOUNTER 2019-12-20 11:13 | Outpatient (CLI) | payer MEDICARE, MEDICAID ==
[2019-12-20] MEDS ORDERED: LIDOcaine 2% 5ml jelly ONE (11:32)
--- NOTE | 2019-12-20 14:22 | NUR ---
SEE WOUND EXPERT FOR ADMISSION ASSESSMENT AND VITALS. PICC LINE INFORMATION: REF: [id number] LOT: [id number] EXP: 10/08/2020 PICC LINE TIP CONFIRMATION WITH 3CG GUIDANCE
== END 2019-12-20 23:59 | disposition home or self-care (01) ==
LOC: WOUND CARE 11:13
PROVIDERS: ATTEND Nurse Practitioner
DX: E11.621 Type 2 diabetes mellitus with foot ulcer (principal); L89.890 Pressure ulcer of other site, unstageable; I70.245 Atherosclerosis of native arteries of left leg with ulceration of other part of foot; L97.522 Non-pressure chronic ulcer of other part of left foot with fat layer exposed; L97.512 Non-pressure chronic ulcer of other part of right foot with fat layer exposed; E11.622 Type 2 diabetes mellitus with other skin ulcer; I70.243 Atherosclerosis of native arteries of left leg with ulceration of ankle; L97.322 Non-pressure chronic ulcer of left ankle with fat layer exposed; E11.22 Type 2 diabetes mellitus with diabetic chronic kidney disease; I13.11 Hypertensive heart and chronic kidney disease without heart failure, with stage 5 chronic kidney disease, or end stage renal disease; N18.6 End stage renal disease; I25.10 Atherosclerotic heart disease of native coronary artery without angina pectoris; E11.42 Type 2 diabetes mellitus with diabetic polyneuropathy; E11.51 Type 2 diabetes mellitus with diabetic peripheral angiopathy without gangrene; E78.00 Pure hypercholesterolemia, unspecified; M81.0 Age-related osteoporosis without current pathological fracture; K21.9 Gastro-esophageal reflux disease without esophagitis; E78.5 Hyperlipidemia, unspecified; J44.9 Chronic obstructive pulmonary disease, unspecified; G89.29 Other chronic pain; I48.91 Unspecified atrial fibrillation; G40.901 Epilepsy, unspecified, not intractable, with status epilepticus; G93.41 Metabolic encephalopathy; E89.0 Postprocedural hypothyroidism; F32.9 Major depressive disorder, single episode, unspecified; F11.90 Opioid use, unspecified, uncomplicated; F15.90 Other stimulant use, unspecified, uncomplicated; Z94.0 Kidney transplant status; Z68.1 Body mass index [BMI] 19.9 or less, adult; Z79.899 Other long term (current) drug therapy; Z79.51 Long term (current) use of inhaled steroids; Z87.891 Personal history of nicotine dependence; Z85.820 Personal history of malignant melanoma of skin; Z86.19 Personal history of other infectious and parasitic diseases; Z94.83 Pancreas transplant status; Z89.511 Acquired absence of right leg below knee; Z98.890 Other specified postprocedural states; Z99.2 Dependence on renal dialysis
CPT/HCPCS: 11042; 36573; 97597

== ENCOUNTER 2019-12-27 11:29 | Outpatient (CLI) | payer MEDICARE, MEDICAID ==
[2019-12-27] MEDS ORDERED: LIDOcaine 2% 5ml jelly ONE (11:51)
== END 2019-12-27 23:59 | disposition home or self-care (01) ==
LOC: WOUND CARE 11:29
PROVIDERS: ATTEND Nurse Practitioner
DX: E11.621 Type 2 diabetes mellitus with foot ulcer (principal); L89.890 Pressure ulcer of other site, unstageable; L97.512 Non-pressure chronic ulcer of other part of right foot with fat layer exposed; E11.622 Type 2 diabetes mellitus with other skin ulcer; I70.243 Atherosclerosis of native arteries of left leg with ulceration of ankle; L97.322 Non-pressure chronic ulcer of left ankle with fat layer exposed; E11.22 Type 2 diabetes mellitus with diabetic chronic kidney disease; I13.11 Hypertensive heart and chronic kidney disease without heart failure, with stage 5 chronic kidney disease, or end stage renal disease; N18.6 End stage renal disease; I25.10 Atherosclerotic heart disease of native coronary artery without angina pectoris; E11.42 Type 2 diabetes mellitus with diabetic polyneuropathy; E11.51 Type 2 diabetes mellitus with diabetic peripheral angiopathy without gangrene; E78.00 Pure hypercholesterolemia, unspecified; M81.0 Age-related osteoporosis without current pathological fracture; K21.9 Gastro-esophageal reflux disease without esophagitis; E78.5 Hyperlipidemia, unspecified; J44.9 Chronic obstructive pulmonary disease, unspecified; G89.29 Other chronic pain; I48.91 Unspecified atrial fibrillation; G40.901 Epilepsy, unspecified, not intractable, with status epilepticus; G93.41 Metabolic encephalopathy; E89.0 Postprocedural hypothyroidism; F32.9 Major depressive disorder, single episode, unspecified; F11.90 Opioid use, unspecified, uncomplicated; F15.90 Other stimulant use, unspecified, uncomplicated; Z94.0 Kidney transplant status; Z68.1 Body mass index [BMI] 19.9 or less, adult; Z79.899 Other long term (current) drug therapy; Z79.51 Long term (current) use of inhaled steroids; Z87.891 Personal history of nicotine dependence; Z85.820 Personal history of malignant melanoma of skin; Z86.19 Personal history of other infectious and parasitic diseases; Z94.83 Pancreas transplant status; Z89.511 Acquired absence of right leg below knee; Z98.890 Other specified postprocedural states; Z99.2 Dependence on renal dialysis
CPT/HCPCS: 11042

== ENCOUNTER 2020-02-05 11:49 | Inpatient (IN) | payer MEDICARE, MEDICAID ==
[~2020-02-05] VITALS: Ht 190.5 cm; Wt 68.2 kg
[2020-02-05] MEDS ORDERED: CefTRIAXone 2gm/D5W 50ml BAG 50 ML IV ONE (12:00)
[2020-02-05] MEDS ORDERED: vancomycin/NS 1 GM ADD-VANTAGE 250 ML IV ONE (12:00)
[2020-02-05] MEDS ORDERED: morphine 4 MG/ML inj SYRINge IV ONE (12:25)
[2020-02-05] MEDS ORDERED: ondansetron/PF 4mg/2ml inj IV ONE (12:25)
[2020-02-05 12:36] LABS: BASOPHILS % (AUTO) 0.3 % (0-1); EOSINOPHILS # (AUTO) 0.1 X10'3 (0-0.9); EOSINOPHILS % (AUTO) 0.8 % (0-6); HEMATOCRIT 43.4 % (42.0-52.0); HEMOGLOBIN 14.1 g/dl (14.0-17.9); LYMPHOCYTES # (AUTO) 0.9 X10'3 (1.1-4.8); MEAN CORPUSCULAR HEMOGLOBIN 27.9 PG (27.0-31.0); MEAN CORPUSCULAR HGB CONC 32.6 g/dL (33.0-36.5); MEAN CORPUSCULAR VOLUME 85.5 FL (78-98); MEAN PLATELET VOLUME 6.9 FL (7.4-10.4); MONOCYTES # (AUTO) 0.5 X10'3 (0-0.9); MONOCYTES % (AUTO) 7.7 % (2-12); NEUTROPHILS # (AUTO) 5.6 X10'3 (1.8-7.7); NEUTROPHILS % (AUTO) 79.2 % (42-75); PLATELET COUNT 166 X10'3 (140-440); RED BLOOD COUNT 5.08 X10'6 (4.70-6.10); RED CELL DISTRIBUTION WIDTH 19.2 % (11.5-14.5); WHITE BLOOD COUNT 7.1 X10'3 (4.5-11.0)
[2020-02-05 12:51] LABS: ALANINE AMINOTRANSFERASE 15 U/L (12-78); ALBUMIN 2.6 G/DL (3.4-5.0); ALBUMIN/GLOBULIN RATIO 0.6 (1.1-1.5); ALKALINE PHOSPHATASE 132 IU/L (46-116); ANION GAP 10 (8-16); ASPARTATE AMINO TRANSFERASE 19 U/L (10-37); BILIRUBIN,TOTAL 0.5 MG/DL (0.1-1.0); BLOOD UREA NITROGEN 14 MG/DL (7-18); BUN/CREATININE RATIO 16.5 (5.4-32.0); CALCIUM 8.9 MG/DL (8.5-10.1); CHLORIDE 105 MMOL/L (99-107); CREATININE 0.85 MG/DL (0.60-1.10); GLUCOSE 89 MG/DL (70-104); MAGNESIUM 1.5 MG/DL (1.5-2.4); POTASSIUM 4.5 MMOL/L (3.5-5.1); SODIUM 142 MMOL/L (135-145); TOTAL CARBON DIOXIDE 26.7 MMOL/L (24-32); TOTAL PROTEIN 6.7 G/DL (6.4-8.2); eGFR > 90 ML/MIN
[2020-02-05] MEDS ORDERED: FLO0.4C PO (13:15)
[2020-02-05] MEDS ORDERED: GABA300S PO (13:15)
[2020-02-05] MEDS ORDERED: HYDROcodone/acetaminophen 5mg/325mg tablet PO PRN (13:25)
[2020-02-05] MEDS ORDERED: HYDROcodone/acetaminophen 10/325mg tab PO PRN (13:25)
[2020-02-05] MEDS ORDERED: ondansetron/PF 4mg/2ml inj IV PRN (13:25)
[2020-02-05] MEDS ORDERED: acetaminophen 325mg tablet PO PRN ×2 (13:25)
[2020-02-05] MEDS ORDERED: mag hydrox/Alum hydrox/simeth 30ml oral suspension PO PRN (13:25)
[2020-02-05] MEDS ORDERED: loperamide 2mg capsule PO PRN (13:30)
[2020-02-05] MEDS ORDERED: traZODone 50mg tablet PO PRN (13:30)
[2020-02-05 13:39] LABS: PLATELET ESTIMATE NORMAL
[2020-02-05 13:40] LABS: ANISOCYTOSIS 2+
[2020-02-05] MEDS: morphine 2 MG/ML inj. syringe IV PRN (14:07)
--- NOTE | 2020-02-05 14:55 | NUR ---
Patient informed RN that he had a recent course of outpatient Vancomycin with [facility] monitored by Dr. Sampson Fall and that he had a drop in his WBC count from 2 doses of this med and that it was discontinued for this reason. Dr. Donovan informed, Yasir bhagat. Dr. Decker paged for advisement, page not yet returned. Report called to Mary Carmen MENDOZA with this information with request for her to follow up regarding the Vancomycin.
[2020-02-05] MEDS ORDERED: iohexol 300mg/ml 100ml inj. ONE (15:18)
[2020-02-05] MEDS: metroNIDAZOLE-Flagyl 500mg/NS 100 ML IV SCH ×2 (16:58→23:26)
[2020-02-05 18:00] VITALS: BP 168/90
--- NOTE | 2020-02-05 18:14 | NUR ---
Received report from Mary Cramen MENDOZA
[2020-02-05] MEDS: tacrolimus anhydrous 1mg capsule PO SCH (19:26)
[2020-02-05] MEDS: risperiDONE 0.5mg tablet PO SCH (19:26)
[2020-02-05] MEDS: PHENOBARBITAL 32.4 MG PO SCH (19:36)
[2020-02-05] MEDS ORDERED: MYCOPHENOLATE SODIUM 360 MG PO SCH (20:00)
[2020-02-05] MEDS: QUEtiapine 25mg tablet PO SCH (20:51)
[2020-02-05] MEDS: gabapentin 300mg capsule PO SCH (20:51)
[2020-02-05] MEDS: HYDROcodone/acetaminophen 10/325mg tab PO PRN (23:27)
[2020-02-06] MEDS: vancomycin/NS 1 GM ADD-VANTAGE 250 ML IV SCH ×3 (01:00→12:19)
[2020-02-06 06:00] VITALS: BP 163/71
[2020-02-06] MEDS: HYDROcodone/acetaminophen 10/325mg tab PO PRN ×3 (06:03→19:47)
[2020-02-06 07:49] LABS: BASOPHILS % (AUTO) 0.5 % (0-1); EOSINOPHILS # (AUTO) 0.1 X10'3 (0-0.9); HEMATOCRIT 41.7 % (42.0-52.0); HEMOGLOBIN 13.4 g/dl (14.0-17.9); LYMPHOCYTES # (AUTO) 1.1 X10'3 (1.1-4.8); LYMPHOCYTES % (AUTO) 24.9 % (21-51); MEAN CORPUSCULAR HEMOGLOBIN 27.6 PG (27.0-31.0); MEAN CORPUSCULAR HGB CONC 32.1 g/dL (33.0-36.5); MEAN PLATELET VOLUME 6.6 FL (7.4-10.4); MONOCYTES # (AUTO) 0.5 X10'3 (0-0.9); MONOCYTES % (AUTO) 11.2 % (2-12); NEUTROPHILS # (AUTO) 2.7 X10'3 (1.8-7.7); NEUTROPHILS % (AUTO) 61.4 % (42-75); PLATELET COUNT 116 X10'3 (140-440); RED BLOOD COUNT 4.86 X10'6 (4.70-6.10); RED CELL DISTRIBUTION WIDTH 19.6 % (11.5-14.5); WHITE BLOOD COUNT 4.4 X10'3 (4.5-11.0)
[2020-02-06] MEDS: pantoprazole 40mg Tablet.DR PO SCH (07:50)
[2020-02-06] MEDS: tamsulosin 0.4mg capsule PO SCH (07:50)
[2020-02-06] MEDS: gabapentin 300mg capsule PO SCH ×3 (07:50→19:47)
[2020-02-06] MEDS: atorvastatin 20mg tablet PO SCH (07:51)
[2020-02-06] MEDS: loratadine 10mg tablet PO SCH (07:51)
[2020-02-06] MEDS: lisinopril 5mg tablet PO SCH (07:51)
[2020-02-06] MEDS: tacrolimus anhydrous 1mg capsule PO SCH ×2 (07:52→19:48)
[2020-02-06] MEDS: CefTRIAXone/D5W-Rocephin 1gm 50 ML IV SCH (07:52)
[2020-02-06] MEDS: risperiDONE 0.5mg tablet PO SCH ×2 (07:52→19:48)
[2020-02-06] MEDS: metroNIDAZOLE-Flagyl 500mg/NS 100 ML IV SCH ×3 (07:53→23:37)
[2020-02-06] MEDS ORDERED: MYCOPHENOLATE SODIUM 360 MG PO SCH (07:55)
[2020-02-06] MEDS: PHENOBARBITAL 32.4 MG PO SCH ×2 (08:00→19:55)
[2020-02-06] MEDS ORDERED: SYNTHROID PO SCH (08:00)
[2020-02-06 08:08] LABS: ALBUMIN 2.3 G/DL (3.4-5.0); ANION GAP 9 (8-16); BLOOD UREA NITROGEN 14 MG/DL (7-18); BUN/CREATININE RATIO 20.3 (5.4-32.0); CHLORIDE 106 MMOL/L (99-107); CREATININE 0.69 MG/DL (0.60-1.10); GLUCOSE 89 MG/DL (70-104); POTASSIUM 4.3 MMOL/L (3.5-5.1); SODIUM 138 MMOL/L (135-145); TOTAL CARBON DIOXIDE 22.9 MMOL/L (24-32); eGFR > 90 ML/MIN
[2020-02-06 08:57] LABS: ANISOCYTOSIS 2+; HYPOCHROMASIA 1+; PLATELET ESTIMATE DECREASED
[2020-02-06 10:00] VITALS: BP 141/77
[2020-02-06] MEDS: morphine 2 MG/ML inj. syringe IV PRN ×3 (10:22→23:37)
[2020-02-06] MEDS: mycophenolate sod SR tablet 180 MG TABLET.DR PO SCH ×2 (12:19→19:48)
[2020-02-06] MEDS ORDERED: PRE5T PO (13:13)
[2020-02-06] MEDS: predniSONE 5mg tablet PO SCH (15:30)
[2020-02-06 18:00] VITALS: BP 104/75
--- NOTE | 2020-02-06 18:10 | NUR ---
Patient in room ORTHO 4007. I have received report from KELLY Sheffield and had the opportunity to ask questions and assume patient care.
--- NOTE | 2020-02-06 18:50 | NUR ---
Problems reprioritized. Patient report given, questions answered & plan of care reviewed with KELLY Mary.
[2020-02-06] MEDS: QUEtiapine 25mg tablet PO SCH (19:47)
[2020-02-06 22:00] VITALS: BP 108/65
[2020-02-07] VITALS (11 sets, daily range): BP systolic 100–130; BP diastolic 62–85
[2020-02-07] MEDS ORDERED: VANCOMYCIN LEVEL IV ONE (00:30)
[2020-02-07] MEDS: vancomycin/NS 1 GM ADD-VANTAGE 250 ML IV SCH (01:22)
[2020-02-07 01:29] LABS: BASOPHILS % (AUTO) 0.2 % (0-1); EOSINOPHILS % (AUTO) 0.8 % (0-6); HEMATOCRIT 41.2 % (42.0-52.0); HEMOGLOBIN 13.4 g/dl (14.0-17.9); LYMPHOCYTES # (AUTO) 0.9 X10'3 (1.1-4.8); MEAN CORPUSCULAR HEMOGLOBIN 28.2 PG (27.0-31.0); MEAN CORPUSCULAR HGB CONC 32.5 g/dL (33.0-36.5); MEAN CORPUSCULAR VOLUME 86.8 FL (78-98); MONOCYTES # (AUTO) 0.5 X10'3 (0-0.9); MONOCYTES % (AUTO) 10.7 % (2-12); NEUTROPHILS # (AUTO) 3.7 X10'3 (1.8-7.7); NEUTROPHILS % (AUTO) 71.3 % (42-75); PLATELET COUNT 142 X10'3 (140-440); RED BLOOD COUNT 4.75 X10'6 (4.70-6.10); RED CELL DISTRIBUTION WIDTH 19.8 % (11.5-14.5); WHITE BLOOD COUNT 5.1 X10'3 (4.5-11.0)
[2020-02-07 01:34] LABS: ALBUMIN 2.4 G/DL (3.4-5.0); ANION GAP 7 (8-16); BLOOD UREA NITROGEN 14 MG/DL (7-18); BUN/CREATININE RATIO 16.7 (5.4-32.0); CALCIUM 9.1 MG/DL (8.5-10.1); CHLORIDE 107 MMOL/L (99-107); CREATININE 0.84 MG/DL (0.60-1.10); GLUCOSE 101 MG/DL (70-104); POTASSIUM 4.6 MMOL/L (3.5-5.1); SODIUM 141 MMOL/L (135-145); TOTAL CARBON DIOXIDE 27.4 MMOL/L (24-32); VANCOMYCIN,TROUGH 14.3 UG/ML (6.0-14.0); eGFR > 90 ML/MIN
[2020-02-07] MEDS: HYDROcodone/acetaminophen 10/325mg tab PO PRN ×3 (02:07→21:01)
--- NOTE | 2020-02-07 06:09 | NUR ---
Problems reprioritized. Patient report given, questions answered & plan of care reviewed with KELLY Hutchison.
[2020-02-07] MEDS: lisinopril 5mg tablet PO SCH (08:00)
[2020-02-07] MEDS: pantoprazole 40mg Tablet.DR PO SCH (08:20)
[2020-02-07] MEDS: metroNIDAZOLE-Flagyl 500mg/NS 100 ML IV SCH ×2 (08:20→16:00)
[2020-02-07] MEDS: predniSONE 5mg tablet PO SCH (08:21)
[2020-02-07] MEDS: gabapentin 300mg capsule PO SCH ×3 (08:21→21:01)
[2020-02-07] MEDS: risperiDONE 0.5mg tablet PO SCH ×2 (08:21→21:00)
[2020-02-07] MEDS: loratadine 10mg tablet PO SCH (08:22)
[2020-02-07] MEDS: tamsulosin 0.4mg capsule PO SCH (08:22)
[2020-02-07] MEDS: atorvastatin 20mg tablet PO SCH (08:22)
[2020-02-07] MEDS: mycophenolate sod SR tablet 180 MG TABLET.DR PO SCH ×2 (08:23→21:02)
[2020-02-07] MEDS: tacrolimus anhydrous 1mg capsule PO SCH ×2 (08:24→21:01)
[2020-02-07] MEDS ORDERED: phenobarbital 30mg tablet PO SCH ×2 (08:51→10:12)
[2020-02-07] MEDS: morphine 2 MG/ML inj. syringe IV PRN ×2 (09:40→18:41)
[2020-02-07] MEDS: CefTRIAXone/D5W-Rocephin 1gm 50 ML IV SCH (09:40)
[2020-02-07] MEDS: phenobarbital 30mg tablet PO SCH ×2 (10:25→21:00)
[2020-02-07] MEDS: levoTHYROXINE 112mcg tablet PO SCH (10:25)
[2020-02-07] MEDS ORDERED: ALBUTEROL INHALER 1 PUFF/90 MCG INHALER IH PRN (10:50)
--- NOTE | 2020-02-07 11:41 | NUR ---
PAGER ID: [phone] MESSAGE: [phone] Harpal Tuttle is going to be taking him to surgery at [address] [place] [address]
[2020-02-07] MEDS: VANCOmycin 1250MG/NS 250ml Bag 250 ML IV SCH (12:49)
[2020-02-07] MEDS: guaiFENesin ER 600mg tablet PO SCH ×2 (12:49→21:00)
[2020-02-07] MEDS ORDERED: iohexol 350MG/ML 100ml bottle IV ONE (12:55)
[2020-02-07] MEDS ORDERED: BUPIVAcaine/PF 2.5 mg/ml (0.25%) 30ml vial ONE (15:03)
[2020-02-07] MEDS ORDERED: proCHLORperazine 10 MG/2 ml inj IV PRN (15:10)
[2020-02-07] MEDS ORDERED: ringers solution, lacted 1,000 ML IV SCH (15:10)
[2020-02-07] MEDS ORDERED: ondansetron/PF 4mg/2ml inj IV PRN (15:10)
[2020-02-07] MEDS ORDERED: meperidine/PF 25mg/ml syringe IV PRN ×3 (15:10)
[2020-02-07] MEDS ORDERED: morphine 4 MG/ML inj SYRINge IV PRN (15:10)
[2020-02-07] MEDS ORDERED: morphine 2 MG/ML inj. syringe IV PRN (15:10)
[2020-02-07] MEDS ORDERED: fentaNYL/PF 50MCG/1 ML 2ML syringe ONE (15:17)
[2020-02-07] MEDS ORDERED: ROPIVAcaine 0.5% (5mg/ml) 30ml vial ONE (15:17)
[2020-02-07] MEDS ORDERED: MIDAZolam 5mg/5ml vial ONE (15:17)
[2020-02-07] MEDS ORDERED: ketamine 50mg/5ml syringe ONE (15:18)
[2020-02-07] MEDS ORDERED: propofol inj 20 ML IV ONE (15:19)
--- NOTE | 2020-02-07 18:00 | NUR ---
RECEIVED REPORT FROM NATALIYA MENDOZA AND ASSUMED PATIENT CARE
--- NOTE | 2020-02-07 18:22 | NUR ---
Problems reprioritized. Patient report given, questions answered & plan of care reviewed with Adeola MENDOZA.
[2020-02-07] MEDS: QUEtiapine 25mg tablet PO SCH (21:00)
[2020-02-07] MEDS: lactobacillus rhamnosus 10,000 MMU CELLS/CAPSULE PO SCH (21:01)
[2020-02-08] MEDS: metroNIDAZOLE 500mg tablet PO SCH ×3 (00:08→16:27)
[2020-02-08] MEDS: VANCOmycin 1250MG/NS 250ml Bag 250 ML IV SCH ×3 (00:08→13:00)
[2020-02-08] MEDS: morphine 2 MG/ML inj. syringe IV PRN ×4 (00:08→19:06)
[2020-02-08 02:00] VITALS: BP 120/69
[2020-02-08] MEDS: HYDROcodone/acetaminophen 10/325mg tab PO PRN ×4 (04:36→22:09)
[2020-02-08] MEDS: tamsulosin 0.4mg capsule PO SCH (08:55)
[2020-02-08] MEDS: phenobarbital 30mg tablet PO SCH ×2 (08:55→21:49)
[2020-02-08] MEDS: guaiFENesin ER 600mg tablet PO SCH ×2 (08:56→21:49)
[2020-02-08] MEDS: gabapentin 300mg capsule PO SCH ×3 (08:56→21:49)
[2020-02-08] MEDS: lisinopril 5mg tablet PO SCH (08:56)
[2020-02-08] MEDS: risperiDONE 0.5mg tablet PO SCH ×2 (08:56→21:51)
[2020-02-08] MEDS: predniSONE 5mg tablet PO SCH (08:56)
[2020-02-08] MEDS: atorvastatin 20mg tablet PO SCH (08:56)
[2020-02-08] MEDS: lactobacillus rhamnosus 10,000 MMU CELLS/CAPSULE PO SCH ×2 (08:56→21:48)
[2020-02-08] MEDS: loratadine 10mg tablet PO SCH (08:56)
[2020-02-08] MEDS: mycophenolate sod SR tablet 180 MG TABLET.DR PO SCH ×2 (08:57→21:50)
[2020-02-08] MEDS: CefTRIAXone/D5W-Rocephin 1gm 50 ML IV SCH (08:57)
[2020-02-08] MEDS: tacrolimus anhydrous 1mg capsule PO SCH ×2 (08:57→21:50)
[2020-02-08] MEDS: pantoprazole 40mg Tablet.DR PO SCH (08:58)
[2020-02-08] MEDS: levoTHYROXINE 112mcg tablet PO SCH (08:58)
[2020-02-08 09:09] LABS: BASOPHILS % (AUTO) 0.4 % (0-1); EOSINOPHILS # (AUTO) 0.1 X10'3 (0-0.9); EOSINOPHILS % (AUTO) 1.9 % (0-6); HEMATOCRIT 40.1 % (42.0-52.0); LYMPHOCYTES # (AUTO) 1.3 X10'3 (1.1-4.8); LYMPHOCYTES % (AUTO) 26.4 % (21-51); MEAN CORPUSCULAR HEMOGLOBIN 27.9 PG (27.0-31.0); MEAN CORPUSCULAR HGB CONC 32.3 g/dL (33.0-36.5); MEAN CORPUSCULAR VOLUME 86.3 FL (78-98); MEAN PLATELET VOLUME 6.9 FL (7.4-10.4); MONOCYTES # (AUTO) 0.5 X10'3 (0-0.9); MONOCYTES % (AUTO) 10.1 % (2-12); NEUTROPHILS % (AUTO) 61.2 % (42-75); PLATELET COUNT 130 X10'3 (140-440); RED BLOOD COUNT 4.65 X10'6 (4.70-6.10); RED CELL DISTRIBUTION WIDTH 19.2 % (11.5-14.5)
[2020-02-08 09:15] LABS: ALBUMIN 2.3 G/DL (3.4-5.0); ANION GAP 8 (8-16); BLOOD UREA NITROGEN 13 MG/DL (7-18); CALCIUM 8.7 MG/DL (8.5-10.1); CHLORIDE 108 MMOL/L (99-107); CREATININE 0.65 MG/DL (0.60-1.10); GLUCOSE 109 MG/DL (70-104); POTASSIUM 4.4 MMOL/L (3.5-5.1); SODIUM 141 MMOL/L (135-145); TOTAL CARBON DIOXIDE 24.9 MMOL/L (24-32); eGFR > 90 ML/MIN
[2020-02-08 09:33] LABS: ANISOCYTOSIS 2+; PLATELET ESTIMATE DECREASED
[2020-02-08 09:50] LABS: HEMOGLOBIN A1C 5.4 % (4.5-6.2)
[2020-02-08 10:00] VITALS: BP 134/77
[2020-02-08] MEDS: magnesium hydroxide 30ml (MOM) UD suspension PO PRN (10:30)
--- NOTE | 2020-02-08 12:17 | NUR ---
DM Consult "hyperglycemia protocol": Likely error as pt has not met protocol this admit Glu WNL, and prior DM hx though cured following kidney/pancreatic transplant w/ A1C 5.4. No DM concerns at this time. Addendum: 02/08/20 at [address] Amended: Links added.
[2020-02-08] MEDS: tizanidine 4mg tablet PO PRN (13:19)
[2020-02-08 14:30] VITALS: BP 98/51
[2020-02-08 18:00] VITALS: BP 124/75
[2020-02-08] MEDS: lactose-reduced food (Ensure Enlive) - 237ml bottle PO SCH (18:00)
--- NOTE | 2020-02-08 18:26 | NUR ---
Problems reprioritized. Patient report given, questions answered & plan of care reviewed with Adeola MENDOZA.
[2020-02-08] MEDS: QUEtiapine 25mg tablet PO SCH (21:49)
[2020-02-08 22:00] VITALS: BP 143/92
[2020-02-09] MEDS ORDERED: VANCOMYCIN LEVEL IV ONE (00:30)
[2020-02-09] MEDS: metroNIDAZOLE 500mg tablet PO SCH ×2 (00:44→08:36)
[2020-02-09] MEDS: morphine 2 MG/ML inj. syringe IV PRN ×5 (00:49→21:24)
[2020-02-09 01:36] LABS: BASOPHILS % (AUTO) 0.9 % (0-1); EOSINOPHILS # (AUTO) 0.1 X10'3 (0-0.9); EOSINOPHILS % (AUTO) 1.7 % (0-6); HEMATOCRIT 39.2 % (42.0-52.0); HEMOGLOBIN 12.7 g/dl (14.0-17.9); LYMPHOCYTES # (AUTO) 1.3 X10'3 (1.1-4.8); LYMPHOCYTES % (AUTO) 25.6 % (21-51); MEAN CORPUSCULAR HEMOGLOBIN 27.9 PG (27.0-31.0); MEAN CORPUSCULAR HGB CONC 32.5 g/dL (33.0-36.5); MEAN CORPUSCULAR VOLUME 85.9 FL (78-98); MEAN PLATELET VOLUME 7.2 FL (7.4-10.4); MONOCYTES # (AUTO) 0.7 X10'3 (0-0.9); MONOCYTES % (AUTO) 14.1 % (2-12); NEUTROPHILS # (AUTO) 2.8 X10'3 (1.8-7.7); NEUTROPHILS % (AUTO) 57.7 % (42-75); PLATELET COUNT 134 X10'3 (140-440); RED BLOOD COUNT 4.57 X10'6 (4.70-6.10); RED CELL DISTRIBUTION WIDTH 19.7 % (11.5-14.5); WHITE BLOOD COUNT 4.9 X10'3 (4.5-11.0)
[2020-02-09 01:50] LABS: ALBUMIN 2.2 G/DL (3.4-5.0); ANION GAP 6 (8-16); BLOOD UREA NITROGEN 13 MG/DL (7-18); BUN/CREATININE RATIO 15.1 (5.4-32.0); CALCIUM 8.5 MG/DL (8.5-10.1); CHLORIDE 107 MMOL/L (99-107); CREATININE 0.86 MG/DL (0.60-1.10); GLUCOSE 99 MG/DL (70-104); POTASSIUM 4.4 MMOL/L (3.5-5.1); SODIUM 140 MMOL/L (135-145); TOTAL CARBON DIOXIDE 27.5 MMOL/L (24-32); VANCOMYCIN,TROUGH 19.8 UG/ML (6.0-14.0); eGFR 90 ML/MIN
[2020-02-09 02:00] VITALS: BP 143/89
[2020-02-09] MEDS: VANCOmycin 1250MG/NS 250ml Bag 250 ML IV SCH ×2 (02:08→12:53)
[2020-02-09] MEDS: HYDROcodone/acetaminophen 10/325mg tab PO PRN (04:01)
[2020-02-09 06:00] VITALS: BP 128/76
--- NOTE | 2020-02-09 06:08 | NUR ---
REPORT GIVEN TO SUZANNE MENDOZA
[2020-02-09] MEDS: loratadine 10mg tablet PO SCH (08:36)
[2020-02-09] MEDS: tamsulosin 0.4mg capsule PO SCH (08:36)
[2020-02-09] MEDS: CefTRIAXone/D5W-Rocephin 1gm 50 ML IV SCH (08:36)
[2020-02-09] MEDS: guaiFENesin ER 600mg tablet PO SCH ×2 (08:36→19:21)
[2020-02-09] MEDS: risperiDONE 0.5mg tablet PO SCH ×2 (08:37→19:22)
[2020-02-09] MEDS: lisinopril 5mg tablet PO SCH (08:37)
[2020-02-09] MEDS: phenobarbital 30mg tablet PO SCH ×2 (08:37→19:22)
[2020-02-09] MEDS: gabapentin 300mg capsule PO SCH ×3 (08:38→21:11)
[2020-02-09] MEDS: atorvastatin 20mg tablet PO SCH (08:38)
[2020-02-09] MEDS: pantoprazole 40mg Tablet.DR PO SCH (08:38)
[2020-02-09] MEDS: lactobacillus rhamnosus 10,000 MMU CELLS/CAPSULE PO SCH ×2 (08:38→19:21)
[2020-02-09] MEDS: predniSONE 5mg tablet PO SCH (08:39)
[2020-02-09] MEDS: tacrolimus anhydrous 1mg capsule PO SCH ×2 (08:40→19:24)
[2020-02-09] MEDS: mycophenolate sod SR tablet 180 MG TABLET.DR PO SCH ×2 (08:41→19:24)
[2020-02-09] MEDS: levoTHYROXINE 112mcg tablet PO SCH (08:43)
[2020-02-09] MEDS: lactose-reduced food (Ensure Enlive) - 237ml bottle PO SCH ×3 (08:43→18:00)
[2020-02-09 10:00] VITALS: BP 84/45
[2020-02-09] MEDS: oxyCODONE/APAP 10/325mg tablet PO PRN ×2 (12:59→19:36)
[2020-02-09 14:00] VITALS: BP 96/58
[2020-02-09 18:00] VITALS: BP 104/57
--- NOTE | 2020-02-09 18:32 | NUR ---
Patient in room ORTHO 4007. I have received report from Cindy MENDOZA and had the opportunity to ask questions and assume patient care.
[2020-02-09] MEDS ORDERED: aspirin 325mg tablet PO ONE (19:00)
[2020-02-09] MEDS: QUEtiapine 25mg tablet PO SCH (21:11)
[2020-02-09 22:00] VITALS: BP 112/64
[2020-02-09] MEDS: magnesium hydroxide 30ml (MOM) UD suspension PO PRN (22:23)
[2020-02-10] MEDS: VANCOmycin 1250MG/NS 250ml Bag 250 ML IV SCH ×2 (00:15→13:00)
[2020-02-10 02:00] VITALS: BP 105/67
[2020-02-10] MEDS: oxyCODONE/APAP 10/325mg tablet PO PRN ×3 (02:08→17:04)
[2020-02-10] MEDS: morphine 2 MG/ML inj. syringe IV PRN ×2 (05:00→09:44)
[2020-02-10 06:00] VITALS: BP 103/65
--- NOTE | 2020-02-10 06:27 | NUR ---
Problems reprioritized. Patient report given, questions answered & plan of care reviewed with Cindy MENDOZA.
[2020-02-10] MEDS: lisinopril 5mg tablet PO SCH (08:00)
[2020-02-10] MEDS: lactose-reduced food (Ensure Enlive) - 237ml bottle PO SCH ×3 (08:00→18:37)
[2020-02-10] MEDS: levoTHYROXINE 112mcg tablet PO SCH (08:28)
[2020-02-10] MEDS: aspirin 325mg tablet PO SCH (08:28)
[2020-02-10] MEDS: loratadine 10mg tablet PO SCH (08:28)
[2020-02-10] MEDS: lactobacillus rhamnosus 10,000 MMU CELLS/CAPSULE PO SCH ×2 (08:28→20:16)
[2020-02-10] MEDS: pantoprazole 40mg Tablet.DR PO SCH (08:28)
[2020-02-10] MEDS: tamsulosin 0.4mg capsule PO SCH (08:29)
[2020-02-10] MEDS: mycophenolate sod SR tablet 180 MG TABLET.DR PO SCH ×2 (08:29→20:19)
[2020-02-10] MEDS: guaiFENesin ER 600mg tablet PO SCH ×2 (08:29→20:16)
[2020-02-10] MEDS: atorvastatin 20mg tablet PO SCH (08:29)
[2020-02-10] MEDS: tacrolimus anhydrous 1mg capsule PO SCH ×2 (08:30→20:19)
[2020-02-10] MEDS: predniSONE 5mg tablet PO SCH (08:30)
[2020-02-10] MEDS: risperiDONE 0.5mg tablet PO SCH ×2 (08:30→20:16)
[2020-02-10] MEDS: gabapentin 300mg capsule PO SCH ×3 (08:30→20:16)
[2020-02-10] MEDS: phenobarbital 30mg tablet PO SCH ×2 (08:30→20:16)
[2020-02-10 09:29] LABS: BASOPHILS % (AUTO) 0.4 % (0-1); EOSINOPHILS # (AUTO) 0.1 X10'3 (0-0.9); EOSINOPHILS % (AUTO) 1.1 % (0-6); HEMATOCRIT 39.5 % (42.0-52.0); HEMOGLOBIN 12.9 g/dl (14.0-17.9); LYMPHOCYTES # (AUTO) 1.7 X10'3 (1.1-4.8); LYMPHOCYTES % (AUTO) 28.6 % (21-51); MEAN CORPUSCULAR HEMOGLOBIN 28.2 PG (27.0-31.0); MEAN CORPUSCULAR HGB CONC 32.6 g/dL (33.0-36.5); MEAN CORPUSCULAR VOLUME 86.3 FL (78-98); MEAN PLATELET VOLUME 7.2 FL (7.4-10.4); MONOCYTES # (AUTO) 0.8 X10'3 (0-0.9); MONOCYTES % (AUTO) 13.4 % (2-12); NEUTROPHILS # (AUTO) 3.4 X10'3 (1.8-7.7); NEUTROPHILS % (AUTO) 56.5 % (42-75); PLATELET COUNT 132 X10'3 (140-440); RED BLOOD COUNT 4.57 X10'6 (4.70-6.10); RED CELL DISTRIBUTION WIDTH 19.6 % (11.5-14.5); WHITE BLOOD COUNT 6.1 X10'3 (4.5-11.0)
[2020-02-10 09:47] LABS: ALBUMIN 2.3 G/DL (3.4-5.0); ANION GAP 4 (8-16); BLOOD UREA NITROGEN 18 MG/DL (7-18); BUN/CREATININE RATIO 26.5 (5.4-32.0); CALCIUM 8.9 MG/DL (8.5-10.1); CHLORIDE 104 MMOL/L (99-107); CREATININE 0.68 MG/DL (0.60-1.10); GLUCOSE 85 MG/DL (70-104); POTASSIUM 4.4 MMOL/L (3.5-5.1); SODIUM 138 MMOL/L (135-145); TOTAL CARBON DIOXIDE 29.7 MMOL/L (24-32); eGFR > 90 ML/MIN
[2020-02-10 10:00] VITALS: BP 93/49
[2020-02-10 10:02] LABS: ANISOCYTOSIS 2+; LARGE PLATELETS FEW; MICROCYTOSIS 1+; PLATELET ESTIMATE DECREASED; POIKILOCYTOSIS FEW
[2020-02-10 10:03] LABS: ELLIPTOCYTES FEW
--- NOTE | 2020-02-10 12:00 | NUR ---
PAGER ID: [phone] MESSAGE: Cindy [phone] re Mr Tuttle- he is still reporting 8/10 pain taking 2 percocet 10 Q6 and 1-2 mg Morphine Q4. Has chronic pain also. would a long acting pain med be indicated? Also, pharmacy does carry chantix
[2020-02-10] MEDS: morphine ER 30mg tablet PO SCH ×2 (13:00→20:16)
--- NOTE | 2020-02-10 13:18 | NUR ---
Great appetite, 100% PO intake. Consumed 100% of ensure enlive at two meals. Meeting nutrition needs. 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 Documented with constipation with last BM 02/06, receiving prn milk of magnesia. No other nutrition problem at this time. Recommend: 1. continue regular diet 2. continue ensure enlive 3. bowel care as needed 4. weight per rx Addendum: 02/10/20 at [address] Amended: Links added.
--- NOTE | 2020-02-10 13:55 | NUR ---
Received phone call from Security at front desk team member that pt's caregiver brought in pt's wallet. Picked up pt's wallet and informed pt of risk of having wallet at bedside. Notified front desk team member who said that they could not keep wallet in safe as it is considered contaminated as pt is COVID +. Pt said he is unable to have caregiver take wallet back. Counted pt's money with pt present which totalled $402.00 in bills on 1 $100, $20s and 2 $1 bills. Informed pt of risk of leaving at bedside and pt stated he still wanted wallet kept at bedside.
[2020-02-10] MEDS: varenicline tartrate 0.5mg tablet PO SCH (16:58)
[2020-02-10 18:00] VITALS: BP 111/69
--- NOTE | 2020-02-10 18:41 | NUR ---
Patient in room ORTHO 4007. I have received report from Cindy MENDOZA and had the opportunity to ask questions and assume patient care.
[2020-02-10] MEDS: QUEtiapine 25mg tablet PO SCH (20:16)
[2020-02-10 22:00] VITALS: BP 124/73
[2020-02-11] MEDS: VANCOmycin 1250MG/NS 250ml Bag 250 ML IV SCH ×2 (00:51→12:48)
[2020-02-11] MEDS: oxyCODONE/APAP 10/325mg tablet PO PRN ×3 (01:02→14:58)
[2020-02-11 02:00] VITALS: BP 121/95
[2020-02-11 06:00] VITALS: BP 130/72
[2020-02-11] MEDS: magnesium hydroxide 30ml (MOM) UD suspension PO PRN (06:32)
[2020-02-11] MEDS: levoTHYROXINE 112mcg tablet PO SCH (06:32)
[2020-02-11] MEDS: pantoprazole 40mg Tablet.DR PO SCH (06:32)
[2020-02-11] MEDS: gabapentin 300mg capsule PO SCH ×3 (07:05→20:32)
[2020-02-11] MEDS: guaiFENesin ER 600mg tablet PO SCH ×2 (07:05→20:32)
[2020-02-11] MEDS: morphine ER 30mg tablet PO SCH ×2 (07:05→20:33)
[2020-02-11] MEDS: predniSONE 5mg tablet PO SCH (07:05)
[2020-02-11] MEDS: lactobacillus rhamnosus 10,000 MMU CELLS/CAPSULE PO SCH ×2 (07:05→20:32)
[2020-02-11] MEDS: atorvastatin 20mg tablet PO SCH (07:05)
[2020-02-11] MEDS: tamsulosin 0.4mg capsule PO SCH (07:05)
[2020-02-11] MEDS: aspirin 325mg tablet PO SCH (07:05)
[2020-02-11] MEDS: risperiDONE 0.5mg tablet PO SCH ×2 (07:06→20:32)
[2020-02-11] MEDS: loratadine 10mg tablet PO SCH (07:06)
[2020-02-11] MEDS: tacrolimus anhydrous 1mg capsule PO SCH ×2 (07:06→20:34)
[2020-02-11] MEDS: phenobarbital 30mg tablet PO SCH ×2 (07:06→20:32)
[2020-02-11] MEDS: mycophenolate sod SR tablet 180 MG TABLET.DR PO SCH ×2 (07:07→20:31)
[2020-02-11] MEDS: varenicline tartrate 0.5mg tablet PO SCH (07:08)
[2020-02-11] MEDS: lisinopril 5mg tablet PO SCH ×2 (07:08→07:16)
[2020-02-11] MEDS: lactose-reduced food (Ensure Enlive) - 237ml bottle PO SCH ×3 (08:33→18:00)
--- NOTE | 2020-02-11 09:08 | NUR ---
RECEIVED REPORT FROM KELLY CERVANTES
[2020-02-11 09:35] LABS: BASOPHILS % (AUTO) 0.5 % (0-1); EOSINOPHILS # (AUTO) 0.1 X10'3 (0-0.9); EOSINOPHILS % (AUTO) 1.5 % (0-6); HEMATOCRIT 35.4 % (42.0-52.0); HEMOGLOBIN 11.3 g/dl (14.0-17.9); LYMPHOCYTES # (AUTO) 1.2 X10'3 (1.1-4.8); LYMPHOCYTES % (AUTO) 23.5 % (21-51); MEAN CORPUSCULAR HEMOGLOBIN 27.6 PG (27.0-31.0); MEAN CORPUSCULAR HGB CONC 31.8 g/dL (33.0-36.5); MEAN CORPUSCULAR VOLUME 86.8 FL (78-98); MEAN PLATELET VOLUME 7.6 FL (7.4-10.4); MONOCYTES # (AUTO) 0.7 X10'3 (0-0.9); MONOCYTES % (AUTO) 14.1 % (2-12); NEUTROPHILS % (AUTO) 60.4 % (42-75); PLATELET COUNT 121 X10'3 (140-440); RED BLOOD COUNT 4.08 X10'6 (4.70-6.10); RED CELL DISTRIBUTION WIDTH 19.3 % (11.5-14.5)
--- NOTE | 2020-02-11 09:42 | NUR ---
Problems reprioritized. Patient report given, questions answered & plan of care reviewed with Marily MENDOZA.
[2020-02-11 09:55] LABS: ALANINE AMINOTRANSFERASE 11 U/L (12-78); ALBUMIN 2.1 G/DL (3.4-5.0); ALBUMIN/GLOBULIN RATIO 0.6 (1.1-1.5); ALKALINE PHOSPHATASE 79 IU/L (46-116); ANION GAP 5 (8-16); ASPARTATE AMINO TRANSFERASE 17 U/L (10-37); BILIRUBIN,TOTAL 0.4 MG/DL (0.1-1.0); BLOOD UREA NITROGEN 15 MG/DL (7-18); BUN/CREATININE RATIO 24.6 (5.4-32.0); CALCIUM 8.8 MG/DL (8.5-10.1); CHLORIDE 104 MMOL/L (99-107); CREATININE 0.61 MG/DL (0.60-1.10); GLUCOSE 86 MG/DL (70-104); POTASSIUM 3.9 MMOL/L (3.5-5.1); SODIUM 139 MMOL/L (135-145); TOTAL PROTEIN 5.5 G/DL (6.4-8.2); eGFR > 90 ML/MIN
[2020-02-11 10:00] VITALS: BP 94/53
[2020-02-11 10:36] LABS: ANISOCYTOSIS 2+; HYPOCHROMASIA 1+; PLATELET ESTIMATE DECREASED; POIKILOCYTOSIS FEW
[2020-02-11 10:37] LABS: SCHISTOCYTES FEW
[2020-02-11 14:00] VITALS: BP 118/63
[2020-02-11 18:00] VITALS: BP 110/66
--- NOTE | 2020-02-11 18:28 | NUR ---
Patient in room ORTHO 4007. I have received report from KELLY ADAM and had the opportunity to ask questions and assume patient care.
--- NOTE | 2020-02-11 18:34 | NUR ---
gave report to jessika jeronimo
[2020-02-11] MEDS: QUEtiapine 25mg tablet PO SCH (20:33)
[2020-02-11 22:17] VITALS: BP 117/69
[2020-02-12] MEDS: VANCOmycin 1250MG/NS 250ml Bag 250 ML IV SCH ×2 (00:25→14:35)
[2020-02-12] MEDS: oxyCODONE/APAP 10/325mg tablet PO PRN ×3 (01:34→17:02)
--- NOTE | 2020-02-12 06:37 | NUR ---
Problems reprioritized. Patient report given, questions answered & plan of care reviewed with KELLY PHILIP.
[2020-02-12] MEDS: pantoprazole 40mg Tablet.DR PO SCH (07:37)
[2020-02-12] MEDS: levoTHYROXINE 112mcg tablet PO SCH (07:37)
[2020-02-12] MEDS: aspirin 325mg tablet PO SCH (07:38)
[2020-02-12] MEDS: varenicline tartrate 0.5mg tablet PO SCH (07:39)
[2020-02-12] MEDS: lactobacillus rhamnosus 10,000 MMU CELLS/CAPSULE PO SCH ×2 (07:39→20:13)
[2020-02-12] MEDS: loratadine 10mg tablet PO SCH (07:39)
[2020-02-12] MEDS: morphine ER 30mg tablet PO SCH ×2 (07:40→20:12)
[2020-02-12] MEDS: atorvastatin 20mg tablet PO SCH (07:40)
[2020-02-12] MEDS: tamsulosin 0.4mg capsule PO SCH (07:40)
[2020-02-12] MEDS: guaiFENesin ER 600mg tablet PO SCH ×2 (07:40→20:12)
[2020-02-12] MEDS: gabapentin 300mg capsule PO SCH ×3 (07:41→20:12)
[2020-02-12] MEDS: mycophenolate sod SR tablet 180 MG TABLET.DR PO SCH ×2 (07:41→21:29)
[2020-02-12] MEDS: phenobarbital 30mg tablet PO SCH ×2 (07:41→20:12)
[2020-02-12] MEDS: risperiDONE 0.5mg tablet PO SCH ×2 (07:42→20:13)
[2020-02-12] MEDS: tacrolimus anhydrous 1mg capsule PO SCH ×2 (07:42→20:13)
[2020-02-12] MEDS: predniSONE 5mg tablet PO SCH (07:42)
[2020-02-12] MEDS: lisinopril 5mg tablet PO SCH (07:42)
[2020-02-12] MEDS: lactose-reduced food (Ensure Enlive) - 237ml bottle PO SCH ×3 (07:43→18:00)
[2020-02-12 07:54] LABS: BASOPHILS % (AUTO) 0.5 % (0-1); EOSINOPHILS # (AUTO) 0.1 X10'3 (0-0.9); EOSINOPHILS % (AUTO) 1.7 % (0-6); HEMATOCRIT 36.9 % (42.0-52.0); LYMPHOCYTES # (AUTO) 1.2 X10'3 (1.1-4.8); LYMPHOCYTES % (AUTO) 26.7 % (21-51); MEAN CORPUSCULAR HEMOGLOBIN 28.4 PG (27.0-31.0); MEAN CORPUSCULAR HGB CONC 32.5 g/dL (33.0-36.5); MEAN CORPUSCULAR VOLUME 87.5 FL (78-98); MEAN PLATELET VOLUME 7.3 FL (7.4-10.4); MONOCYTES # (AUTO) 0.6 X10'3 (0-0.9); MONOCYTES % (AUTO) 13.8 % (2-12); NEUTROPHILS # (AUTO) 2.6 X10'3 (1.8-7.7); NEUTROPHILS % (AUTO) 57.3 % (42-75); PLATELET COUNT 142 X10'3 (140-440); RED BLOOD COUNT 4.22 X10'6 (4.70-6.10); RED CELL DISTRIBUTION WIDTH 19.7 % (11.5-14.5); WHITE BLOOD COUNT 4.6 X10'3 (4.5-11.0)
[2020-02-12 08:25] LABS: ANISOCYTOSIS 2+; MICROCYTOSIS 1+; PLATELET ESTIMATE NORMAL
[2020-02-12 08:37] LABS: ALANINE AMINOTRANSFERASE 13 U/L (12-78); ALBUMIN 2.3 G/DL (3.4-5.0); ALBUMIN/GLOBULIN RATIO 0.6 (1.1-1.5); ALKALINE PHOSPHATASE 90 IU/L (46-116); ANION GAP 7 (8-16); ASPARTATE AMINO TRANSFERASE 20 U/L (10-37); BILIRUBIN,TOTAL 0.4 MG/DL (0.1-1.0); BLOOD UREA NITROGEN 16 MG/DL (7-18); BUN/CREATININE RATIO 24.6 (5.4-32.0); CALCIUM 9.3 MG/DL (8.5-10.1); CHLORIDE 104 MMOL/L (99-107); CREATININE 0.65 MG/DL (0.60-1.10); GLUCOSE 90 MG/DL (70-104); POTASSIUM 4.5 MMOL/L (3.5-5.1); SODIUM 140 MMOL/L (135-145); TOTAL CARBON DIOXIDE 28.7 MMOL/L (24-32); TOTAL PROTEIN 6.2 G/DL (6.4-8.2); eGFR > 90 ML/MIN
[2020-02-12 10:27] VITALS: BP 107/64
[2020-02-12 18:00] VITALS: BP 106/60
--- NOTE | 2020-02-12 18:30 | NUR ---
Patient in room ORTHO 4007. I have received report from KELLY PHILIP and had the opportunity to ask questions and assume patient care.
[2020-02-12] MEDS: magnesium hydroxide 30ml (MOM) UD suspension PO PRN (20:12)
[2020-02-12] MEDS: QUEtiapine 25mg tablet PO SCH (20:13)
[2020-02-12 22:00] VITALS: BP 110/61
[2020-02-13] VITALS (10 sets, daily range): BP systolic 72–145; BP diastolic 35–79
[2020-02-13] MEDS: VANCOmycin 1250MG/NS 250ml Bag 250 ML IV SCH ×2 (00:43→14:33)
[2020-02-13] MEDS: oxyCODONE/APAP 10/325mg tablet PO PRN ×4 (00:52→16:12)
--- NOTE | 2020-02-13 06:40 | NUR ---
Problems reprioritized. Patient report given, questions answered & plan of care reviewed with KELLY AN.
[2020-02-13] MEDS: lisinopril 5mg tablet PO SCH ×2 (08:00→08:25)
[2020-02-13] MEDS: lactose-reduced food (Ensure Enlive) - 237ml bottle PO SCH ×3 (08:00→18:00)
[2020-02-13] MEDS: levoTHYROXINE 112mcg tablet PO SCH (08:22)
[2020-02-13] MEDS: pantoprazole 40mg Tablet.DR PO SCH (08:23)
[2020-02-13] MEDS: tamsulosin 0.4mg capsule PO SCH (08:23)
[2020-02-13] MEDS: lactobacillus rhamnosus 10,000 MMU CELLS/CAPSULE PO SCH (08:23)
[2020-02-13] MEDS: loratadine 10mg tablet PO SCH (08:23)
[2020-02-13] MEDS: morphine ER 30mg tablet PO SCH ×2 (08:23→21:02)
[2020-02-13] MEDS: aspirin 325mg tablet PO SCH (08:23)
[2020-02-13] MEDS: guaiFENesin ER 600mg tablet PO SCH ×2 (08:23→21:02)
[2020-02-13] MEDS: atorvastatin 20mg tablet PO SCH ×3 (08:23→08:33)
[2020-02-13] MEDS: varenicline tartrate 0.5mg tablet PO SCH ×2 (08:23→21:01)
[2020-02-13] MEDS: gabapentin 300mg capsule PO SCH ×3 (08:24→21:01)
[2020-02-13] MEDS: tacrolimus anhydrous 1mg capsule PO SCH ×2 (08:24→21:03)
[2020-02-13] MEDS: risperiDONE 0.5mg tablet PO SCH ×2 (08:24→21:02)
[2020-02-13] MEDS: phenobarbital 30mg tablet PO SCH ×2 (08:24→21:02)
[2020-02-13] MEDS: mycophenolate sod SR tablet 180 MG TABLET.DR PO SCH ×2 (08:24→21:03)
[2020-02-13] MEDS: predniSONE 5mg tablet PO SCH (08:24)
[2020-02-13 09:14] LABS: BASOPHILS % (AUTO) 0.5 % (0-1); EOSINOPHILS # (AUTO) 0.1 X10'3 (0-0.9); HEMATOCRIT 36.8 % (42.0-52.0); HEMOGLOBIN 11.8 g/dl (14.0-17.9); LYMPHOCYTES % (AUTO) 17.6 % (21-51); MEAN CORPUSCULAR HEMOGLOBIN 28.2 PG (27.0-31.0); MEAN CORPUSCULAR VOLUME 88.1 FL (78-98); MEAN PLATELET VOLUME 7.6 FL (7.4-10.4); MONOCYTES # (AUTO) 0.7 X10'3 (0-0.9); MONOCYTES % (AUTO) 11.8 % (2-12); NEUTROPHILS % (AUTO) 69.1 % (42-75); PLATELET COUNT 127 X10'3 (140-440); RED BLOOD COUNT 4.18 X10'6 (4.70-6.10); RED CELL DISTRIBUTION WIDTH 19.5 % (11.5-14.5); WHITE BLOOD COUNT 5.8 X10'3 (4.5-11.0)
[2020-02-13 09:36] LABS: ALBUMIN 2.2 G/DL (3.4-5.0); ALBUMIN/GLOBULIN RATIO 0.6 (1.1-1.5); ALKALINE PHOSPHATASE 90 IU/L (46-116); ANION GAP 8 (8-16); ASPARTATE AMINO TRANSFERASE 21 U/L (10-37); BILIRUBIN,TOTAL 0.4 MG/DL (0.1-1.0); BLOOD UREA NITROGEN 20 MG/DL (7-18); CHLORIDE 103 MMOL/L (99-107); POTASSIUM 4.2 MMOL/L (3.5-5.1); SODIUM 139 MMOL/L (135-145); TOTAL CARBON DIOXIDE 28.1 MMOL/L (24-32)
[2020-02-13 09:47] LABS: ANISOCYTOSIS 2+; PLATELET ESTIMATE DECREASED
[2020-02-13 09:48] LABS: ALANINE AMINOTRANSFERASE 14 U/L (12-78); BUN/CREATININE RATIO 27.8 (5.4-32.0); CALCIUM 9.1 MG/DL (8.5-10.1); CREATININE 0.72 MG/DL (0.60-1.10); ELLIPTOCYTES FEW; GLUCOSE 127 MG/DL (70-104); SCHISTOCYTES FEW; eGFR > 90 ML/MIN
--- NOTE | 2020-02-13 11:30 | NUR ---
Problems reprioritized. Patient report given, questions answered & plan of care reviewed with Vandana MENDOZA.
--- NOTE | 2020-02-13 14:55 | NUR ---
pt bp low 79/38, taken multiple times...pt requesting pn meds...I took BP 122/68 told pt I could give him 1 percocet 10 for pn. pt refused .and asked to brissa RUBIO.
--- NOTE | 2020-02-13 15:14 | NUR ---
SPOKE WITH DR MURILLO, WANTS ME TO CHECK BP AGAIN AND IF GOOD TO GO AHEAD AND GIVE 2 PERCOCET.
--- NOTE | 2020-02-13 18:36 | NUR ---
Problems reprioritized. Patient report given, questions answered & plan of care reviewed with KELLY HOYT.
--- NOTE | 2020-02-13 18:44 | NUR ---
Patient in room ORTHO 4007. I have received report from Vandana MENDOZA and had the opportunity to ask questions and assume patient care.
[2020-02-13] MEDS: QUEtiapine 25mg tablet PO SCH (21:02)
[2020-02-14] MEDS: VANCOmycin 1250MG/NS 250ml Bag 250 ML IV SCH ×2 (01:08→13:00)
[2020-02-14] MEDS: oxyCODONE/APAP 10/325mg tablet PO PRN ×4 (01:09→22:31)
[2020-02-14 02:00] VITALS: BP 145/91
--- NOTE | 2020-02-14 02:13 | NUR ---
Paged Hospitalist about getting something else for Pts. constipation. Maybe Relistor. MOM has been given four times in the last week with no success. The pt. has not had a BM sense 02/03. to place orders if deemed appropriate. No orders received.
[2020-02-14 06:00] VITALS: BP 119/72
--- NOTE | 2020-02-14 06:31 | NUR ---
Problems reprioritized. Patient report given, questions answered & plan of care reviewed with Tiara MENDOZA.
[2020-02-14] MEDS: levoTHYROXINE 112mcg tablet PO SCH (07:41)
[2020-02-14] MEDS: pantoprazole 40mg Tablet.DR PO SCH (07:41)
[2020-02-14] MEDS: tacrolimus anhydrous 1mg capsule PO SCH ×2 (07:41→20:32)
[2020-02-14] MEDS: tamsulosin 0.4mg capsule PO SCH (07:41)
[2020-02-14] MEDS: gabapentin 300mg capsule PO SCH ×3 (07:41→20:32)
[2020-02-14] MEDS: aspirin 325mg tablet PO SCH (07:41)
[2020-02-14] MEDS: loratadine 10mg tablet PO SCH (07:42)
[2020-02-14] MEDS: guaiFENesin ER 600mg tablet PO SCH ×2 (07:42→20:31)
[2020-02-14] MEDS: varenicline tartrate 0.5mg tablet PO SCH ×2 (07:42→20:31)
[2020-02-14] MEDS: risperiDONE 0.5mg tablet PO SCH ×2 (07:42→20:32)
[2020-02-14] MEDS: predniSONE 5mg tablet PO SCH (07:43)
[2020-02-14] MEDS: morphine ER 30mg tablet PO SCH ×2 (07:44→20:31)
[2020-02-14] MEDS: phenobarbital 30mg tablet PO SCH ×2 (07:45→20:31)
[2020-02-14] MEDS: atorvastatin 20mg tablet PO SCH ×2 (07:50→08:00)
[2020-02-14 07:57] LABS: BASOPHILS % (AUTO) 0.6 % (0-1); EOSINOPHILS # (AUTO) 0.1 X10'3 (0-0.9); EOSINOPHILS % (AUTO) 1.9 % (0-6); HEMATOCRIT 37.5 % (42.0-52.0); HEMOGLOBIN 12.3 g/dl (14.0-17.9); LYMPHOCYTES # (AUTO) 1.1 X10'3 (1.1-4.8); LYMPHOCYTES % (AUTO) 24.4 % (21-51); MEAN CORPUSCULAR HEMOGLOBIN 28.5 PG (27.0-31.0); MEAN CORPUSCULAR HGB CONC 32.7 g/dL (33.0-36.5); MEAN CORPUSCULAR VOLUME 87.2 FL (78-98); MEAN PLATELET VOLUME 7.5 FL (7.4-10.4); MONOCYTES # (AUTO) 0.5 X10'3 (0-0.9); MONOCYTES % (AUTO) 10.7 % (2-12); NEUTROPHILS # (AUTO) 2.7 X10'3 (1.8-7.7); NEUTROPHILS % (AUTO) 62.4 % (42-75); PLATELET COUNT 152 X10'3 (140-440); RED CELL DISTRIBUTION WIDTH 19.1 % (11.5-14.5); WHITE BLOOD COUNT 4.3 X10'3 (4.5-11.0)
[2020-02-14] MEDS: lactose-reduced food (Ensure Enlive) - 237ml bottle PO SCH ×3 (08:00→18:48)
[2020-02-14] MEDS: lisinopril 5mg tablet PO SCH (08:00)
[2020-02-14 08:32] LABS: ALANINE AMINOTRANSFERASE 17 U/L (12-78); ALBUMIN 2.3 G/DL (3.4-5.0); ALBUMIN/GLOBULIN RATIO 0.6 (1.1-1.5); ALKALINE PHOSPHATASE 103 IU/L (46-116); ANION GAP 6 (8-16); ASPARTATE AMINO TRANSFERASE 22 U/L (10-37); BILIRUBIN,TOTAL 0.4 MG/DL (0.1-1.0); BLOOD UREA NITROGEN 22 MG/DL (7-18); BUN/CREATININE RATIO 31.9 (5.4-32.0); CALCIUM 9.2 MG/DL (8.5-10.1); CHLORIDE 103 MMOL/L (99-107); CREATININE 0.69 MG/DL (0.60-1.10); GLUCOSE 89 MG/DL (70-104); POTASSIUM 4.2 MMOL/L (3.5-5.1); SODIUM 139 MMOL/L (135-145); TOTAL CARBON DIOXIDE 29.9 MMOL/L (24-32); TOTAL PROTEIN 6.3 G/DL (6.4-8.2); eGFR > 90 ML/MIN
[2020-02-14] MEDS: mycophenolate sod SR tablet 180 MG TABLET.DR PO SCH ×2 (09:17→20:31)
[2020-02-14 09:19] LABS: ANISOCYTOSIS 2+; ELLIPTOCYTES FEW; PLATELET ESTIMATE NORMAL; SCHISTOCYTES FEW
[2020-02-14 10:00] VITALS: BP 132/81
[2020-02-14] MEDS ORDERED: VANCOMYCIN LEVEL IV ONE (12:30)
[2020-02-14 18:00] VITALS: BP 145/99
--- NOTE | 2020-02-14 18:34 | NUR ---
Patient in room ORTHO 4007. I have received report from Tiara MENDOZA and had the opportunity to ask questions and assume patient care.
[2020-02-14] MEDS ORDERED: bisacodyl 10mg suppository rectal RC PRN (20:15)
[2020-02-14] MEDS: polyethylene glycol 3350 17gm powd pack PO SCH (20:32)
[2020-02-14] MEDS: QUEtiapine 25mg tablet PO SCH (20:32)
[2020-02-14] MEDS: docusate sod 100mg capsule PO SCH (20:32)
[2020-02-14] MEDS ORDERED: vancomycin/NS 1 GM ADD-VANTAGE 250 ML X 1 DOSE IV ONE (21:40)
[2020-02-14 22:00] VITALS: BP 153/86
[2020-02-14] MEDS: enoxaparin 40mg/0.4ml syringe SUBCUT SCH (22:31)
[2020-02-15 02:00] VITALS: BP 132/83
[2020-02-15] MEDS: oxyCODONE/APAP 10/325mg tablet PO PRN ×3 (04:41→17:05)
[2020-02-15] MEDS ORDERED: VANCOmycin 1250MG/NS 250ml Bag 250 ML IV SCH (05:00)
[2020-02-15 06:00] VITALS: BP 133/82
--- NOTE | 2020-02-15 06:29 | NUR ---
Problems reprioritized. Patient report given, questions answered & plan of care reviewed with Andressa MENDOZA.
[2020-02-15 07:54] LABS: BASOPHILS % (AUTO) 0.5 % (0-1); EOSINOPHILS # (AUTO) 0.1 X10'3 (0-0.9); EOSINOPHILS % (AUTO) 2.2 % (0-6); HEMOGLOBIN 11.7 g/dl (14.0-17.9); LYMPHOCYTES # (AUTO) 0.7 X10'3 (1.1-4.8); LYMPHOCYTES % (AUTO) 17.6 % (21-51); MEAN CORPUSCULAR HEMOGLOBIN 27.9 PG (27.0-31.0); MEAN CORPUSCULAR HGB CONC 32.5 g/dL (33.0-36.5); MEAN CORPUSCULAR VOLUME 85.8 FL (78-98); MEAN PLATELET VOLUME 7.3 FL (7.4-10.4); MONOCYTES # (AUTO) 0.7 X10'3 (0-0.9); MONOCYTES % (AUTO) 16.2 % (2-12); NEUTROPHILS # (AUTO) 2.7 X10'3 (1.8-7.7); NEUTROPHILS % (AUTO) 63.5 % (42-75); PLATELET COUNT 143 X10'3 (140-440); RED BLOOD COUNT 4.19 X10'6 (4.70-6.10); RED CELL DISTRIBUTION WIDTH 19.2 % (11.5-14.5); WHITE BLOOD COUNT 4.2 X10'3 (4.5-11.0)
[2020-02-15] MEDS: lisinopril 5mg tablet PO SCH (08:00)
[2020-02-15] MEDS: pantoprazole 40mg Tablet.DR PO SCH (08:30)
[2020-02-15] MEDS: atorvastatin 20mg tablet PO SCH (08:30)
[2020-02-15] MEDS: gabapentin 300mg capsule PO SCH ×3 (08:30→20:33)
[2020-02-15] MEDS: varenicline tartrate 0.5mg tablet PO SCH ×2 (08:30→20:33)
[2020-02-15] MEDS: risperiDONE 0.5mg tablet PO SCH ×2 (08:30→20:33)
[2020-02-15] MEDS: phenobarbital 30mg tablet PO SCH ×3 (08:30→20:33)
[2020-02-15] MEDS: morphine ER 30mg tablet PO SCH ×2 (08:30→20:32)
[2020-02-15] MEDS: docusate sod 100mg capsule PO SCH ×2 (08:31→20:32)
[2020-02-15] MEDS: aspirin 325mg tablet PO SCH (08:31)
[2020-02-15] MEDS: tacrolimus anhydrous 1mg capsule PO SCH ×2 (08:31→20:33)
[2020-02-15] MEDS: guaiFENesin ER 600mg tablet PO SCH ×2 (08:31→20:32)
[2020-02-15] MEDS: loratadine 10mg tablet PO SCH (08:31)
[2020-02-15] MEDS: predniSONE 5mg tablet PO SCH (08:31)
[2020-02-15] MEDS: mycophenolate sod SR tablet 180 MG TABLET.DR PO SCH ×2 (08:32→20:33)
[2020-02-15] MEDS: lactose-reduced food (Ensure Enlive) - 237ml bottle PO SCH ×4 (08:32→20:34)
[2020-02-15] MEDS: levoTHYROXINE 112mcg tablet PO SCH (08:34)
[2020-02-15] MEDS: tamsulosin 0.4mg capsule PO SCH (08:34)
[2020-02-15 08:49] LABS: ALANINE AMINOTRANSFERASE 15 U/L (12-78); ALBUMIN 2.3 G/DL (3.4-5.0); ALBUMIN/GLOBULIN RATIO 0.6 (1.1-1.5); ALKALINE PHOSPHATASE 97 IU/L (46-116); ANION GAP 5 (8-16); ASPARTATE AMINO TRANSFERASE 20 U/L (10-37); BILIRUBIN,TOTAL 0.5 MG/DL (0.1-1.0); BLOOD UREA NITROGEN 33 MG/DL (7-18); BUN/CREATININE RATIO 26.6 (5.4-32.0); CHLORIDE 100 MMOL/L (99-107); CREATININE 1.24 MG/DL (0.60-1.10); GLUCOSE 88 MG/DL (70-104); POTASSIUM 4.7 MMOL/L (3.5-5.1); SODIUM 136 MMOL/L (135-145); TOTAL CARBON DIOXIDE 30.9 MMOL/L (24-32); TOTAL PROTEIN 6.1 G/DL (6.4-8.2); eGFR 59 ML/MIN
[2020-02-15 09:10] LABS: CALCIUM 9.4 MG/DL (8.5-10.1)
[2020-02-15 09:29] LABS: TOTAL CELLS COUNTED 100
[2020-02-15 09:30] LABS: ANISOCYTOSIS 2+; PLATELET ESTIMATE NORMAL
[2020-02-15 09:31] LABS: SCHISTOCYTES FEW
--- NOTE | 2020-02-15 09:47 | NUR ---
Called lab about phenobarital lab, still pending, sent to [facility]. Called pharmacy, informed Charles that lab was still pending, states its okay to give.
[2020-02-15 09:57] VITALS: BP 103/69
[2020-02-15] MEDS ORDERED: VANCOMYCIN LEVEL IV ONE (12:30)
[2020-02-15 14:10] VITALS: BP 108/69
--- NOTE | 2020-02-15 17:27 | NUR ---
Patient states that he is constipated but is sitting up on wheelchair and doesn't want to go back to bed.
--- NOTE | 2020-02-15 17:47 | NUR ---
Patient put back in bed, suppository administered, and patient put on bedpan
[2020-02-15 18:00] VITALS: BP 103/61
--- NOTE | 2020-02-15 18:25 | NUR ---
Patient in room ORTHO 4007. I have received report from Andressa MENDOZA and had the opportunity to ask questions and assume patient care.
--- NOTE | 2020-02-15 18:30 | NUR ---
Problems reprioritized. Patient report given, questions answered & plan of care reviewed with Aylin MENDOZA.
[2020-02-15] MEDS: polyethylene glycol 3350 17gm powd pack PO SCH (20:32)
[2020-02-15] MEDS: QUEtiapine 25mg tablet PO SCH (20:33)
[2020-02-15] MEDS: enoxaparin 40mg/0.4ml syringe SUBCUT SCH (20:34)
[2020-02-15 22:00] VITALS: BP 152/85
[2020-02-16 02:00] VITALS: BP 155/82
[2020-02-16] MEDS: oxyCODONE/APAP 10/325mg tablet PO PRN ×3 (05:30→19:11)
[2020-02-16 06:00] VITALS: BP 180/96
--- NOTE | 2020-02-16 06:33 | NUR ---
Problems reprioritized. Patient report given, questions answered & plan of care reviewed with Andressa MENDOZA.
[2020-02-16] MEDS: aspirin 325mg tablet PO SCH (07:16)
[2020-02-16] MEDS: varenicline tartrate 0.5mg tablet PO SCH ×2 (07:16→20:56)
[2020-02-16] MEDS: guaiFENesin ER 600mg tablet PO SCH ×2 (07:17→20:57)
[2020-02-16] MEDS: tamsulosin 0.4mg capsule PO SCH (07:17)
[2020-02-16] MEDS: predniSONE 5mg tablet PO SCH (07:17)
[2020-02-16] MEDS: phenobarbital 30mg tablet PO SCH ×2 (07:17→20:57)
[2020-02-16] MEDS: gabapentin 300mg capsule PO SCH ×3 (07:17→20:58)
[2020-02-16] MEDS: levoTHYROXINE 112mcg tablet PO SCH (07:17)
[2020-02-16] MEDS: loratadine 10mg tablet PO SCH (07:17)
[2020-02-16] MEDS: atorvastatin 20mg tablet PO SCH (07:17)
[2020-02-16] MEDS: morphine ER 30mg tablet PO SCH ×2 (07:17→20:57)
[2020-02-16] MEDS: pantoprazole 40mg Tablet.DR PO SCH (07:17)
[2020-02-16] MEDS: risperiDONE 0.5mg tablet PO SCH ×2 (07:17→20:58)
[2020-02-16] MEDS: docusate sod 100mg capsule PO SCH ×2 (07:17→20:56)
[2020-02-16] MEDS: lactose-reduced food (Ensure Enlive) - 237ml bottle PO SCH ×3 (07:18→18:02)
[2020-02-16] MEDS: tacrolimus anhydrous 1mg capsule PO SCH ×2 (07:18→20:58)
[2020-02-16] MEDS: mycophenolate sod SR tablet 180 MG TABLET.DR PO SCH ×2 (07:18→20:57)
[2020-02-16] MEDS: lisinopril 5mg tablet PO SCH (07:30)
[2020-02-16 08:37] LABS: BASOPHILS % (AUTO) 0.4 % (0-1); EOSINOPHILS # (AUTO) 0.1 X10'3 (0-0.9); HEMATOCRIT 40.2 % (42.0-52.0); LYMPHOCYTES % (AUTO) 22.2 % (21-51); MEAN CORPUSCULAR HEMOGLOBIN 28.3 PG (27.0-31.0); MEAN CORPUSCULAR HGB CONC 32.3 g/dL (33.0-36.5); MEAN CORPUSCULAR VOLUME 87.5 FL (78-98); MEAN PLATELET VOLUME 7.7 FL (7.4-10.4); MONOCYTES # (AUTO) 0.6 X10'3 (0-0.9); MONOCYTES % (AUTO) 11.9 % (2-12); NEUTROPHILS % (AUTO) 63.5 % (42-75); PLATELET COUNT 143 X10'3 (140-440); RED CELL DISTRIBUTION WIDTH 18.8 % (11.5-14.5); WHITE BLOOD COUNT 4.7 X10'3 (4.5-11.0)
[2020-02-16 09:27] LABS: ALANINE AMINOTRANSFERASE 19 U/L (12-78); ALBUMIN 2.6 G/DL (3.4-5.0); ALBUMIN/GLOBULIN RATIO 0.6 (1.1-1.5); ALKALINE PHOSPHATASE 115 IU/L (46-116); ANION GAP 10 (8-16); ASPARTATE AMINO TRANSFERASE 23 U/L (10-37); BILIRUBIN,TOTAL 0.4 MG/DL (0.1-1.0); BLOOD UREA NITROGEN 37 MG/DL (7-18); BUN/CREATININE RATIO 28.2 (5.4-32.0); CALCIUM 9.9 MG/DL (8.5-10.1); CHLORIDE 99 MMOL/L (99-107); CREATININE 1.31 MG/DL (0.60-1.10); GLUCOSE 89 MG/DL (70-104); POTASSIUM 5.2 MMOL/L (3.5-5.1); SODIUM 137 MMOL/L (135-145); TOTAL CARBON DIOXIDE 28.4 MMOL/L (24-32); TOTAL PROTEIN 6.9 G/DL (6.4-8.2); eGFR 56 ML/MIN
[2020-02-16 10:00] VITALS: BP 115/73
[2020-02-16] MEDS ORDERED: VANCOMYCIN LEVEL IV ONE (12:00)
[2020-02-16 14:00] VITALS: BP 95/58
[2020-02-16] MEDS: vancomycin inj. 750 MG in normal saline 250ml IV soln 250 ML IV SCH (17:04)
[2020-02-16 18:00] VITALS: BP 149/84
--- NOTE | 2020-02-16 18:30 | NUR ---
Patient in room ORTHO 4007. I have received report from Dariel MENDOZA and had the opportunity to ask questions and assume patient care.
--- NOTE | 2020-02-16 18:30 | NUR ---
Problems reprioritized. Patient report given, questions answered & plan of care reviewed with Vandana MENDOZA.
[2020-02-16] MEDS: enoxaparin 40mg/0.4ml syringe SUBCUT SCH (20:58)
[2020-02-16] MEDS: QUEtiapine 25mg tablet PO SCH (20:58)
[2020-02-16] MEDS: polyethylene glycol 3350 17gm powd pack PO SCH (21:00)
[2020-02-16 22:00] VITALS: BP 164/86
[2020-02-17] VITALS (7 sets, daily range): BP systolic 116–157; BP diastolic 63–92
[2020-02-17] MEDS: vancomycin inj. 750 MG in normal saline 250ml IV soln 250 ML IV SCH ×2 (04:01→15:27)
[2020-02-17] MEDS: oxyCODONE/APAP 10/325mg tablet PO PRN ×3 (04:28→17:01)
--- NOTE | 2020-02-17 06:41 | NUR ---
Problems reprioritized. Patient report given, questions answered & plan of care reviewed with Kianna MENDOZA.
[2020-02-17 07:57] LABS: BASOPHILS % (AUTO) 0.5 % (0-1); EOSINOPHILS # (AUTO) 0.1 X10'3 (0-0.9); EOSINOPHILS % (AUTO) 2.3 % (0-6); HEMATOCRIT 34.2 % (42.0-52.0); HEMOGLOBIN 11.3 g/dl (14.0-17.9); LYMPHOCYTES # (AUTO) 0.9 X10'3 (1.1-4.8); LYMPHOCYTES % (AUTO) 19.8 % (21-51); MEAN CORPUSCULAR HEMOGLOBIN 28.7 PG (27.0-31.0); MEAN CORPUSCULAR VOLUME 86.9 FL (78-98); MEAN PLATELET VOLUME 7.9 FL (7.4-10.4); MONOCYTES # (AUTO) 0.5 X10'3 (0-0.9); MONOCYTES % (AUTO) 11.1 % (2-12); NEUTROPHILS # (AUTO) 2.9 X10'3 (1.8-7.7); NEUTROPHILS % (AUTO) 66.3 % (42-75); PLATELET COUNT 154 X10'3 (140-440); RED BLOOD COUNT 3.93 X10'6 (4.70-6.10); RED CELL DISTRIBUTION WIDTH 18.7 % (11.5-14.5); WHITE BLOOD COUNT 4.4 X10'3 (4.5-11.0)
[2020-02-17] MEDS: lactose-reduced food (Ensure Enlive) - 237ml bottle PO SCH ×3 (08:00→20:04)
[2020-02-17] MEDS: lisinopril 5mg tablet PO SCH (08:00)
[2020-02-17] MEDS: morphine ER 30mg tablet PO SCH ×2 (08:12→19:57)
[2020-02-17 08:47] LABS: ALANINE AMINOTRANSFERASE 16 U/L (12-78); ALBUMIN 2.3 G/DL (3.4-5.0); ALBUMIN/GLOBULIN RATIO 0.6 (1.1-1.5); ALKALINE PHOSPHATASE 103 IU/L (46-116); ANION GAP 6 (8-16); ASPARTATE AMINO TRANSFERASE 17 U/L (10-37); BILIRUBIN,TOTAL 0.3 MG/DL (0.1-1.0); BLOOD UREA NITROGEN 32 MG/DL (7-18); BUN/CREATININE RATIO 34.8 (5.4-32.0); CALCIUM 9.1 MG/DL (8.5-10.1); CHLORIDE 101 MMOL/L (99-107); CREATININE 0.92 MG/DL (0.60-1.10); GLUCOSE 78 MG/DL (70-104); POTASSIUM 4.7 MMOL/L (3.5-5.1); SODIUM 137 MMOL/L (135-145); TOTAL CARBON DIOXIDE 29.7 MMOL/L (24-32); TOTAL PROTEIN 6.1 G/DL (6.4-8.2); eGFR 84 ML/MIN
[2020-02-17] MEDS: enoxaparin 40mg/0.4ml syringe SUBCUT SCH ×2 (11:04→19:59)
[2020-02-17] MEDS: phenobarbital 30mg tablet PO SCH ×2 (11:04→19:57)
[2020-02-17] MEDS: tamsulosin 0.4mg capsule PO SCH (11:05)
[2020-02-17] MEDS: levoTHYROXINE 112mcg tablet PO SCH (11:05)
[2020-02-17] MEDS: pantoprazole 40mg Tablet.DR PO SCH (11:05)
[2020-02-17] MEDS: loratadine 10mg tablet PO SCH (11:05)
[2020-02-17] MEDS: guaiFENesin ER 600mg tablet PO SCH ×2 (11:05→19:57)
[2020-02-17] MEDS: risperiDONE 0.5mg tablet PO SCH ×2 (11:07→19:57)
[2020-02-17] MEDS: atorvastatin 20mg tablet PO SCH (11:07)
[2020-02-17] MEDS: predniSONE 5mg tablet PO SCH (11:07)
[2020-02-17] MEDS: docusate sod 100mg capsule PO SCH ×2 (11:09→19:57)
[2020-02-17] MEDS: aspirin 325mg tablet PO SCH (11:09)
[2020-02-17] MEDS: mycophenolate sod SR tablet 180 MG TABLET.DR PO SCH ×2 (11:10→19:58)
[2020-02-17] MEDS: varenicline tartrate 0.5mg tablet PO SCH (11:10)
[2020-02-17] MEDS: tizanidine 4mg tablet PO PRN (11:10)
[2020-02-17] MEDS: gabapentin 300mg capsule PO SCH ×3 (11:11→20:03)
[2020-02-17] MEDS: tacrolimus anhydrous 1mg capsule PO SCH ×2 (11:11→19:58)
--- NOTE | 2020-02-17 12:10 | NUR ---
Reassessment: Patient's PO intake has declined to average 25-50% of meals however continues with 75-100% PO intake of Ensure Enlive TID. With combined PO intake of meals and ONS pt meeting 87-100% EEN and 100% EPN. LBM 02/15. No further nutrition intervention warranted at this time. Will continue to follow. Recommend: 1. continue regular diet 2. continue Ensure Enlive 3. routine bowel care 4. scaled weights per rx Addendum: 02/17/20 at [address] Amended: Links added.
--- NOTE | 2020-02-17 18:22 | NUR ---
Problems reprioritized. Patient report given, questions answered & plan of care reviewed with Jacqueline MENDOZA.
--- NOTE | 2020-02-17 18:31 | NUR ---
PAGER ID: [phone] MESSAGE: [phone] Kd Mcintosh Patient states he took ASA for the mini stroke (TIA) but got lost in the shuffle. Kianna [phone]
[2020-02-17] MEDS: polyethylene glycol 3350 17gm powd pack PO SCH (20:03)
[2020-02-17] MEDS: QUEtiapine 25mg tablet PO SCH (20:03)
[2020-02-18] MEDS: oxyCODONE/APAP 10/325mg tablet PO PRN ×4 (00:45→21:35)
[2020-02-18 02:00] VITALS: BP 173/96
[2020-02-18] MEDS ORDERED: VANCOMYCIN LEVEL IV ONE (03:30)
[2020-02-18] MEDS: vancomycin inj. 750 MG in normal saline 250ml IV soln 250 ML IV SCH ×2 (03:38→17:22)
--- NOTE | 2020-02-18 04:35 | NUR ---
Vanco trough drawn prior to hanging 0400 Vanco came back critical. Pharmacy notified, Vanco stopped per pharmacy. Will continue to manage vanco levels as ordered. Addendum: 02/18/20 at 0459 by Jacqueline Corbin RN Amended: Links added.
[2020-02-18 04:36] LABS: ALANINE AMINOTRANSFERASE 17 U/L (12-78); ALBUMIN 2.5 G/DL (3.4-5.0); ALBUMIN/GLOBULIN RATIO 0.6 (1.1-1.5); ALKALINE PHOSPHATASE 128 IU/L (46-116); ANION GAP 6 (8-16); ASPARTATE AMINO TRANSFERASE 29 U/L (10-37); BILIRUBIN,TOTAL 0.4 MG/DL (0.1-1.0); BLOOD UREA NITROGEN 28 MG/DL (7-18); BUN/CREATININE RATIO 31.8 (5.4-32.0); CALCIUM 9.5 MG/DL (8.5-10.1); CHLORIDE 101 MMOL/L (99-107); CREATININE 0.88 MG/DL (0.60-1.10); GLUCOSE 84 MG/DL (70-104); POTASSIUM 5.2 MMOL/L (3.5-5.1); SODIUM 137 MMOL/L (135-145); TOTAL CARBON DIOXIDE 30.2 MMOL/L (24-32); TOTAL PROTEIN 6.5 G/DL (6.4-8.2); eGFR 88 ML/MIN
[2020-02-18 06:00] VITALS: BP 175/93
[2020-02-18] MEDS: tamsulosin 0.4mg capsule PO SCH (07:45)
[2020-02-18] MEDS: levoTHYROXINE 112mcg tablet PO SCH (07:46)
[2020-02-18] MEDS: pantoprazole 40mg Tablet.DR PO SCH (07:46)
[2020-02-18] MEDS: guaiFENesin ER 600mg tablet PO SCH ×2 (07:46→20:08)
[2020-02-18] MEDS: atorvastatin 20mg tablet PO SCH (07:46)
[2020-02-18] MEDS: aspirin 325mg tablet PO SCH (07:46)
[2020-02-18] MEDS: lactose-reduced food (Ensure Enlive) - 237ml bottle PO SCH ×3 (07:47→18:00)
[2020-02-18] MEDS: loratadine 10mg tablet PO SCH (07:47)
[2020-02-18] MEDS: docusate sod 100mg capsule PO SCH ×2 (07:47→20:08)
[2020-02-18] MEDS: varenicline tartrate 0.5mg tablet PO SCH (07:47)
[2020-02-18] MEDS: morphine ER 30mg tablet PO SCH ×2 (07:48→20:08)
[2020-02-18] MEDS: mycophenolate sod SR tablet 180 MG TABLET.DR PO SCH ×2 (07:48→20:19)
[2020-02-18] MEDS: predniSONE 5mg tablet PO SCH (07:49)
[2020-02-18] MEDS: phenobarbital 30mg tablet PO SCH ×2 (07:49→20:08)
[2020-02-18] MEDS: tacrolimus anhydrous 1mg capsule PO SCH ×2 (07:49→20:20)
[2020-02-18] MEDS: gabapentin 300mg capsule PO SCH ×3 (07:49→20:08)
[2020-02-18] MEDS: risperiDONE 0.5mg tablet PO SCH ×2 (07:50→20:08)
[2020-02-18] MEDS: lisinopril 5mg tablet PO SCH (08:00)
[2020-02-18 08:19] LABS: BASOPHILS % (AUTO) 0.3 % (0-1); EOSINOPHILS # (AUTO) 0.1 X10'3 (0-0.9); HEMATOCRIT 33.3 % (42.0-52.0); LYMPHOCYTES # (AUTO) 0.8 X10'3 (1.1-4.8); LYMPHOCYTES % (AUTO) 18.3 % (21-51); MEAN CORPUSCULAR HEMOGLOBIN 28.5 PG (27.0-31.0); MEAN CORPUSCULAR VOLUME 86.3 FL (78-98); MEAN PLATELET VOLUME 7.6 FL (7.4-10.4); MONOCYTES # (AUTO) 0.5 X10'3 (0-0.9); MONOCYTES % (AUTO) 12.2 % (2-12); NEUTROPHILS # (AUTO) 2.8 X10'3 (1.8-7.7); NEUTROPHILS % (AUTO) 67.2 % (42-75); PLATELET COUNT 145 X10'3 (140-440); RED BLOOD COUNT 3.86 X10'6 (4.70-6.10); RED CELL DISTRIBUTION WIDTH 18.9 % (11.5-14.5); WHITE BLOOD COUNT 4.1 X10'3 (4.5-11.0)
[2020-02-18 09:47] LABS: PLATELET ESTIMATE NORMAL
[2020-02-18 09:48] LABS: ANISOCYTOSIS 2+; STOMATOCYTES FEW
[2020-02-18 10:00] VITALS: BP 139/77
[2020-02-18 14:00] VITALS: BP 151/89
[2020-02-18 18:00] VITALS: BP 168/96
[2020-02-18] MEDS: enoxaparin 40mg/0.4ml syringe SUBCUT SCH (20:08)
[2020-02-18] MEDS: QUEtiapine 25mg tablet PO SCH (20:08)
[2020-02-18] MEDS: polyethylene glycol 3350 17gm powd pack PO SCH (20:09)
[2020-02-18 22:00] VITALS: BP 142/90
[2020-02-19] MEDS: oxyCODONE/APAP 10/325mg tablet PO PRN ×2 (04:11→11:42)
[2020-02-19] MEDS: vancomycin inj. 750 MG in normal saline 250ml IV soln 250 ML IV SCH (04:11)
[2020-02-19 06:00] VITALS: BP 160/93
--- NOTE | 2020-02-19 06:17 | NUR ---
Report given to jessika Valiente.
[2020-02-19] MEDS: pantoprazole 40mg Tablet.DR PO SCH (07:40)
[2020-02-19] MEDS: levoTHYROXINE 112mcg tablet PO SCH (07:40)
[2020-02-19] MEDS: loratadine 10mg tablet PO SCH (07:41)
[2020-02-19] MEDS: docusate sod 100mg capsule PO SCH (07:41)
[2020-02-19] MEDS: guaiFENesin ER 600mg tablet PO SCH (07:41)
[2020-02-19] MEDS: predniSONE 5mg tablet PO SCH (07:41)
[2020-02-19] MEDS: aspirin 325mg tablet PO SCH (07:41)
[2020-02-19] MEDS: phenobarbital 30mg tablet PO SCH (07:41)
[2020-02-19] MEDS: tamsulosin 0.4mg capsule PO SCH (07:41)
[2020-02-19] MEDS: atorvastatin 20mg tablet PO SCH (07:41)
[2020-02-19] MEDS: risperiDONE 0.5mg tablet PO SCH (07:41)
[2020-02-19] MEDS: gabapentin 300mg capsule PO SCH (07:41)
[2020-02-19] MEDS: morphine ER 30mg tablet PO SCH (07:41)
[2020-02-19] MEDS: varenicline tartrate 0.5mg tablet PO SCH (07:43)
[2020-02-19] MEDS: mycophenolate sod SR tablet 180 MG TABLET.DR PO SCH (07:44)
[2020-02-19] MEDS: tacrolimus anhydrous 1mg capsule PO SCH (07:44)
--- NOTE | 2020-02-19 07:45 | NUR ---
Patient has vehemently refused any bowel care. States he deals with this at home. He will drink mag citrate at home where he can sit on the toilet, not here laying on a bed daniels.
[2020-02-19] MEDS: lactose-reduced food (Ensure Enlive) - 237ml bottle PO SCH ×2 (07:47→13:43)
[2020-02-19] MEDS: lisinopril 5mg tablet PO SCH (08:00)
[2020-02-19 08:15] LABS: BASOPHILS % (AUTO) 0.3 % (0-1); EOSINOPHILS # (AUTO) 0.1 X10'3 (0-0.9); EOSINOPHILS % (AUTO) 1.6 % (0-6); HEMATOCRIT 36.7 % (42.0-52.0); HEMOGLOBIN 11.8 g/dl (14.0-17.9); LYMPHOCYTES # (AUTO) 0.7 X10'3 (1.1-4.8); LYMPHOCYTES % (AUTO) 12.9 % (21-51); MEAN CORPUSCULAR HEMOGLOBIN 27.7 PG (27.0-31.0); MEAN CORPUSCULAR HGB CONC 32.1 g/dL (33.0-36.5); MEAN CORPUSCULAR VOLUME 86.3 FL (78-98); MEAN PLATELET VOLUME 7.4 FL (7.4-10.4); MONOCYTES # (AUTO) 0.5 X10'3 (0-0.9); MONOCYTES % (AUTO) 9.4 % (2-12); NEUTROPHILS # (AUTO) 4.3 X10'3 (1.8-7.7); NEUTROPHILS % (AUTO) 75.8 % (42-75); PLATELET COUNT 163 X10'3 (140-440); RED BLOOD COUNT 4.25 X10'6 (4.70-6.10); RED CELL DISTRIBUTION WIDTH 18.9 % (11.5-14.5); WHITE BLOOD COUNT 5.6 X10'3 (4.5-11.0)
[2020-02-19 09:23] LABS: ALANINE AMINOTRANSFERASE 16 U/L (12-78); ALBUMIN 2.4 G/DL (3.4-5.0); ALBUMIN/GLOBULIN RATIO 0.6 (1.1-1.5); ALKALINE PHOSPHATASE 130 IU/L (46-116); ANION GAP 9 (8-16); ASPARTATE AMINO TRANSFERASE 23 U/L (10-37); BILIRUBIN,TOTAL 0.4 MG/DL (0.1-1.0); BLOOD UREA NITROGEN 26 MG/DL (7-18); BUN/CREATININE RATIO 32.1 (5.4-32.0); CALCIUM 9.6 MG/DL (8.5-10.1); CHLORIDE 101 MMOL/L (99-107); CREATININE 0.81 MG/DL (0.60-1.10); GLUCOSE 88 MG/DL (70-104); POTASSIUM 4.7 MMOL/L (3.5-5.1); SODIUM 137 MMOL/L (135-145); TOTAL PROTEIN 6.4 G/DL (6.4-8.2); eGFR > 90 ML/MIN
[2020-02-19 10:00] VITALS: BP 127/72
[2020-02-19 10:05] LABS: ANISOCYTOSIS 2+; PLATELET ESTIMATE NORMAL
[2020-02-19] MEDS ORDERED: DEXAMETHASONE 6 MG TABLET PO SCH (10:10)
[2020-02-19] MEDS ORDERED: ALBU8.5H8 IH (10:35)
[2020-02-19] MEDS ORDERED: HYDR-4383 PO (10:35)
[2020-02-19] MEDS ORDERED: DEXA6TAB PO (10:35)
[2020-02-20] MEDS ORDERED: VANCOMYCIN LEVEL IV ONE (03:30)
== END 2020-02-19 14:20 | disposition home health service (06) | DRG 255 ==
LOC: ER 11:49 → ED HOLD 13:22 → ORTHO 4S 15:26
PROVIDERS: ADMIT Internal Medicine; ATTEND Internal Medicine
PROC: 0Y6Q0Z0 Detachment at Left 1st Toe, Complete, Open Approach (ICD-10-PCS; principal; 2020-02-05)
DX: E11.52 Type 2 diabetes mellitus with diabetic peripheral angiopathy with gangrene (principal); U07.1 COVID-19; I96 Gangrene, not elsewhere classified; Z94.0 Kidney transplant status; I12.0 Hypertensive chronic kidney disease with stage 5 chronic kidney disease or end stage renal disease; Z94.83 Pancreas transplant status; M86.172 Other acute osteomyelitis, left ankle and foot; E03.9 Hypothyroidism, unspecified; E11.22 Type 2 diabetes mellitus with diabetic chronic kidney disease; E11.42 Type 2 diabetes mellitus with diabetic polyneuropathy; E78.00 Pure hypercholesterolemia, unspecified; E78.5 Hyperlipidemia, unspecified; F17.210 Nicotine dependence, cigarettes, uncomplicated; G40.909 Epilepsy, unspecified, not intractable, without status epilepticus; G47.00 Insomnia, unspecified; I25.10 Atherosclerotic heart disease of native coronary artery without angina pectoris; I48.91 Unspecified atrial fibrillation; J44.9 Chronic obstructive pulmonary disease, unspecified; M54.9 Dorsalgia, unspecified; G89.29 Other chronic pain; K21.9 Gastro-esophageal reflux disease without esophagitis; N40.0 Benign prostatic hyperplasia without lower urinary tract symptoms; Z85.850 Personal history of malignant neoplasm of thyroid; Z89.511 Acquired absence of right leg below knee; Z87.01 Personal history of pneumonia (recurrent); Z79.899 Other long term (current) drug therapy
CPT/HCPCS: 36415; 71045; 73630; 75635; 76937; 80048; 80053; 80202; 83036; 83605; 83735; 83880; 84145; 84436; 84443; 85007; 85008; 85025; 85651; 87040; 87077; 87081; 87186; 87635; 93005; 93308; 93922; 93926; 94760; 96365; 96375; 97110; 97161; 97530; 99285; A4618; A6222; A6446; A6449; A7000; C9803; G0378; J0696; J1650; J2250; J2270; J2405; J2704; J2795; J3010; J3370; J3490; J7050; J7120; J7512; J7518; J8540; Q9967

== ENCOUNTER 2020-02-21 13:50 | Emergency (ER) | payer MEDICARE, MEDICAID ==
[~2020-02-21] VITALS: Ht 190.5 cm; Wt 68.2 kg
[~2020-02-21 13:50] MED LIST changes: +ALBU8.5H8 IH; -BETA15CR4 TOP; -BUDE10.22 INH; +DEXA6TAB PO; +FLO0.4C PO; -FLUO10CA51 PO; +GABA300S PO; -HYDR-4353 PO; +HYDR-4383 PO; -PRED5TAB PO
[2020-02-21] MEDS ORDERED: morphine 4 MG/ML inj SYRINge IV PRN (14:35)
[2020-02-21] MEDS ORDERED: ondansetron/PF 4mg/2ml inj IV ONE (14:35)
[2020-02-21] MEDS ORDERED: normal saline 1000ML IV soln IVB ONE (14:35)
[2020-02-21 15:00] LABS: BASOPHILS % (AUTO) 0.7 % (0-1); EOSINOPHILS # (AUTO) 0.1 X10'3 (0-0.9); EOSINOPHILS % (AUTO) 2.5 % (0-6); HEMATOCRIT 37.1 % (42.0-52.0); LYMPHOCYTES # (AUTO) 0.9 X10'3 (1.1-4.8); LYMPHOCYTES % (AUTO) 17.3 % (21-51); MEAN CORPUSCULAR HEMOGLOBIN 27.9 PG (27.0-31.0); MEAN CORPUSCULAR HGB CONC 32.4 g/dL (33.0-36.5); MEAN CORPUSCULAR VOLUME 86.1 FL (78-98); MEAN PLATELET VOLUME 6.8 FL (7.4-10.4); MONOCYTES # (AUTO) 0.6 X10'3 (0-0.9); MONOCYTES % (AUTO) 11.6 % (2-12); NEUTROPHILS # (AUTO) 3.4 X10'3 (1.8-7.7); NEUTROPHILS % (AUTO) 67.9 % (42-75); PLATELET COUNT 195 X10'3 (140-440); RED BLOOD COUNT 4.31 X10'6 (4.70-6.10); RED CELL DISTRIBUTION WIDTH 19.1 % (11.5-14.5)
[2020-02-21 15:15] LABS: ALANINE AMINOTRANSFERASE 15 U/L (12-78); ALBUMIN 2.3 G/DL (3.4-5.0); ALBUMIN/GLOBULIN RATIO 0.6 (1.1-1.5); ALKALINE PHOSPHATASE 140 IU/L (46-116); ANION GAP 7 (8-16); ASPARTATE AMINO TRANSFERASE 21 U/L (10-37); BILIRUBIN,TOTAL 0.4 MG/DL (0.1-1.0); BLOOD UREA NITROGEN 24 MG/DL (7-18); BUN/CREATININE RATIO 27.9 (5.4-32.0); C-REACTIVE PROTEIN 12.97 MG/DL (0.0-0.5); CALCIUM 9.1 MG/DL (8.5-10.1); CHLORIDE 103 MMOL/L (99-107); CREATININE 0.86 MG/DL (0.60-1.10); GLUCOSE 94 MG/DL (70-104); POTASSIUM 4.1 MMOL/L (3.5-5.1); SODIUM 138 MMOL/L (135-145); TOTAL PROTEIN 6.2 G/DL (6.4-8.2); eGFR 90 ML/MIN
[2020-02-21 15:20] LABS: ANISOCYTOSIS 2+; PLATELET ESTIMATE NORMAL
[2020-02-21] MEDS ORDERED: HYDROcodone/acetaminophen 10/325mg tab PO ONE (15:30)
[2020-02-21 16:54] VITALS: BP 168/94
== END 2020-02-21 21:15 | disposition home or self-care (01) ==
LOC: ER 13:51
DX: G89.18 Other acute postprocedural pain (principal); R06.02 Shortness of breath; E11.42 Type 2 diabetes mellitus with diabetic polyneuropathy; I48.91 Unspecified atrial fibrillation; I25.10 Atherosclerotic heart disease of native coronary artery without angina pectoris; E78.00 Pure hypercholesterolemia, unspecified; I10 Essential (primary) hypertension; J44.9 Chronic obstructive pulmonary disease, unspecified; K21.9 Gastro-esophageal reflux disease without esophagitis; E03.9 Hypothyroidism, unspecified; G89.29 Other chronic pain; F15.90 Other stimulant use, unspecified, uncomplicated; F11.90 Opioid use, unspecified, uncomplicated; Z86.69 Personal history of other diseases of the nervous system and sense organs; Z86.19 Personal history of other infectious and parasitic diseases; Z87.01 Personal history of pneumonia (recurrent); Z87.440 Personal history of urinary (tract) infections; Z85.9 Personal history of malignant neoplasm, unspecified; Z79.899 Other long term (current) drug therapy
CPT/HCPCS: 96361; 96374; 96375; 99284; J2270; J2405; J7030; 36415; 71045; 80053; 82948; 83605; 84145; 85008; 85025; 85651; 86140; 87040

== ENCOUNTER 2020-03-03 08:31 | Emergency (ER) | payer MEDICARE, MEDICAID ==
[~2020-03-03] VITALS: Ht 190.5 cm; Wt 77.3 kg
[~2020-03-03 08:31] MED LIST changes: -ALBU8.5H8 IH; -DEXA6TAB PO; -HYDR-4383 PO
[2020-03-03] MEDS ORDERED: normal saline 1000ML IV soln IV ONE (08:40)
[2020-03-03 09:11] LABS: CLARITY,URINE CLEAR (Clear); COLOR,URINE YELLOW (Yellow); GLUCOSE, URINE NEGATIVE (Neg); KETONES,URINE NEGATIVE (Neg); LEUKOCYTE ESTERASE ,URINE NEGATIVE (Neg); NITRITES, URINE NEGATIVE (Neg); OCCULT BLOOD,URINE NEGATIVE (Neg); PH,URINE 7.5 (4.8-8.0); PROTEIN,URINE NEGATIVE (Neg); UROBILINOGEN,URINE 0.2 E.U/dL (0.2-1.0)
[2020-03-03 09:12] LABS: UA COLLECTION TYPE FOLEY CATH
[2020-03-03 09:27] LABS: BASOPHILS # (AUTO) 0.1 X10'3 (0-0.2); BASOPHILS % (AUTO) 0.6 % (0-1); EOSINOPHILS # (AUTO) 0.1 X10'3 (0-0.9); EOSINOPHILS % (AUTO) 1.2 % (0-6); HEMOGLOBIN 11.3 g/dl (14.0-17.9); LYMPHOCYTES # (AUTO) 0.4 X10'3 (1.1-4.8); LYMPHOCYTES % (AUTO) 4.9 % (21-51); MEAN CORPUSCULAR HEMOGLOBIN 27.9 PG (27.0-31.0); MEAN CORPUSCULAR HGB CONC 32.3 g/dL (33.0-36.5); MEAN CORPUSCULAR VOLUME 86.3 FL (78-98); MEAN PLATELET VOLUME 7.2 FL (7.4-10.4); MONOCYTES # (AUTO) 0.7 X10'3 (0-0.9); MONOCYTES % (AUTO) 7.2 % (2-12); NEUTROPHILS # (AUTO) 7.9 X10'3 (1.8-7.7); NEUTROPHILS % (AUTO) 86.1 % (42-75); PLATELET COUNT 223 X10'3 (140-440); RED BLOOD COUNT 4.06 X10'6 (4.70-6.10); RED CELL DISTRIBUTION WIDTH 18.2 % (11.5-14.5); WHITE BLOOD COUNT 9.1 X10'3 (4.5-11.0)
[2020-03-03 09:36] LABS: ALANINE AMINOTRANSFERASE 14 U/L (12-78); ALBUMIN 2.5 G/DL (3.4-5.0); ALBUMIN/GLOBULIN RATIO 0.6 (1.1-1.5); ALKALINE PHOSPHATASE 118 IU/L (46-116); ANION GAP 6 (8-16); ASPARTATE AMINO TRANSFERASE 23 U/L (10-37); BILIRUBIN,TOTAL 0.3 MG/DL (0.1-1.0); BLOOD UREA NITROGEN 16 MG/DL (7-18); BUN/CREATININE RATIO 24.2 (5.4-32.0); CALCIUM 9.7 MG/DL (8.5-10.1); CHLORIDE 105 MMOL/L (99-107); CREATININE 0.66 MG/DL (0.60-1.10); GLUCOSE 110 MG/DL (70-104); MAGNESIUM 1.6 MG/DL (1.5-2.4); POTASSIUM 4.3 MMOL/L (3.5-5.1); SODIUM 141 MMOL/L (135-145); TOTAL CARBON DIOXIDE 30.4 MMOL/L (24-32); TOTAL PROTEIN 6.5 G/DL (6.4-8.2); eGFR > 90 ML/MIN
[2020-03-03 09:40] LABS: ABG BASE EXCESS 2.1 mmol/L (-2.0-2.0); ABG HCO3 27.4 mmol/L (22.0-26.0); ABG OXYGEN SATURATION 90.8 % (94-97); ABG PCO2 (T) 45.7 mmHg (35.0-48.0); ABG PO2 (T) 64.5 mmHg (75.0-100.0); FCOHb 1.1 % (0.0-3.9); FLOW 5 L/min; FMetHb 0.3 % (0.0-1.5); FO2Hb 89.5 % (94-97); TOTAL HEMOGLOBIN 11.2 G/dl (14.0-18.0)
--- NOTE | 2020-03-03 09:49 | NUR ---
dr. monroe at bedside. pictures of left foot and sacral area taken
[2020-03-03] MEDS ORDERED: iohexol 350MG/ML 100ml bottle IV ONE (10:22)
[2020-03-03 11:49] VITALS: BP 108/69
--- NOTE | 2020-03-03 12:11 | NUR ---
leonardo bag drained output 550cc light thoe urine
== END 2020-03-03 12:45 | disposition short-term general hospital (02) ==
LOC: ER 08:31
DX: I95.9 Hypotension, unspecified (principal); J18.1 Lobar pneumonia, unspecified organism; R41.82 Altered mental status, unspecified; E11.42 Type 2 diabetes mellitus with diabetic polyneuropathy; I48.91 Unspecified atrial fibrillation; I25.10 Atherosclerotic heart disease of native coronary artery without angina pectoris; E78.00 Pure hypercholesterolemia, unspecified; J44.9 Chronic obstructive pulmonary disease, unspecified; K21.9 Gastro-esophageal reflux disease without esophagitis; E03.9 Hypothyroidism, unspecified; G89.29 Other chronic pain; M81.0 Age-related osteoporosis without current pathological fracture; F15.90 Other stimulant use, unspecified, uncomplicated; F11.90 Opioid use, unspecified, uncomplicated; Z86.69 Personal history of other diseases of the nervous system and sense organs; Z87.01 Personal history of pneumonia (recurrent); Z87.19 Personal history of other diseases of the digestive system; Z86.19 Personal history of other infectious and parasitic diseases; Z99.2 Dependence on renal dialysis; Z94.0 Kidney transplant status; Z87.440 Personal history of urinary (tract) infections; Z87.81 Personal history of (healed) traumatic fracture; Z85.9 Personal history of malignant neoplasm, unspecified; Z94.83 Pancreas transplant status; Z89.511 Acquired absence of right leg below knee; Z79.899 Other long term (current) drug therapy
CPT/HCPCS: 36415; 36600; 71045; 71275; 80053; 81003; 82803; 83605; 83735; 84145; 85018; 85025; 87040; 93005; 96360; 99285; J7030; Q9967

== ENCOUNTER 2020-06-10 14:27 | Emergency (ER) | payer MEDICARE, MEDICAID ==
[~2020-06-10] VITALS: Ht 190.5 cm; Wt 67.3 kg
[~2020-06-10 14:27] MED LIST changes: -LISI-604 PO; +LISI-790 PO
[2020-06-10] MEDS ORDERED: diazepam 5mg tablet PO ONE (15:20)
[2020-06-10] MEDS ORDERED: HYDROcodone/acetaminophen 10/325mg tab PO ONE (16:10)
--- NOTE | 2020-06-10 16:47 | NUR ---
PT MEDICATED FOR PAIN. REPOSITION PT TO LEFT SIDE OFF HIS BED SORE.
[2020-06-10] MEDS ORDERED: LIDOcaine 5% patch TP SCH (17:05)
[2020-06-10] MEDS ORDERED: ketorolac trometh. 30mg/ml inj. IM ONE (17:10)
--- NOTE | 2020-06-10 18:34 | NUR ---
Report recieved from KELLY Carr. Pt laying in bed talking on phone, propped on left side slightly. Advised pt has been medicated for pain and that Dr. Rosario advised to have pt attempt to transfer himself to his wheelchair once he is pain free.
--- NOTE | 2020-06-10 19:18 | NUR ---
Pt requested [employer] for transport home and they are on the way. Pt given a sandwich and some milk and repositioned to his right side with pillows. Pt states comfort.
[2020-06-10 19:25] VITALS: BP 104/95
== END 2020-06-10 19:54 | disposition home or self-care (01) ==
LOC: ER 14:28
DX: M54.5 Low back pain (principal); G89.29 Other chronic pain; I48.91 Unspecified atrial fibrillation; I25.10 Atherosclerotic heart disease of native coronary artery without angina pectoris; E78.00 Pure hypercholesterolemia, unspecified; I10 Essential (primary) hypertension; J44.9 Chronic obstructive pulmonary disease, unspecified; K21.9 Gastro-esophageal reflux disease without esophagitis; E11.9 Type 2 diabetes mellitus without complications; E03.9 Hypothyroidism, unspecified; F15.90 Other stimulant use, unspecified, uncomplicated; F11.90 Opioid use, unspecified, uncomplicated; Z86.69 Personal history of other diseases of the nervous system and sense organs; Z87.01 Personal history of pneumonia (recurrent); Z86.19 Personal history of other infectious and parasitic diseases; Z87.440 Personal history of urinary (tract) infections; Z85.9 Personal history of malignant neoplasm, unspecified; Z98.890 Other specified postprocedural states; Z79.899 Other long term (current) drug therapy
CPT/HCPCS: 72128; 72131; 96372; 99284; J1885

== ENCOUNTER 2020-07-12 10:26 | Emergency (ER) | payer MEDICARE, MEDICAID ==
[~2020-07-12] VITALS: Ht 190.5 cm; Wt 68.2 kg
[2020-07-12] MEDS ORDERED: normal saline 1000ML IV soln IVB ONE (11:20)
[2020-07-12] MEDS ORDERED: HYDROcodone/acetaminophen 5mg/325mg tablet PO ONE (11:55)
[2020-07-12 11:59] LABS: BASOPHILS % (AUTO) 0.5 % (0-1); EOSINOPHILS # (AUTO) 0.1 X10'3 (0-0.9); EOSINOPHILS % (AUTO) 1.3 % (0-6); HEMOGLOBIN 11.9 g/dl (14.0-17.9); LYMPHOCYTES # (AUTO) 1.8 X10'3 (1.1-4.8); MEAN CORPUSCULAR HGB CONC 31.4 g/dL (33.0-36.5); MEAN CORPUSCULAR VOLUME 79.5 FL (78-98); MEAN PLATELET VOLUME 6.7 FL (7.4-10.4); MONOCYTES # (AUTO) 0.7 X10'3 (0-0.9); MONOCYTES % (AUTO) 11.4 % (2-12); NEUTROPHILS # (AUTO) 3.5 X10'3 (1.8-7.7); NEUTROPHILS % (AUTO) 56.8 % (42-75); PLATELET COUNT 276 X10'3 (140-440); RED BLOOD COUNT 4.77 X10'6 (4.70-6.10); RED CELL DISTRIBUTION WIDTH 21.6 % (11.5-14.5); WHITE BLOOD COUNT 6.1 X10'3 (4.5-11.0)
[2020-07-12 12:22] LABS: ALANINE AMINOTRANSFERASE 12 U/L (12-78); ALBUMIN 1.9 G/DL (3.4-5.0); ALBUMIN/GLOBULIN RATIO 0.5 (1.1-1.5); ALKALINE PHOSPHATASE 139 IU/L (46-116); ANION GAP 9 (8-16); ASPARTATE AMINO TRANSFERASE 19 U/L (10-37); BILIRUBIN,TOTAL 0.3 MG/DL (0.1-1.0); BLOOD UREA NITROGEN 10 MG/DL (7-18); BUN/CREATININE RATIO 17.5 (5.4-32.0); CALCIUM 8.4 MG/DL (8.5-10.1); CHLORIDE 103 MMOL/L (99-107); CREATININE 0.57 MG/DL (0.60-1.10); GLUCOSE 74 MG/DL (70-104); SODIUM 135 MMOL/L (135-145); TOTAL PROTEIN 5.8 G/DL (6.4-8.2); eGFR > 90 ML/MIN
[2020-07-12 12:32] VITALS: BP 154/90
--- NOTE | 2020-07-12 12:32 | NUR ---
GAVE PT YPGURT, APPLE SAUCE AND APPLE JUICE, OK PER .
[2020-07-12 13:39] LABS: CLARITY,URINE CLOUDY (Clear); COLOR,URINE YELLOW (Yellow); GLUCOSE, URINE NEGATIVE (Neg); KETONES,URINE NEGATIVE (Neg); LEUKOCYTE ESTERASE ,URINE MODERATE (Neg); NITRITES, URINE NEGATIVE (Neg); OCCULT BLOOD,URINE NEGATIVE (Neg); PROTEIN,URINE NEGATIVE (Neg)
[2020-07-12 13:43] LABS: UA COLLECTION TYPE CLN CATCH MIDSTREAM
[2020-07-12 13:45] LABS: BACTERIA,URINE 4+ /HPF (Neg); MUCUS STRANDS FEW /LPF (Neg); RBC,URINE NONE SEEN /HPF (0-2); RENAL CELLS, URINE FEW /HPF; SQUAMOUS EPITHELIAL CELL,UR FEW /LPF (FEW); WBC,URINE 30-50 /HPF (0-4)
[2020-07-12] MEDS ORDERED: CEPH-585 PO (14:11)
[2020-07-12] MEDS ORDERED: HYDR-3965 PO (14:11)
--- NOTE | 2020-07-15 11:02 | NUR ---
CALLED IN RX TO [facility] [address] FOR BACTRIME 160MG TMP PO Q 12 HOURS X 7 DAYS FOR A TOTAL OF 14
== END 2020-07-12 14:44 | disposition home or self-care (01) ==
LOC: ER 10:28
DX: N39.0 Urinary tract infection, site not specified (principal); R53.1 Weakness; R53.83 Other fatigue; E11.42 Type 2 diabetes mellitus with diabetic polyneuropathy; I48.91 Unspecified atrial fibrillation; I25.10 Atherosclerotic heart disease of native coronary artery without angina pectoris; E78.00 Pure hypercholesterolemia, unspecified; I10 Essential (primary) hypertension; J44.9 Chronic obstructive pulmonary disease, unspecified; K21.9 Gastro-esophageal reflux disease without esophagitis; E03.9 Hypothyroidism, unspecified; G89.29 Other chronic pain; F15.90 Other stimulant use, unspecified, uncomplicated; F11.90 Opioid use, unspecified, uncomplicated; Z86.69 Personal history of other diseases of the nervous system and sense organs; Z87.01 Personal history of pneumonia (recurrent); Z86.19 Personal history of other infectious and parasitic diseases; Z87.440 Personal history of urinary (tract) infections; Z85.9 Personal history of malignant neoplasm, unspecified; Z98.890 Other specified postprocedural states; Z79.2 Long term (current) use of antibiotics; Z79.899 Other long term (current) drug therapy
CPT/HCPCS: 36415; 71045; 80053; 81001; 83605; 83735; 84145; 85025; 87040; 87070; 87075; 87077; 87088; 87186; 93005; 99285; J7030

== ENCOUNTER 2020-09-15 19:39 | Inpatient (IN) | payer MEDICARE, MEDICAID ==
[~2020-09-15] VITALS: Ht 175.3 cm; Wt 55.4 kg
[~2020-09-15 19:39] MED LIST changes: +BUDE10.27 INH; +CEFT2VIA12; -GABA300S PO; +HYDR-3972 PO; -LISI-790 PO; -LOPE2TAB25 PO; -LORA10TA7 PO; -QUET25TA PO; -TIZA4TAB11 PO; -TRAZ-251 PO
[2020-09-15 20:27] LABS: BASOPHILS % (AUTO) 0.1 % (0-1); EOSINOPHILS % (AUTO) 0.2 % (0-6); HEMATOCRIT 26.2 % (42.0-52.0); HEMOGLOBIN 8.3 g/dl (14.0-17.9); LYMPHOCYTES # (AUTO) 0.4 X10'3 (1.1-4.8); LYMPHOCYTES % (AUTO) 5.4 % (21-51); MEAN CORPUSCULAR HEMOGLOBIN 25.7 PG (27.0-31.0); MEAN CORPUSCULAR HGB CONC 31.8 g/dL (33.0-36.5); MEAN CORPUSCULAR VOLUME 80.8 FL (78-98); MEAN PLATELET VOLUME 6.9 FL (7.4-10.4); MONOCYTES # (AUTO) 0.7 X10'3 (0-0.9); MONOCYTES % (AUTO) 9.1 % (2-12); NEUTROPHILS # (AUTO) 6.5 X10'3 (1.8-7.7); NEUTROPHILS % (AUTO) 85.2 % (42-75); PLATELET COUNT 188 X10'3 (140-440); RED BLOOD COUNT 3.24 X10'6 (4.70-6.10); RED CELL DISTRIBUTION WIDTH 24.2 % (11.5-14.5); WHITE BLOOD COUNT 7.6 X10'3 (4.5-11.0)
[2020-09-15 20:31] LABS: ALBUMIN 1.9 G/DL (3.4-5.0); ALBUMIN/GLOBULIN RATIO 0.5 (1.1-1.5); ALKALINE PHOSPHATASE 93 IU/L (46-116); ANION GAP 12 (8-16); ASPARTATE AMINO TRANSFERASE 20 U/L (10-37); BILIRUBIN,TOTAL 0.3 MG/DL (0.1-1.0); BLOOD UREA NITROGEN 39 MG/DL (7-18); BUN/CREATININE RATIO 26.4 (5.4-32.0); CALCIUM 7.7 MG/DL (8.5-10.1); CHLORIDE 100 MMOL/L (99-107); CREATININE 1.48 MG/DL (0.60-1.10); GLUCOSE 110 MG/DL (70-104); POTASSIUM 3.6 MMOL/L (3.5-5.1); SODIUM 132 MMOL/L (135-145); TOTAL CARBON DIOXIDE 20.5 MMOL/L (24-32); TOTAL PROTEIN 5.5 G/DL (6.4-8.2); eGFR 48 ML/MIN
[2020-09-15 20:39] LABS: ALANINE AMINOTRANSFERASE < 6 U/L (12-78); TROPONIN I < 0.04 NG/ML (0.0-0.05)
[2020-09-15] MEDS ORDERED: levoFLOXACIN-Levaquin 500mg/D5 100 ML IV SCH (20:40)
[2020-09-15] MEDS ORDERED: vancomycin/NS 1 GM ADD-VANTAGE 250 ML IV ONE (20:40)
[2020-09-15] MEDS ORDERED: levoFLOXACIN-Levaquin 500mg/D5 100 ML IV ONE (20:42)
[2020-09-15] MEDS ORDERED: ondansetron/PF 4mg/2ml inj IV PRN (21:10)
[2020-09-15] MEDS ORDERED: potassium Cl 20 mEq SR tablet PO PRN ×4 (21:10→23:45)
[2020-09-15] MEDS ORDERED: magnesium 2GM in 50ml NS 50 ML IV PRN (21:10)
[2020-09-15] MEDS ORDERED: magnesium Cl slow-release 64mg tablet PO PRN (21:10)
[2020-09-15] MEDS ORDERED: magnesium 4gm in 100ml NS 100 ML IV PRN (21:10)
[2020-09-15] MEDS ORDERED: normal saline 1000ml 1,000 ML IV SCH ×2 (21:10→21:25)
[2020-09-15] MEDS ORDERED: ipratropium/albuterol 3ml nebule NEB PRN (21:10)
[2020-09-15] MEDS ORDERED: acetaminophen 325mg tablet PO PRN ×3 (21:10→23:45)
[2020-09-15] MEDS ORDERED: potassium Cl 40MEQ/1/2NS 520ml 520 ML IV PRN ×2 (21:10)
[2020-09-15] MEDS ORDERED: NORepinephrine inj. 8 MG in dextrose 5%-water 242 ML IV SCH (21:25)
[2020-09-15] MEDS ORDERED: NORepinephrine 8mg/ 250ml NS 250 ML IV SCH (21:30)
[2020-09-15 21:44] LABS: PLATELET ESTIMATE NORMAL
[2020-09-15 21:45] LABS: ANISOCYTOSIS 3+; TARGET CELLS FEW
[2020-09-15 21:46] LABS: HYPOCHROMASIA 1+
[2020-09-15] MEDS: NORepinephrine 8mg/ 250ml NS 250 ML IV SCH (21:49)
--- NOTE | 2020-09-15 22:09 | NUR ---
central line inserted, xray to verify placement now. patient doing well. bp 128/67 on levophed.
[2020-09-15] MEDS ORDERED: morphine 4 MG/ML inj SYRINge IV ONE (22:25)
[2020-09-15] MEDS: LIDOcaine Viscous 15ml cup MM PRN (22:45)
[2020-09-15] MEDS: HYDROcodone/acetaminophen 5mg/325mg tablet PO PRN (23:02)
[2020-09-15] MEDS ORDERED: LIDOcaine 2% 10ml TOPICAL JELLY (Urojet) TP ONE (23:45)
[2020-09-15] MEDS: ipratropium/albuterol 3ml nebule NEB PRN (23:53)
[2020-09-16] VITALS (11 sets, daily range): BP systolic 79–148; BP diastolic 31–81
--- NOTE | 2020-09-16 00:33 | NUR ---
patient was covered in mushy stool and urine, bed changed, patient bathed and repositioned.
[2020-09-16 02:11] LABS: LIPASE < 50 U/L (73-393)
[2020-09-16] MEDS: HYDROcodone/acetaminophen 5mg/325mg tablet PO PRN (03:26)
--- NOTE | 2020-09-16 03:39 | NUR ---
patient has had intermittent confusion since arrival to ER. Patient keeps forgetting that he is in the ER, keeps thinking that he is stilll at [facility] and is fixated on where his belongings, wheelchair are. Have to reorient very often. patient can be verbally abusive.
[2020-09-16 04:08] LABS: URINE AMPHETAMINE SCREEN NEGATIVE (Neg); URINE BARBITUATE SCREEN POSITIVE (Neg); URINE BENZODIAZEPINES SCREEN NEGATIVE (Neg); URINE CANNABINOID SCREEN NEGATIVE (Neg); URINE COCAINE SCREEN NEGATIVE (Neg); URINE METHADONE SCREEN NEGATIVE (Neg); URINE OPIATE SCREEN POSITIVE (Neg); URINE PHENCYCLIDINE SCREEN NEGATIVE (Neg)
[2020-09-16] MEDS ORDERED: dextrose 50%-water 50ml dispensing syringe IV ONE ×2 (04:11→04:15)
--- NOTE | 2020-09-16 04:21 | NUR ---
PATIENT BS 39, D50 GIVEN 50 ML PUSH SEE APR. BS NOW 179. NOTIFIED.
[2020-09-16 04:25] LABS: CLARITY,URINE CLEAR (Clear); COLOR,URINE YELLOW (Yellow); GLUCOSE, URINE NEGATIVE (Neg); KETONES,URINE NEGATIVE (Neg); LEUKOCYTE ESTERASE ,URINE NEGATIVE (Neg); NITRITES, URINE NEGATIVE (Neg); OCCULT BLOOD,URINE TRACE-INTACT (Neg); PH,URINE 5.5 (4.8-8.0); PROTEIN,URINE TRACE mg/dl (Neg); UROBILINOGEN,URINE 0.2 E.U/dL (0.2-1.0)
[2020-09-16 04:36] LABS: UA COLLECTION TYPE FOLEY CATH
[2020-09-16 04:43] LABS: BACTERIA,URINE NONE SEEN /HPF (Neg); MUCUS STRANDS FEW /LPF (Neg); RBC,URINE 0-2 /HPF (0-2); SQUAMOUS EPITHELIAL CELL,UR NONE SEEN /LPF (FEW); WBC,URINE 0-4 /HPF (0-4)
[2020-09-16] MEDS: piperacillin/tazo 3.375gm/50ml 50 ML IV SCH ×3 (05:50→23:29)
[2020-09-16 06:10] LABS: OXYGEN SATURATION (MIXED VEN) 78.4 % (60-80); PO2 MIXED VENOUS (TEMP COR) 44.5 mmHg (35-46)
--- NOTE | 2020-09-16 06:23 | NUR ---
patient had a defective right central line ( was leaking at site from two lumens) Dr. Ratliff was able to do a right femoral central line ( md unable to use left side of neck). femoral line all lumens flushing and have blood return.
--- NOTE | 2020-09-16 07:47 | NUR ---
Call from tele [employer] [facility] cutter for patient update. New orders to hold norepinephrine and to continue to monitor blood pressure. MD to order precedex and order bi pap if precedex is effective.
[2020-09-16] MEDS: K and/or MAG REPLACEMENT MC SCH ×2 (08:00→20:00)
[2020-09-16] MEDS: heparin, porcine 5000 units/ml vial SQ SCH ×4 (08:00→20:02)
[2020-09-16] MEDS: atorvastatin 20mg tablet PO SCH (08:42)
[2020-09-16] MEDS: famotidine 20mg tablet PO SCH (08:42)
[2020-09-16 08:44] LABS: BASOPHILS % (AUTO) 0.1 % (0-1); EOSINOPHILS % (AUTO) 0.1 % (0-6); HEMATOCRIT 23.5 % (42.0-52.0); HEMOGLOBIN 7.7 g/dl (14.0-17.9); LYMPHOCYTES # (AUTO) 0.5 X10'3 (1.1-4.8); MEAN CORPUSCULAR HEMOGLOBIN 25.9 PG (27.0-31.0); MEAN CORPUSCULAR HGB CONC 32.7 g/dL (33.0-36.5); MEAN CORPUSCULAR VOLUME 79.3 FL (78-98); MEAN PLATELET VOLUME 6.2 FL (7.4-10.4); MONOCYTES # (AUTO) 0.8 X10'3 (0-0.9); MONOCYTES % (AUTO) 9.6 % (2-12); NEUTROPHILS # (AUTO) 6.5 X10'3 (1.8-7.7); NEUTROPHILS % (AUTO) 83.2 % (42-75); PLATELET COUNT 161 X10'3 (140-440); RED BLOOD COUNT 2.96 X10'6 (4.70-6.10); RED CELL DISTRIBUTION WIDTH 23.5 % (11.5-14.5); WHITE BLOOD COUNT 7.8 X10'3 (4.5-11.0)
[2020-09-16] MEDS: mycophenolate mofetil 250mg capsule PO SCH ×2 (08:44→15:23)
[2020-09-16] MEDS: tacrolimus anhydrous 1mg capsule PO SCH ×2 (08:44→20:01)
[2020-09-16 08:56] LABS: ALBUMIN 1.7 G/DL (3.4-5.0); ANION GAP 11 (8-16); BLOOD UREA NITROGEN 40 MG/DL (7-18); BUN/CREATININE RATIO 30.3 (5.4-32.0); CALCIUM 7.6 MG/DL (8.5-10.1); CHLORIDE 101 MMOL/L (99-107); CREATININE 1.32 MG/DL (0.60-1.10); GLUCOSE 114 MG/DL (70-104); MAGNESIUM 1.4 MG/DL (1.5-2.4); POTASSIUM 3.9 MMOL/L (3.5-5.1); SODIUM 132 MMOL/L (135-145); TOTAL CARBON DIOXIDE 20.2 MMOL/L (24-32); eGFR 55 ML/MIN
[2020-09-16] MEDS: dexmedetomidin/NS 400mcg/100ml 100 ML IV SCH ×2 (08:57→21:19)
[2020-09-16] MEDS: budesonide 0.5mg/2ml UD nebule IH SCH ×2 (09:00→20:39)
[2020-09-16] MEDS: levoTHYROXINE 112mcg tablet PO SCH (09:04)
[2020-09-16] MEDS: risperiDONE 0.5mg tablet PO SCH (09:04)
[2020-09-16] MEDS: phenobarbital 30mg tablet PO SCH ×2 (09:05→20:01)
[2020-09-16 09:27] LABS: PLATELET ESTIMATE NORMAL
[2020-09-16 09:28] LABS: ANISOCYTOSIS 3+; HYPOCHROMASIA 1+; MICROCYTOSIS 1+
[2020-09-16 09:29] LABS: SCHISTOCYTES FEW
--- NOTE | 2020-09-16 11:57 | NUR ---
Patient in room ED 4. I have received report from GEORGIANA MENDOZA and had the opportunity to ask questions and assume patient care.
[2020-09-16] MEDS ORDERED: diltiazem 5mg/ml 5ml inj. IV ONE (12:33)
--- NOTE | 2020-09-16 18:28 | NUR ---
Problems reprioritized. Patient report given, questions answered & plan of care reviewed with Alice RN at bedside.
--- NOTE | 2020-09-16 18:29 | NUR ---
Patient in room ICU 2043. I have received report from ARMAND and had the opportunity to ask questions and assume patient care.
--- NOTE | 2020-09-16 19:15 | NUR ---
PAGED RT ABOUT PT BEING ON NON REBREATHER MASK AND SWITCHING TO SALTER NC, RUSH FROM RT CAME AND PUT PT ON 10L SALTER NC. PT SEEMS TO BE RESPONDING WELL TO SALTER NC, SAO2 AT 96%
[2020-09-16] MEDS: NORepinephrine 8mg/ 250ml NS 250 ML IV SCH (20:11)
[2020-09-16] MEDS: ipratropium/albuterol 3ml nebule NEB PRN (20:39)
[2020-09-16] MEDS: vancomycin/NS 1 GM ADD-VANTAGE 250 ML IV SCH (21:20)
[2020-09-16] MEDS: tamsulosin 0.4mg capsule PO SCH (21:41)
[2020-09-17] VITALS (22 sets, daily range): BP systolic 84–127; BP diastolic 37–96
[2020-09-17] MEDS: LIDOcaine Viscous 15ml cup MM PRN ×2 (01:37→05:58)
[2020-09-17 03:25] LABS: BASOPHILS % (AUTO) 0.1 % (0-1); EOSINOPHILS # (AUTO) 0.1 X10'3 (0-0.9); EOSINOPHILS % (AUTO) 0.7 % (0-6); HEMATOCRIT 25.6 % (42.0-52.0); HEMOGLOBIN 8.3 g/dl (14.0-17.9); LYMPHOCYTES # (AUTO) 0.7 X10'3 (1.1-4.8); LYMPHOCYTES % (AUTO) 8.8 % (21-51); MEAN CORPUSCULAR HEMOGLOBIN 25.6 PG (27.0-31.0); MEAN CORPUSCULAR HGB CONC 32.3 g/dL (33.0-36.5); MEAN CORPUSCULAR VOLUME 79.2 FL (78-98); MEAN PLATELET VOLUME 6.5 FL (7.4-10.4); MONOCYTES # (AUTO) 0.7 X10'3 (0-0.9); MONOCYTES % (AUTO) 8.4 % (2-12); NEUTROPHILS # (AUTO) 6.6 X10'3 (1.8-7.7); PLATELET COUNT 189 X10'3 (140-440); RED BLOOD COUNT 3.23 X10'6 (4.70-6.10); RED CELL DISTRIBUTION WIDTH 24.1 % (11.5-14.5); WHITE BLOOD COUNT 8.1 X10'3 (4.5-11.0)
[2020-09-17 03:52] LABS: ALBUMIN 1.7 G/DL (3.4-5.0); ANION GAP 8 (8-16); BLOOD UREA NITROGEN 35 MG/DL (7-18); BUN/CREATININE RATIO 31.8 (5.4-32.0); CALCIUM 7.9 MG/DL (8.5-10.1); CHLORIDE 103 MMOL/L (99-107); GLUCOSE 106 MG/DL (70-104); MAGNESIUM 2.7 MG/DL (1.5-2.4); POTASSIUM 4.1 MMOL/L (3.5-5.1); SODIUM 132 MMOL/L (135-145); TOTAL CARBON DIOXIDE 20.6 MMOL/L (24-32); eGFR 68 ML/MIN
[2020-09-17 04:29] LABS: ANISOCYTOSIS 3+; MICROCYTOSIS 1+; PLATELET ESTIMATE NORMAL
[2020-09-17] MEDS: piperacillin/tazo 3.375gm/50ml 50 ML IV SCH (06:01)
--- NOTE | 2020-09-17 06:37 | NUR ---
Problems reprioritized. Patient report given, questions answered & plan of care reviewed with ARMAND.
[2020-09-17] MEDS: atorvastatin 20mg tablet PO SCH (07:34)
[2020-09-17] MEDS: famotidine 20mg tablet PO SCH (07:34)
[2020-09-17] MEDS: levoTHYROXINE 112mcg tablet PO SCH (07:34)
[2020-09-17] MEDS: phenobarbital 30mg tablet PO SCH ×2 (07:35→20:03)
[2020-09-17] MEDS: risperiDONE 0.5mg tablet PO SCH (07:35)
[2020-09-17] MEDS: heparin, porcine 5000 units/ml vial SQ SCH ×3 (07:36→20:04)
[2020-09-17] MEDS: K and/or MAG REPLACEMENT MC SCH ×2 (07:37→20:00)
[2020-09-17] MEDS ORDERED: levoFLOXACIN-Levaquin 750MG/D5 150 ML IV SCH ×2 (08:00→15:10)
--- NOTE | 2020-09-17 08:51 | NUR ---
Wound care POC. Arrived at bedside for assessment of pressure wound. Refer to WOC Assessment for full note on wound. 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 Pt is established with outpatient wound clinic. He was seen last week and told to follow up with Dr. Jay as there is a post op cast on his left leg. Spoke with outpatient wound care provider who ordered consult with Pierre for wound care orders to surgical site.
[2020-09-17] MEDS: budesonide 0.5mg/2ml UD nebule IH SCH ×2 (08:57→21:00)
[2020-09-17] MEDS: ipratropium/albuterol 3ml nebule NEB PRN (08:57)
--- NOTE | 2020-09-17 09:04 | NUR ---
About 4 minutes into svn tx, pt decided that his phone call was more important than the svn tx so he stated he wanted to be done. Tx was taken off early and pt was educated about the importance of these svn txs and that his next one would be this evening. Pt stated that was fine. SpO2 96% on 9lpm [facility]. Addendum: 09/17/20 at 0908 by Emma [address] RT Amended: Links added.
[2020-09-17] MEDS ORDERED: PERFLUTREN PROTEIN-A MICROSPHR (Optison) 0.22 MG/ML 3ML VIAL IV PRN (10:00)
--- NOTE | 2020-09-17 11:10 | NUR ---
Low BMI screen: pt BMI 17.8 though hx bilateral BKA likely impacting BMI. Current ht hx -6in compared to prior wts likely inaccurate given surgical hx. Pt PO 75-100% first clear liquid and mechanical soft/pudding diet. Pt currently without teeth SO trying to locate and refuses to eat pureed foods per RN. Pt hx SB6/thin diet 09/06 admit per AGRONOMY TEACHER recs. MD is agreeable to AGRONOMY TEACHER BSS and requests to remain on full liquid diet today w/ ONS for additional protein/kcals until safe PO assured. notified of RD ONS recs Ensure High Protein TIDWM while on full liquids. Will monitor for PO diet advancement and tolerance per AGRONOMY TEACHER recs. Addendum: 09/17/20 at [address] Amended: Links added.
--- NOTE | 2020-09-17 13:07 | NUR ---
Nutrition Consult "Consult for Leo" by [facility] RN: Pt admit w/ increased SOB DX L PNA per EMR. Pt hx bilateral BKA's most recent L BKA 09/04 admit this year. Hx DM prior to kidney/pancreas transplant w/ last admit A1C 4.6 per EMR. Pt has stage III pressure area to sacrum today per [facility] note. Pt placed on full liquids/thin diet per SENIOR PROPERTY ACCOUNTANT/MD recs today; currently without teeth and reports will not eat pureed diet if recommended per RN. To remain on full liquid diet today w/ ONS for additional protein/kcals per ornamental ironworker helper at rounds. Pt PO 75% initial mechanical soft breakfast pending liquid PO. RN reports pt requesting shakes w/ meals; RD recommends Leo shakes BIDBD w/ normal shake WL which has been placed in EMR by RN. Dietary notified. LBM 09/15. Pt appears bony per [facility] note; no edema or significant weakness present at this time w/ fluctuating wt hx r/t amputations. Will continue to monitor for PO/ONS trends and additional protein/kcal needs this admit. Rec: 1. continue full liquids/thin diet per SENIOR PROPERTY ACCOUNTANT/MD recs 2. advance diet as medically indicated per SENIOR PROPERTY ACCOUNTANT/MD recs to regular 3. Leo shake BIDBD for wound healing; regular shake WL per pt request 4. routine bowel care 5. MVI for wound healing needs 6. weekly wts Addendum: 09/17/20 at [address] Amended: Links added.
[2020-09-17 13:38] LABS: OCCULT BLOOD STOOL NEGATIVE (Neg)
--- NOTE | 2020-09-17 14:15 | NUR ---
Patient left with Kristina MENDOZA and NM staff to go to [employer] for testing
[2020-09-17 14:44] LABS: % IRON SATURATION 13 % (11-46); IRON 8 UG/DL (53-167); TOTAL IRON BINDING CAPACITY 61 UG/DL (259-388)
--- NOTE | 2020-09-17 15:00 | NUR ---
Patient back from [facility] after completing the VQ lung scan.
[2020-09-17] MEDS: HYDROcodone/acetaminophen 5mg/325mg tablet PO PRN (15:47)
[2020-09-17] MEDS: dexmedetomidin/NS 400mcg/100ml 100 ML IV SCH (17:23)
[2020-09-17] MEDS: JUVEN Shake w/Arg/Glut/Ca2+Bmb (Juven 19.3gm) pkt 240ml PO SCH (18:10)
--- NOTE | 2020-09-17 18:26 | NUR ---
Problems reprioritized. Patient report given, questions answered & plan of care reviewed with Alcie RN at bedside.
--- NOTE | 2020-09-17 18:30 | NUR ---
Patient in room ICU 2043. I have received report from ARMAND and had the opportunity to ask questions and assume patient care.
[2020-09-17] MEDS: vancomycin/NS 1 GM ADD-VANTAGE 250 ML IV SCH (21:19)
[2020-09-17] MEDS: tamsulosin 0.4mg capsule PO SCH (21:20)
[2020-09-17] MEDS ORDERED: polyethylene glycol 3350 17gm powd pack PO PRN (23:45)
[2020-09-18] VITALS (22 sets, daily range): BP systolic 81–122; BP diastolic 41–78
[2020-09-18 03:15] LABS: BASOPHILS % (AUTO) 0.1 % (0-1); EOSINOPHILS # (AUTO) 0.1 X10'3 (0-0.9); EOSINOPHILS % (AUTO) 1.1 % (0-6); LYMPHOCYTES # (AUTO) 0.7 X10'3 (1.1-4.8); LYMPHOCYTES % (AUTO) 10.9 % (21-51); MEAN CORPUSCULAR HEMOGLOBIN 25.6 PG (27.0-31.0); MEAN CORPUSCULAR HGB CONC 32.1 g/dL (33.0-36.5); MEAN CORPUSCULAR VOLUME 79.6 FL (78-98); MEAN PLATELET VOLUME 6.5 FL (7.4-10.4); MONOCYTES # (AUTO) 0.5 X10'3 (0-0.9); MONOCYTES % (AUTO) 7.8 % (2-12); NEUTROPHILS # (AUTO) 5.3 X10'3 (1.8-7.7); NEUTROPHILS % (AUTO) 80.1 % (42-75); PLATELET COUNT 181 X10'3 (140-440); RED BLOOD COUNT 3.14 X10'6 (4.70-6.10); RED CELL DISTRIBUTION WIDTH 24.3 % (11.5-14.5); WHITE BLOOD COUNT 6.7 X10'3 (4.5-11.0)
[2020-09-18 03:28] LABS: ALBUMIN 1.6 G/DL (3.4-5.0); ANION GAP 9 (8-16); BLOOD UREA NITROGEN 27 MG/DL (7-18); BUN/CREATININE RATIO 33.3 (5.4-32.0); CALCIUM 8.1 MG/DL (8.5-10.1); CHLORIDE 106 MMOL/L (99-107); CREATININE 0.81 MG/DL (0.60-1.10); GLUCOSE 115 MG/DL (70-104); MAGNESIUM 1.9 MG/DL (1.5-2.4); POTASSIUM 4.1 MMOL/L (3.5-5.1); SODIUM 136 MMOL/L (135-145); TOTAL CARBON DIOXIDE 21.3 MMOL/L (24-32); eGFR > 90 ML/MIN
[2020-09-18] MEDS: ipratropium/albuterol 3ml nebule NEB PRN ×2 (03:48→19:29)
[2020-09-18 04:42] LABS: ANISOCYTOSIS 3+; MICROCYTOSIS 1+; PLATELET ESTIMATE NORMAL
--- NOTE | 2020-09-18 06:19 | NUR ---
Problems reprioritized. Patient report given, questions answered & plan of care reviewed with Tonie.
--- NOTE | 2020-09-18 07:17 | NUR ---
Patient in room ICU 2043. I have received report from Alice MENDOZA and had the opportunity to ask questions and assume patient care.
[2020-09-18] MEDS: budesonide 0.5mg/2ml UD nebule IH SCH ×2 (08:31→19:29)
[2020-09-18] MEDS: vancomycin/NS 1 GM ADD-VANTAGE 250 ML IV SCH ×2 (09:02→21:10)
[2020-09-18] MEDS: dexmedetomidin/NS 400mcg/100ml 100 ML IV SCH (09:03)
[2020-09-18] MEDS: heparin, porcine 5000 units/ml vial SQ SCH ×2 (09:04→19:35)
[2020-09-18] MEDS: famotidine 20mg tablet PO SCH (09:04)
[2020-09-18] MEDS: phenobarbital 30mg tablet PO SCH ×2 (09:04→19:35)
[2020-09-18] MEDS: risperiDONE 0.5mg tablet PO SCH (09:06)
[2020-09-18] MEDS: JUVEN Shake w/Arg/Glut/Ca2+Bmb (Juven 19.3gm) pkt 240ml PO SCH ×2 (09:06→17:30)
[2020-09-18] MEDS: LIDOcaine Viscous 15ml cup MM PRN ×2 (09:07→16:20)
[2020-09-18] MEDS: levoTHYROXINE 112mcg tablet PO SCH (09:10)
[2020-09-18] MEDS: atorvastatin 20mg tablet PO SCH (09:10)
[2020-09-18] MEDS: K and/or MAG REPLACEMENT MC SCH ×2 (09:10→19:47)
--- NOTE | 2020-09-18 09:30 | NUR ---
Per ANTHONY Lewis, it technical support specialist to remove cast to L BKA. She states she will come and assess the surgical site and will decide whether cast will be replaced.
[2020-09-18] MEDS: HYDROcodone/acetaminophen 5mg/325mg tablet PO PRN ×3 (10:19→18:44)
[2020-09-18] MEDS: mycophenolate mofetil 250mg capsule PO SCH (15:50)
[2020-09-18] MEDS: meropenem inj 1 GM in normal saline 100ml IV soln 100 ML IV SCH ×2 (15:51→23:16)
[2020-09-18] MEDS ORDERED: mycophenolate mofetil 250mg capsule PO SCH (16:00)
--- NOTE | 2020-09-18 18:12 | NUR ---
Problems reprioritized. Patient report given, questions answered & plan of care reviewed with Rhoda MENDOZA.
[2020-09-18] MEDS: tacrolimus anhydrous 1mg capsule PO SCH (19:36)
[2020-09-18] MEDS ORDERED: lactobacillus rhamnosus 10,000 MMU CELLS/CAPSULE PO SCH (20:00)
[2020-09-18] MEDS: diatr meglu/diatrizoate 30ml oral sol.-(3 dose) bottle PO SCH (20:48)
[2020-09-18] MEDS: tamsulosin 0.4mg capsule PO SCH (20:48)
[2020-09-19] VITALS (24 sets, daily range): BP systolic 81–127; BP diastolic 48–80
[2020-09-19] MEDS: dexmedetomidin/NS 400mcg/100ml 100 ML IV SCH ×2 (02:36→20:15)
[2020-09-19 04:02] LABS: BASOPHILS % (AUTO) 0.2 % (0-1); EOSINOPHILS # (AUTO) 0.1 X10'3 (0-0.9); EOSINOPHILS % (AUTO) 1.5 % (0-6); HEMATOCRIT 22.1 % (42.0-52.0); HEMOGLOBIN 7.1 g/dl (14.0-17.9); LYMPHOCYTES # (AUTO) 0.6 X10'3 (1.1-4.8); LYMPHOCYTES % (AUTO) 13.3 % (21-51); MEAN CORPUSCULAR HEMOGLOBIN 25.3 PG (27.0-31.0); MEAN CORPUSCULAR HGB CONC 32.2 g/dL (33.0-36.5); MEAN CORPUSCULAR VOLUME 78.5 FL (78-98); MEAN PLATELET VOLUME 6.4 FL (7.4-10.4); MONOCYTES # (AUTO) 0.4 X10'3 (0-0.9); MONOCYTES % (AUTO) 7.8 % (2-12); NEUTROPHILS # (AUTO) 3.7 X10'3 (1.8-7.7); NEUTROPHILS % (AUTO) 77.2 % (42-75); PLATELET COUNT 158 X10'3 (140-440); RED BLOOD COUNT 2.82 X10'6 (4.70-6.10); RED CELL DISTRIBUTION WIDTH 23.7 % (11.5-14.5); WHITE BLOOD COUNT 4.8 X10'3 (4.5-11.0)
[2020-09-19 04:30] LABS: ALBUMIN 1.6 G/DL (3.4-5.0); ANION GAP 5 (8-16); BLOOD UREA NITROGEN 23 MG/DL (7-18); BUN/CREATININE RATIO 32.4 (5.4-32.0); CHLORIDE 106 MMOL/L (99-107); CREATININE 0.71 MG/DL (0.60-1.10); GLUCOSE 109 MG/DL (70-104); MAGNESIUM 1.5 MG/DL (1.5-2.4); POTASSIUM 3.9 MMOL/L (3.5-5.1); SODIUM 133 MMOL/L (135-145); TOTAL CARBON DIOXIDE 22.2 MMOL/L (24-32); eGFR > 90 ML/MIN
[2020-09-19 05:07] LABS: TOTAL CELLS COUNTED 100
[2020-09-19 05:08] LABS: PLATELET ESTIMATE NORMAL
[2020-09-19 05:09] LABS: ANISOCYTOSIS 3+; MICROCYTOSIS 1+
--- NOTE | 2020-09-19 06:28 | NUR ---
Problems reprioritized. Patient report given, questions answered & plan of care reviewed with KELLY Branham.
[2020-09-19] MEDS: JUVEN Shake w/Arg/Glut/Ca2+Bmb (Juven 19.3gm) pkt 240ml PO SCH ×2 (07:30→18:25)
[2020-09-19] MEDS: diatr meglu/diatrizoate 30ml oral sol.-(3 dose) bottle PO SCH ×2 (07:56→22:17)
[2020-09-19] MEDS: K and/or MAG REPLACEMENT MC SCH ×2 (08:00→20:00)
[2020-09-19] MEDS: levoTHYROXINE 112mcg tablet PO SCH (08:01)
[2020-09-19] MEDS: meropenem inj 1 GM in normal saline 100ml IV soln 100 ML IV SCH ×2 (08:10→17:20)
[2020-09-19] MEDS: famotidine 20mg tablet PO SCH (08:17)
[2020-09-19] MEDS: HYDROcodone/acetaminophen 5mg/325mg tablet PO PRN ×2 (08:18→14:58)
[2020-09-19] MEDS: phenobarbital 30mg tablet PO SCH ×2 (08:18→20:27)
[2020-09-19] MEDS: atorvastatin 20mg tablet PO SCH (08:18)
[2020-09-19] MEDS: tacrolimus anhydrous 1mg capsule PO SCH ×2 (08:19→20:28)
[2020-09-19] MEDS: risperiDONE 0.5mg tablet PO SCH (08:19)
[2020-09-19] MEDS: mycophenolate mofetil 250mg capsule PO SCH (08:20)
[2020-09-19] MEDS: heparin, porcine 5000 units/ml vial SQ SCH ×2 (08:20→20:26)
[2020-09-19] MEDS ORDERED: VANCOMYCIN LEVEL IV ONE (08:30)
[2020-09-19] MEDS: budesonide 0.5mg/2ml UD nebule IH SCH ×2 (09:09→20:07)
[2020-09-19] MEDS: ipratropium/albuterol 3ml nebule NEB PRN ×2 (09:09→20:07)
[2020-09-19] MEDS ORDERED: iohexol 300mg/ml 100ml inj. ONE (10:10)
[2020-09-19] MEDS: vancomycin inj. 750 MG in normal saline 250ml IV soln 250 ML IV SCH ×2 (11:35→22:09)
[2020-09-19] MEDS: HYDROmorphone inj. 0.5 MG/0.5 ML DISP.SYRIN IV PRN ×3 (11:47→20:28)
[2020-09-19 12:26] LABS: HEMATOCRIT 23.4 % (42.0-52.0); HEMOGLOBIN 7.6 g/dl (14.0-17.9); MEAN CORPUSCULAR HEMOGLOBIN 25.4 PG (27.0-31.0); MEAN CORPUSCULAR HGB CONC 32.3 g/dL (33.0-36.5); MEAN CORPUSCULAR VOLUME 78.7 FL (78-98); MEAN PLATELET VOLUME 6.5 FL (7.4-10.4); PLATELET COUNT 166 X10'3 (140-440); RED BLOOD COUNT 2.98 X10'6 (4.70-6.10); RED CELL DISTRIBUTION WIDTH 23.7 % (11.5-14.5); WHITE BLOOD COUNT 4.5 X10'3 (4.5-11.0)
[2020-09-19 18:47] LABS: HEMATOCRIT 27.8 % (42.0-52.0); HEMOGLOBIN 9.2 g/dl (14.0-17.9); MEAN CORPUSCULAR HEMOGLOBIN 27.3 PG (27.0-31.0); MEAN CORPUSCULAR HGB CONC 33.1 g/dL (33.0-36.5); MEAN CORPUSCULAR VOLUME 82.3 FL (78-98); MEAN PLATELET VOLUME 6.4 FL (7.4-10.4); PLATELET COUNT 158 X10'3 (140-440); RED BLOOD COUNT 3.38 X10'6 (4.70-6.10); RED CELL DISTRIBUTION WIDTH 25.1 % (11.5-14.5); WHITE BLOOD COUNT 4.7 X10'3 (4.5-11.0)
[2020-09-19] MEDS: tamsulosin 0.4mg capsule PO SCH (20:34)
[2020-09-19 23:54] LABS: HEMATOCRIT 27.9 % (42.0-52.0); HEMOGLOBIN 9.2 g/dl (14.0-17.9); MEAN CORPUSCULAR HGB CONC 33.1 g/dL (33.0-36.5); MEAN CORPUSCULAR VOLUME 81.7 FL (78-98); MEAN PLATELET VOLUME 6.4 FL (7.4-10.4); PLATELET COUNT 158 X10'3 (140-440); RED BLOOD COUNT 3.41 X10'6 (4.70-6.10); RED CELL DISTRIBUTION WIDTH 25.1 % (11.5-14.5); WHITE BLOOD COUNT 4.6 X10'3 (4.5-11.0)
[2020-09-20] VITALS (24 sets, daily range): BP systolic 101–139; BP diastolic 64–91
[2020-09-20] MEDS: HYDROmorphone inj. 0.5 MG/0.5 ML DISP.SYRIN IV PRN ×6 (00:46→23:37)
[2020-09-20] MEDS: meropenem inj 1 GM in normal saline 100ml IV soln 100 ML IV SCH ×3 (00:54→16:27)
[2020-09-20] MEDS: HYDROcodone/acetaminophen 5mg/325mg tablet PO PRN (04:40)
--- NOTE | 2020-09-20 05:37 | NUR ---
Orientee documentation: I have reviewed and agree with all interventions, assessments performed and documented by Emma MENDOZA . Orientee Medication Administration: For this medication-pass time frame, all medication were reviewed, dispensed, administered and documented per hospital policy by Emma MENDOZA .
[2020-09-20 06:17] LABS: BASOPHILS % (AUTO) 0.2 % (0-1); EOSINOPHILS # (AUTO) 0.1 X10'3 (0-0.9); EOSINOPHILS % (AUTO) 2.1 % (0-6); HEMATOCRIT 27.9 % (42.0-52.0); HEMOGLOBIN 9.4 g/dl (14.0-17.9); LYMPHOCYTES # (AUTO) 0.8 X10'3 (1.1-4.8); LYMPHOCYTES % (AUTO) 17.5 % (21-51); MEAN CORPUSCULAR HEMOGLOBIN 27.3 PG (27.0-31.0); MEAN CORPUSCULAR HGB CONC 33.5 g/dL (33.0-36.5); MEAN CORPUSCULAR VOLUME 81.4 FL (78-98); MEAN PLATELET VOLUME 6.4 FL (7.4-10.4); MONOCYTES # (AUTO) 0.4 X10'3 (0-0.9); MONOCYTES % (AUTO) 8.9 % (2-12); NEUTROPHILS # (AUTO) 3.2 X10'3 (1.8-7.7); NEUTROPHILS % (AUTO) 71.3 % (42-75); PLATELET COUNT 152 X10'3 (140-440); RED BLOOD COUNT 3.43 X10'6 (4.70-6.10); RED CELL DISTRIBUTION WIDTH 24.8 % (11.5-14.5); WHITE BLOOD COUNT 4.6 X10'3 (4.5-11.0)
[2020-09-20 06:41] LABS: ALBUMIN 1.8 G/DL (3.4-5.0); ANION GAP 8 (8-16); BLOOD UREA NITROGEN 18 MG/DL (7-18); BUN/CREATININE RATIO 25.7 (5.4-32.0); CALCIUM 8.3 MG/DL (8.5-10.1); CHLORIDE 106 MMOL/L (99-107); GLUCOSE 89 MG/DL (70-104); MAGNESIUM 1.3 MG/DL (1.5-2.4); POTASSIUM 4.2 MMOL/L (3.5-5.1); SODIUM 134 MMOL/L (135-145); TOTAL CARBON DIOXIDE 20.5 MMOL/L (24-32); eGFR > 90 ML/MIN
--- NOTE | 2020-09-20 06:46 | NUR ---
Patient in room ICU 2043. I have received report from KELLY MARINO, and had the opportunity to ask questions and assume patient care.
[2020-09-20 07:10] LABS: ANISOCYTOSIS 3+; MICROCYTOSIS 1+; PLATELET ESTIMATE NORMAL; POIKILOCYTOSIS FEW; TOTAL CELLS COUNTED 100
[2020-09-20] MEDS: JUVEN Shake w/Arg/Glut/Ca2+Bmb (Juven 19.3gm) pkt 240ml PO SCH ×2 (07:30→20:00)
[2020-09-20] MEDS: K and/or MAG REPLACEMENT MC SCH ×2 (08:00→20:00)
[2020-09-20] MEDS: phenobarbital 30mg tablet PO SCH ×2 (08:12→21:52)
[2020-09-20] MEDS: atorvastatin 20mg tablet PO SCH (08:12)
[2020-09-20] MEDS: famotidine 20mg tablet PO SCH (08:12)
[2020-09-20] MEDS: heparin, porcine 5000 units/ml vial SQ SCH ×2 (08:13→19:21)
[2020-09-20] MEDS: tacrolimus anhydrous 1mg capsule PO SCH ×2 (08:13→21:52)
[2020-09-20] MEDS: risperiDONE 0.5mg tablet PO SCH (08:13)
[2020-09-20] MEDS: mycophenolate mofetil 250mg capsule PO SCH (08:14)
[2020-09-20] MEDS: budesonide 0.5mg/2ml UD nebule IH SCH ×2 (08:16→19:21)
[2020-09-20] MEDS: vancomycin inj. 750 MG in normal saline 250ml IV soln 250 ML IV SCH (09:51)
--- NOTE | 2020-09-20 11:42 | NUR ---
Reassessment: Pt remains on full liquid diet PO declining to 25-50% meals past 2 days. Initial Leo ONS intake 100% though all intakes not documented in EMR. Pt now 0% PO dinner last night as well as Leo shake not meeting needs. Noted rectal tube in place w/ 500ml output 09/18-09/19 pending further output documentation. Also noted pt developed SOB when PO first declined two days prior currently on 13L high flow oxygen and pending bronchoscopy w/ concerns for aspiration per RN/MD at rounds. Pending f/u CERTIFIED SURGICAL TECHNOLOGIST BSS though initially approved for full liquids/thin per CERTIFIED SURGICAL TECHNOLOGIST on admit. Current GI symptoms as well as SOB likely to impact PO trends. IF PO improves and remains on full liquids would benefit from additional yogurts/puddings w/ meals for additional kcals/protein. Will continue to monitor for additional protein/kcal needs and PO diet advancement this admit. Rec: 1. continue full liquids/thin diet per CERTIFIED SURGICAL TECHNOLOGIST/MD recs 2. advance diet as medically indicated per CERTIFIED SURGICAL TECHNOLOGIST/MD recs to regular 3. Leo shake BIDBD for wound healing; regular shake WL per pt request; IF PO improves and remains on full liquids consider yogurts/pudding for more kcals/protein 4. bowel care per rx; consider anti-diarrheal if increased rectal tube output per MD 5. MVI for wound healing needs 6. weekly wts Addendum: 09/20/20 at [address] Amended: Links added.
--- NOTE | 2020-09-20 12:07 | NUR ---
PT'S BG 84. CHECKED D/T NPO STATUS.
[2020-09-20 13:49] LABS: HEMATOCRIT 28.9 % (42.0-52.0); HEMOGLOBIN 9.5 g/dl (14.0-17.9); MEAN CORPUSCULAR HEMOGLOBIN 27.3 PG (27.0-31.0); MEAN CORPUSCULAR HGB CONC 32.9 g/dL (33.0-36.5); MEAN CORPUSCULAR VOLUME 82.9 FL (78-98); MEAN PLATELET VOLUME 6.6 FL (7.4-10.4); PLATELET COUNT 152 X10'3 (140-440); RED BLOOD COUNT 3.48 X10'6 (4.70-6.10); RED CELL DISTRIBUTION WIDTH 24.7 % (11.5-14.5); WHITE BLOOD COUNT 4.1 X10'3 (4.5-11.0)
[2020-09-20] MEDS ORDERED: magnesium 2GM in 50ml NS 50 ML IV PRN (14:15)
[2020-09-20] MEDS ORDERED: magnesium Cl slow-release 64mg tablet PO PRN (14:15)
[2020-09-20] MEDS ORDERED: magnesium 4gm in 100ml NS 100 ML IV PRN (14:15)
--- NOTE | 2020-09-20 15:44 | NUR ---
PHONED JA TO NOTIFY HIM OF ISABELLA'S SUGGESTION TO KEEP THE PT NPO D/T COUGH. NO NEW ORDERS.
--- NOTE | 2020-09-20 16:00 | NUR ---
VILCHIS REMOVED PER DR. PERES. PT WAS RELUCTANT, STATING IT WAS DIFFICULT FOR HIM TO USE A URINAL. PT AGREED TO A CONDOMN CATH.
--- NOTE | 2020-09-20 18:36 | NUR ---
Problems reprioritized. Patient report given, questions answered & plan of care reviewed with KELLY COLIN.
[2020-09-20 19:20] LABS: HEMATOCRIT 31.7 % (42.0-52.0); HEMOGLOBIN 10.2 g/dl (14.0-17.9); MEAN CORPUSCULAR HEMOGLOBIN 26.9 PG (27.0-31.0); MEAN CORPUSCULAR HGB CONC 32.3 g/dL (33.0-36.5); MEAN CORPUSCULAR VOLUME 83.2 FL (78-98); MEAN PLATELET VOLUME 6.5 FL (7.4-10.4); PLATELET COUNT 170 X10'3 (140-440); RED BLOOD COUNT 3.81 X10'6 (4.70-6.10); RED CELL DISTRIBUTION WIDTH 24.7 % (11.5-14.5); WHITE BLOOD COUNT 5.6 X10'3 (4.5-11.0)
[2020-09-20] MEDS: ipratropium/albuterol 3ml nebule NEB PRN (19:21)
[2020-09-20] MEDS ORDERED: VANCOMYCIN LEVEL IV ONE (21:30)
[2020-09-20] MEDS: tamsulosin 0.4mg capsule PO SCH (21:53)
[2020-09-20] MEDS: vancomycin inj 500 MG in normal saline 100ml IV soln 100 ML IV SCH (22:46)
[2020-09-21] VITALS (23 sets, daily range): BP systolic 92–138; BP diastolic 55–90
[2020-09-21] MEDS: meropenem inj 1 GM in normal saline 100ml IV soln 100 ML IV SCH ×3 (00:45→15:57)
[2020-09-21] MEDS: HYDROmorphone inj. 0.5 MG/0.5 ML DISP.SYRIN IV PRN ×5 (03:52→21:30)
[2020-09-21 06:26] LABS: MAGNESIUM 1.6 MG/DL (1.5-2.4)
[2020-09-21 06:28] LABS: BASOPHILS % (AUTO) 0.5 % (0-1); EOSINOPHILS % (AUTO) 1.9 % (0-6); HEMATOCRIT 27.9 % (42.0-52.0); HEMOGLOBIN 9.1 g/dl (14.0-17.9); LYMPHOCYTES % (AUTO) 18.4 % (21-51); MEAN CORPUSCULAR HEMOGLOBIN 27.3 PG (27.0-31.0); MEAN CORPUSCULAR HGB CONC 32.5 g/dL (33.0-36.5); MEAN PLATELET VOLUME 6.4 FL (7.4-10.4); MONOCYTES % (AUTO) 9.8 % (2-12); NEUTROPHILS % (AUTO) 69.4 % (42-75); PLATELET COUNT 155 X10'3 (140-440); RED BLOOD COUNT 3.32 X10'6 (4.70-6.10); RED CELL DISTRIBUTION WIDTH 24.8 % (11.5-14.5); WHITE BLOOD COUNT 4.2 X10'3 (4.5-11.0)
[2020-09-21 06:29] LABS: EOSINOPHILS # (AUTO) 0.1 X10'3 (0-0.9); LYMPHOCYTES # (AUTO) 0.8 X10'3 (1.1-4.8); MONOCYTES # (AUTO) 0.4 X10'3 (0-0.9); NEUTROPHILS # (AUTO) 2.9 X10'3 (1.8-7.7)
--- NOTE | 2020-09-21 06:47 | NUR ---
Patient in room ICU 2043. I have received report from KELLY Egan and had the opportunity to ask questions and assume patient care.
[2020-09-21 07:00] LABS: ANISOCYTOSIS 3+; HYPOCHROMASIA 1+; PLATELET ESTIMATE NORMAL; POLYCHROMASIA 1+; SCHISTOCYTES FEW; TOTAL CELLS COUNTED 100
[2020-09-21] MEDS: levoTHYROXINE 112mcg tablet PO SCH (07:00)
[2020-09-21] MEDS: JUVEN Shake w/Arg/Glut/Ca2+Bmb (Juven 19.3gm) pkt 240ml PO SCH ×2 (07:30→17:30)
[2020-09-21] MEDS: budesonide 0.5mg/2ml UD nebule IH SCH ×2 (07:51→20:08)
[2020-09-21] MEDS: K and/or MAG REPLACEMENT MC SCH ×2 (08:00→20:00)
[2020-09-21] MEDS: famotidine 20mg tablet PO SCH (08:00)
[2020-09-21] MEDS: atorvastatin 20mg tablet PO SCH (08:00)
[2020-09-21 08:13] LABS: ALANINE AMINOTRANSFERASE 8 U/L (12-78); ALBUMIN 1.7 G/DL (3.4-5.0); ALBUMIN/GLOBULIN RATIO 0.5 (1.1-1.5); ALKALINE PHOSPHATASE 110 IU/L (46-116); ANION GAP 11 (8-16); ASPARTATE AMINO TRANSFERASE 32 U/L (10-37); BILIRUBIN,TOTAL 0.4 MG/DL (0.1-1.0); BLOOD UREA NITROGEN 13 MG/DL (7-18); BUN/CREATININE RATIO 20.3 (5.4-32.0); CALCIUM 8.1 MG/DL (8.5-10.1); CHLORIDE 108 MMOL/L (99-107); CREATININE 0.64 MG/DL (0.60-1.10); GLUCOSE 81 MG/DL (70-104); PHOSPHORUS 3.5 MG/DL (2.3-4.5); POTASSIUM 4.2 MMOL/L (3.5-5.1); SODIUM 139 MMOL/L (135-145); TOTAL CARBON DIOXIDE 20.5 MMOL/L (24-32); eGFR > 90 ML/MIN
[2020-09-21] MEDS: risperiDONE 0.5mg tablet PO SCH (08:24)
[2020-09-21] MEDS: mycophenolate mofetil 250mg capsule PO SCH (08:24)
[2020-09-21] MEDS: tacrolimus anhydrous 1mg capsule PO SCH ×2 (08:24→21:27)
[2020-09-21] MEDS: heparin, porcine 5000 units/ml vial SQ SCH ×2 (08:25→21:27)
[2020-09-21] MEDS: phenobarbital 30mg tablet PO SCH ×2 (10:22→21:27)
[2020-09-21] MEDS: vancomycin inj 500 MG in normal saline 100ml IV soln 100 ML IV SCH ×2 (10:30→23:43)
[2020-09-21] MEDS: HYDROcodone/acetaminophen 5mg/325mg tablet PO PRN (11:18)
--- NOTE | 2020-09-21 18:46 | NUR ---
Problems reprioritized. Patient report given, questions answered & plan of care reviewed with KELLY Crump.
--- NOTE | 2020-09-21 19:10 | NUR ---
Patient in room ICU 2043. I have received report from Teresa MENDOZA and had the opportunity to ask questions and assume patient care.
[2020-09-21] MEDS: ipratropium/albuterol 3ml nebule NEB PRN (20:08)
[2020-09-21] MEDS: tamsulosin 0.4mg capsule PO SCH (21:27)
[2020-09-21] MEDS: LOPERAMIDE 2 mg/15 ml oral solution UD PO SCH (21:29)
[2020-09-22] VITALS (20 sets, daily range): BP systolic 103–133; BP diastolic 58–84
[2020-09-22] MEDS: meropenem inj 1 GM in normal saline 100ml IV soln 100 ML IV SCH ×4 (01:03→17:51)
[2020-09-22] MEDS: HYDROmorphone inj. 0.5 MG/0.5 ML DISP.SYRIN IV PRN ×5 (01:44→22:13)
--- NOTE | 2020-09-22 02:00 | NUR ---
Pt educated to NG/feeding tube placement procedure, purpose and rationale. Positioned in high Fowlers, feeding tube advanced to R nostril, PCT assisting in head positioning, and pt able to swallow on command. Tube advanced easily and smoothly. Pt then said he did not want it and began to aggressively search for it. Although this nurse attempted to encourage pt's co-operation and stop him from grabbing the tube, it was removed by him and he told staff to "leave me alone". This tube placement attempt did not continue.
[2020-09-22 06:57] LABS: BASOPHILS % (AUTO) 0.6 % (0-1); EOSINOPHILS # (AUTO) 0.1 X10'3 (0-0.9); LYMPHOCYTES # (AUTO) 1.2 X10'3 (1.1-4.8); MEAN CORPUSCULAR HGB CONC 32.7 g/dL (33.0-36.5); MONOCYTES # (AUTO) 0.4 X10'3 (0-0.9)
[2020-09-22 06:58] LABS: EOSINOPHILS % (AUTO) 2.1 % (0-6); HEMATOCRIT 30.4 % (42.0-52.0); LYMPHOCYTES % (AUTO) 27.6 % (21-51); MEAN CORPUSCULAR VOLUME 82.7 FL (78-98); MEAN PLATELET VOLUME 6.5 FL (7.4-10.4); MONOCYTES % (AUTO) 9.6 % (2-12); NEUTROPHILS # (AUTO) 2.6 X10'3 (1.8-7.7); NEUTROPHILS % (AUTO) 60.1 % (42-75); PLATELET COUNT 165 X10'3 (140-440); RED BLOOD COUNT 3.68 X10'6 (4.70-6.10); RED CELL DISTRIBUTION WIDTH 24.7 % (11.5-14.5); WHITE BLOOD COUNT 4.3 X10'3 (4.5-11.0)
[2020-09-22] MEDS: levoTHYROXINE 112mcg tablet PO SCH (07:00)
--- NOTE | 2020-09-22 07:05 | NUR ---
Problems reprioritized. Patient report given, questions answered & plan of care reviewed with Radha MENDOZA.
[2020-09-22 07:13] LABS: MAGNESIUM 1.6 MG/DL (1.5-2.4)
[2020-09-22] MEDS: JUVEN Shake w/Arg/Glut/Ca2+Bmb (Juven 19.3gm) pkt 240ml PO SCH (07:30)
[2020-09-22] MEDS: K and/or MAG REPLACEMENT MC SCH ×2 (08:00→20:00)
[2020-09-22] MEDS: mycophenolate mofetil 250mg capsule PO SCH (08:00)
[2020-09-22] MEDS: atorvastatin 20mg tablet PO SCH (08:00)
[2020-09-22] MEDS: famotidine 20mg tablet PO SCH (08:00)
[2020-09-22] MEDS: LOPERAMIDE 2 mg/15 ml oral solution UD PO SCH (08:00)
[2020-09-22] MEDS: ipratropium/albuterol 3ml nebule NEB PRN ×2 (08:07→21:00)
[2020-09-22] MEDS: budesonide 0.5mg/2ml UD nebule IH SCH ×2 (08:07→20:57)
[2020-09-22] MEDS: phenobarbital 30mg tablet PO SCH (08:35)
[2020-09-22] MEDS: tacrolimus anhydrous 1mg capsule PO SCH (08:35)
[2020-09-22] MEDS: risperiDONE 0.5mg tablet PO SCH (08:35)
[2020-09-22] MEDS: heparin, porcine 5000 units/ml vial SQ SCH ×2 (08:36→21:47)
[2020-09-22 08:38] LABS: ALANINE AMINOTRANSFERASE 9 U/L (12-78); ALBUMIN 1.8 G/DL (3.4-5.0); ALBUMIN/GLOBULIN RATIO 0.5 (1.1-1.5); ALKALINE PHOSPHATASE 104 IU/L (46-116); ANION GAP 11 (8-16); ASPARTATE AMINO TRANSFERASE 31 U/L (10-37); BILIRUBIN,TOTAL 0.4 MG/DL (0.1-1.0); BLOOD UREA NITROGEN 12 MG/DL (7-18); BUN/CREATININE RATIO 16.9 (5.4-32.0); CALCIUM 8.4 MG/DL (8.5-10.1); CHLORIDE 109 MMOL/L (99-107); CREATININE 0.71 MG/DL (0.60-1.10); GLUCOSE 80 MG/DL (70-104); PHOSPHORUS 3.3 MG/DL (2.3-4.5); POTASSIUM 4.2 MMOL/L (3.5-5.1); SODIUM 140 MMOL/L (135-145); TOTAL CARBON DIOXIDE 19.7 MMOL/L (24-32); TOTAL PROTEIN 5.1 G/DL (6.4-8.2); eGFR > 90 ML/MIN
[2020-09-22 09:36] LABS: ANISOCYTOSIS 3+; PLATELET ESTIMATE NORMAL; POLYCHROMASIA 1+; TOTAL CELLS COUNTED 100
[2020-09-22 09:37] LABS: SCHISTOCYTES FEW
--- NOTE | 2020-09-22 09:43 | NUR ---
Vial of dilaudid would not scan. Administered at 0800 but recorded late due to patient condition.
[2020-09-22] MEDS ORDERED: VANCOMYCIN LEVEL IV ONE (10:30)
--- NOTE | 2020-09-22 10:33 | NUR ---
TF Consult: Per EMR, pt had NGT inserted last night but pt became aggravated and removed it, stated he did not want it. Pt also has history of PEG and it's noted that he does not want that again. Per RN, pt states that he wants to try again w/ NGT today, see TF recs below. Per nursing eval, pt NPO w/ additional ST eval to come Saturday 09/23. Will continue to monitor for TF tolerance and adjust needs as medically indicated. Rec: 1. Continuous TF using Vital AF 1.2 at 75ml/hr goal; to provide 1800ml volume, 2160kcals, 135g protein, 1448ml H2O 2. Additional water flush 150ml Q4H 3. PALB Q /, daily wts 4. Routine bowel care 5. Monitor for TF tolerance Addendum: 09/22/20 at [address] Amended: Links added.
[2020-09-22] MEDS ORDERED: acetaminophen 325mg/10.15ml oral unit dose solution NG PRN ×2 (12:48)
[2020-09-22] MEDS ORDERED: phenobarbital 30mg tablet NG SCH (12:50)
[2020-09-22] MEDS ORDERED: POTASSIUM BICARB 20meq eff tab 20 MEQ TABLET.EFF NG PRN ×2 (12:51→12:52)
[2020-09-22] MEDS ORDERED: polyethylene glycol 3350 17gm powd pack NG PRN (12:51)
[2020-09-22] MEDS ORDERED: VANCOMYCIN 750MG IV in NS 250 ML IV SCH (13:00)
[2020-09-22] MEDS: LOPERAMIDE 2 mg/15 ml oral solution UD NG SCH ×2 (13:19→21:00)
[2020-09-22] MEDS: HYDROcodone/acetaminophen 5mg/325mg tablet PO PRN ×2 (16:17→21:48)
--- NOTE | 2020-09-22 17:10 | NUR ---
Problems reprioritized. Patient report given, questions answered & plan of care reviewed with KELLY Hernandez and KELLY Chin.
[2020-09-22] MEDS: JUVEN Shake w/Arg/Glut/Ca2+Bmb (Juven 19.3gm) pkt 240ml NG SCH (17:30)
--- NOTE | 2020-09-22 18:08 | NUR ---
Patient in room PCU 3015. I have received report from Josie MENDOZA and had the opportunity to ask questions and assume patient care.
--- NOTE | 2020-09-22 18:34 | NUR ---
Problems reprioritized. Patient report given, questions answered & plan of care reviewed with Leidy MENDOZA.
--- NOTE | 2020-09-22 19:06 | NUR ---
Problems reprioritized. Patient report given, questions answered & plan of care reviewed with CHRIS MENDOZA.
[2020-09-22] MEDS: tacrolimus anhydrous 1mg capsule NG SCH ×2 (20:00→21:48)
[2020-09-22] MEDS: tamsulosin 0.4mg capsule PO SCH ×2 (21:00→21:48)
--- NOTE | 2020-09-22 22:31 | NUR ---
ATTEMPTED TO GIVE MEDS THROUGH [facility]. KUB CONFIRMED PLACEMENT. WHEN MEDS WERE PUSHED THOUGH TUBE THEY CAME OUT PATIENTS NOSE AND MOUTH. UPON FURTHER INSPECTION THE NG TUBE COULD NOT BE SEEN IN THE BACK OF THE PATIENTS MOUTH AND WAS EXTENDING A SIGNIFICANT AMOUNT FROM HIS NOSE. CHIARA D/C'D. WILL ATTEMPT TO PLACE ANOTHER TO START FEEDINGS AND GIVE MEDS.
--- NOTE | 2020-09-22 23:39 | NUR ---
X3 NURSES ATTEMPTED TO PLACE [facility] AND WAS UNABLE TO ADVANCE FAR ENOUGH. AFTER AN INSERTION ATTEMPT BY CLAU MENDOZA, A KUB WAS ORDERED HOWEVER THE TIP OF TUBE COULD NOT BE VISUALIZED ON X-RAY. AT THIS POINT MR. GARCIA WAS STATING "IM DONE IM DONE". PATIENT POSITIONED FOR COMFORT FOR THE NIGHT.
--- NOTE | 2020-09-22 23:52 | NUR ---
PATIENT CALLED ME BACK IN ROOM TO TELL ME "I WANT TO DO IT, THE TUBE FEED. PLEASE DONT GIVEN UP ON ME". I EXPLAINED TO HIM EVERYONE ON THIS FLOOR TRIED TO GET IT IN AND I WILL ATTEMPT TO FIND SOMEONE ELSE TONIGHT. IN THE MEAN TIME I WILL HANG DEXTROSE 10% IV FLUID PER PROTOCOL.
--- NOTE | 2020-09-22 23:55 | NUR ---
ATTEMPTED TO CONTACT ICT TEACHER BOLT THREADER TO CHANGE PHENOBARBITOL FROM NG TO IV ROUTE. WILL TRY TO CALL AGAIN. Addendum: 09/23/20 at 0021 by Adeola Dias RN SPOKE WITH DR. LO WHO ORDERED PHENOBARBITOL IV. PER PHARMACY GIVE DOSE NOW AND CONTINUE IN AM ON SCHEDULE.
[2020-09-23] MEDS ORDERED: phenobarbital sod 130mg/ml inj. IV ONE (00:15)
[2020-09-23 02:00] VITALS: BP 136/89
[2020-09-23] MEDS: HYDROmorphone inj. 0.5 MG/0.5 ML DISP.SYRIN IV PRN ×3 (04:36→12:36)
[2020-09-23 06:00] VITALS: BP 121/78
--- NOTE | 2020-09-23 06:33 | NUR ---
Patient in room PCU 3015. I have received report from CHRIS MENDOZA and had the opportunity to ask questions and assume patient care.
[2020-09-23 06:53] LABS: BASOPHILS % (AUTO) 0.7 % (0-1); EOSINOPHILS # (AUTO) 0.1 X10'3 (0-0.9); EOSINOPHILS % (AUTO) 2.8 % (0-6); HEMATOCRIT 28.4 % (42.0-52.0); HEMOGLOBIN 9.1 g/dl (14.0-17.9); LYMPHOCYTES # (AUTO) 1.1 X10'3 (1.1-4.8); LYMPHOCYTES % (AUTO) 29.4 % (21-51); MEAN CORPUSCULAR HEMOGLOBIN 26.9 PG (27.0-31.0); MEAN CORPUSCULAR HGB CONC 32.1 g/dL (33.0-36.5); MEAN CORPUSCULAR VOLUME 83.7 FL (78-98); MEAN PLATELET VOLUME 6.4 FL (7.4-10.4); MONOCYTES # (AUTO) 0.3 X10'3 (0-0.9); MONOCYTES % (AUTO) 7.8 % (2-12); NEUTROPHILS # (AUTO) 2.2 X10'3 (1.8-7.7); NEUTROPHILS % (AUTO) 59.3 % (42-75); PLATELET COUNT 133 X10'3 (140-440); RED CELL DISTRIBUTION WIDTH 25.2 % (11.5-14.5); WHITE BLOOD COUNT 3.6 X10'3 (4.5-11.0)
[2020-09-23 07:00] VITALS: BP 121/78
[2020-09-23] MEDS: levoTHYROXINE 112mcg tablet NG SCH (07:00)
--- NOTE | 2020-09-23 07:04 | NUR ---
Patient in room PCU 3015. I have received report from KELLY Mir and had the opportunity to ask questions and assume patient care.
[2020-09-23 07:23] LABS: ALBUMIN 1.6 G/DL (3.4-5.0); ALBUMIN/GLOBULIN RATIO 0.5 (1.1-1.5); ALKALINE PHOSPHATASE 96 IU/L (46-116); ANION GAP 10 (8-16); ASPARTATE AMINO TRANSFERASE 35 U/L (10-37); BILIRUBIN,TOTAL 0.4 MG/DL (0.1-1.0); BLOOD UREA NITROGEN 10 MG/DL (7-18); BUN/CREATININE RATIO 16.9 (5.4-32.0); CHLORIDE 111 MMOL/L (99-107); CREATININE 0.59 MG/DL (0.60-1.10); GLUCOSE 71 MG/DL (70-104); PREALBUMIN 7.6 MG/DL (19-36); SODIUM 143 MMOL/L (135-145); TOTAL CARBON DIOXIDE 22.5 MMOL/L (24-32); TOTAL PROTEIN 4.6 G/DL (6.4-8.2); eGFR > 90 ML/MIN
[2020-09-23] MEDS: JUVEN Shake w/Arg/Glut/Ca2+Bmb (Juven 19.3gm) pkt 240ml NG SCH ×2 (07:30→17:30)
[2020-09-23] MEDS: Dextrose 10%-water IV solution 1,000 ML IV SCH ×3 (07:30→21:05)
[2020-09-23 07:36] LABS: ALANINE AMINOTRANSFERASE < 6 U/L (12-78)
[2020-09-23] MEDS: famotidine 20mg tablet NG SCH (08:00)
[2020-09-23] MEDS: atorvastatin 20mg tablet NG SCH (08:00)
[2020-09-23] MEDS: LOPERAMIDE 2 mg/15 ml oral solution UD NG SCH ×3 (08:00→21:00)
[2020-09-23] MEDS: phenobarbital sod 130mg/ml inj. IV SCH ×2 (08:00→21:01)
[2020-09-23] MEDS: tacrolimus anhydrous 1mg capsule NG SCH ×2 (08:00→21:01)
[2020-09-23] MEDS: mycophenolate mofetil 250mg capsule PO SCH (08:00)
[2020-09-23] MEDS: risperiDONE 0.5mg tablet NG SCH (08:00)
[2020-09-23] MEDS: K and/or MAG REPLACEMENT MC SCH ×2 (08:00→20:00)
[2020-09-23] MEDS: ipratropium/albuterol 3ml nebule NEB PRN (08:26)
[2020-09-23] MEDS: budesonide 0.5mg/2ml UD nebule IH SCH ×2 (08:26→20:10)
[2020-09-23] MEDS: meropenem inj 1 GM in normal saline 100ml IV soln 100 ML IV SCH ×3 (09:13→23:28)
[2020-09-23] MEDS: heparin, porcine 5000 units/ml vial SQ SCH ×2 (09:14→21:00)
--- NOTE | 2020-09-23 09:42 | NUR ---
Attempted in [facility], pt did not tolerate, yelled "no, no, not without Dilaudid." Dilaudid was administered at 0830, next dose not due until 1230, will continue to monitor.
[2020-09-23 10:00] LABS: ANISOCYTOSIS 3+; PLATELET ESTIMATE DECREASED
[2020-09-23 11:00] VITALS: BP 139/89
[2020-09-23 15:00] VITALS: BP 125/83
[2020-09-23] MEDS: HYDROmorphone/PF 0.2 MG/ML SYRINGE IV PRN ×4 (16:05→23:29)
--- NOTE | 2020-09-23 17:38 | NUR ---
IR note: Attempted to place corpak, but upon KUB review, it was coiled in the esophagus. Per Dr Hansen, this patient would probably be better suited to have G tube placed via the GI lab. Primary RN Elsy notified. Dr Hansen discussed everything with Dr Gonzalez.
[2020-09-23 18:00] VITALS: BP 144/90
--- NOTE | 2020-09-23 18:41 | NUR ---
Problems reprioritized. Patient report given, questions answered & plan of care reviewed with KELLY fajardo.
[2020-09-23] MEDS: tamsulosin 0.4mg capsule PO SCH (21:00)
[2020-09-23] MEDS ORDERED: diatr meglu/diatrizoate 30ml oral sol.-(3 dose) bottle NG ONE ×2 (22:00)
[2020-09-24 02:00] VITALS: BP 135/71
[2020-09-24] MEDS: HYDROmorphone/PF 0.2 MG/ML SYRINGE IV PRN ×7 (02:22→19:25)
--- NOTE | 2020-09-24 06:45 | NUR ---
Patient in room PCU 3015. I have received report from KELLY Mauricio and had the opportunity to ask questions and assume patient care.
--- NOTE | 2020-09-24 06:53 | NUR ---
Patient in room PCU 3015. I have received report from KELLY Mauricio and had the opportunity to ask questions and assume patient care.
[2020-09-24 07:00] VITALS: BP 152/89
[2020-09-24] MEDS: levoTHYROXINE 112mcg tablet NG SCH (07:00)
[2020-09-24] MEDS: JUVEN Shake w/Arg/Glut/Ca2+Bmb (Juven 19.3gm) pkt 240ml NG SCH ×2 (07:30→17:30)
[2020-09-24] MEDS: tacrolimus anhydrous 1mg capsule NG SCH ×2 (08:00→20:00)
[2020-09-24] MEDS: famotidine 20mg tablet NG SCH (08:00)
[2020-09-24] MEDS: K and/or MAG REPLACEMENT MC SCH ×2 (08:00→20:00)
[2020-09-24] MEDS: risperiDONE 0.5mg tablet NG SCH (08:00)
[2020-09-24] MEDS: mycophenolate mofetil 250mg capsule PO SCH (08:00)
[2020-09-24] MEDS: atorvastatin 20mg tablet NG SCH (08:00)
[2020-09-24] MEDS: LOPERAMIDE 2 mg/15 ml oral solution UD NG SCH ×3 (08:00→21:00)
[2020-09-24] MEDS: budesonide 0.5mg/2ml UD nebule IH SCH ×2 (08:40→19:55)
[2020-09-24] MEDS: phenobarbital sod 130mg/ml inj. IV SCH ×2 (08:57→21:14)
[2020-09-24] MEDS: meropenem inj 1 GM in normal saline 100ml IV soln 100 ML IV SCH ×2 (08:57→15:55)
[2020-09-24] MEDS: heparin, porcine 5000 units/ml vial SQ SCH ×2 (08:58→21:13)
--- NOTE | 2020-09-24 10:57 | NUR ---
Paged GI Re [id number] Harpal Tuttle Pt needs PEG placed. Thanks [phone]
[2020-09-24 11:00] VITALS: BP 126/84
[2020-09-24 12:08] LABS: BASOPHILS % (AUTO) 0.6 % (0-1); EOSINOPHILS # (AUTO) 0.1 X10'3 (0-0.9); EOSINOPHILS % (AUTO) 3.3 % (0-6); HEMATOCRIT 29.9 % (42.0-52.0); HEMOGLOBIN 9.6 g/dl (14.0-17.9); LYMPHOCYTES # (AUTO) 1.2 X10'3 (1.1-4.8); LYMPHOCYTES % (AUTO) 32.4 % (21-51); MEAN CORPUSCULAR HEMOGLOBIN 27.4 PG (27.0-31.0); MEAN CORPUSCULAR HGB CONC 32.2 g/dL (33.0-36.5); MEAN CORPUSCULAR VOLUME 85.2 FL (78-98); MEAN PLATELET VOLUME 6.1 FL (7.4-10.4); MONOCYTES # (AUTO) 0.3 X10'3 (0-0.9); NEUTROPHILS % (AUTO) 54.7 % (42-75); PLATELET COUNT 129 X10'3 (140-440); RED BLOOD COUNT 3.51 X10'6 (4.70-6.10); WHITE BLOOD COUNT 3.6 X10'3 (4.5-11.0)
[2020-09-24 12:10] LABS: ALANINE AMINOTRANSFERASE 13 U/L (12-78); ALBUMIN 1.6 G/DL (3.4-5.0); ALBUMIN/GLOBULIN RATIO 0.5 (1.1-1.5); ALKALINE PHOSPHATASE 101 IU/L (46-116); ANION GAP 5 (8-16); ASPARTATE AMINO TRANSFERASE 45 U/L (10-37); BILIRUBIN,TOTAL 0.4 MG/DL (0.1-1.0); BLOOD UREA NITROGEN 4 MG/DL (7-18); CALCIUM 7.5 MG/DL (8.5-10.1); CHLORIDE 105 MMOL/L (99-107); GLUCOSE 115 MG/DL (70-104); POTASSIUM 3.7 MMOL/L (3.5-5.1); SODIUM 138 MMOL/L (135-145); TOTAL CARBON DIOXIDE 27.7 MMOL/L (24-32); TOTAL PROTEIN 4.7 G/DL (6.4-8.2); eGFR > 90 ML/MIN
[2020-09-24 14:11] LABS: ANISOCYTOSIS 3+; HYPOCHROMASIA 1+; PLATELET ESTIMATE DECREASED; SMUDGE CELLS FEW; TOTAL CELLS COUNTED 100
[2020-09-24] MEDS: Dextrose 10%-water IV solution 1,000 ML IV SCH (15:50)
--- NOTE | 2020-09-24 15:53 | NUR ---
Paged Physical Therapy Ada Marielena Mejia Rm [phone] Can somebody help me put pt back to bed please? Thank you :) [phone] Addendum: 09/24/20 at 1839 by Key De Dios RN Wrong pt...
--- NOTE | 2020-09-24 18:38 | NUR ---
Problems reprioritized. Patient report given, questions answered & plan of care reviewed with KELLY Elliott. Pt laying in bed, all pt needs met at this time.
[2020-09-24 19:00] VITALS: BP 140/89
[2020-09-24] MEDS: ipratropium/albuterol 3ml nebule NEB PRN (19:56)
[2020-09-24] MEDS: tamsulosin 0.4mg capsule PO SCH (21:00)
[2020-09-24 23:00] VITALS: BP 88/34
[2020-09-25] VITALS (7 sets, daily range): BP systolic 86–143; BP diastolic 45–91
[2020-09-25] MEDS: Dextrose 10%-water IV solution 1,000 ML IV SCH (01:47)
[2020-09-25] MEDS: HYDROmorphone/PF 0.2 MG/ML SYRINGE IV PRN ×5 (04:12→20:56)
--- NOTE | 2020-09-25 06:05 | NUR ---
Patient in room PCU 3015. I have received report from KELLY Rubalcava and had the opportunity to ask questions and assume patient care.
[2020-09-25] MEDS: levoTHYROXINE 112mcg tablet NG SCH (07:00)
[2020-09-25] MEDS: meropenem inj 1 GM in normal saline 100ml IV soln 100 ML IV SCH ×4 (07:26→16:22)
[2020-09-25] MEDS: phenobarbital sod 130mg/ml inj. IV SCH ×2 (07:27→20:56)
[2020-09-25] MEDS: JUVEN Shake w/Arg/Glut/Ca2+Bmb (Juven 19.3gm) pkt 240ml NG SCH (07:30)
[2020-09-25 07:38] LABS: EOSINOPHILS # (AUTO) 0.1 X10'3 (0-0.9); HEMATOCRIT 29.7 % (42.0-52.0); HEMOGLOBIN 9.6 g/dl (14.0-17.9); NEUTROPHILS # (AUTO) 1.6 X10'3 (1.8-7.7); WHITE BLOOD COUNT 2.9 X10'3 (4.5-11.0)
[2020-09-25 07:40] LABS: BASOPHILS % (AUTO) 0.6 % (0-1); EOSINOPHILS % (AUTO) 3.4 % (0-6); LYMPHOCYTES % (AUTO) 33.5 % (21-51); MEAN CORPUSCULAR HEMOGLOBIN 27.2 PG (27.0-31.0); MEAN CORPUSCULAR HGB CONC 32.5 g/dL (33.0-36.5); MEAN CORPUSCULAR VOLUME 83.7 FL (78-98); MEAN PLATELET VOLUME 6.5 FL (7.4-10.4); MONOCYTES # (AUTO) 0.3 X10'3 (0-0.9); MONOCYTES % (AUTO) 8.8 % (2-12); NEUTROPHILS % (AUTO) 53.7 % (42-75); PLATELET COUNT 123 X10'3 (140-440); RED BLOOD COUNT 3.55 X10'6 (4.70-6.10); RED CELL DISTRIBUTION WIDTH 25.3 % (11.5-14.5)
[2020-09-25] MEDS: risperiDONE 0.5mg tablet NG SCH (08:00)
[2020-09-25] MEDS: LOPERAMIDE 2 mg/15 ml oral solution UD NG SCH ×3 (08:00→21:00)
[2020-09-25] MEDS: mycophenolate mofetil 250mg capsule PO SCH (08:00)
[2020-09-25] MEDS: tacrolimus anhydrous 1mg capsule NG SCH ×2 (08:00→20:00)
[2020-09-25] MEDS: famotidine 20mg tablet NG SCH (08:00)
[2020-09-25] MEDS: K and/or MAG REPLACEMENT MC SCH ×2 (08:00→20:00)
[2020-09-25] MEDS: atorvastatin 20mg tablet NG SCH (08:00)
[2020-09-25] MEDS: heparin, porcine 5000 units/ml vial SQ SCH ×2 (08:00→20:43)
[2020-09-25 08:17] LABS: ALBUMIN 1.6 G/DL (3.4-5.0); ALBUMIN/GLOBULIN RATIO 0.5 (1.1-1.5); ANION GAP 6 (8-16); ASPARTATE AMINO TRANSFERASE 37 U/L (10-37); BILIRUBIN,TOTAL 0.3 MG/DL (0.1-1.0); BLOOD UREA NITROGEN 3 MG/DL (7-18); BUN/CREATININE RATIO 6.7 (5.4-32.0); CALCIUM 7.4 MG/DL (8.5-10.1); CHLORIDE 105 MMOL/L (99-107); CREATININE 0.45 MG/DL (0.60-1.10); GLUCOSE 118 MG/DL (70-104); POTASSIUM 3.5 MMOL/L (3.5-5.1); SODIUM 138 MMOL/L (135-145); TOTAL CARBON DIOXIDE 26.8 MMOL/L (24-32); TOTAL PROTEIN 4.7 G/DL (6.4-8.2); eGFR > 90 ML/MIN
[2020-09-25 08:18] LABS: ALANINE AMINOTRANSFERASE 6 U/L (12-78); ALKALINE PHOSPHATASE 105 IU/L (46-116)
[2020-09-25] MEDS: budesonide 0.5mg/2ml UD nebule IH SCH ×2 (09:00→19:23)
--- NOTE | 2020-09-25 09:00 | NUR ---
Received call from Simona in GI 5121, stating unable to complete PEG tube in GI due to oxygen liter flow of 25. Not good for sedation. Informed Key MENDOZA
--- NOTE | 2020-09-25 09:10 | NUR ---
Was in formed that Simona in GI lab can not take pt for PEG tube placement procedure due to pt requiring a significant amount of oxygen. Pt is currently receiving 25L 02 / 60% Fi02 on a Vapotherm Hi flow nasal cannula. I will inform Dr Holliday.
[2020-09-25 10:19] LABS: ANISOCYTOSIS 3+; PLATELET ESTIMATE DECREASED; POLYCHROMASIA FEW; SMUDGE CELLS 1+; TOTAL CELLS COUNTED 100
[2020-09-25 10:20] LABS: HYPOCHROMASIA 1+
[2020-09-25] MEDS ORDERED: VANCOMYCIN LEVEL IV ONE (12:30)
--- NOTE | 2020-09-25 14:32 | NUR ---
Paged PICC nurse Harpal Sanders [id number] Pt needs PICC line per Dr Yancey for TPN. Thanks [phone]
[2020-09-25] MEDS ORDERED: magnesium Cl slow-release 64mg tablet PO PRN (14:50)
[2020-09-25] MEDS ORDERED: magnesium 4gm in 100ml NS 100 ML IV PRN (14:50)
[2020-09-25] MEDS ORDERED: furosemide 40mg/4ml inj IV ONE (14:50)
[2020-09-25] MEDS ORDERED: magnesium 2GM in 50ml NS 50 ML IV PRN (14:50)
--- NOTE | 2020-09-25 15:36 | NUR ---
TPN consult: Pt s/p f/u BSS today with ST recs NPO as PO intake unsafe. Pt never received EN as Corpak use was unsuccessful. Pt was to get G-tube placement however unable to be placed at this time d/t patient's oxygen requirements per unit clerk. Noted pt has been receiving D5 at 75 mL/hr providing roughly 306 kcal/day. Pt pending PICC placement and to start TPN per MD. Recommendations below have been d/w clinical pharmacist. Recommend discontinuing D5 with initiation of TPN. TF recommendations remain in place for if pt to receive tube feeding. LBM 09/24 with a rectal tube in place, documented with 2725 mL output per I&O. Will continue to follow closely. Rec: 1) Once PICC placed, continuous 2:1 Clinimix-E 06/27 with goal rate of 92 mL/hr with additional 100 mL 20% intralipids at 8.33 mL/hr for 12 hours. In total to provide 2308 mL total volume/day, 2143 kcal, 110 g AA, 441.6 g dextrose (5.43 mg/kg/min dext load), and 20 g lipids 2) Prealbumin and TG q Wednesday/ 3) Daily scaled weights 4) IF TF, continuous Vital AF 1.2 with goal rate of 75 mL/hr; to provide 1800 mL total volume/day, 2160 kcal, 135 g protein, and 1448 mL water 5) IF TF additional 125 mL water flush Q4H; monitor serum Na 6) IF TF, continue TPN until TF to be advanced to ensure TF tolerance 7) Bowel care per rx 8) F/u BSS prior to PO diet advancement Addendum: 09/25/20 at [address] Amended: Links added.
[2020-09-25] MEDS: Dextrose 10%-water IV solution 1,000 ML IV PRN (16:22)
[2020-09-25 16:24] LABS: MAGNESIUM 1.1 MG/DL (1.5-2.4); PHOSPHORUS 2.6 MG/DL (2.3-4.5); PREALBUMIN 8.9 MG/DL (19-36); TRIGLYCERIDES 66 MG/DL (20-135)
[2020-09-25] MEDS ORDERED: MVI, adult No.4 with vit. K 5 ML, ZINC/COPPER/MANGANESE/SELENIUM 0.5 ML, chromic chlori... IV SCH ×4 (18:00)
--- NOTE | 2020-09-25 18:00 | NUR ---
Patient in room PCU 3015. I have received report from Key VILLAR and had the opportunity to ask questions and assume patient care.
--- NOTE | 2020-09-25 18:41 | NUR ---
Problems reprioritized. Patient report given, questions answered & plan of care reviewed with KELLY Jenkins. Pt sitting up in bed resting comfortably. All pt needs met at this time.
[2020-09-25] MEDS: fat emulsion 20% inj. 100 ML IV SCH (20:00)
--- NOTE | 2020-09-25 20:00 | NUR ---
called business continuity management director Dr Yu regarding pt medication tacrolimus IV, issue being toxicity and reactions to med, stated that medication is the standard and to give medication. Medication given, pt had no reactions and did well during transfusion
[2020-09-25] MEDS: tamsulosin 0.4mg capsule PO SCH (21:00)
[2020-09-25] MEDS: TACROLIMUS IV SCH (22:40)
[2020-09-25] MEDS: NORMAL SALINE IV SCH (22:40)
--- NOTE | 2020-09-26 01:44 | NUR ---
paged RT pt sp02 in low 80s, RT arrived and put their own pulse ox on pt and sp02 92%
[2020-09-26] MEDS: HYDROmorphone/PF 0.2 MG/ML SYRINGE IV PRN ×6 (01:51→20:30)
[2020-09-26] MEDS: meropenem inj 1 GM in normal saline 100ml IV soln 100 ML IV SCH ×4 (01:52→23:59)
[2020-09-26 02:00] VITALS: BP 128/70
[2020-09-26 03:15] LABS: EOSINOPHILS # (AUTO) 0.1 X10'3 (0-0.9); MONOCYTES # (AUTO) 0.3 X10'3 (0-0.9); NEUTROPHILS # (AUTO) 1.6 X10'3 (1.8-7.7); WHITE BLOOD COUNT 3.3 X10'3 (4.5-11.0)
[2020-09-26 03:16] LABS: BASOPHILS % (AUTO) 0.8 % (0-1); EOSINOPHILS % (AUTO) 3.2 % (0-6); HEMATOCRIT 30.8 % (42.0-52.0); HEMOGLOBIN 9.9 g/dl (14.0-17.9); LYMPHOCYTES # (AUTO) 1.3 X10'3 (1.1-4.8); LYMPHOCYTES % (AUTO) 38.1 % (21-51); MEAN CORPUSCULAR HEMOGLOBIN 27.4 PG (27.0-31.0); MEAN CORPUSCULAR VOLUME 85.7 FL (78-98); MEAN PLATELET VOLUME 6.9 FL (7.4-10.4); MONOCYTES % (AUTO) 8.5 % (2-12); NEUTROPHILS % (AUTO) 49.4 % (42-75); PLATELET COUNT 135 X10'3 (140-440); RED CELL DISTRIBUTION WIDTH 25.4 % (11.5-14.5)
[2020-09-26 03:29] LABS: ALBUMIN 1.6 G/DL (3.4-5.0); ANION GAP 4 (8-16); BILIRUBIN,TOTAL 0.4 MG/DL (0.1-1.0); BLOOD UREA NITROGEN 2 MG/DL (7-18); BUN/CREATININE RATIO 4.4 (5.4-32.0); CALCIUM 7.5 MG/DL (8.5-10.1); CHLORIDE 104 MMOL/L (99-107); CREATININE 0.45 MG/DL (0.60-1.10); GLUCOSE 85 MG/DL (70-104); PHOSPHORUS 2.6 MG/DL (2.3-4.5); POTASSIUM 3.6 MMOL/L (3.5-5.1); SODIUM 140 MMOL/L (135-145); TOTAL CARBON DIOXIDE 32.3 MMOL/L (24-32); TOTAL PROTEIN 4.8 G/DL (6.4-8.2); eGFR > 90 ML/MIN
[2020-09-26 03:30] LABS: ALANINE AMINOTRANSFERASE 8 U/L (12-78); ALBUMIN/GLOBULIN RATIO 0.5 (1.1-1.5); ALKALINE PHOSPHATASE 107 IU/L (46-116); ASPARTATE AMINO TRANSFERASE 37 U/L (10-37); PREALBUMIN 9.1 MG/DL (19-36)
[2020-09-26 03:44] LABS: PLATELET ESTIMATE DECREASED
[2020-09-26 03:45] LABS: ANISOCYTOSIS 3+; HYPOCHROMASIA 2+; POIKILOCYTOSIS 1+
--- NOTE | 2020-09-26 04:03 | NUR ---
Recieved report of critical result of magnisium from charge nurse, Dr mix notified, replaced per protocol.
[2020-09-26 06:00] VITALS: BP 136/74
--- NOTE | 2020-09-26 06:01 | NUR ---
Problems reprioritized. Patient report given, questions answered & plan of care reviewed with Key-RN.
--- NOTE | 2020-09-26 06:12 | NUR ---
Patient in room PCU 3015. I have received report from KELLY Jenkins and had the opportunity to ask questions and assume patient care.
--- NOTE | 2020-09-26 06:12 | NUR ---
Patient in room PCU 3015. I have received report from KELLY Jenkins and had the opportunity to ask questions and assume patient care.
[2020-09-26] MEDS: levoTHYROXINE 112mcg tablet NG SCH (07:00)
[2020-09-26] MEDS: phenobarbital sod 130mg/ml inj. IV SCH ×3 (07:32→20:00)
[2020-09-26] MEDS: heparin, porcine 5000 units/ml vial SQ SCH ×2 (07:33→19:27)
[2020-09-26] MEDS ORDERED: potassium Cl 40MEQ/1/2NS 520ml 520 ML IV PRN (07:55)
[2020-09-26] MEDS ORDERED: magnesium 4gm in 100ml NS 100 ML IV PRN (07:55)
[2020-09-26] MEDS ORDERED: potassium Cl 20 mEq SR tablet PO PRN ×2 (07:55)
[2020-09-26] MEDS: mycophenolate mofetil 250mg capsule PO SCH (08:00)
[2020-09-26] MEDS: risperiDONE 0.5mg tablet NG SCH (08:00)
[2020-09-26] MEDS: K and/or MAG REPLACEMENT MC SCH ×4 (08:00→20:00)
[2020-09-26] MEDS: famotidine 20mg tablet NG SCH (08:00)
[2020-09-26] MEDS: tacrolimus anhydrous 1mg capsule NG SCH (08:00)
[2020-09-26] MEDS: LOPERAMIDE 2 mg/15 ml oral solution UD NG SCH ×3 (08:00→20:35)
[2020-09-26] MEDS: atorvastatin 20mg tablet NG SCH (08:00)
[2020-09-26] MEDS ORDERED: iron sucrose complex injection 200 MG in normal saline 100ml IV soln 100 ML IV SCH (09:00)
[2020-09-26] MEDS: budesonide 0.5mg/2ml UD nebule IH SCH ×2 (09:14→21:04)
[2020-09-26 11:00] VITALS: BP 107/70
--- NOTE | 2020-09-26 12:04 | NUR ---
Called Dr Yancey regarding the conflicted orders between the pharmacist, doctors, and GI lab. Waiting for him to call back and clarify whether or not he wants the PICC placed and TPN started.
--- NOTE | 2020-09-26 12:20 | NUR ---
Received new orders to place a PICC line in, and start TPN. DC central line once PICC is placed. Try one time for an NG tube, if no success don't try again.
--- NOTE | 2020-09-26 13:00 | NUR ---
Attempted to insert NG tube, met resistance at 3 inches. Another nurse attempted to advance as well with no success. Will inform Dr Yancey of this unsuccessful NG placement.
[2020-09-26] MEDS: nystatin 500,000 unit/5ML UD oral suspension PO SCH ×2 (14:33→20:30)
--- NOTE | 2020-09-26 14:45 | NUR ---
Page the PICC Nurse "re [id number] Harpal Tuttle - Are you still coming to place a PICC for this patient?"
[2020-09-26 16:11] VITALS: BP 185/85
--- NOTE | 2020-09-26 17:50 | NUR ---
Orientee documentation: I have reviewed and agree with all interventions, assessments performed and documented by KELLY Layne.
--- NOTE | 2020-09-26 17:51 | NUR ---
Orientee Medication Administration: For this medication-pass time frame, all medication were reviewed, dispensed, administered and documented per hospital policy by KELLY Layne.
[2020-09-26 18:00] VITALS: BP 128/75
--- NOTE | 2020-09-26 18:07 | NUR ---
Problems reprioritized. Patient report given, questions answered & plan of care reviewed with KELLY Moser. Pt sleeping comfortably, no signs of distress noted at this time.
--- NOTE | 2020-09-26 18:08 | NUR ---
Problems reprioritized. Patient report given, questions answered & plan of care reviewed with KELLY Moser.
--- NOTE | 2020-09-26 18:33 | NUR ---
Patient in room PCU 3015. I have received report from Moe MENDOZA and had the opportunity to ask questions and assume patient care.
[2020-09-26 19:09] LABS: UREA NITROGEN 24HR,URINE 0.7 GM/24HR (7-20)
[2020-09-26] MEDS: TACROLIMUS IV SCH (19:28)
[2020-09-26] MEDS: NORMAL SALINE IV SCH (19:28)
[2020-09-26] MEDS: fat emulsion 20% inj. 100 ML IV SCH (19:30)
[2020-09-26] MEDS ORDERED: MVI, adult No.4 with vit. K 5 ML, ZINC/COPPER/MANGANESE/SELENIUM 0.5 ML, chromic chlori... IV SCH ×4 (20:00)
[2020-09-26] MEDS: tamsulosin 0.4mg capsule PO SCH (20:36)
[2020-09-26 22:00] VITALS: BP 163/80
[2020-09-27 02:00] VITALS: BP 128/64
[2020-09-27] MEDS: HYDROmorphone/PF 0.2 MG/ML SYRINGE IV PRN ×8 (02:12→22:11)
[2020-09-27 06:00] VITALS: BP 94/60
--- NOTE | 2020-09-27 06:30 | NUR ---
Problems reprioritized. Patient report given, questions answered & plan of care reviewed with Jacqueline MENDOZA.
--- NOTE | 2020-09-27 06:37 | NUR ---
Patient in room PCU 3015. I have received report from Ehsan MENDOZA and had the opportunity to ask questions and assume patient care.
[2020-09-27] MEDS: levoTHYROXINE 112mcg tablet NG SCH (07:00)
[2020-09-27 07:11] LABS: BASOPHILS % (AUTO) 0.6 % (0-1); EOSINOPHILS # (AUTO) 0.1 X10'3 (0-0.9); EOSINOPHILS % (AUTO) 3.7 % (0-6); HEMATOCRIT 30.2 % (42.0-52.0); HEMOGLOBIN 9.7 g/dl (14.0-17.9); LYMPHOCYTES # (AUTO) 0.8 X10'3 (1.1-4.8); MEAN CORPUSCULAR HEMOGLOBIN 27.3 PG (27.0-31.0); MEAN CORPUSCULAR HGB CONC 32.1 g/dL (33.0-36.5); MEAN CORPUSCULAR VOLUME 85.1 FL (78-98); MEAN PLATELET VOLUME 6.7 FL (7.4-10.4); MONOCYTES # (AUTO) 0.2 X10'3 (0-0.9); MONOCYTES % (AUTO) 8.8 % (2-12); NEUTROPHILS # (AUTO) 1.2 X10'3 (1.8-7.7); NEUTROPHILS % (AUTO) 52.9 % (42-75); PLATELET COUNT 121 X10'3 (140-440); RED BLOOD COUNT 3.56 X10'6 (4.70-6.10); RED CELL DISTRIBUTION WIDTH 24.8 % (11.5-14.5); WHITE BLOOD COUNT 2.3 X10'3 (4.5-11.0)
[2020-09-27 07:46] LABS: ANISOCYTOSIS 3+; MICROCYTOSIS 1+; PLATELET ESTIMATE DECREASED; TOTAL CELLS COUNTED 100
[2020-09-27 07:47] LABS: POLYCHROMASIA FEW; STOMATOCYTES 1+; TARGET CELLS FEW
[2020-09-27] MEDS: K and/or MAG REPLACEMENT MC SCH ×2 (08:00→20:00)
[2020-09-27] MEDS: atorvastatin 20mg tablet NG SCH (08:00)
[2020-09-27] MEDS: nystatin 500,000 unit/5ML UD oral suspension PO SCH ×3 (08:00→21:00)
[2020-09-27] MEDS: mycophenolate mofetil 250mg capsule PO SCH (08:00)
[2020-09-27] MEDS: famotidine 20mg tablet NG SCH (08:00)
[2020-09-27] MEDS: risperiDONE 0.5mg tablet NG SCH (08:00)
[2020-09-27] MEDS: LOPERAMIDE 2 mg/15 ml oral solution UD NG SCH ×3 (08:00→20:54)
[2020-09-27 08:24] LABS: ALANINE AMINOTRANSFERASE 7 U/L (12-78); ALBUMIN 1.6 G/DL (3.4-5.0); ALBUMIN/GLOBULIN RATIO 0.5 (1.1-1.5); ALKALINE PHOSPHATASE 123 IU/L (46-116); ANION GAP 7 (8-16); ASPARTATE AMINO TRANSFERASE 41 U/L (10-37); BILIRUBIN,TOTAL 0.3 MG/DL (0.1-1.0); BLOOD UREA NITROGEN 3 MG/DL (7-18); CALCIUM 7.3 MG/DL (8.5-10.1); CHLORIDE 106 MMOL/L (99-107); GLUCOSE 102 MG/DL (70-104); MAGNESIUM 2.3 MG/DL (1.5-2.4); PHOSPHORUS 3.1 MG/DL (2.3-4.5); POTASSIUM 3.7 MMOL/L (3.5-5.1); SODIUM 142 MMOL/L (135-145); TOTAL CARBON DIOXIDE 29.5 MMOL/L (24-32); TOTAL PROTEIN 4.9 G/DL (6.4-8.2); eGFR > 90 ML/MIN
[2020-09-27] MEDS: ipratropium/albuterol 3ml nebule NEB PRN ×2 (08:30→20:41)
[2020-09-27] MEDS: budesonide 0.5mg/2ml UD nebule IH SCH ×2 (08:30→20:41)
[2020-09-27] MEDS: meropenem inj 1 GM in normal saline 100ml IV soln 100 ML IV SCH ×2 (08:33→15:50)
[2020-09-27] MEDS: heparin, porcine 5000 units/ml vial SQ SCH ×2 (08:33→20:20)
[2020-09-27] MEDS: Dextrose 10%-water IV solution 1,000 ML IV PRN (08:33)
[2020-09-27] MEDS: phenobarbital sod 130mg/ml inj. IV SCH ×2 (08:34→20:20)
[2020-09-27] MEDS: iron sucrose complex injection 200 MG in normal saline 100ml IV soln 90 ML IV SCH (10:21)
--- NOTE | 2020-09-27 10:50 | NUR ---
Patient refused 0800 accucheck
[2020-09-27 11:00] VITALS: BP 101/58
--- NOTE | 2020-09-27 11:14 | NUR ---
Reassessment: Noted pt with c/o hunger per PT note though pt remains NPO per ST recs. PICC was not placed until 09/26, TPN just started at 19:30 on 09/26 at 30 mL/hr per protocol. No signs of refeeding this morning as electrolytes are WNL. Noted that NG tube placement was unsuccessful x 2 on 09/26 per market risk specialist and both GI and IR not willing to do the PEG tube per MD note. Surgery was consulted for G tube placement though pt is a poor surgical candidate per surgeon note. TF recommendations will remain in place below for IF EN access is achieved. LBM 09/26 with 200 mL stool output per I&O. Will continue to follow closely. Rec: 1) Continuous 2:1 Clinimix-E 06/27 with goal rate of 92 mL/hr with additional 100 mL 20% intralipids at 8.33 mL/hr for 12 hours. In total to provide 2308 mL total volume/day, 2143 kcal, 110 g AA, 441.6 g dextrose (5.43 mg/kg/min dext load), and 20 g lipids 2) Prealbumin and TG q Wednesday/ 3) Daily scaled weights 4) IF TF, continuous Vital AF 1.2 with goal rate of 75 mL/hr; to provide 1800 mL total volume/day, 2160 kcal, 135 g protein, and 1448 mL water 5) IF TF additional 125 mL water flush Q4H; monitor serum Na 6) IF TF, continue TPN until TF to be advanced to ensure TF tolerance 7) Bowel care per rx 8) F/u BSS prior to PO diet advancement Addendum: 09/27/20 at [address] Amended: Links added.
--- NOTE | 2020-09-27 14:05 | NUR ---
Patient refused 1400 blood sugar check.
[2020-09-27 15:00] VITALS: BP 109/61
[2020-09-27] MEDS: MVI, adult No.4 with vit. K 5 ML, ZINC/COPPER/MANGANESE/SELENIUM 0.5 ML, chromic chlori... IV SCH ×4 (15:49)
[2020-09-27 18:00] VITALS: BP 105/58
--- NOTE | 2020-09-27 18:15 | NUR ---
Patient in room PCU 3015. I have received report from Jacqueline MENDOZA and had the opportunity to ask questions and assume patient care.
--- NOTE | 2020-09-27 18:16 | NUR ---
Problems reprioritized. Patient report given, questions answered & plan of care reviewed with Beth MENDOZA. Patient stable at transfer of care.
[2020-09-27] MEDS ORDERED: TACROLIMUS IV SCH (19:00)
[2020-09-27] MEDS ORDERED: NORMAL SALINE IV SCH (19:00)
[2020-09-27] MEDS ORDERED: MYCOPHENOLATE MOFETIL IV SCH (20:00)
[2020-09-27] MEDS ORDERED: WATER IV SCH (20:00)
[2020-09-27] MEDS ORDERED: DEXTROSE 5% IV SCH (20:00)
[2020-09-27] MEDS: tamsulosin 0.4mg capsule PO SCH (20:54)
[2020-09-27] MEDS: fat emulsion 20% inj. 100 ML IV SCH (21:57)
[2020-09-28] VITALS (15 sets, daily range): BP systolic 92–148; BP diastolic 59–81
[2020-09-28] MEDS: meropenem inj 1 GM in normal saline 100ml IV soln 100 ML IV SCH ×3 (00:18→16:36)
[2020-09-28] MEDS: HYDROmorphone/PF 0.2 MG/ML SYRINGE IV PRN ×8 (01:50→20:34)
[2020-09-28] MEDS: MVI, adult No.4 with vit. K 5 ML, ZINC/COPPER/MANGANESE/SELENIUM 0.5 ML, chromic chlori... IV SCH ×8 (03:08→14:12)
[2020-09-28 03:55] LABS: BASOPHILS % (AUTO) 1.3 % (0-1); EOSINOPHILS # (AUTO) 0.1 X10'3 (0-0.9); MEAN CORPUSCULAR HEMOGLOBIN 28.3 PG (27.0-31.0); MONOCYTES # (AUTO) 0.2 X10'3 (0-0.9); NEUTROPHILS # (AUTO) 1.4 X10'3 (1.8-7.7); NEUTROPHILS % (AUTO) 51.3 % (42-75); WHITE BLOOD COUNT 2.7 X10'3 (4.5-11.0)
[2020-09-28 03:57] LABS: EOSINOPHILS % (AUTO) 4.3 % (0-6); HEMATOCRIT 28.3 % (42.0-52.0); HEMOGLOBIN 9.3 g/dl (14.0-17.9); LYMPHOCYTES % (AUTO) 36.2 % (21-51); MEAN CORPUSCULAR HGB CONC 32.9 g/dL (33.0-36.5); MONOCYTES % (AUTO) 6.9 % (2-12); PLATELET COUNT 124 X10'3 (140-440); RED BLOOD COUNT 3.29 X10'6 (4.70-6.10); RED CELL DISTRIBUTION WIDTH 25.1 % (11.5-14.5)
[2020-09-28 04:04] LABS: ALANINE AMINOTRANSFERASE 6 U/L (12-78); ALBUMIN 1.5 G/DL (3.4-5.0); ALBUMIN/GLOBULIN RATIO 0.5 (1.1-1.5); ALKALINE PHOSPHATASE 117 IU/L (46-116); ANION GAP 2 (8-16); ASPARTATE AMINO TRANSFERASE 34 U/L (10-37); BILIRUBIN,TOTAL 0.3 MG/DL (0.1-1.0); BLOOD UREA NITROGEN 4 MG/DL (7-18); BUN/CREATININE RATIO 7.7 (5.4-32.0); CALCIUM 7.1 MG/DL (8.5-10.1); CHLORIDE 106 MMOL/L (99-107); CREATININE 0.52 MG/DL (0.60-1.10); GLUCOSE 98 MG/DL (70-104); POTASSIUM 3.8 MMOL/L (3.5-5.1); SODIUM 141 MMOL/L (135-145); TOTAL CARBON DIOXIDE 33.4 MMOL/L (24-32); TOTAL PROTEIN 4.7 G/DL (6.4-8.2); eGFR > 90 ML/MIN
--- NOTE | 2020-09-28 06:16 | NUR ---
Problems reprioritized. Patient report given, questions answered & plan of care reviewed with Fabien MENDOZA.
[2020-09-28 07:00] LABS: TOTAL CELLS COUNTED 100
[2020-09-28] MEDS: levoTHYROXINE 112mcg tablet NG SCH (07:00)
[2020-09-28 07:01] LABS: ANISOCYTOSIS 3+; MICROCYTOSIS 1+; PLATELET ESTIMATE DECREASED; POLYCHROMASIA FEW
[2020-09-28 07:02] LABS: TARGET CELLS FEW
[2020-09-28] MEDS ORDERED: fat emulsion IV bag 100 ML IV SCH (07:55)
[2020-09-28] MEDS: K and/or MAG REPLACEMENT MC SCH ×2 (08:00→20:00)
[2020-09-28] MEDS: heparin, porcine 5000 units/ml vial SQ SCH ×2 (08:00→22:51)
[2020-09-28] MEDS: nystatin 500,000 unit/5ML UD oral suspension PO SCH ×3 (08:00→22:42)
[2020-09-28] MEDS: phenobarbital sod 130mg/ml inj. IV SCH ×2 (08:59→22:43)
--- NOTE | 2020-09-28 09:00 | NUR ---
Problems reprioritized. Patient report given, questions answered & plan of care reviewed with Aide MENDOZA in the ICU. Pt was transported down to the ICU.
[2020-09-28] MEDS: budesonide 0.5mg/2ml UD nebule IH SCH ×2 (09:13→19:52)
[2020-09-28] MEDS: ipratropium/albuterol 3ml nebule NEB PRN (09:13)
--- NOTE | 2020-09-28 09:30 | NUR ---
Patient in room ICU 2038. I have received report from clovis and had the opportunity to ask questions and assume patient care. received from tele by bed. vss. resp rx being given. gurgly- coughs, swallows. condom cath replaced as leaking. RT titrating down fio2. alert and oriented
[2020-09-28] MEDS ORDERED: propofol 10mg/ml 20ml vial IV ONE (09:40)
[2020-09-28] MEDS ORDERED: normal saline 500ml IV soln 500 ML IV ONE ×2 (10:30→11:10)
[2020-09-28] MEDS ORDERED: MIDAZolam 1 MG/ML 5ML VIAL ONE (10:36)
[2020-09-28] MEDS ORDERED: fentaNYL/PF 50MCG/1 ML 2ML syringe ONE (10:36)
--- NOTE | 2020-09-28 11:10 | NUR ---
egd and peg placement started after diprivan 90 mcg ivp given by Dr Perry. pt tolerated very well. fio2 from 35 to 60 just for procedure. 500cc ns bolus given before and during procedure.
--- NOTE | 2020-09-28 11:30 | NUR ---
pt tolerated procedure well
--- NOTE | 2020-09-28 12:44 | NUR ---
report to Pet- pt transferred back to 3015 by bed.
--- NOTE | 2020-09-28 12:56 | NUR ---
TF consult: Pt s/p EGD and PEG placement today. Per EMR okay to use PEG six hours after placement (1800). TF recommendations below. Recommend weaning TPN as TF increases to goal rate to ensure tolerance to TF prior to discontinuing TPN. Will continue to follow closely. Rec: 1) Continuous 2:1 Clinimix-E 06/27 with goal rate of 92 mL/hr with additional 100 mL 20% intralipids at 8.33 mL/hr for 12 hours. In total to provide 2308 mL total volume/day, 2143 kcal, 110 g AA, 441.6 g dextrose (5.43 mg/kg/min dext load), and 20 g lipids 2) Continuous Vital AF 1.2 via PEG with goal rate of 75 mL/hr; to provide 1800 mL total volume/day, 2160 kcal, 135 g protein, and 1448 mL water 3) Additional 125 mL water flush Q4H; monitor serum Na 4) Prealbumin and TG q Wednesday/ 5) Daily scaled weights 6) Wean TPN with TF advancement to ensure TF tolerance 7) Bowel care per rx 8) F/u BSS prior to PO diet advancement Addendum: 09/28/20 at [address] Amended: Links added.
[2020-09-28] MEDS ORDERED: acetaminophen 325mg/10.15ml oral unit dose solution PEG PRN ×2 (13:41→13:42)
[2020-09-28] MEDS ORDERED: HYDROcodone/acetaminophen 7.5MG/325MG per 15ml UD CUP PO PRN (13:43)
[2020-09-28] MEDS ORDERED: HYDROcodone/acetaminophen 7.5MG/325MG per 15ml UD CUP PEG PRN (13:46)
[2020-09-28] MEDS ORDERED: polyethylene glycol 3350 17gm powd pack PEG PRN (13:49)
[2020-09-28] MEDS ORDERED: POTASSIUM BICARB 20meq eff tab 20 MEQ TABLET.EFF PEG PRN ×2 (13:50)
[2020-09-28] MEDS: iron sucrose complex injection 200 MG in normal saline 100ml IV soln 90 ML IV SCH (17:20)
--- NOTE | 2020-09-28 18:57 | NUR ---
Problems reprioritized. Patient report given, questions answered & plan of care reviewed with Alisia MENDOZA.
--- NOTE | 2020-09-28 18:59 | NUR ---
Patient in room PCU 3015. I have received report from Fabien MENDOZA and had the opportunity to ask questions and assume patient care.
[2020-09-28] MEDS: doxazosin mesylate 2mg tablet PEG SCH (22:42)
[2020-09-28] MEDS: LOPERAMIDE 2 mg/15 ml oral solution UD PEG SCH (22:42)
[2020-09-28] MEDS: TACROLIMUS 1 MG PEG SCH (22:44)
[2020-09-29] MEDS: MVI, adult No.4 with vit. K 5 ML, ZINC/COPPER/MANGANESE/SELENIUM 0.5 ML, chromic chlori... IV SCH ×4 (00:51)
[2020-09-29] MEDS: HYDROmorphone/PF 0.2 MG/ML SYRINGE IV PRN ×3 (01:05→11:29)
[2020-09-29] MEDS: meropenem inj 1 GM in normal saline 100ml IV soln 100 ML IV SCH ×3 (01:12→16:17)
[2020-09-29 02:00] VITALS: BP 103/73
[2020-09-29 06:00] VITALS: BP 126/47
[2020-09-29 07:05] LABS: EOSINOPHILS # (AUTO) 0.1 X10'3 (0-0.9); HEMOGLOBIN 8.7 g/dl (14.0-17.9); LYMPHOCYTES # (AUTO) 1.2 X10'3 (1.1-4.8); MONOCYTES # (AUTO) 0.3 X10'3 (0-0.9); WHITE BLOOD COUNT 2.6 X10'3 (4.5-11.0)
[2020-09-29 07:07] LABS: BASOPHILS % (AUTO) 0.6 % (0-1); EOSINOPHILS % (AUTO) 3.8 % (0-6); LYMPHOCYTES % (AUTO) 46.3 % (21-51); MEAN CORPUSCULAR HEMOGLOBIN 27.8 PG (27.0-31.0); MEAN CORPUSCULAR HGB CONC 32.1 g/dL (33.0-36.5); MEAN CORPUSCULAR VOLUME 86.5 FL (78-98); MEAN PLATELET VOLUME 7.3 FL (7.4-10.4); MONOCYTES % (AUTO) 9.9 % (2-12); NEUTROPHILS % (AUTO) 39.4 % (42-75); PLATELET COUNT 106 X10'3 (140-440); RED BLOOD COUNT 3.12 X10'6 (4.70-6.10); RED CELL DISTRIBUTION WIDTH 24.7 % (11.5-14.5)
[2020-09-29 07:18] LABS: ALBUMIN 1.5 G/DL (3.4-5.0); ALBUMIN/GLOBULIN RATIO 0.5 (1.1-1.5); ALKALINE PHOSPHATASE 102 IU/L (46-116); ANION GAP 2 (8-16); ASPARTATE AMINO TRANSFERASE 27 U/L (10-37); BILIRUBIN,TOTAL 0.3 MG/DL (0.1-1.0); BLOOD UREA NITROGEN 14 MG/DL (7-18); CALCIUM 7.3 MG/DL (8.5-10.1); CHLORIDE 107 MMOL/L (99-107); GLUCOSE 94 MG/DL (70-104); POTASSIUM 4.6 MMOL/L (3.5-5.1); SODIUM 141 MMOL/L (135-145); TOTAL CARBON DIOXIDE 32.4 MMOL/L (24-32); TOTAL PROTEIN 4.6 G/DL (6.4-8.2); eGFR > 90 ML/MIN
[2020-09-29 07:25] LABS: ALANINE AMINOTRANSFERASE < 6 U/L (12-78)
[2020-09-29] MEDS: ipratropium/albuterol 3ml nebule NEB PRN ×2 (07:57→19:59)
[2020-09-29] MEDS: budesonide 0.5mg/2ml UD nebule IH SCH ×2 (07:57→19:59)
[2020-09-29] MEDS: K and/or MAG REPLACEMENT MC SCH ×2 (08:00→20:00)
[2020-09-29] MEDS: heparin, porcine 5000 units/ml vial SQ SCH ×2 (08:00→21:56)
[2020-09-29] MEDS ORDERED: MESSAGE TO NURSING IV SCH (08:00)
--- NOTE | 2020-09-29 08:16 | NUR ---
Problems reprioritized. Patient report given, questions answered & plan of care reviewed with Fabien MENDOZA.
[2020-09-29] MEDS: phenobarbital sod 130mg/ml inj. IV SCH ×2 (08:29→21:49)
[2020-09-29] MEDS: LOPERAMIDE 2 mg/15 ml oral solution UD PEG SCH ×3 (08:48→21:57)
[2020-09-29] MEDS: nystatin 500,000 unit/5ML UD oral suspension PO SCH ×3 (08:48→21:56)
[2020-09-29] MEDS: risperiDONE 0.5mg tablet PEG SCH (08:49)
[2020-09-29] MEDS: levoTHYROXINE 112mcg tablet PEG SCH (08:49)
[2020-09-29] MEDS: famotidine 20mg tablet PEG SCH (08:49)
[2020-09-29] MEDS: atorvastatin 20mg tablet PEG SCH (08:49)
[2020-09-29] MEDS: TACROLIMUS 1 MG PEG SCH ×2 (08:50→20:00)
[2020-09-29 09:32] LABS: TOTAL CELLS COUNTED 100
[2020-09-29 09:34] LABS: ANISOCYTOSIS 3+; PLATELET ESTIMATE DECREASED; POLYCHROMASIA FEW
[2020-09-29 09:35] LABS: STOMATOCYTES FEW; TARGET CELLS FEW; TEAR DROP CELLS 1+
[2020-09-29] MEDS: iron sucrose complex injection 200 MG in normal saline 100ml IV soln 90 ML IV SCH (10:09)
[2020-09-29 11:00] VITALS: BP 112/66
[2020-09-29 18:00] VITALS: BP 97/52
--- NOTE | 2020-09-29 21:37 | NUR ---
PAGER ID: [phone] MESSAGE: Harpal Haley 60M dx Bilat aspiration pnu; hx COPD, ESRD, DM Currently on tube feed, BG critical @ 69, there is no order for IV dextrose on the emar. Can I have both of them on the emar to treat hypoglycemia? Thank you. Melva [phone]
[2020-09-29] MEDS ORDERED: MESSAGE TO PHARMACY PO ONE (21:45)
[2020-09-29] MEDS ORDERED: glucagon, human recombinant 1mg kit SUBCUT PRN (21:45)
[2020-09-29] MEDS: doxazosin mesylate 2mg tablet PEG SCH (21:56)
[2020-09-29 22:00] VITALS: BP 87/48
[2020-09-29] MEDS: dextrose 50%-water 50ml dispensing syringe IV PRN (22:18)
[2020-09-30] MEDS: meropenem inj 1 GM in normal saline 100ml IV soln 100 ML IV SCH ×3 (00:44→16:11)
[2020-09-30 02:00] VITALS: BP 88/52
[2020-09-30] MEDS: HYDROmorphone/PF 0.2 MG/ML SYRINGE IV PRN ×7 (02:26→22:58)
[2020-09-30 06:00] LABS: EOSINOPHILS # (AUTO) 0.1 X10'3 (0-0.9); MEAN PLATELET VOLUME 7.8 FL (7.4-10.4); MONOCYTES # (AUTO) 0.3 X10'3 (0-0.9)
[2020-09-30 06:01] LABS: BASOPHILS % (AUTO) 0.7 % (0-1); EOSINOPHILS % (AUTO) 2.8 % (0-6); HEMOGLOBIN 8.3 g/dl (14.0-17.9); MEAN CORPUSCULAR HEMOGLOBIN 27.8 PG (27.0-31.0); MEAN CORPUSCULAR HGB CONC 31.9 g/dL (33.0-36.5); MEAN CORPUSCULAR VOLUME 86.9 FL (78-98); MONOCYTES % (AUTO) 9.2 % (2-12); NEUTROPHILS # (AUTO) 1.6 X10'3 (1.8-7.7); NEUTROPHILS % (AUTO) 53.3 % (42-75); PLATELET COUNT 97 X10'3 (140-440); RED BLOOD COUNT 2.99 X10'6 (4.70-6.10); RED CELL DISTRIBUTION WIDTH 25.3 % (11.5-14.5); WHITE BLOOD COUNT 2.9 X10'3 (4.5-11.0)
[2020-09-30 06:18] LABS: ALANINE AMINOTRANSFERASE 19 U/L (12-78); ALBUMIN 1.6 G/DL (3.4-5.0); ALBUMIN/GLOBULIN RATIO 0.5 (1.1-1.5); ALKALINE PHOSPHATASE 123 IU/L (46-116); ANION GAP 1 (8-16); ASPARTATE AMINO TRANSFERASE 94 U/L (10-37); BILIRUBIN,TOTAL 0.3 MG/DL (0.1-1.0); BLOOD UREA NITROGEN 14 MG/DL (7-18); BUN/CREATININE RATIO 30.4 (5.4-32.0); CALCIUM 7.4 MG/DL (8.5-10.1); CHLORIDE 107 MMOL/L (99-107); CREATININE 0.46 MG/DL (0.60-1.10); GLUCOSE 101 MG/DL (70-104); MAGNESIUM 1.5 MG/DL (1.5-2.4); PHOSPHORUS 1.7 MG/DL (2.3-4.5); POTASSIUM 4.5 MMOL/L (3.5-5.1); SODIUM 139 MMOL/L (135-145); TOTAL CARBON DIOXIDE 30.8 MMOL/L (24-32); TOTAL PROTEIN 4.8 G/DL (6.4-8.2); eGFR > 90 ML/MIN
--- NOTE | 2020-09-30 06:36 | NUR ---
Problems reprioritized. Patient report given, questions answered & plan of care reviewed with KELLY Fajardo.
[2020-09-30 07:43] LABS: ANISOCYTOSIS 3+; PLATELET ESTIMATE DECREASED; TOTAL CELLS COUNTED 100
[2020-09-30 07:44] LABS: POLYCHROMASIA FEW
[2020-09-30] MEDS: K and/or MAG REPLACEMENT MC SCH ×2 (08:00→20:00)
[2020-09-30] MEDS: budesonide 0.5mg/2ml UD nebule IH SCH ×2 (08:04→20:46)
[2020-09-30] MEDS: ipratropium/albuterol 3ml nebule NEB PRN (08:04)
[2020-09-30] MEDS: nystatin 500,000 unit/5ML UD oral suspension PO SCH ×2 (10:14→13:55)
[2020-09-30] MEDS: LOPERAMIDE 2 mg/15 ml oral solution UD PEG SCH ×3 (10:14→20:23)
[2020-09-30] MEDS: atorvastatin 20mg tablet PEG SCH (10:15)
[2020-09-30] MEDS: famotidine 20mg tablet PEG SCH (10:15)
[2020-09-30] MEDS: heparin, porcine 5000 units/ml vial SQ SCH ×2 (10:16→20:25)
[2020-09-30] MEDS: phenobarbital sod 130mg/ml inj. IV SCH ×2 (10:17→20:24)
[2020-09-30] MEDS: TACROLIMUS 1 MG PEG SCH (10:18)
[2020-09-30] MEDS: risperiDONE 0.5mg tablet PEG SCH (10:18)
[2020-09-30] MEDS: levoTHYROXINE 112mcg tablet PEG SCH (10:21)
[2020-09-30 18:00] VITALS: BP 90/61
[2020-09-30] MEDS: doxazosin mesylate 2mg tablet PEG SCH (20:23)
[2020-09-30] MEDS: insulin glargine (Lantus) pen - multi-dose SQ SCH (21:00)
[2020-09-30 22:00] VITALS: BP 101/65
[2020-10-01] MEDS: nystatin 500,000 unit/5ML UD oral suspension PO SCH ×4 (01:22→21:06)
[2020-10-01] MEDS: meropenem inj 1 GM in normal saline 100ml IV soln 100 ML IV SCH ×3 (01:22→16:00)
[2020-10-01] MEDS: TACROLIMUS 1 MG PEG SCH ×2 (01:23→13:33)
[2020-10-01 02:00] VITALS: BP 115/70
[2020-10-01 05:20] LABS: HEMATOCRIT 26.6 % (42.0-52.0); HEMOGLOBIN 8.4 g/dl (14.0-17.9); MEAN PLATELET VOLUME 7.7 FL (7.4-10.4); RED BLOOD COUNT 3.04 X10'6 (4.70-6.10); WHITE BLOOD COUNT 2.4 X10'3 (4.5-11.0)
[2020-10-01 05:22] LABS: MEAN CORPUSCULAR HEMOGLOBIN 27.7 PG (27.0-31.0); MEAN CORPUSCULAR HGB CONC 31.7 g/dL (33.0-36.5); MEAN CORPUSCULAR VOLUME 87.6 FL (78-98); PLATELET COUNT 93 X10'3 (140-440); RED CELL DISTRIBUTION WIDTH 25.2 % (11.5-14.5)
[2020-10-01 05:36] LABS: ALANINE AMINOTRANSFERASE 144 U/L (12-78); ALBUMIN 1.6 G/DL (3.4-5.0); ALBUMIN/GLOBULIN RATIO 0.5 (1.1-1.5); ALKALINE PHOSPHATASE 244 IU/L (46-116); ANION GAP 4 (8-16); ASPARTATE AMINO TRANSFERASE 639 U/L (10-37); BILIRUBIN,TOTAL 0.3 MG/DL (0.1-1.0); BLOOD UREA NITROGEN 14 MG/DL (7-18); BUN/CREATININE RATIO 29.8 (5.4-32.0); CALCIUM 7.4 MG/DL (8.5-10.1); CHLORIDE 106 MMOL/L (99-107); CREATININE 0.47 MG/DL (0.60-1.10); GLUCOSE 118 MG/DL (70-104); MAGNESIUM 1.4 MG/DL (1.5-2.4); PHOSPHORUS 1.3 MG/DL (2.3-4.5); POTASSIUM 5.1 MMOL/L (3.5-5.1); SODIUM 139 MMOL/L (135-145); TOTAL CARBON DIOXIDE 29.2 MMOL/L (24-32); TOTAL PROTEIN 5.1 G/DL (6.4-8.2); eGFR > 90 ML/MIN
[2020-10-01 06:25] LABS: TOTAL CELLS COUNTED 100
[2020-10-01 06:26] LABS: ANISOCYTOSIS 3+; PLATELET ESTIMATE DECREASED
--- NOTE | 2020-10-01 06:45 | NUR ---
Patient in room PCU 3015. I have received report from jessika cabral and had the opportunity to ask questions and assume patient care.
--- NOTE | 2020-10-01 06:58 | NUR ---
Pt fell out of bed at shift change. Rectal tube dislodged, a small abrasion was found on the patient's left elbow, a small bump was palpated on the back of the patient's head. It appeared that the patient hit his head on the bedside table. The hospitalist was paged and a CT scan was ordered. Patient states he is not in pain, however he requested a dose of dilauded. Pt was placed back in bed, cleaned up, and a new rectal tube was inserted. He appears to be resting comfortably at this time.
[2020-10-01 07:00] VITALS: BP 131/63
[2020-10-01] MEDS: levoTHYROXINE 112mcg tablet PEG SCH (07:00)
--- NOTE | 2020-10-01 07:06 | NUR ---
Problems reprioritized. Patient report given, questions answered & plan of care reviewed with KELLY Dickey.
[2020-10-01] MEDS: K and/or MAG REPLACEMENT MC SCH ×2 (08:00→20:00)
[2020-10-01] MEDS: atorvastatin 20mg tablet PEG SCH (09:11)
[2020-10-01] MEDS: LOPERAMIDE 2 mg/15 ml oral solution UD PEG SCH ×3 (09:11→21:06)
[2020-10-01] MEDS: phenobarbital sod 130mg/ml inj. IV SCH ×2 (09:12→21:06)
[2020-10-01] MEDS: famotidine 20mg tablet PEG SCH (09:12)
[2020-10-01] MEDS: risperiDONE 0.5mg tablet PEG SCH (09:13)
[2020-10-01] MEDS: heparin, porcine 5000 units/ml vial SQ SCH ×2 (09:14→21:08)
[2020-10-01] MEDS: budesonide 0.5mg/2ml UD nebule IH SCH ×2 (09:46→19:26)
[2020-10-01] MEDS ORDERED: HYDROcodone/acetaminophen 5mg/325mg tablet PO PRN (10:55)
[2020-10-01 11:00] VITALS: BP 102/62
--- NOTE | 2020-10-01 11:15 | NUR ---
Page to PICC KELLY 0914A Parag. Patient pulled out PICC line. Please replace PEÑA. Thanks Keli [phone]
[2020-10-01] MEDS: HYDROcodone/acetaminophen 10/325mg tab PO PRN ×2 (12:12→21:59)
--- NOTE | 2020-10-01 12:29 | NUR ---
Reassessment: TPN discontinued and pt tolerating TF with GRV WNL. Per EMR TF was at goal rate of 75 mL/hr at 14:00 on 09/30 though down to 45 mL/hr at 19:00. TC to RN who reports TF is currently running at goal rate. LBM 09/30. Will continue to follow closely. Rec: 1) Continuous Vital AF 1.2 via PEG with goal rate of 75 mL/hr; to provide 1800 mL total volume/day, 2160 kcal, 135 g protein, and 1448 mL water 2) Additional 125 mL water flush Q4H; monitor serum Na 3) Prealbumin q Wednesday/ 4) Daily scaled weights 5) Bowel care per rx 6) F/u BSS with ST if planning on advancing PO diet Addendum: 10/01/20 at [address] Amended: Links added.
[2020-10-01 15:00] VITALS: BP 139/79
[2020-10-01 18:00] VITALS: BP 130/64
--- NOTE | 2020-10-01 18:00 | NUR ---
Problems reprioritized. Patient report given, questions answered & plan of care reviewed with jessika cabral.
[2020-10-01] MEDS: insulin glargine (Lantus) pen - multi-dose SQ SCH (21:00)
[2020-10-01] MEDS: doxazosin mesylate 2mg tablet PEG SCH (21:08)
[2020-10-01 22:00] VITALS: BP 120/46
[2020-10-02] MEDS: meropenem inj 1 GM in normal saline 100ml IV soln 100 ML IV SCH (00:26)
[2020-10-02] MEDS: TACROLIMUS 1 MG PEG SCH ×3 (00:28→20:00)
[2020-10-02 06:00] VITALS: BP 97/67
--- NOTE | 2020-10-02 06:00 | NUR ---
Patient in room PCU 3015. I have received report from Melva MENDOZA and had the opportunity to ask questions and assume patient care.
[2020-10-02 06:01] LABS: HEMOGLOBIN 8.9 g/dl (14.0-17.9); WHITE BLOOD COUNT 2.5 X10'3 (4.5-11.0)
[2020-10-02 06:03] LABS: HEMATOCRIT 27.2 % (42.0-52.0); MEAN CORPUSCULAR HEMOGLOBIN 28.1 PG (27.0-31.0); MEAN CORPUSCULAR HGB CONC 32.8 g/dL (33.0-36.5); MEAN CORPUSCULAR VOLUME 85.7 FL (78-98); MEAN PLATELET VOLUME 8.3 FL (7.4-10.4); PLATELET COUNT 105 X10'3 (140-440); RED BLOOD COUNT 3.18 X10'6 (4.70-6.10); RED CELL DISTRIBUTION WIDTH 25.2 % (11.5-14.5)
--- NOTE | 2020-10-02 06:08 | NUR ---
Problems reprioritized. Patient report given, questions answered & plan of care reviewed with KELLY Phillips.
[2020-10-02 06:33] LABS: ALANINE AMINOTRANSFERASE 120 U/L (12-78); ALBUMIN 1.8 G/DL (3.4-5.0); ALBUMIN/GLOBULIN RATIO 0.5 (1.1-1.5); ALKALINE PHOSPHATASE 249 IU/L (46-116); ANION GAP 4 (8-16); ASPARTATE AMINO TRANSFERASE 457 U/L (10-37); BILIRUBIN,TOTAL 0.3 MG/DL (0.1-1.0); BLOOD UREA NITROGEN 17 MG/DL (7-18); CALCIUM 7.9 MG/DL (8.5-10.1); CHLORIDE 105 MMOL/L (99-107); GLUCOSE 92 MG/DL (70-104); MAGNESIUM 1.3 MG/DL (1.5-2.4); PHOSPHORUS 1.3 MG/DL (2.3-4.5); POTASSIUM 5.6 MMOL/L (3.5-5.1); SODIUM 136 MMOL/L (135-145); TOTAL CARBON DIOXIDE 27.4 MMOL/L (24-32); TOTAL PROTEIN 5.6 G/DL (6.4-8.2); eGFR > 90 ML/MIN
--- NOTE | 2020-10-02 06:36 | NUR ---
[place] Medication Administration: For this medication-pass time frame, all medication were reviewed, dispensed, administered and documented per hospital policy by KELLY Chow.
--- NOTE | 2020-10-02 06:36 | NUR ---
[place] documentation: I have reviewed and agree with all interventions, assessments performed and documented by Claudine.
[2020-10-02 07:22] LABS: ANISOCYTOSIS 3+; PLATELET ESTIMATE DECREASED; TOTAL CELLS COUNTED 100
[2020-10-02] MEDS: K and/or MAG REPLACEMENT MC SCH (08:00)
[2020-10-02] MEDS: budesonide 0.5mg/2ml UD nebule IH SCH ×2 (08:12→21:58)
[2020-10-02] MEDS ORDERED: sodium polystyrene sulfonate 15gm/60ml oral suspension PO ONE (08:45)
[2020-10-02] MEDS: LOPERAMIDE 2 mg/15 ml oral solution UD PEG SCH ×3 (08:47→21:15)
[2020-10-02] MEDS: heparin, porcine 5000 units/ml vial SQ SCH ×2 (08:48→20:00)
[2020-10-02] MEDS: famotidine 20mg tablet PEG SCH (08:49)
[2020-10-02] MEDS: phenobarbital sod 130mg/ml inj. IV SCH ×2 (08:49→20:00)
[2020-10-02] MEDS: nystatin 500,000 unit/5ML UD oral suspension PO SCH ×3 (08:49→21:15)
[2020-10-02] MEDS: HYDROcodone/acetaminophen 10/325mg tab PO PRN (08:49)
[2020-10-02] MEDS: risperiDONE 0.5mg tablet PEG SCH (08:50)
[2020-10-02] MEDS: levoTHYROXINE 112mcg tablet PEG SCH (08:54)
[2020-10-02] MEDS ORDERED: magnesium 4gm in 100ml NS 100 ML IV PRN (09:30)
[2020-10-02] MEDS ORDERED: potassium Cl 40MEQ/1/2NS 520ml 520 ML IV PRN (09:30)
[2020-10-02] MEDS ORDERED: magnesium Cl slow-release 64mg tablet PO PRN (09:30)
[2020-10-02] MEDS ORDERED: potassium phosphate inj 30 MMOL in normal saline 500ml IV soln 500 ML IV ONE (09:30)
[2020-10-02] MEDS ORDERED: potassium Cl 20 mEq SR tablet PO PRN ×2 (09:30)
[2020-10-02 11:00] VITALS: BP 127/76
[2020-10-02 15:00] VITALS: BP 107/61
[2020-10-02] MEDS ORDERED: Neutra Phos packet PO PRN (16:30)
--- NOTE | 2020-10-02 18:17 | NUR ---
Problems reprioritized. Patient report given, questions answered & plan of care reviewed with Gini MENDOZA. Patient stable at transfer of care.
[2020-10-02 19:00] VITALS: BP 114/60
[2020-10-02] MEDS ORDERED: Neutra Phos packet PO SCH (21:00)
[2020-10-02] MEDS: doxazosin mesylate 2mg tablet PEG SCH (21:15)
[2020-10-02 23:00] VITALS: BP 129/35
[2020-10-03 03:00] VITALS: BP 106/32
--- NOTE | 2020-10-03 04:05 | NUR ---
MISCHARTED Addendum: 10/03/20 at 0406 by Gini Tran RN Amended: Links added.
[2020-10-03 06:00] VITALS: BP 121/55
--- NOTE | 2020-10-03 06:00 | NUR ---
Patient in room PCU 3015. I have received report from Gini MENDOZA and had the opportunity to ask questions and assume patient care.
[2020-10-03 06:12] LABS: HEMOGLOBIN 8.8 g/dl (14.0-17.9)
[2020-10-03 06:14] LABS: MEAN CORPUSCULAR HEMOGLOBIN 28.5 PG (27.0-31.0); MEAN CORPUSCULAR HGB CONC 32.5 g/dL (33.0-36.5); MEAN CORPUSCULAR VOLUME 87.6 FL (78-98); MEAN PLATELET VOLUME 8.2 FL (7.4-10.4); PLATELET COUNT 135 X10'3 (140-440); RED BLOOD COUNT 3.08 X10'6 (4.70-6.10); RED CELL DISTRIBUTION WIDTH 25.4 % (11.5-14.5); WHITE BLOOD COUNT 3.5 X10'3 (4.5-11.0)
[2020-10-03 06:21] LABS: ALANINE AMINOTRANSFERASE 129 U/L (12-78); ALBUMIN/GLOBULIN RATIO 0.5 (1.1-1.5); ALKALINE PHOSPHATASE 230 IU/L (46-116); ANION GAP 4 (8-16); ASPARTATE AMINO TRANSFERASE 387 U/L (10-37); BILIRUBIN,TOTAL 0.3 MG/DL (0.1-1.0); BLOOD UREA NITROGEN 19 MG/DL (7-18); BUN/CREATININE RATIO 42.2 (5.4-32.0); CALCIUM 7.7 MG/DL (8.5-10.1); CHLORIDE 102 MMOL/L (99-107); CREATININE 0.45 MG/DL (0.60-1.10); GLUCOSE 81 MG/DL (70-104); PHOSPHORUS 2.1 MG/DL (2.3-4.5); POTASSIUM 5.4 MMOL/L (3.5-5.1); SODIUM 133 MMOL/L (135-145); TOTAL CARBON DIOXIDE 27.4 MMOL/L (24-32); TOTAL PROTEIN 5.8 G/DL (6.4-8.2); eGFR > 90 ML/MIN
[2020-10-03 06:47] LABS: PLATELET ESTIMATE DECREASED; TOTAL CELLS COUNTED 100
[2020-10-03 06:48] LABS: ANISOCYTOSIS 3+; ELLIPTOCYTES FEW
--- NOTE | 2020-10-03 07:48 | NUR ---
PAGER ID: [phone] MESSAGE: [id number] Harpal Tuttle- Nicotine patch?? Nonstop requests to get outside to smoke. Evelyn [phone]
[2020-10-03] MEDS: TACROLIMUS 1 MG PEG SCH ×2 (08:00→22:08)
[2020-10-03] MEDS: budesonide 0.5mg/2ml UD nebule IH SCH ×2 (08:06→21:33)
[2020-10-03] MEDS: nicotine 14mg patch - 24hr TD SCH (08:50)
[2020-10-03] MEDS ORDERED: traMADol 50MG tablet PO PRN (10:20)
[2020-10-03] MEDS: heparin, porcine 5000 units/ml vial SQ SCH ×2 (10:25→21:19)
[2020-10-03] MEDS: famotidine 20mg tablet PEG SCH (10:26)
[2020-10-03] MEDS: levoTHYROXINE 112mcg tablet PEG SCH (10:26)
[2020-10-03] MEDS: phenobarbital sod 130mg/ml inj. IV SCH ×2 (10:26→21:19)
[2020-10-03] MEDS: nystatin 500,000 unit/5ML UD oral suspension PO SCH ×2 (10:27→12:50)
[2020-10-03] MEDS: LOPERAMIDE 2 mg/15 ml oral solution UD PEG SCH ×3 (10:27→21:19)
[2020-10-03] MEDS: risperiDONE 0.5mg tablet PEG SCH (10:28)
[2020-10-03] MEDS ORDERED: sodium polystyrene sulfonate 15gm/60ml oral suspension PO ONE ×2 (10:35→12:25)
--- NOTE | 2020-10-03 10:50 | NUR ---
Discussed pain issues with Pt and MD High earlier, orders received. New IV placed at 1114
[2020-10-03] MEDS: morphine 2 MG/ML inj. syringe IV PRN ×2 (10:58→16:57)
[2020-10-03 11:00] VITALS: BP 95/46
[2020-10-03 15:00] VITALS: BP 102/53
--- NOTE | 2020-10-03 15:00 | NUR ---
Large vol liquid stool escaped the rectal tube. deflated, repositioned and reinflated with 30ml saline. rectal tube draining now.
[2020-10-03] MEDS ORDERED: Neutra Phos packet PEG PRN (15:32)
[2020-10-03] MEDS ORDERED: traMADol 50MG tablet PEG PRN (15:32)
[2020-10-03] MEDS: gabapentin 100mg capsule PO SCH (15:50)
[2020-10-03 18:00] VITALS: BP 108/54
--- NOTE | 2020-10-03 18:40 | NUR ---
Patient in room PCU 3015. I have received report from Brad MENDOZA and had the opportunity to ask questions and assume patient care.
[2020-10-03] MEDS: insulin glargine (Lantus) pen - multi-dose SQ SCH (21:00)
[2020-10-03] MEDS: nystatin 500,000 unit/5ML UD oral suspension PEG SCH (21:19)
[2020-10-03] MEDS: doxazosin mesylate 2mg tablet PEG SCH (21:20)
[2020-10-03] MEDS: dextrose 50%-water 50ml dispensing syringe IV PRN (21:34)
[2020-10-03 22:00] VITALS: BP 92/46
[2020-10-04] MEDS: morphine 2 MG/ML inj. syringe IV PRN ×2 (01:24→09:07)
[2020-10-04] MEDS: gabapentin 100mg capsule PO SCH ×2 (01:24→08:42)
[2020-10-04 02:00] VITALS: BP 115/46
[2020-10-04 06:00] VITALS: BP 110/69
--- NOTE | 2020-10-04 06:09 | NUR ---
Problems reprioritized. Patient report given, questions answered & plan of care reviewed with Brad MENDOZA.
[2020-10-04 07:24] LABS: HEMOGLOBIN 8.8 g/dl (14.0-17.9); WHITE BLOOD COUNT 2.5 X10'3 (4.5-11.0)
[2020-10-04 07:26] LABS: HEMATOCRIT 27.7 % (42.0-52.0); MEAN CORPUSCULAR HEMOGLOBIN 28.1 PG (27.0-31.0); MEAN CORPUSCULAR HGB CONC 31.8 g/dL (33.0-36.5); MEAN CORPUSCULAR VOLUME 88.4 FL (78-98); MEAN PLATELET VOLUME 8.8 FL (7.4-10.4); PLATELET COUNT 116 X10'3 (140-440); RED BLOOD COUNT 3.13 X10'6 (4.70-6.10); RED CELL DISTRIBUTION WIDTH 25.9 % (11.5-14.5)
[2020-10-04 07:45] LABS: ALANINE AMINOTRANSFERASE 113 U/L (12-78); ALBUMIN 1.9 G/DL (3.4-5.0); ALBUMIN/GLOBULIN RATIO 0.5 (1.1-1.5); ALKALINE PHOSPHATASE 200 IU/L (46-116); ANION GAP 5 (8-16); ASPARTATE AMINO TRANSFERASE 296 U/L (10-37); BILIRUBIN,TOTAL 0.3 MG/DL (0.1-1.0); BLOOD UREA NITROGEN 20 MG/DL (7-18); CALCIUM 7.9 MG/DL (8.5-10.1); CHLORIDE 106 MMOL/L (99-107); GLUCOSE 69 MG/DL (70-104); MAGNESIUM 1.8 MG/DL (1.5-2.4); PHOSPHORUS 2.9 MG/DL (2.3-4.5); POTASSIUM 4.9 MMOL/L (3.5-5.1); SODIUM 138 MMOL/L (135-145); TOTAL CARBON DIOXIDE 27.2 MMOL/L (24-32); TOTAL PROTEIN 5.8 G/DL (6.4-8.2); eGFR > 90 ML/MIN
[2020-10-04 08:10] LABS: ANISOCYTOSIS 3+; PLATELET ESTIMATE DECREASED; TOTAL CELLS COUNTED 100
[2020-10-04] MEDS: budesonide 0.5mg/2ml UD nebule IH SCH (08:34)
[2020-10-04] MEDS: nystatin 500,000 unit/5ML UD oral suspension PEG SCH (08:42)
[2020-10-04] MEDS: risperiDONE 0.5mg tablet PEG SCH (08:43)
[2020-10-04] MEDS: heparin, porcine 5000 units/ml vial SQ SCH (08:44)
[2020-10-04] MEDS: famotidine 20mg tablet PEG SCH (08:44)
[2020-10-04] MEDS: phenobarbital sod 130mg/ml inj. IV SCH (08:45)
[2020-10-04] MEDS: nicotine 14mg patch - 24hr TD SCH (08:46)
[2020-10-04] MEDS: LOPERAMIDE 2 mg/15 ml oral solution UD PEG SCH (08:47)
[2020-10-04] MEDS: levoTHYROXINE 112mcg tablet PEG SCH (08:54)
[2020-10-04] MEDS: TACROLIMUS 1 MG PEG SCH ×2 (09:34→11:04)
[2020-10-04 11:00] VITALS: BP 97/56
--- NOTE | 2020-10-04 11:39 | NUR ---
Transport has pt loaded on gurney and rolling out. CAlled report to Jeff MENDOZA at [facility] at this time. Pt rectal tube was removed, brief applied, output decreased this am. Condom cath in place. IV removed, cath intact and stable. New optifoam to coccyx. Pt a/ox4 on dc, 2L nc for transport , deny SOB. Pt requested NIcotine patch be removed " now so I can smoke when i get back to [place]".
== END 2020-10-04 11:39 | DRG 871 ==
LOC: ER 19:39 → ED HOLD 21:10 → ICU 2S 09-16 12:24 → PCU 3S 09-22 16:51 → ICU 2S 09-28 09:41 → PCU 3S 09-28 13:43
PROVIDERS: ADMIT Internal Medicine; ATTEND Internal Medicine
PROC: 02HV33Z Insertion of Infusion Device into Superior Vena Cava, Percutaneous Approach (ICD-10-PCS; 2020-09-15)
PROC: B548ZZA Ultrasonography of Superior Vena Cava, Guidance (ICD-10-PCS; 2020-09-15)
PROC: 06HY33Z Insertion of Infusion Device into Lower Vein, Percutaneous Approach (ICD-10-PCS; 2020-09-15)
PROC: 5A0935A Assistance with Respiratory Ventilation, Less than 24 Consecutive Hours, High Flow/Velocity Cannula (ICD-10-PCS; principal; 2020-09-16)
PROC: 5A0935A Assistance with Respiratory Ventilation, Less than 24 Consecutive Hours, High Flow/Velocity Cannula (ICD-10-PCS; 2020-09-17)
PROC: CB121ZZ Planar Nuclear Medicine Imaging of Lungs and Bronchi using Technetium 99m (Tc-99m) (ICD-10-PCS; 2020-09-17)
PROC: 5A0955A Assistance with Respiratory Ventilation, Greater than 96 Consecutive Hours, High Flow/Velocity Cannula (ICD-10-PCS; 2020-09-18)
PROC: 30233N1 Transfusion of Nonautologous Red Blood Cells into Peripheral Vein, Percutaneous Approach (ICD-10-PCS; 2020-09-19)
PROC: BW251ZZ Computerized Tomography (CT Scan) of Chest, Abdomen and Pelvis using Low Osmolar Contrast (ICD-10-PCS; 2020-09-19)
PROC: 02HV33Z Insertion of Infusion Device into Superior Vena Cava, Percutaneous Approach (ICD-10-PCS; 2020-09-26)
PROC: B548ZZA Ultrasonography of Superior Vena Cava, Guidance (ICD-10-PCS; 2020-09-26)
PROC: 0DH68UZ Insertion of Feeding Device into Stomach, Via Natural or Artificial Opening Endoscopic (ICD-10-PCS; 2020-09-28)
DX: A41.9 Sepsis, unspecified organism (principal); L89.323 Pressure ulcer of left buttock, stage 3; R65.21 Severe sepsis with septic shock; J96.00 Acute respiratory failure, unspecified whether with hypoxia or hypercapnia; J69.0 Pneumonitis due to inhalation of food and vomit; Z94.0 Kidney transplant status; D84.9 Immunodeficiency, unspecified; I50.30 Unspecified diastolic (congestive) heart failure; Z68.1 Body mass index [BMI] 19.9 or less, adult; Z94.83 Pancreas transplant status; E46 Unspecified protein-calorie malnutrition; D64.9 Anemia, unspecified; E03.9 Hypothyroidism, unspecified; E11.42 Type 2 diabetes mellitus with diabetic polyneuropathy; E11.51 Type 2 diabetes mellitus with diabetic peripheral angiopathy without gangrene; E78.00 Pure hypercholesterolemia, unspecified; E78.5 Hyperlipidemia, unspecified; G40.909 Epilepsy, unspecified, not intractable, without status epilepticus; B19.20 Unspecified viral hepatitis C without hepatic coma; F11.90 Opioid use, unspecified, uncomplicated; F15.90 Other stimulant use, unspecified, uncomplicated; G89.29 Other chronic pain; R74.01 Elevation of levels of liver transaminase levels; K21.9 Gastro-esophageal reflux disease without esophagitis; J44.9 Chronic obstructive pulmonary disease, unspecified; L97.523 Non-pressure chronic ulcer of other part of left foot with necrosis of muscle; I11.0 Hypertensive heart disease with heart failure; M54.9 Dorsalgia, unspecified; R62.7 Adult failure to thrive; I25.10 Atherosclerotic heart disease of native coronary artery without angina pectoris; I48.91 Unspecified atrial fibrillation; L89.159 Pressure ulcer of sacral region, unspecified stage; M81.0 Age-related osteoporosis without current pathological fracture; R13.10 Dysphagia, unspecified; Z20.822 Contact with and (suspected) exposure to COVID-19; Z85.850 Personal history of malignant neoplasm of thyroid; Z89.511 Acquired absence of right leg below knee; Z89.512 Acquired absence of left leg below knee; Z87.891 Personal history of nicotine dependence; Z79.899 Other long term (current) drug therapy; E87.5 Hyperkalemia
CPT/HCPCS: 36415; 36430; 36573; 43246; 70450; 71045; 71260; 74018; 74177; 76937; 78582; 80048; 80053; 80197; 80202; 80305; 81001; 82272; 82378; 82542; 82810; 82948; 83540; 83550; 83605; 83690; 83735; 83880; 84100; 84134; 84145; 84439; 84443; 84478; 84480; 84484; 84560; 85007; 85008; 85025; 85027; 85610; 86885; 86900; 86901; 86920; 87040; 87070; 87081; 87324; 87449; 87635; 92508; 92616; 93005; 93306; 93970; 94640; 94760; 94799; 96365; 96368; 97110; 97112; 97161; 97530; 97535; 99285; A9539; A9540; B4087; C9803; G0378; J1170; J1644; J1756; J1815; J1940; J1956; J2185; J2250; J2270; J2543; J2560; J3010; J3370; J3475; J3490; J7030; J7040; J7050; J7517; J7626; P9016; Q9963; Q9967